=== PATIENT | female | born 1955 | race Caucasian/White ===

== ENCOUNTER 2017-11-18 10:19 | Observation (INO) | payer OTHER ==
[2017-11-18] MEDS ORDERED: ACETAMINOPHEN TAB 325 MG TAB PO PRN (13:07)
[2017-11-18] MEDS ORDERED: NALOXONE 0.4 MG/ML 1 ML VIAL IV PRN (13:07)
[2017-11-18] MEDS ORDERED: ONDANSETRON 4 MG/2 ML VIAL IVP PRN (13:07)
[2017-11-18 13:13] LABS: Basophils % (A) 1 %; Eosinophils # (A) 0.1 k/uL (0-0.7); Eosinophils % (A) 2 %; HCT 37.5 % (34.0-46.0); HGB 12.5 gm/dL (11.4-16.0); Lymphocytes # (A) 1.6 k/uL (1.0-4.8); Lymphocytes % (A) 25 %; MCH 27.2 pg (25.0-35.0); MCHC 33.3 g/dL (31.0-37.0); MCV 81.4 fL (80.0-100.0); Mean Platelet Volume 7.3; Monocytes # (A) 0.5 k/uL (0-1.0); Monocytes % (A) 7 %; Neutrophils # (A) 4.2 k/uL (1.3-7.7); Neutrophils % (A) 64 %; Platelet Count 369 k/uL (150-450); RBC 4.61 m/uL (3.80-5.40); RDW 14.5 % (11.5-15.5); WBC 6.6 k/uL (3.8-10.6)
[2017-11-18] MEDS ORDERED: SODIUM CHLORIDE 0.9% 1,000 ML IV SCH (13:15)
[2017-11-18 13:24] LABS: ALT 27 U/L (9-52); AST 23 U/L (14-36); Albumin 4.2 g/dL (3.5-5.0); Alkaline Phosphatase 108 U/L (38-126); Anion Gap 10 mmol/L; Blood Urea Nitrogen 13 mg/dL (7-17); Calcium 9.5 mg/dL (8.4-10.2); Carbon Dioxide 26 mmol/L (22-30); Chloride 105 mmol/L (98-107); Glucose 96 mg/dL (74-99); Potassium 3.7 mmol/L (3.5-5.1); Sodium 141 mmol/L (137-145); Total Bilirubin 0.5 mg/dL (0.2-1.3); Total Protein 8.3 g/dL (6.3-8.2)
--- NOTE | 2017-11-18 15:29 | P.HPIM ---
History of Present Illness Chief Complaint: Left breast swelling and pain This is a 62-year-old female without any significant past medical history and no regular medical follow-ups who presented to emergency department with complaint of left breast pain and swelling. Patient stated that swelling started about a month ago, with small indurated mass on the skin in the left lower quadrant and then the mass started increasing and the whole breast was increasing and becoming more swollen and red and tender and painful. Soon small fungating-like masses started popping out all over the breast skin and started ulcerating and draining serosanguineous fluid. She denies any purulence. Otherwise patient denied any malaise, fever, chills, loss of appetite or weight loss. Patient did not take any medications or did not go for any examinations for this as she does not have any insurance and no PCP. Her last mammogram was "long time ago", she thinks more than at least 5 years ago. Any years ago she was seeing a local breast surgeon and she stated that she has some cysts that were occasionally drain by the surgeon but she is not aware of any pathology results of this. She denies any family history of malignancy or breast cancer. Review of Systems Constitutional: Denies anorexia, Denies chills, Denies fatigue, Denies fever, Denies lethargy, Denies malaise, Denies night sweats, Denies poor appetite, Denies weight loss Breasts: left: as per HPI Cardiovascular: Denies chest pain, Denies claudication, Denies decreased exercise tolerance, Denies dyspnea on exertion Respiratory: Denies cough, Denies dyspnea, Denies hemoptysis, Denies wheezing Gastrointestinal: Denies abdominal pain, Denies change in bowel habits, Denies nausea Genitourinary: Denies abnormal vaginal bleeding Musculoskeletal: Denies arm numbness/tingling, Denies low back pain, Denies neck pain Integumentary: Denies pruritus, Denies rash, Denies sores Neurological: Denies balance difficulties, Denies double vision, Denies headaches Psychiatric: Denies anxiety, Denies depression Endocrine: Denies cold intolerance, Denies heat intolerance Past Medical History Additional Past Medical History / Comment(s): cysts within breast History of Any Multi-Drug Resistant Organisms: None Reported Past Surgical History: Orthopedic Surgery Additional Past Surgical History / Comment(s): biopsy on LT breast Past Psychological History: No Psychological Hx Reported Smoking Status: Current every day smoker Past Alcohol Use History: None Reported Past Drug Use History: None Reported Medications and Allergies Home Medications Medication Instructions Recorded Confirmed Type Ibuprofen [Motrin Ib] 400 mg PO Q6H PRN 11/18/17 11/18/17 History Omeprazole 20 mg PO DAILY 11/18/17 11/18/17 History Allergies Allergy/AdvReac Type Severity Reaction Status Date / Time aspirin Allergy Anaphylaxis Verified 11/18/17 15:07 Physical Exam Vitals: Vital Signs Temp Pulse Resp BP Pulse Ox 11/18/17 14:56 97.6 F 97 18 155/77 98 11/18/17 14:01 98 18 154/75 99 11/18/17 10:30 98.3 F 99 18 165/89 99 Intake and Output 11/18/17 11/18/17 11/18/17 06:59 14:59 22:59 Other: Weight 68.039 kg 67.132 kg Gen.: Patient is awake alert oriented 3 in any apparent distress Head and neck examination: Atraumatic normocephalic anicteric sclera no facial asymmetry oropharyngeal mucosa is moist without any lesions, neck is supple without any masses or lymphadenopathy, supraclavicular fossae are without any masses Respiratory: Clear to auscultation bilaterally without any wheezing or crackles Cardiovascular: Regular rhythm and rate S1-S2 no murmurs or gallops Abdomen: Soft nontender nondistended no organomegaly no flank tenderness bowel sounds are present Extremities: No peripheral edema Breast exam(this exam was performed with ED nurse Abi present in the room as a advertising material distributor): Left breast is enlarged swollen firm consistency without any discrete masses and periphery in the left upper and lower and the right lower quadrant skin is with multiple fungating masses size of about half to 1 cm in diameter some of them ulcerated with ulcers with clean base and without any oozing or drainage. Skin around this mass is appears erythematosus. No nipple discharge Lymphatics: No lymphadenopathy appreciated on the exam including axillas bilaterally Neurological: Cranial nerves II through XII are intact Results CBC & Chem 7: 11/18/17 12:50 11/18/17 12:50 Labs: Abnormal Lab Results - Last 24 Hours (Table) 11/18/17 Range/Units 12:50 Total Protein 8.3 H (6.3-8.2) g/dL Thrombosis Risk Factor Assmnt - DVT/VTE Prophylaxis DVT/VTE Prophylaxis: Low risk, early ambulation encouraged Assessment and Plan Plan: 1. Left breast swelling pain and multiple ulcerative masses Rule out malignancy Local wound care Gen. surgery consult Oncology consulted Possible secondary cellulitis due to local wounds versus inflammatory breast malignancy Patient is nontoxic-appearing and nonseptic Will give a trial of Keflex along with the local wound care 2. Smoking addiction We'll provide nicotine patch and advice to smoking avoidance 3. Patient is without insurance and regular follow-ups we will consult social work lecturer and case management to provide assistance with this Patient will be admitted under observation Expected length of stay 2 or less midnights Patient is a full code Her surrogate decision maker is her daughter who was present in the room during this interview and examination
--- NOTE | 2017-11-18 16:31 | ED ---
General Adult HPI - General Chief complaint: Skin/Abscess/Foreign Body Stated complaint: Lt breast has sores Time Seen by Provider: 11/18/17 10:50 Source: patient, family Mode of arrival: ambulatory Limitations: no limitations - History of Present Illness Initial comments: 60-year-old female who presents today for chief complaint of left breast swelling and pain 1 month. Patient states a month ago she noticed she lives in her left breast however she thought that these were due to markers that in her breasts for fibrocystic changes. Patient then started to notice over the course of the month fungating like masses developing from the nipple and outward. Patient admitted to the breasts painful to touch and feeling hardened which worsened as the month progressed, as well as discharge from the fungating lesions that she describes as clear not purulent. Patient denies any fever, chills, malaise, weight loss, back pain, or any other symptoms. Pt has not seen her primary care provider since 2013 when she no longer had insurance. Pt states her last mammogram was over 15 years ago. Pt denies personal or family history of breast cancer. Upon arrival vital signs stable. - Related Data Home Medications Medication Instructions Recorded Confirmed Ibuprofen [Motrin Ib] 400 mg PO Q6H PRN 11/18/17 11/18/17 Omeprazole 20 mg PO DAILY 11/18/17 11/18/17 Allergies Allergy/AdvReac Type Severity Reaction Status Date / Time aspirin Allergy Anaphylaxis Verified 11/18/17 15:07 Review of Systems ROS Statement: Those systems with pertinent positive or pertinent negative responses have been documented in the HPI. ROS Other: All systems not noted in ROS Statement are negative. Constitutional: Denies: fever, chills, weakness, weight change, night sweats Eyes: Denies: vision change ENT: Denies: throat pain Respiratory: Denies: cough, dyspnea, wheezes, hemoptysis, stridor Cardiovascular: Denies: chest pain, palpitations, dyspnea on exertion, edema Gastrointestinal: Denies: abdominal pain, nausea, vomiting, diarrhea, constipation, hematemesis, melena, hematochezia Genitourinary: Denies: urgency, dysuria, frequency, hematuria Musculoskeletal: Denies: back pain Skin: Denies: rash, lesions Neurological: Denies: headache, weakness, numbness, paresthesias, confusion, abnormal gait, vertigo Past Medical History Past Medical History: GERD/Reflux Additional Past Medical History / Comment(s): cysts within breast History of Any Multi-Drug Resistant Organisms: None Reported Past Surgical History: Orthopedic Surgery Additional Past Surgical History / Comment(s): biopsy on LT breast Past Anesthesia/Blood Transfusion Reactions: No Reported Reaction Past Psychological History: No Psychological Hx Reported Smoking Status: Current every day smoker Past Alcohol Use History: None Reported Past Drug Use History: None Reported General Exam - General Exam Comments Initial Comments: General: The patient is awake and alert, in no distress, and does not appear acutely ill. Eye: Pupils are equal, round and reactive to light, extra-ocular movements are intact. No nystagmus. There is normal conjunctiva bilaterally. No signs of icterus. Ears, nose, mouth and throat: There are moist mucous membranes and no oral lesions. Neck: The neck is supple, there is no tenderness or JVD. Cardiovascular: There is a regular rate and rhythm. No murmur, rub or gallop is appreciated. Respiratory: Lungs are clear to auscultation, respirations are non-labored, breath sounds are equal. No wheezes, stridor, rales, or rhonchi. Gastrointestinal: Soft, non-distended, non-tender abdomen without masses or organomegaly noted. There is no rebound or guarding present. No CVA tenderness. Bowel sounds are unremarkable. Musculoskeletal: Normal ROM, no tenderness. Strength 5/5. Sensation intact. Pulses equal bilaterally 2+. Neurological: A&O x 3. CN II-XII intact, There are no obvious motor or sensory deficits. Coordination appears grossly intact. Speech is normal. Skin: Skin is warm and dry. Left breast is diffusely indurated, warm to to touch and erythematous. There are fungating masses covering the nipple and anterior breast. Serosanginous crusting over the lesions. Psychiatric: Cooperative, appropriate mood & affect, normal judgment. Limitations: no limitations Course Vital Signs 11/18/17 11/18/17 11/18/17 10:30 14:01 14:56 Temperature 98.3 F 97.6 F Pulse Rate 99 98 97 Respiratory 18 18 18 Rate Blood Pressure 165/89 154/75 155/77 O2 Sat by Pulse 99 99 98 Oximetry Medical Decision Making - Medical Decision Making 62yo with CC of left breast pain and swelling. Given physical examination findings there is high suspicion for breast cancer. Case discussed in detail with Dr. Woodruff who evaluated the pt himself, agrees with impression. Due to extent of symptoms and patient having no insurance or primary provider we feel pt will benefit from admission and further evaluation including oncology consult. CBC, CMP returned WNL. VS stable. Due to pt having no PCP, [facility] was contacted for admission, Dr. Knox accepted the admission. Dr. Clark was consulted on the case. Pt admitted in stable condition. - Lab Data Result diagrams: 11/18/17 12:50 11/18/17 12:50 Lab Results 11/18/17 11/18/17 Range/Units 12:50 12:50 WBC 6.6 (3.8-10.6) k/uL RBC 4.61 (3.80-5.40) m/uL Hgb 12.5 (11.4-16.0) gm/dL Hct 37.5 (34.0-46.0) % MCV 81.4 (80.0-100.0) fL MCH 27.2 (25.0-35.0) pg MCHC 33.3 (31.0-37.0) g/dL RDW 14.5 (11.5-15.5) % Plt Count 369 (150-450) k/uL Neutrophils % 64 % Lymphocytes % 25 % Monocytes % 7 % Eosinophils % 2 % Basophils % 1 % Neutrophils # 4.2 (1.3-7.7) k/uL Lymphocytes # 1.6 (1.0-4.8) k/uL Monocytes # 0.5 (0-1.0) k/uL Eosinophils # 0.1 (0-0.7) k/uL Basophils # 0.0 (0-0.2) k/uL Sodium 141 (137-145) mmol/L Potassium 3.7 (3.5-5.1) mmol/L Chloride 105 (98-107) mmol/L Carbon Dioxide 26 (22-30) mmol/L Anion Gap 10 mmol/L BUN 13 (7-17) mg/dL Creatinine 0.60 (0.52-1.04) mg/dL Est GFR (CKD-EPI)AfAm >90 (>60 ml/min/1.73 sqM) Est GFR (CKD-EPI)NonAf >90 (>60 ml/min/1.73 sqM) Glucose 96 (74-99) mg/dL Calcium 9.5 (8.4-10.2) mg/dL Total Bilirubin 0.5 (0.2-1.3) mg/dL AST 23 (14-36) U/L ALT 27 (9-52) U/L Alkaline Phosphatase 108 (38-126) U/L Total Protein 8.3 H (6.3-8.2) g/dL Albumin 4.2 (3.5-5.0) g/dL Disposition Clinical Impression: Left breast mass Disposition: ADMITTED IP TO THIS HOSP Condition: Good Is patient prescribed a controlled substance at d/c from ED?: No Time of Disposition: 13:30
[2017-11-18] MEDS: NICOTINE 14MG/24HR PATCH TRANSDERM SCH (18:16)
[2017-11-18] MEDS ORDERED: traMADol 50 MG TAB PO STA (18:19)
[2017-11-18] MEDS: CEPHALEXIN 500 MG CAP PO SCH ×2 (18:22→21:38)
[2017-11-19] MEDS: traMADol 50 MG TAB PO PRN ×3 (00:36→13:54)
[2017-11-19 06:57] LABS: Basophils # (A) 0.1 k/uL (0-0.2); Basophils % (A) 1 %; Eosinophils # (A) 0.2 k/uL (0-0.7); Eosinophils % (A) 4 %; HGB 11.3 gm/dL (11.4-16.0); Lymphocytes # (A) 1.6 k/uL (1.0-4.8); Lymphocytes % (A) 27 %; MCH 27.1 pg (25.0-35.0); MCHC 33.4 g/dL (31.0-37.0); MCV 81.3 fL (80.0-100.0); Mean Platelet Volume 7.7; Monocytes # (A) 0.5 k/uL (0-1.0); Monocytes % (A) 8 %; Neutrophils # (A) 3.6 k/uL (1.3-7.7); Neutrophils % (A) 59 %; Platelet Count 354 k/uL (150-450); RBC 4.18 m/uL (3.80-5.40); RDW 14.5 % (11.5-15.5); WBC 6.2 k/uL (3.8-10.6)
[2017-11-19 07:17] LABS: ALT 23 U/L (9-52); AST 20 U/L (14-36); Albumin 3.5 g/dL (3.5-5.0); Alkaline Phosphatase 85 U/L (38-126); Anion Gap 7 mmol/L; Blood Urea Nitrogen 13 mg/dL (7-17); Calcium 8.7 mg/dL (8.4-10.2); Carbon Dioxide 29 mmol/L (22-30); Chloride 105 mmol/L (98-107); Glucose 98 mg/dL (74-99); Sodium 141 mmol/L (137-145); Total Bilirubin 0.5 mg/dL (0.2-1.3); Total Protein 6.9 g/dL (6.3-8.2)
--- NOTE | 2017-11-19 09:01 | P.GSHP ---
History of Present Illness H&P Date: 11/19/17 The patient is a 62-year-old white female who presented to the emergency department with complaint of left breast swelling and fullness. She states that she believes this has occurred within the last month. She does have pain in the breast and skin disruption with pustule-like formation. She is not able to identify the nipple on the left side the patient states that she has not had a mammogram or radiographic evaluation for over 10 years of the breasts. Past surgical history: 1. Breast biopsy 2. Surgery on her legs 3. Laparoscopic examination for adhesions Past medical history: Negative Medications: Omeprazole Hormonal history: Menarche daily: 13 Pregnancies 2, 2 children, did not breast-feed, first born at 18 Menopause: 45 control pills: 2 years Hormone use negative Social history: Smoking: Half a pack per day Alcohol: Negative Drugs: Negative Family history: Dad brain cancer Mother uterine cancer Review of systems: HEENT: Negative Lungs: Negative Heart: Negative GI: GERD : Negative Arthritis: Bilateral knee surgery ALLERGIES: Negative Skin: As above Neurologic evaluation: Negative - Constitutional Constitutional: Reports as per HPI - EENT Eyes: bilateral as per HPI - Breasts Breasts: bilateral: as per HPI - Cardiovascular Cardiovascular: Reports as per HPI - Respiratory Respiratory: Reports as per HPI - Gastrointestinal Comment: GERD - Genitourinary (Female) Genitourinary: Reports as per HPI - Musculoskeletal Musculoskeletal: Reports as per HPI - Integumentary Integumentary: Reports as per HPI - Neurological Neurological: Reports as per HPI - Hematologic/Lymphatic Hematologic/Lymphatic: Reports as per HPI - Allergic/Immunologic Allergic/Immunologic: Reports seasonal allergies Past Medical History Past Medical History: GERD/Reflux Additional Past Medical History / Comment(s): cysts within breast History of Any Multi-Drug Resistant Organisms: None Reported Past Surgical History: Orthopedic Surgery Additional Past Surgical History / Comment(s): biopsy on LT breast Past Anesthesia/Blood Transfusion Reactions: No Reported Reaction Past Psychological History: No Psychological Hx Reported Smoking Status: Current every day smoker Past Alcohol Use History: None Reported Past Drug Use History: None Reported - Past Family History Mother Family Medical History: Cancer Additional Family Medical History / Comment(s): unterine cancer, quad cabg Father Family Medical History: Cancer Additional Family Medical History / Comment(s): brain cancer with mets Medications and Allergies Home Medications Medication Instructions Recorded Confirmed Type Ibuprofen [Motrin Ib] 400 mg PO Q6H PRN 11/18/17 11/18/17 History Omeprazole 20 mg PO DAILY 11/18/17 11/18/17 History Allergies Allergy/AdvReac Type Severity Reaction Status Date / Time aspirin Allergy Anaphylaxis Verified 11/18/17 15:07 Surgical - Exam Vital Signs Temp Pulse Resp BP Pulse Ox 98.3 F 99 18 165/89 99 11/18/17 10:30 11/18/17 10:30 11/18/17 10:30 11/18/17 10:30 11/18/17 10:30 - General well developed, well nourished, moderate distress - Eyes PERRL - ENT no hearing loss, no congestion - Neck no masses, trachea midline - Respiratory normal respiratory effort, clear to auscultation - Cardiovascular Rhythm: regular Heart Sounds: normal: S1, S2 - Abdomen Abdomen: soft, non tender - Integumentary Breast examination: Right breast: Multiple positional exam dense fibrocystic tissue no discrete masses Right axilla: No adenopathy of concern Left breast: Very firm hard mass occupying the majority of the upper outer quadrant of the breast and extending beyond into the medial aspect of the breast as well as proximally 9 x 9 cm in size the area of the nipple has been eroded and there is a pustule formation on the anterior surface of the breast Left axilla: No specific adenopathy of concern - Neurologic normal coordination - Musculoskeletal normal posture - Psychiatric oriented to time, oriented to person, oriented to place, speech is normal, memory intact Results - Labs 11/19/17 06:31 11/19/17 06:31 Abnormal Lab Results - Last 24 Hours (Table) 11/18/17 11/19/17 Range/Units 12:50 06:31 Hgb 11.3 L (11.4-16.0) gm/dL Total Protein 8.3 H (6.3-8.2) g/dL Diabetes panel 11/18/17 11/19/17 Range/Units 12:50 06:31 Sodium 141 141 (137-145) mmol/L Potassium 3.7 4.0 (3.5-5.1) mmol/L Chloride 105 105 (98-107) mmol/L Carbon Dioxide 26 29 (22-30) mmol/L BUN 13 13 (7-17) mg/dL Creatinine 0.60 0.73 (0.52-1.04) mg/dL Glucose 96 98 (74-99) mg/dL Calcium 9.5 8.7 (8.4-10.2) mg/dL AST 23 20 (14-36) U/L ALT 27 23 (9-52) U/L Alkaline Phosphatase 108 85 (38-126) U/L Total Protein 8.3 H 6.9 (6.3-8.2) g/dL Albumin 4.2 3.5 (3.5-5.0) g/dL Calcium panel 11/18/17 11/19/17 Range/Units 12:50 06:31 Calcium 9.5 8.7 (8.4-10.2) mg/dL Albumin 4.2 3.5 (3.5-5.0) g/dL Pituitary panel 11/18/17 11/19/17 Range/Units 12:50 06:31 Sodium 141 141 (137-145) mmol/L Potassium 3.7 4.0 (3.5-5.1) mmol/L Chloride 105 105 (98-107) mmol/L Carbon Dioxide 26 29 (22-30) mmol/L BUN 13 13 (7-17) mg/dL Creatinine 0.60 0.73 (0.52-1.04) mg/dL Glucose 96 98 (74-99) mg/dL Calcium 9.5 8.7 (8.4-10.2) mg/dL Adrenal panel 18 11/19/17 Range/Units 12:50 06:31 Sodium 141 141 (137-145) mmol/L Potassium 3.7 4.0 (3.5-5.1) mmol/L Chloride 105 105 (98-107) mmol/L Carbon Dioxide 26 29 (22-30) mmol/L BUN 13 13 (7-17) mg/dL Creatinine 0.60 0.73 (0.52-1.04) mg/dL Glucose 96 98 (74-99) mg/dL Calcium 9.5 8.7 (8.4-10.2) mg/dL Total Bilirubin 0.5 0.5 (0.2-1.3) mg/dL AST 23 20 (14-36) U/L ALT 27 23 (9-52) U/L Alkaline Phosphatase 108 85 (38-126) U/L Total Protein 8.3 H 6.9 (6.3-8.2) g/dL Albumin 4.2 3.5 (3.5-5.0) g/dL Assessment and Plan Assessment: Impression 1. Large fungating mass left breast/highly suspicious for malignancy 2. Prior knee surgery 3. GERD Plan: 1. Consult interventional radiology for core biopsy left breast 2. Follow-up after results of core biopsy 3. Right breast mammogram 4. Patient may be discharged home after biopsy to have mammogram and follow-up with Dr. Parra in 1 week
[2017-11-19] MEDS: CEPHALEXIN 500 MG CAP PO SCH ×2 (09:27→13:54)
[2017-11-19] MEDS: NICOTINE 14MG/24HR PATCH TRANSDERM SCH (09:28)
--- NOTE | 2017-11-19 11:53 | P.PCN ---
Date of Procedure: 11/19/17 Preoperative Diagnosis: mass left breast Postoperative Diagnosis: same Procedure(s) Performed: core biopsy left breast Anesthesia: local Surgeon: Nancy Wynn Estimated Blood Loss (ml): 2 Pathology: other (breast tissue) Condition: stable Disposition: floor Indications for Procedure: large mass left breast suspicious for malignancy Operative Findings: large mass left breast suspicious for malignancy Description of Procedure: Fllowing informed consent it was determined that the patient would undergo a core biopsy of a palpable lesion in the left breast. risk and benefits of the procedure including bleeding infection or possible insufficient specimen to make a diagnosis were discussed with the patient and her . The patient' s ultrasound was reviewed with radiology and the large palpable abnormality corresponded with that which was seen on ultrasound. after discussion with radiology it was determined that it would be reasonable to do a core biopsy without ultrasound guidance. The area of the left breast was prepped using Betadine. A 18-gauge Bard core biopsy needle was utilized. Prior to this the skin was anesthetized using 1% lidocaine. Approximately 3mL of lidocaine were utilized. An 18-gauge Bard needle core biopsy needle was utilized to obtain 3 core biopsies. The tissue was placed in formalin. The specimen was sent to pathology. The patient tolerated the procedure in stable condition with no evidence of hematoma or immediate postoperative complications. A sterile dressing was applied.
[2017-11-19] MEDS: IOPAMIDOL-300 CONTRAST 30 ML VIAL (ORAL USE) PO PRN ×2 (13:04→13:54)
--- NOTE | 2017-11-19 15:40 | CT ---
EXAMINATION TYPE: CT ChestAbdPelvis w con DATE OF EXAM: 11/19/2017 COMPARISON: Limited left breast ultrasound earlier today. HISTORY: Left breast mass. CT DLP: 1388 mGycm. Automated Exposure Control for Dose Reduction was Utilized. CONTRAST: CT scan of the thorax, abdomen and pelvis is performed with IV Contrast, patient injected with 100 mL of Isovue M300. FINDINGS: LUNGS: Moderate underlying emphysematous change is present. There are suspicious nodules present bila terally there is lateral 8 x 7 mm nodule right upper lobe axial image 17. There is posterior 1.8 x 1. 5 cm nodule right lower lobe midlung axial image 34. There is posterior 7 mm left lower lobe nodule a xial image 37. There is 8mm lateral nodule superior left lower lobe axial image 31. No pleural effusi on or pneumothorax is seen bilaterally tracheobronchial tree is patent. MEDIASTINUM: There are no greater than 1 cm hilar or mediastinal lymph nodes. No cardiomegaly or pe ricardial effusion is seen. OTHER: There is large heterogeneous lobulated left breast mass measuring roughly 12.5 x 5.4 cm axial image 25 by overlying centimeters craniocaudal length coronal image 29. Foci of air are consistent wi th recent percutaneous biopsy or sampling. There is additional medial lobulation or mass with extensi on or tumor involvement to the skin surface as there is lobulated thickened neoplastic tissue identif ied. There is asymmetric enlargement of left breast with moderate ill-defined fluid and edema and lik jesus small satellite nodules for reference axial image 29. There are multiple abnormal left axillary l ymph nodes. For reference there is 2.6 x 2.3 cm lymph node axial image 19 noted. LIVER/GB: No significant abnormality is appreciated. PANCREAS: No significant abnormality is seen. SPLEEN: No significant abnormality is seen. ADRENALS: No significant abnormality is seen. KIDNEYS: No significant abnormality is seen. BOWEL: Nonabsorbed oval hyperdense pill in the distal sigmoid colon is noted axial image 103. Second pill noted proximal sigmoid colon axial image 92. Oral contrast reaches level of the hepatic flexure . There is no suspicious small or large bowel dilatation GENITAL ORGANS: Both ovaries are slightly prominent in the adnexa for postmenopausal female axial joie ge 103, this could be further investigated with pelvic ultrasound if desired. LYMPH NODES: No greater than 1cm abdominal or pelvic lymph nodes are appreciated. OSSEOUS STRUCTURES: No significant abnormality is seen. OTHER: No significant additional abnormality is seen. IMPRESSION: Large left breast mass or neoplasm with dermal involvement and left axillary adenopathy a s well as pulmonary metastatic disease.
--- NOTE | 2017-11-19 15:45 | NM ---
EXAMINATION TYPE: NM bone scan whole body DATE OF EXAM: 11/19/2017 COMPARISON: CT chest abdomen pelvis same date HISTORY: Breast mass Delayed whole-body scanning was performed following the injection of 24.5 mCi Tc 99m MDP. Images acq uired 2.5 hours post injection. FINDINGS: Increased soft tissue uptake in the left breast compatible with patient's breast mass. Uptake within the feet, knees, wrists, hands, shoulders, sternoclavicular joints, lumbar spine is likely degenerati ve. There is some ill-defined mid diaphyseal left femoral uptake present. IMPRESSION: Indeterminate mild uptake along the mid diaphyseal left femur is indeterminate, recommend plain film correlation, MRI as indicated.
[2017-11-19 16:29] VITALS: BP 133/74; PULSE 81; RESP 12; TEMP 98.1
--- NOTE | 2017-11-19 16:30 | P.DS ---
Providers Date of admission: 11/18/17 14:41 Attending physician: Kiarra Cardozo DO Consults: 11/18/17 13:07 Consult Physician Stat Consulting Provider: Yasmeen Clark Consult Reason/Comments: breast mass concerning for breat cancer Do you want consulting provider notified?: Yes 11/18/17 13:54 Consult Physician Routine Consulting Provider: Nancy Wynn Consult Reason/Comments: Breast mass Do you want consulting provider notified?: Yes Primary care physician: Stated None - Discharge Diagnosis(es) (1) Left breast mass With enlarging fungating left breast mass, breast enlargement and pain, ulceration of the mass at some serosanguineous discharge. Patient stated this been going on for one month. Patient was evaluated by general surgery and oncology. She underwent a needle core biopsy with . Oncology service evaluated the patient CT of the chest abdomen and pelvis was obtained as a part of the workup. Patient tolerated all of this. Procedures and testing well and she was deemed for discharge by both services. She does have a lack of insurance but case management was able to arrange for her follow-up in Dr. Seymour Parra's office next week and oncology services well. Current Visit: Yes Status: Acute Priority: High (2) Smoking Smoking cessation and support was offered to improve provided Current Visit: Yes Status: Chronic Priority: Medium Pertinent Studies: CT chest abdomen and pelvis Procedures: Needle core biopsy of the left breast mass Patient Condition at Discharge: Good Plan - Discharge Summary Discharge Rx Participant: No New Discharge Prescriptions: New Acetaminophen Tab [Tylenol] 650 mg PO Q6HR PRN #30 tab PRN Reason: Mild Pain Or Fever > 100.5 Cephalexin [Keflex] 500 mg PO QID 3 Days #12 cap traMADol HCl [Ultram] 50 mg PO TID PRN #10 tab PRN Reason: Severe Pain Continue Ibuprofen [Motrin Ib] 400 mg PO Q6H PRN #10 tablet PRN Reason: Moderate Pain Discontinued Omeprazole 20 mg PO DAILY Discharge Medication List Acetaminophen Tab [Tylenol] 650 mg PO Q6HR PRN #30 tab 11/19/17 [Rx] Cephalexin [Keflex] 500 mg PO QID 3 Days #12 cap 11/19/17 [Rx] Ibuprofen [Motrin Ib] 400 mg PO Q6H PRN #10 tablet 11/19/17 [Rx] traMADol HCl [Ultram] 50 mg PO TID PRN #10 tab 11/19/17 [Rx] Patient Instructions/Handouts: Cephalexin (By mouth), Tramadol (By mouth), Fine Needle Breast Biopsy (GEN) Activity/Diet/Wound Care/Special Instructions: Resume preadmission activity Regular diet Discharge Disposition: HOME SELF-CARE
--- NOTE | 2017-11-19 16:32 | P.PN ---
Subjective Progress Note Date: 11/19/17 Patient underwent today according nasal biopsy left breast mass underwent CT of the abdomen chest and pelvis. Tolerated well pain well controlled with combination of Tylenol and Ultram Objective - Vital Signs Vital signs: Vital Signs Temp 98.1 F 11/19/17 16:27 Pulse 81 11/19/17 16:27 Resp 12 11/19/17 16:27 BP 133/74 11/19/17 16:27 Pulse Ox 95 11/19/17 16:27 Intake & Output 11/18/17 11/19/17 11/19/17 18:59 06:59 18:59 Weight 67.1 kg Other: # Voids 2 - Constitutional General appearance: Present: no acute distress - EENT Eyes: Present: anicteric sclerae - Neck Neck: Absent: lymphadenopathy - Respiratory Respiratory: bilateral: diminished - Cardiovascular Rhythm: regular Heart sounds: normal: S1, S2 - Gastrointestinal General gastrointestinal: Present: soft. Absent: organomegaly, tenderness - Labs CBC & Chem 7: 11/19/17 06:31 11/19/17 06:31 Labs: Abnormal Lab Results - Last 24 Hours (Table) 11/19/17 Range/Units 06:31 Hgb 11.3 L (11.4-16.0) gm/dL Microbiology - Last 24 Hours (Table) 11/18/17 12:50 Blood Culture - Preliminary Blood No Growth after 24 hours Assessment and Plan (1) Left breast mass Narrative/Plan: Status post biopsy. Pain control He discussed with the colchicine service regarding the plan of care which will include CT chest abdomen and pelvis after which they found patient stable to be discharged to follow-up in their PLAN of care and plan for follow-up was discussed with patient and patient family in the room. Regarding pain control Tylenol Motrin that time 10 tabs of Ultram provided and we discussed all the pertinent characteristics and effects of culture Current Visit: Yes Status: Acute Priority: High Code(s): N63.20 - UNSPECIFIED LUMP IN THE LEFT BREAST, UNSPECIFIED QUADRANT SNOMED Code(s): 37862694 (2) Smoking Narrative/Plan: Smoking cessation was encouraged and support Current Visit: Yes Status: Chronic Priority: Medium Code(s): F17.200 - NICOTINE DEPENDENCE, UNSPECIFIED, UNCOMPLICATED SNOMED Code(s): 31476180
--- NOTE | 2017-11-19 17:48 | P.CONS ---
History of Present Illness - Reason for Consult Consult date: 11/19/17 Breast Mass Requesting physician: Janett Stone - Chief Complaint Breast mass - History of Present Illness This is a 62-year-old female without any significant past medical history. Although she has not seeked medical care in quit sometime. She presented to emergency department with complaint of left breast pain and swelling. She states the swelling started about a month ago, with small mass on the skin in the left lower part of breast and started increasing in size, the pain increased as well. Currently the entire breast is affected, edematous and tender. Numerous other lesions presented and drainage of purulent fluid accompanied. She states she has not had insurance and therefore why she has not seen a doctor. Her last mammogram was approximately 15 years ago. At the time of her last mammogram she states she was diagnosed with cysts in breast. Her familky is at bedside today. Because of the very suspicious appearance of a fungating breast cancer medical oncology has been consulted. She denies any recent weight loss, skeletal pain, changes in bowels or bladder. Review of Systems A 14 point review of systems assessed and completed and all negative except HPI Past Medical History Past Medical History: GERD/Reflux Additional Past Medical History / Comment(s): cysts within breast History of Any Multi-Drug Resistant Organisms: None Reported Past Surgical History: Orthopedic Surgery Additional Past Surgical History / Comment(s): biopsy on LT breast Past Anesthesia/Blood Transfusion Reactions: No Reported Reaction Past Psychological History: No Psychological Hx Reported Smoking Status: Current every day smoker Past Alcohol Use History: None Reported Past Drug Use History: None Reported - Past Family History Mother Family Medical History: Cancer Additional Family Medical History / Comment(s): unterine cancer, quad cabg Father Family Medical History: Cancer Additional Family Medical History / Comment(s): brain cancer with mets Medications and Allergies Home Medications Medication Instructions Recorded Confirmed Type Acetaminophen Tab [Tylenol] 650 mg PO Q6HR PRN #30 tab 11/19/17 Rx Cephalexin [Keflex] 500 mg PO QID 3 Days #12 cap 11/19/17 Rx Ibuprofen [Motrin Ib] 400 mg PO Q6H PRN #10 tablet 11/19/17 Rx traMADol HCl [Ultram] 50 mg PO TID PRN #10 tab 11/19/17 Rx Allergies Allergy/AdvReac Type Severity Reaction Status Date / Time aspirin Allergy Anaphylaxis Verified 11/18/17 15:07 Physical Exam Vitals: Vital Signs Temp Pulse Pulse Resp BP BP Pulse Ox 11/19/17 07:34 98.2 F 77 16 114/69 95 11/19/17 00:35 98.7 F 86 18 148/77 93 L 11/18/17 21:07 98.2 F 86 20 128/68 96 11/18/17 15:15 98.0 F 88 16 150/83 95 11/18/17 14:56 97.6 F 97 18 155/77 98 11/18/17 14:01 98 18 154/75 99 Intake and Output 11/18/17 11/19/17 11/19/17 22:59 06:59 14:59 Other: Weight 67.1 kg - Constitutional General appearance: cooperative, no acute distress - EENT Eyes: EOMI, PERRLA, dentition normal ENT: NA/AT, normal oropharynx - Neck supple, trachea midline Neck: normal ROM - Respiratory Respiratory: bilateral: CTA (No increased respiratory effort) - Cardiovascular Rhythm: regular Heart sounds: normal: S1, S2 - Gastrointestinal General gastrointestinal: normal bowel sounds, soft - Integumentary Fungating mass on breast left with multiple satellite lesions surrounding open and drainaging Integumentary: pale - Neurologic No focal defects - Musculoskeletal Musculoskeletal: generalized weakness, strength equal bilaterally - Psychiatric Psychiatric: A&O x's 3, appropriate affect, intact judgment & insight Results CBC & Chem 7: 11/19/17 06:31 11/19/17 06:31 Labs: Abnormal Lab Results - Last 24 Hours (Table) 11/18/17 11/19/17 Range/Units 12:50 06:31 Hgb 11.3 L (11.4-16.0) gm/dL Total Protein 8.3 H (6.3-8.2) g/dL Assessment and Plan Plan: 1. Fungating breast lesions to left breast: - Status POst Biopsy of lesions - CT Chest abdomen and pelvis along with bone scan has been ordered for initial staging - Will obtain baseline tumor markers. - Will await pathology and intial staging. She denies any neurological symptoms but lee ann resonable to assess imaging of brain depending on results of biopsy and staging CTs - This case has also been discussed with Dr. Parra breast surgeon - Patient and family questions have been answered in detail, they are agreeable and understand the plan for diagnostic work-up that has been initiated and is in place. THank you for allowing us to participate in the care of your patient we will follow along with you. Physician Attestation: I have completed the full history and physical of this patient and agree with above dictation in which I discussed with Nona Clayton NP. Dictated as a scribe
[2017-11-19 18:33] LABS: CA27.29 Breast Ca Marker 84.6 U/mL (0.0-38.5)
--- NOTE | 2017-11-20 09:28 | USB ---
Reason for exam: clinical finding. History: Family history of premenopausal breast cancer in sister at age 23. Benign right US cyst aspiration ea add of the right breast, December 28, 2007. Benign left US cyst aspiration of the left breast, December 28, 2007. Benign right US cyst aspiration of the right breast, December 28, 2007. Benign US left guided mammotome of the left breast, December 28, 2007. Benign excisional biopsy of the left breast, 2003. 3 cyst aspirations of the left breast. US Breast Limited LT Left limited breast ultrasound including focal area of concern, retroareolar and axilla demonstrates extensive mass seen throughout upper and lateral portion of breast- irregular solid, vascular and a 4.8cm solid, hyperechoic, vascular lesion at the axilla. ASSESSMENT: Highly suggestive of malignancy, BI-RAD 5 RECOMMENDATION: Ultrasound core biopsy of the left breast.
== END 2017-11-19 17:46 | disposition home or self-care (01) ==
LOC: EC 10:19 → 6PED 14:41 → INTOOBSV 14:41 → 6PED 14:49
PROVIDERS: ADMIT Internal Medicine; ATTEND Internal Medicine
DX: N63.21 Unspecified lump in the left breast, upper outer quadrant (principal); N61.1 Abscess of the breast and nipple; L08.9 Local infection of the skin and subcutaneous tissue, unspecified; R59.9 Enlarged lymph nodes, unspecified; M19.90 Unspecified osteoarthritis, unspecified site; F17.210 Nicotine dependence, cigarettes, uncomplicated; Z80.49 Family history of malignant neoplasm of other genital organs; K21.9 Gastro-esophageal reflux disease without esophagitis; Z79.899 Other long term (current) drug therapy; Z88.6 Allergy status to analgesic agent; Z80.8 Family history of malignant neoplasm of other organs or systems; Z82.49 Family history of ischemic heart disease and other diseases of the circulatory system
CPT/HCPCS: 19100; 99284 ×2; 36415; 88305; 80053 ×2; 86300 ×2; 85025 ×2; 87040; 87070; 87205; 87077; 87186; 76642; 71260; 74177; 78306; G0378 ×2; A9503; Q9967

== ENCOUNTER → 2017-12-04 | Outpatient (CLI) | payer SELFPAY ==
--- NOTE | 2017-12-04 22:16 | MR ---
EXAMINATION TYPE: MR brain wo/w con DATE OF EXAM: 12/04/2017 COMPARISON: None HISTORY: Breast ca diagnosed Nov 2017, headaches TECHNIQUE: Multiplanar, multisequence images of the brain and brainstem is performed without and with IV contrast, utilizing 7 mL intravenous Gadavist . FINDINGS: Diffusion weighted images demonstrate no evidence of a recent infarct or other diffusion ab normality. There is no mass or mass effect. The brain volume is age appropriate. There is no extra-ax ial fluid collection or significant white matter signal abnormality. The ventricular system and cist ernal spaces are normal in size and appearance. Midline structures demonstrate normal morphology. Th e craniocervical junction appears within normal limits. Post contrast images demonstrate no abnormal enhancement. The arterial vascular flow voids are unrema rkable. The dural venous sinuses appear patent. The paranasal sinuses are significant for no tobacco mild T2 hyperintensity within the left frontal a nd anterior/middle left ethmoid sinuses, which can correlate with clinical diagnosis of sinusitis. Re mainder the visualized paranasal sinuses, mastoid sinus air cells, and middle ear cavities are clear. Orbits are unremarkable. IMPRESSION: 1. No acute cranial/intracranial process. Specifically, negative for neoplasm. 2. Mild left frontal/ethmoid sinus findings.
== END | disposition home or self-care (01) ==
LOC: RADMRIMAIN 19:35
PROVIDERS: ATTEND Internal Medicine Hematology & Oncology
DX: C50.919 Malignant neoplasm of unspecified site of unspecified female breast (principal); R51 Headache
CPT/HCPCS: 70553

== ENCOUNTER → 2017-12-05 | Outpatient (CLI) | payer SELFPAY ==
--- NOTE | 2017-12-05 12:51 | ECHOF ---
Referral Reason:C50.919 Malignant neoplasm of unspecified site MEASUREMENTS -------- HEIGHT: 162.6 cm WEIGHT: 66.7 kg BP: RVIDd: 2.5 cm (< 3.3) IVSd: 1.0 cm (0.6 - 1.1) LVIDd: 4.6 cm (3.9 - 5.3) LVPWd: 0.9 cm (0.6 - 1.1) IVSs: 1.5 cm LVIDs: 3.3 cm LVPWs: 1.1 cm LA Diam: 2.8 cm (2.7 - 3.8) LAESV Index (A-L): 19.46 ml/m Ao Diam: 3.7 cm (2.0 - 3.7) AV Cusp: 1.9 cm (1.5 - 2.6) LA Diam: 2.9 cm (2.7 - 3.8) MV EXCURSION: 16.594 mm (> 18.000) MV EF SLOPE: 123 mm/s (70 - 150) EPSS: 0.8 cm MV E Bertrand: 0.55 m/s MV DecT: 250 ms MV A Bertrand: 0.56 m/s MV E/A Ratio: 0.98 RAP: 5.00 mmHg RVSP: 19.26 mmHg FINDINGS -------- Sinus rhythm. This was a technically adequate study. The left ventricular size is normal. Left ventricular wall thickness is normal. Overall left vent ricular systolic function is normal with, an EF between 55 - 60 %. The right ventricle is normal in size. The left atrial size is normal. The right atrial size is normal. The aortic valve is trileaflet and appears structurally normal. The mitral valve leaflets are mildly thickened. Mild mitral regurgitation is present. Mild tricuspid regurgitation present. There is no evidence of pulmonary hypertension. The right v entricular systolic pressure, as measured by Doppler, is 19.26mmHg. There is no pulmonic regurgitation present. The aortic root size is normal. There is no pericardial effusion. CONCLUSIONS -------- 1. Sinus rhythm. 2. The left ventricular size is normal. 3. Left ventricular wall thickness is normal. 4. Overall left ventricular systolic function is normal with, an EF between 55 - 60 %. 5. The left atrial size is normal. 6. The aortic valve is trileaflet and appears structurally normal. 7. Mild mitral regurgitation is present. 8. Mild tricuspid regurgitation present. 9. There is no evidence of pulmonary hypertension. 10. There is no pulmonic regurgitation present. 11. The aortic root size is normal. 12. There is no pericardial effusion. UPHOLSTERY PARTS SORTER: Juany Flores RDCS
== END | disposition home or self-care (01) ==
LOC: RADECHMAIN 07:15
PROVIDERS: ATTEND Internal Medicine Hematology & Oncology
DX: Z01.818 Encounter for other preprocedural examination (principal); C50.919 Malignant neoplasm of unspecified site of unspecified female breast; I08.1 Rheumatic disorders of both mitral and tricuspid valves
CPT/HCPCS: 93306

== ENCOUNTER → 2017-12-06 | Outpatient (CLI) | payer SELFPAY ==
--- NOTE | 2017-12-10 11:20 | PE ---
Nuclear medicine PET/CT HISTORY: Breast carcinoma, initial Patient received 12.9 mCi F-18 FDG intravenously in delayed scanning performed from the skull base to the mid thighs. Correlation to prior CT chest abdomen pelvis dated 11/19/2017 Neck and chest: There is a large mass in the chest is associated skin thickening, lobular contour, as sociated hypermetabolic uptake with extension to the nipple, SUV 10.9. Left axillary adenopathy is pr esent, SUV 8.9. Multiple pulmonary nodules are present, the right upper lobe lesion seen on CT shows SUV 5.6. Right lower lobe nodule shows SUV 8.9. 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 The medial aspect of the right breast there is some mild hypermetabolic uptake, SUV 2.9. The anterior mediastinum shows adenopathy, SUV 4.1-4.4. Internal mammary node on the left shows SUV of 3. Abdomen pelvis: No evident mass or hypermetabolic uptake. No evident mass. Left ovarian cystic lesion suspected. Osseous structures within normal limits. IMPRESSION: Metastatic disease. Additional findings above.
== END | disposition home or self-care (01) ==
LOC: RADPETMAIN 13:30
PROVIDERS: ATTEND Internal Medicine Hematology & Oncology
DX: C50.812 Malignant neoplasm of overlapping sites of left female breast (principal); C79.9 Secondary malignant neoplasm of unspecified site
CPT/HCPCS: 78815; A9552

== ENCOUNTER 2017-12-08 12:22 | Day surgery (SDC) | payer SELFPAY ==
[2017-12-04 12:40] VITALS: BMI 25.2
--- NOTE | 2017-12-07 16:28 | P.GSHP ---
History of Present Illness H&P Date: 12/08/17 CHIEF COMPLAINT: Left breast cancer HISTORY OF PRESENT ILLNESS: The patient is a 62-year-old female diagnosed with left breast cancer. She needs a Mediport placement for chemotherapy. PAST MEDICAL HISTORY: See list PAST SURGICAL HISTORY: See list CURRENT MEDICATIONS: See list. ALLERGIES: See list. SOCIAL HISTORY: No active tobacco or alcohol use. FAMILY HISTORY: Noncontributory. REVIEW OF ORGAN SYSTEMS: CONSTITUTIONAL: Has weight loss. PHYSICAL EXAMINATION: Vital signs: Stable GENERAL: Well developed and in no acute distress. Pleasant. HEENT: No sclera icterus. Extraocular movements grossly intact. Moist buccal mucosa. Head is atraumatic, normocephalic. Hears conversational speech. No nasal drainage. NECK: Supple without lymphadenopathy. No JV distention. CHEST: Non-labored respirations and equal bilateral excursions. Has left breast cancer CARDIOVASCULAR: Regular rate and rhythm. Palpable 2+ radial pulses. ABDOMEN: Nontender. MUSCULOSKELETAL: No clubbing, cyanosis or edema. NEUROLOGIC: No focal or lateralizing signs. PSYCH: Appropriate affect. Alert and oriented to person, place and time. ASSESSMENT: 1. Left breast cancer 2. Need for chemotherapeutic access. PLAN: 1. Agree with Port-A-Cath placement. Past Medical History Past Medical History: Cancer, GERD/Reflux Additional Past Medical History / Comment(s): cysts within breast, breast cancer lt breast History of Any Multi-Drug Resistant Organisms: None Reported Past Surgical History: Orthopedic Surgery Additional Past Surgical History / Comment(s): biopsy on LT breast Past Anesthesia/Blood Transfusion Reactions: No Reported Reaction Smoking Status: Current every day smoker - Past Family History Mother Family Medical History: Cancer Additional Family Medical History / Comment(s): uterine cancer, quad cabg Father Family Medical History: Cancer Additional Family Medical History / Comment(s): brain cancer with mets Brother(s) Family Medical History: Deep Vein Thrombosis (DVT) Medications and Allergies Home Medications Medication Instructions Recorded Confirmed Type Omeprazole [PriLOSEC] 20 mg PO AC-BRKFST 12/04/17 12/04/17 History Allergies Allergy/AdvReac Type Severity Reaction Status Date / Time aspirin Allergy Anaphylaxis Verified 12/04/17 12:32
[~2017-12-08 12:22] MED LIST: DEXAMETHASONE SOD PHOSPHATE 10 MG/ML 1 ML VIAL IV ONE; LACTATED RINGERS 1,000 ML IV SCH; MIDAZOLAM 2 MG/2 ML VIAL IV PRN; ONDANSETRON 4 MG/2 ML VIAL IVP ONE; Pre Op ABX Message 1 EACH MISC MISCELLANE ONE; ceFAZolin IN SWFI 2 GM/20 ML SYRINGE IVP ONE; fentaNYL (PF) 50 MCG/ML 2 ML AMP IV PRN
[2017-12-08] MEDS ORDERED: LIDOCAINE 1% 20 ML VIAL (10MG/ML) FOR IV START INTRADERMA ONE (12:45)
[2017-12-08 12:51] VITALS: TEMP 97
[2017-12-08] MEDS ORDERED: LIDOCAINE 1% INJ 10MG/ML (20 ML MDV) ONE (13:25)
[2017-12-08] MEDS ORDERED: KETAMINE 10 MG/ML 20 ML VIAL ONE (13:25)
[2017-12-08] MEDS ORDERED: PROPOFOL 10 MG/ML 20 ML VIAL IV ONE (13:25)
[2017-12-08] MEDS ORDERED: MIDAZOLAM 2 MG/2 ML VIAL ONE (13:25)
[2017-12-08] MEDS ORDERED: fentaNYL (PF) 50 MCG/ML 2 ML AMP ONE (13:25)
[2017-12-08] MEDS ORDERED: PHENYLEPHRINE-0.9% NACL SYG 1 MG/10 ML SYRINGE ONE (13:25)
[2017-12-08] MEDS ORDERED: HEPARIN SODIUM,PORCINE 100 UNIT/ML 5 ML VIAL IV ONE ×2 (13:43→14:08)
[2017-12-08] MEDS ORDERED: HEPARIN SODIUM,PORCINE 10,000 UNIT/ML 1 ML VIAL IV ONE ×2 (13:43→14:08)
[2017-12-08] MEDS ORDERED: BUPIVACAIN-EPI 0.25%-1:200,000 30 ML VIAL SQ ONE ×2 (13:43→14:08)
--- NOTE | 2017-12-08 14:34 | P.PCN ---
Date of Procedure: 12/08/17 Description of Procedure: SURGEON: YESENIA REESE MD WAFER MACHINE OPERATOR: None. PREOPERATIVE DIAGNOSES: 1. Left breast cancer 2. Need for chemotherapeutic access. POSTOPERATIVE DIAGNOSES: 1. Left breast cancer 2. Need for chemotherapeutic access. PROCEDURES PERFORMED: 1. Ultrasound guided central venous access of the right internal jugular venous vein. 2. Fluoroscopic guidance for central venous access right internal jugular vein 2 seconds. 3. Placement of right internal jugular power port 6 Liberian by [employer], Xcela Plus Port ANESTHESIA: IV sedation with local anesthetic ESTIMATED BLOOD LOSS: 5 mL. SPECIMENS REMOVED: None. COMPLICATIONS: None. INDICATIONS: The patient is a 62-year-old female recently diagnosed with breast cancer. She now presents for chemotherapeutic access. Benefits and risks of surgical intervention were described including bleeding, infection, mechanical problems with her port. Informed consent was obtained. DESCRIPTION OR PROCEDURE: The patient was brought into the operating room, laid in supine position. After adequate IV sedation, the chest and right neck were prepped and draped in a standard sterile fashion including the shoulder with ChloraPrep. Timeout protocol was confirmed with the surgical team regarding the patient's name, procedure to be performed including preoperative medications for which she received Ancef 2 g IV piggyback. Bilateral SCDs were placed. An ultrasound was used to capture views of the right internal jugular vein including right carotid artery, which was patent and without thrombus along its course. The right IJ was then localized using anesthetic for the skin. A 16 Liberian needle was used to access the IJ. The needle was advanced into the IJ with successful dark nonpulsatile venous blood. A J-wire was placed under fluoroscopic guidance. The skin was generally localized using anesthetic along the proposed port site as well as subcutaneous tract. Two fingerbreadths distal to the clavicle, on the lateral third, a transverse 2-cm incision was deepened into the skin after localizing the skin. A pocket was created for the port. The port on the back table was flushed with heparinized saline and then attached to the catheter tubing. An adapter was fastened to the actual port site over the tubing. The port easily had fit snug into the pocket. A subcutaneous tunneler was placed along the open end of the tubing and brought out through the separate stab incision. Fluoroscopic guidance confirmed no kinking along the tubing and the port site. Next, the J-wire was exchanged for a catheter sheath for which the tubing was cut to 20 cm and then advanced through the catheter sheath. The Peel-away sheath was then removed and the tubing was secured at the junction of the superior vena cava as well as the right atrium. Easy pullback of the syringe with return and aspiration was obtained of the port. The skin incision was closed using layers using 3-0 Vicryl for the subcu followed by 4-0 Monocryl in a running subcuticular fashion. At the stick site this was also reapproximated using 4-0 Monocryl. The skin was cleansed and Dermabond was applied. The incisions were covered with gauze and Tegaderm. A total of 20 mL of local anesthetic was placed. At the end of the procedure, needle, sponge, and instrument count was verified correct by surgical supervisor. Heparin lock of 5 mL was placed. The patient was awoken and pain free and taken to the second stage postanesthesia care unit. The patient tolerated the procedure well. FINDINGS: 1. No thrombus encountered along the right carotid artery or right internal jugular vein. 2. Access of the right internal jugular vein under ultrasound guidance. 3. Fluoroscopy of 2 seconds. 4. Final fluoroscopic image confirmed no mechanical kink of the port site or at the junction at the skin puncture site. Plan - Discharge Summary New Discharge Prescriptions: No Action Omeprazole [PriLOSEC] [facility] Discharge Medication List Omeprazole [PriLOSEC] [facility] 12/04/17 [History]
[2017-12-08 14:40] VITALS: RESP 18
[2017-12-08 14:53] VITALS: BP 106/68; PULSE 77
--- NOTE | 2017-12-08 15:01 | XR ---
EXAMINATION TYPE: XR chest 1V confirm line [facility] DATE OF EXAM: 12/08/2017 COMPARISON: NONE HISTORY: Status post Port-A-Cath placement TECHNIQUE: Single frontal view of the chest is obtained. FINDINGS: Single frontal view of the chest. Right-sided Port-A-Cath is present via jugular approach, distal tip is overlying superior vena cava. No evident pneumothorax or pleural effusion. Old left-si ded rib fracture present the fourth rib posterior laterally. Bilateral lung nodules noted. IMPRESSION: No evident complication status post Port-A-Cath placement.
--- NOTE | 2017-12-08 17:01 | FL ---
Fluoroscopy HISTORY: Port-A-Cath insertion 2 seconds fluoroscopy time supplied to the referring clinician. 1 intraoperative C-arm images docume nt the procedure. See dictated report from general surgery.
== END 2017-12-08 15:28 | disposition home or self-care (01) ==
LOC: OR 12:22
PROVIDERS: ATTEND Surgery Plastic and Reconstructive Surgery
DX: C50.912 Malignant neoplasm of unspecified site of left female breast (principal); K21.9 Gastro-esophageal reflux disease without esophagitis; F17.210 Nicotine dependence, cigarettes, uncomplicated; Z79.899 Other long term (current) drug therapy; Z88.6 Allergy status to analgesic agent
CPT/HCPCS: 77001; 36561; 76937; C1788; J2250; J1644; J1642; J1100; J2405; J2001; J3010; J2370; J2704

== ENCOUNTER 2017-12-18 16:12 | Inpatient (IN) | payer OTHER ==
[2017-12-18] MEDS ORDERED: SODIUM CHLORIDE 0.9% 1,000 ML IV STA (17:59)
[2017-12-18] MEDS ORDERED: ACETAMINOPHEN TAB 500 MG TAB PO STA (17:59)
[2017-12-18] MEDS ORDERED: VANCOMYCIN 1,250 MG in SODIUM CHLORIDE 0.9% 250 ML IVPB STA (18:00)
[2017-12-18] MEDS ORDERED: CEFEPIME 2 GM in SODIUM CHLORIDE 0.9% 50 ML IVPB STA (18:00)
--- NOTE | 2017-12-18 18:03 | ED ---
General Adult HPI - General Chief complaint: Fever Stated complaint: infection in cath port Source: patient Mode of arrival: wheelchair Limitations: no limitations - History of Present Illness Initial comments: Dictation was produced using [employer] dictation software. please excuse any grammatical, word or spelling errors. Chief Complaint: 62-year-old female past medical history of breast cancer presents with Mediport site pain and erythema. History of Present Illness: He 2-year-old female past medical history of breast cancer presents with Mediport site pain and erythema. Patient received her first dose of chemotherapy last Friday. She was seen at her oncologist office in the told her that her Mediport site was infected. Patient has been having chills and poor appetite. She is also been having fevers. Patient was told to come to the emergency department right away. The ROS documented in this emergency department record has been reviewed and confirmed by me. Those systems with pertinent positive or negative responses have been documented in the HPI. All other systems are other negative and/or noncontributory. - Related Data Home Medications Medication Instructions Recorded Confirmed Omeprazole [PriLOSEC] 20 mg PO DAILY 12/04/17 12/18/17 Prochlorperazine [Compazine] 10 mg PO Q6H PRN 12/18/17 12/18/17 Allergies Allergy/AdvReac Type Severity Reaction Status Date / Time aspirin Allergy Swelling Verified 12/18/17 17:51 Review of Systems ROS Statement: Those systems with pertinent positive or pertinent negative responses have been documented in the HPI. ROS Other: All systems not noted in ROS Statement are negative. Past Medical History Past Medical History: Cancer, GERD/Reflux Additional Past Medical History / Comment(s): cysts within breast, breast cancer lt breast History of Any Multi-Drug Resistant Organisms: None Reported Past Surgical History: Orthopedic Surgery Additional Past Surgical History / Comment(s): biopsy on LT breast Past Anesthesia/Blood Transfusion Reactions: No Reported Reaction Past Psychological History: No Psychological Hx Reported Smoking Status: Former smoker Past Alcohol Use History: None Reported Past Drug Use History: None Reported - Past Family History Mother Family Medical History: Cancer Additional Family Medical History / Comment(s): uterine cancer, quad cabg Father Family Medical History: Cancer Additional Family Medical History / Comment(s): brain cancer with mets Brother(s) Family Medical History: Deep Vein Thrombosis (DVT) General Exam - General Exam Comments Initial Comments: PHYSICAL EXAM: General Impression: Alert and oriented x3, not in acute distress HEENT: Normocephalic atraumatic, extra-ocular movements intact, pupils equal and reactive to light bilaterally, mucous membranes moist. Cardiovascular: Heart regular rate and rhythm, S1&S2 audible, no murmurs, rubs or gallops Chest: Lungs clear to auscultation bilaterally, no rhonchi, no wheeze, no rales Abdomen: Bowel sounds present, abdomen soft, non-tender, non-distended, no organomegaly Musculoskeletal: Pulses present and equal in all extremities, no peripheral edema Motor: Power 5/5 bilaterally, no focal deficits noted Neurological: CN II-XII grossly intact, no focal motor or sensory deficits noted Skin: Mediport site erythema, no drainage Psych: Normal affect and mood Limitations: no limitations Course Vital Signs 12/18/17 17:15 Temperature 100.5 F H Pulse Rate 101 H Respiratory 16 Rate Blood Pressure 115/61 O2 Sat by Pulse 98 Oximetry Medical Decision Making - Medical Decision Making ED course: 62-year-old female presents with clinical presentation suspicious for Mediport site infection. Vital signs upon arrival shows temperature 100.5, heart rate of 11, worse vital signs within normal limits. Laboratory evaluations obtained. Blood cultures were obtained. Laboratory evaluation obtained. White blood cells of 2.9. Hemoglobin 10.4. Sodium 1:30. Lactic acid is 1.0. Rest of labs within acceptable limits. Chest x-ray obtained showing no cardiopulmonary processes. Blood cultures obtained. Patient given vancomycin and cefepime. Patient currently hemodynamically stable. Reevaluation shows stable medical condition. Discussed patient case with Dr. thomas who is willing to accept the admission. General surgeon Dr. Dupree was consult it for Mediport site evaluation. Infectious disease on consult as well. She is understandable and agreeable with disposition. EKG Interpretation: A 12 lead EKG was obtained. It was interpreted by myself and attending physician. There is a P wave before every QRS complex. Rate is [default value]. Rhythm is [default value]. QT is not prolonged. No ST segment depression or elevation. This EKG was compared to a previous EKG that was obtained on [ default value] and showed no significant change. Overall, this EKG is unremarkable - Lab Data Result diagrams: 12/18/17 18:06 12/18/17 18:06 Lab Results 12/18/17 12/18/17 12/18/17 Range/Units 18:06 18:06 18:06 WBC 2.9 L (3.8-10.6) k/uL RBC 4.00 (3.80-5.40) m/uL Hgb 10.4 L (11.4-16.0) gm/dL Hct 31.9 L (34.0-46.0) % MCV 79.7 L (80.0-100.0) fL MCH 25.9 (25.0-35.0) pg MCHC 32.5 (31.0-37.0) g/dL RDW 15.0 (11.5-15.5) % Plt Count 116 L (150-450) k/uL Neutrophils % 83 % Lymphocytes % 10 % Monocytes % 4 % Eosinophils % 0 % Basophils % 1 % Neutrophils # 2.4 (1.3-7.7) k/uL Lymphocytes # 0.3 L (1.0-4.8) k/uL Monocytes # 0.1 (0-1.0) k/uL Eosinophils # 0.0 (0-0.7) k/uL Basophils # 0.0 (0-0.2) k/uL Sodium 130 L (137-145) mmol/L Potassium 3.7 (3.5-5.1) mmol/L Chloride 98 (98-107) mmol/L Carbon Dioxide 22 (22-30) mmol/L Anion Gap 10 mmol/L BUN 22 H (7-17) mg/dL Creatinine 0.67 (0.52-1.04) mg/dL Est GFR (CKD-EPI)AfAm >90 (>60 ml/min/1.73 sqM) Est GFR (CKD-EPI)NonAf >90 (>60 ml/min/1.73 sqM) Glucose 102 H (74-99) mg/dL Plasma Lactic Acid Fernando 1.0 (0.7-2.0) mmol/L Calcium 8.3 L (8.4-10.2) mg/dL Total Bilirubin 0.4 (0.2-1.3) mg/dL AST 142 H (14-36) U/L ALT 115 H (9-52) U/L Alkaline Phosphatase 89 (38-126) U/L Total Protein 7.0 (6.3-8.2) g/dL Albumin 3.4 L (3.5-5.0) g/dL Disposition Clinical Impression: Bacteremia Disposition: ADMITTED IP TO THIS HOSP Condition: Fair Referrals: None,Stated [Primary Care Provider] - 1-2 days Decision Time: 19:26
[2017-12-18 18:22] LABS: Basophils % (A) 1 %; Eosinophils % (A) 0 %; HCT 31.9 % (34.0-46.0); HGB 10.4 gm/dL (11.4-16.0); Lymphocytes # (A) 0.3 k/uL (1.0-4.8); Lymphocytes % (A) 10 %; MCH 25.9 pg (25.0-35.0); MCHC 32.5 g/dL (31.0-37.0); MCV 79.7 fL (80.0-100.0); Monocytes # (A) 0.1 k/uL (0-1.0); Monocytes % (A) 4 %; Neutrophils # (A) 2.4 k/uL (1.3-7.7); Neutrophils % (A) 83 %; Platelet Count 116 k/uL (150-450); WBC 2.9 k/uL (3.8-10.6)
[2017-12-18 18:34] LABS: ALT 115 U/L (9-52); AST 142 U/L (14-36); Albumin 3.4 g/dL (3.5-5.0); Alkaline Phosphatase 89 U/L (38-126); Anion Gap 10 mmol/L; Blood Urea Nitrogen 22 mg/dL (7-17); Calcium 8.3 mg/dL (8.4-10.2); Carbon Dioxide 22 mmol/L (22-30); Chloride 98 mmol/L (98-107); Glucose 102 mg/dL (74-99); Potassium 3.7 mmol/L (3.5-5.1); Sodium 130 mmol/L (137-145); Total Bilirubin 0.4 mg/dL (0.2-1.3)
--- NOTE | 2017-12-18 19:06 | XR ---
EXAMINATION: XR chest 2V DATE AND TIME: 12/18/2017 6:32 PM CLINICAL INDICATION: sepsis TECHNIQUE: PA and lateral COMPARISON: 12/01/1717 FINDINGS: Right IJ catheter tip superimposed over the upper SVC. EKG leads noted. The lungs are clear. The pleural spaces are negative. The cardiac silhouette is not enlarged. The remainder of the mediastinal silhouette is unremarkable. The skeletal structures and soft tissues are negative for acute findings. IMPRESSION: NO ACUTE PROCESS.
[2017-12-18] MEDS ORDERED: NALOXONE 0.4 MG/ML 1 ML VIAL IV PRN (19:22)
[2017-12-18 21:04] LABS: Appearance,Urine Cloudy (Clear); Bacteria,Urine Few /hpf; Bilirubin,Urine Negative (Negative); Blood,Urine Small (Negative); Color,Urine Dark Yellow; Glucose,Urine (UA) Negative (Negative); Hyaline Casts,Urine 25 /lpf (0-2); Ketones,Urine Negative (Negative); Leukocyte Esterase,Urine Negative (Negative); Mucus,Urine Many /hpf; Nitrite,Urine Negative (Negative); PH, Urine 5.5 (5.0-8.0); Protein,Urine 1+ (Negative); RBC,Urine 2 /hpf (0-5); Specific Gravity,Urine 1.024 (1.001-1.035); Squamous Epithelial Cell,Urine 6 /hpf (0-4); WBC,Urine 5 /hpf (0-5)
[2017-12-18 21:06] LABS: ALT 107 U/L (9-52); AST 131 U/L (14-36); Albumin 3.4 g/dL (3.5-5.0); Alkaline Phosphatase 87 U/L (38-126); Anion Gap 11 mmol/L; Blood Urea Nitrogen 23 mg/dL (7-17); Calcium 8.4 mg/dL (8.4-10.2); Carbon Dioxide 23 mmol/L (22-30); Chloride 98 mmol/L (98-107); Glucose 123 mg/dL (74-99); Potassium 4.2 mmol/L (3.5-5.1); Sodium 132 mmol/L (137-145); Total Bilirubin 0.4 mg/dL (0.2-1.3); Total Protein 7.1 g/dL (6.3-8.2)
[2017-12-18] MEDS ORDERED: VANCOMYCIN IV PER PHARMACY 1 EACH MISC MISCELLANE PRN (21:51)
--- NOTE | 2017-12-18 22:08 | P.CONS ---
History of Present Illness - Reason for Consult Consult date: 12/18/17 - Chief Complaint Pain at mediport site - History of Present Illness 62-year-old female presents to the emergency center after being seen in the oncologist office because of concerns to the right Mediport area. The patient was hospitalized in November because of difficulties with her left breast. At presentation there is evidence of a fungating left breast mass significant swelling to the breast. It was biopsied and was found to be invasive carcinoma of the breast. Computed tomography scan and PET scans were performed revealing evidence of the large left breast mass as well as left axillary lymphadenopathy and multiple pulmonary nodules there is also evidence of anterior mediastinal adenopathy. The patient counseling was initiated chemotherapy being her first dose last week with Adriamycin and Cytoxan. She really tolerated the chemotherapy relatively well. However now is presenting with evidence of pain discomfort and erythema to her Mediport site. Because of this she was sent to the emergency center and admitted and the infectious diseases consultation was requested. The patient did receive Neulasta with her chemotherapy. She has relative leukopenia but does not have absolute neutropenia. A culture of her breast was performed that showed evidence of MSSA and Stenotrophomonas maltophilia last month. At this time the patient does not have high-grade fever or chills. The fungating mass in the left breast is not very tender but there is a bit of odor. It is fascinating that the patient relates that the skin changes were present for about a month before she presented. Review of Systems HEENT:Denies headache or acute visual change. Denies sinus or mouth discomforts. Denies neck stiffness or pain. Denies significant oral cavity pain. Denies difficulty on swallowing. Lungs: Denies significant shortness of breath, cough, sputum production, or hemoptysis. Cardiovascular: Denies significant shortness of breath, chest pain, chest wall pain, orthopnea, dyspnea on exertion, syncope Gastrointestinal:Denies nausea, vomiting, diarrhea, constipation, hematemesis, melena, hematochezia. No no significant change of bowel habit noticed. Musculoskeletal: denies significant myalgias or arthralgias. No new joint swelling. Denies new back pain. Skin: As per the HPI fungating left breast lesion Neuro: Denies headache or visual change. Denies any new onset weakness or difficulty with ambulation. Denies falls or seizures. Psychiatric:Denies anxiety or depression. Endocrine: Denies weight loss has fatigue Past Medical History Past Medical History: Cancer, GERD/Reflux Additional Past Medical History / Comment(s): ulcers 20 years ago .hx of cysts within chantal breasts that have been drained in past, breast cancer lt breast dx 11/19/17. had chemo tx 12/09/17 next one is due next friday. pt stated lost 7# in 2 weeks. oral thrush. History of Any Multi-Drug Resistant Organisms: None Reported Past Surgical History: Orthopedic Surgery, Tubal Ligation Additional Past Surgical History / Comment(s): past lt breast bx-neg. 11-18-17 lt breast bx-positive- had port placed rt upper chest. other pmh: colonoscopy w/ bx neg,laparsocpy-benign lesion removed, chantal leg sx d/t fx, chantal breast had cyst that were drained in past. Past Anesthesia/Blood Transfusion Reactions: No Reported Reaction Additional Psychological History / Comment(s): lives with her . Tobacco smoker till the start of chemotherapy. No notation of current alcohol or recreational drug use. No experience. Does not work outside of the home. No international travel. No animal exposures Smoking Status: Former smoker - Past Family History Mother Family Medical History: Cancer Additional Family Medical History / Comment(s): uterine cancer, quad cabg Father Family Medical History: Cancer Additional Family Medical History / Comment(s): brain cancer with mets Brother(s) Family Medical History: Deep Vein Thrombosis (DVT) Medications and Allergies Home Medications and Allergies Comment(s): Current Medications Acetaminophen (Tylenol Tab) 650 mg PO Q4HR PRN PRN Reason: Fever and/ or Pain Ceftazidime 2 gm/ Sodium (Chloride) 100 mls @ 100 mls/hr IVPB Q8HR [facility] Vancomycin HCl 1,250 mg/ (Sodium Chloride) 250 mls @ 125 mls/hr IVPB TID@0600, 1400,2200 NIKI Naloxone HCl (Narcan) 0.2 mg IV Q2M PRN PRN Reason: Opioid Reversal Nystatin (Mycostatin Oral Susp) 500,000 unit PO QID [facility] Home Medications Medication Instructions Recorded Confirmed Type Omeprazole [PriLOSEC] 20 mg PO DAILY 12/04/17 12/18/17 History Prochlorperazine [Compazine] 10 mg PO Q6H PRN 12/18/17 12/18/17 History Allergies Allergy/AdvReac Type Severity Reaction Status Date / Time aspirin Allergy Swelling Verified 12/18/17 17:51 Physical Exam Vitals: Vital Signs Temp Pulse Resp BP Pulse Ox 12/18/17 19:27 101.4 F H 91 18 109/55 94 L 12/18/17 17:15 100.5 F H 101 H 16 115/61 98 Intake and Output 12/18/17 12/18/17 12/18/17 06:59 14:59 22:59 Other: Weight 63.957 kg 62-year-old female seems to be comfortable at this point in time. Is denying high-grade fevers or chills. Does have tenderness and erythema to the right anterior chest wall. HEENT: Anicteric conjunctiva are pink and moist nasal mucosa grossly intact without significant lesions, there appears to be a mild amount of thrush Neck: The neck is supple without significant lymphadenopathy or thyromegaly. Lungs: There is symmetrical bilateral air entry with scattered wheezes but no kierra bronchial sounds or dullness or egophony Heart: Regular rate and rhythm with an audible S1-S2, no S3 no S4. There is no significant murmur click or rub, PMI was nondisplaced. Abdomen: Positive bowel sounds soft and nontender without palpable masses or organomegaly. There was no guarding or rebound. Extremities: The upper extremities have excellent pulses they are symmetric, no significant petechiae or telangiectasia. No splinter hemorrhages were noted. The lower extremities are free from significant edema. The peripheral pulses were 2+ and symmetric. Neuro: Awake alert oriented to person place and time. There are no acute new gross focal sensory motor deficits. Skin: With the nurse present the patient is evaluated. There is evidence of erythema and tenderness over the right anterior chest wall at the [facility] site. It is not grossly fluctuant but it is quite tender.The right breast is without significant abnormality. The left breast is quite swollen compared to the right. There is evidence of a large fungating mass that has thickened odor and scant drainage. There is distinct erythema over the entire area. This palpable mass in the left axillary area. Results CBC & Chem 7: 12/18/17 18:06 12/18/17 18:06 Labs: Abnormal Lab Results - Last 24 Hours (Table) 12/18/17 12/18/17 12/18/17 Range/Units 12:00 12:00 18:06 WBC 2.9 L (3.8-10.6) k/uL Hgb 10.4 L (11.4-16.0) gm/dL Hct 31.9 L (34.0-46.0) % MCV 79.7 L (80.0-100.0) fL Plt Count 116 L (150-450) k/uL Lymphocytes # 0.3 L (1.0-4.8) k/uL Sodium 132 L (137-145) mmol/L BUN 23 H (7-17) mg/dL Glucose 123 H (74-99) mg/dL Calcium (8.4-10.2) mg/dL AST 131 H (14-36) U/L ALT 107 H (9-52) U/L Albumin 3.4 L (3.5-5.0) g/dL Urine Appearance Cloudy H (Clear) Urine Protein 1+ H (Negative) Urine Blood Small H (Negative) Ur Squamous Epith Cells 6 H (0-4) /hpf Urine Bacteria Few H (None) /hpf Hyaline Casts 25 H (0-2) /lpf Urine Mucus Many H (None) /hpf 12/18/17 Range/Units 18:06 WBC (3.8-10.6) k/uL Hgb (11.4-16.0) gm/dL Hct (34.0-46.0) % MCV (80.0-100.0) fL Plt Count (150-450) k/uL Lymphocytes # (1.0-4.8) k/uL Sodium 130 L (137-145) mmol/L BUN 22 H (7-17) mg/dL Glucose 102 H (74-99) mg/dL Calcium 8.3 L (8.4-10.2) mg/dL AST 142 H (14-36) U/L ALT 115 H (9-52) U/L Albumin 3.4 L (3.5-5.0) g/dL Urine Appearance (Clear) Urine Protein (Negative) Urine Blood (Negative) Ur Squamous Epith Cells (0-4) /hpf Urine Bacteria (None) /hpf Hyaline Casts (0-2) /lpf Urine Mucus (None) /hpf Laboratory Results WBC 2.9 k/uL (3.8-10.6) L 12/18/17 18:06 RBC 4.00 m/uL (3.80-5.40) 12/18/17 18:06 Hgb 10.4 gm/dL (11.4-16.0) L 12/18/17 18:06 Hct 31.9 % (34.0-46.0) L 12/18/17 18:06 MCV 79.7 fL (80.0-100.0) L 12/18/17 18: MCH 25.9 pg (25.0-35.0) 12/18/17 18: MCHC 32.5 g/dL (31.0-37.0) 12/18/17 18: RDW 15.0 % (11.5-15.5) 12/18/17 18:06 Plt Count 116 k/uL (150-450) L 12/18/17 18:06 Neutrophils % 83 % 12/18/17 18:06 Lymphocytes % 10 % 12/18/17 18:06 Monocytes % 4 % 12/18/17 18:06 Eosinophils % 0 % 12/18/17 18: Basophils % 1 % 12/18/17 18:06 Neutrophils # 2.4 k/uL (1.3-7.7) 12/18/17 18:06 Lymphocytes # 0.3 k/uL (1.0-4.8) L 12/18/17 18:06 Monocytes # 0.1 k/uL (0-1.0) 12/18/17 18: Eosinophils # 0.0 k/uL (0-0.7) 12/18/17 18:06 Basophils # 0.0 k/uL (0-0.2) 12/18/17 18:06 Sodium 130 mmol/L (137-145) L 12/18/17 18:06 Potassium 3.7 mmol/L (3.5-5.1) 12/18/17 18:06 Chloride 98 mmol/L (98-107) 12/18/17 18:06 Carbon Dioxide 22 mmol/L (22-30) 12/18/17 18:06 Anion Gap 10 mmol/L 12/18/17 18:06 BUN 22 mg/dL (7-17) H 12/18/17 18:06 Creatinine 0.67 mg/dL (0.52-1.04) 12/18/17 18:06 Est GFR (CKD-EPI)AfAm >90 (>60 ml/min/1.73 sqM) 12/18/17 18:06 Est GFR (CKD-EPI)NonAf >90 (>60 ml/min/1.73 sqM) 12/18/17 18:06 Glucose 102 mg/dL (74-99) H 12/18/17 18:06 Plasma Lactic Acid Fernando 1.0 mmol/L (0.7-2.0) 12/18/17 18:06 Calcium 8.3 mg/dL (8.4-10.2) L 12/18/17 18:06 Total Bilirubin 0.4 mg/dL (0.2-1.3) 12/18/17 18:06 AST 142 U/L (14-36) H 12/18/17 18:06 ALT 115 U/L (9-52) H 12/18/17 18:06 Alkaline Phosphatase 89 U/L (38-126) 12/18/17 18:06 Total Protein 7.0 g/dL (6.3-8.2) 12/18/17 18:06 Albumin 3.4 g/dL (3.5-5.0) L 12/18/17 18:06 Urine Color Dark Yellow 12/18/17 12:00 Urine Appearance Cloudy (Clear) H 12/18/17 12:00 Urine pH 5.5 (5.0-8.0) 12/18/17 12:00 Ur Specific [place] 1.024 (1.001-1.035) 12/18/17 12:00 Urine Protein 1+ (Negative) H 12/18/17 12:00 Urine Glucose (UA) Negative (Negative) 12/18/17 12:00 Urine Ketones Negative (Negative) 12/18/17 12:00 Urine Blood Small (Negative) H 12/18/17 12:00 Urine Nitrite Negative (Negative) 12/18/17 12:00 Urine Bilirubin Negative (Negative) 12/18/17 12:00 Urine Urobilinogen 2.0 mg/dL (<2.0) 12/18/17 12:00 Ur Leukocyte Esterase Negative (Negative) 12/18/17 12:00 Urine RBC 2 /hpf (0-5) 12/18/17 12:00 Urine WBC 5 /hpf (0-5) 12/18/17 12:00 Ur Squamous Epith Cells 6 /hpf (0-4) H 12/18/17 12:00 Urine Bacteria Few /hpf (None) H 12/18/17 12:00 Hyaline Casts 25 /lpf (0-2) H 12/18/17 12:00 Urine Mucus Many /hpf (None) H 12/18/17 12:00 Prior culture with MSSA and Stenotrophomonas maltophilia Assessment and Plan (1) Breast cancer, left Current Visit: Yes Status: Acute Code(s): C50.912 - MALIGNANT NEOPLASM OF UNSPECIFIED SITE OF LEFT FEMALE BREAST SNOMED Code(s): 944835139 (2) Cellulitis of left breast Current Visit: Yes Status: Acute Code(s): N61.0 - MASTITIS WITHOUT ABSCESS SNOMED Code(s): 52325672 (3) Infection of pocket of surgical implant site Narrative/Plan: 62-year-old female who presented in November with a fungating left breast mass that was painful. Workup ensued and she was found to have evidence of invasive carcinoma of the left breast with metastasis to left axillary area and lungs and mediastinum. She has been initiated to her course of chemotherapy starting with Adriamycin and Cytoxan. She relates she tolerated the chemotherapy right well but now is developed a significant swelling and erythema to the right anterior chest wall [id number] site. It is quite tender over the area but there is no expressible purulence. At this time she has relative leukopenia but is not frankly neutropenic. The prior culture shows evidence of the MSSA as well as the Stenotrophomonas maltophilia. Antibiotic therapy will be initiated this time with ceftazidime and vancomycin pending further culture results. Blood cultures have been requested. Local wound care to the breast will be performed with the medical honey which should help drainage as well as help with odor. Tylenol is given for fever Patient may require surgical consultation depending on the findings of the Mediport site. Current Visit: Yes Status: Acute Code(s): [id number] - SNOMED Code(s): 510644130
[2017-12-18] MEDS: NYSTATIN 100,000 UNIT/ML SUSP 500,000 UNIT/5 ML CUP PO SCH (22:43)
[2017-12-19] MEDS: VANCOMYCIN 1,250 MG in SODIUM CHLORIDE 0.9% 250 ML IVPB SCH ×4 (00:37→23:09)
[2017-12-19] MEDS: ACETAMINOPHEN TAB 325 MG TAB PO PRN ×2 (05:28→19:28)
[2017-12-19 07:58] LABS: Anion Gap 7 mmol/L; Blood Urea Nitrogen 18 mg/dL (7-17); Calcium 7.6 mg/dL (8.4-10.2); Carbon Dioxide 21 mmol/L (22-30); Chloride 107 mmol/L (98-107); Glucose 105 mg/dL (74-99); Potassium 3.6 mmol/L (3.5-5.1); Sodium 135 mmol/L (137-145)
[2017-12-19] MEDS: NYSTATIN 100,000 UNIT/ML SUSP 500,000 UNIT/5 ML CUP PO SCH ×4 (08:03→23:09)
[2017-12-19 10:10] LABS: Basophils % (A) 0 %; Eosinophils % (A) 0 %; HGB 9.2 gm/dL (11.4-16.0); Lymphocytes # (A) 0.2 k/uL (1.0-4.8); Lymphocytes % (A) 10 %; MCH 26.8 pg (25.0-35.0); MCHC 32.9 g/dL (31.0-37.0); MCV 81.5 fL (80.0-100.0); Mean Platelet Volume 8.7; Monocytes # (A) 0.2 k/uL (0-1.0); Monocytes % (A) 8 %; Neutrophils # (A) 1.9 k/uL (1.3-7.7); Neutrophils % (A) 79 %; Platelet Count 118 k/uL (150-450); RBC 3.44 m/uL (3.80-5.40); RDW 14.9 % (11.5-15.5); WBC 2.4 k/uL (3.8-10.6)
[2017-12-19 11:57] VITALS: BMI 24.2
--- NOTE | 2017-12-19 13:24 | P.PN ---
Progress Note - Text Progress Note Date: 12/19/17 Patient seen and evaluated. The patient reported erythema developed after first chemotherapy infusion. No fluctuance on exam. Recommended IV antibiotics. Plan to salvage Mediport
--- NOTE | 2017-12-19 13:28 | P.GSCN ---
<Brandy Rush - Last Filed: 12/19/17 13:13> History of Present Illness Consult date: 12/19/17 Reason for Consult: MediPort possible infection History of present illness: 62-year-old female being seen at the request of the attending for a surgical eval possible MediPort infection. Consult was requested by the attending for MediPort site evaluation Patient underwent a MediPort insertion on December 08 for need for chemotherapy access receive chemotherapy for treatment of left breast cancer. The port was inserted on December 08 and used on December 09 for her first chemo treatment patient has a past medical history for breast cancer left breast. Patient presented to the emergency room after being seen at oncologist office and told that her MediPort site was infected. Patient was having fever and chills with no appetite. Patient came into the emergency room to be evaluated patient stated after her first chemo tolerated the drug but noted discomfort with redness around her Mediport site. Patient currently is being followed by infectious disease culture of the breast was obtained showed evidence of MSSA and Stenotrophomonas maltophilia last month MediPort site redness noted patient states less tender no drainage noted Review of Systems Essentially unremarkable except as mentioned in the present illness Past Medical History Past Medical History: Cancer, GERD/Reflux Additional Past Medical History / Comment(s): ulcers 20 years ago .hx of cysts within chantal breasts that have been drained in past, breast cancer lt breast dx 11/19/17. had chemo tx 12/09/17 next one is due next friday. pt stated lost 7# in 2 weeks. oral thrush. History of Any Multi-Drug Resistant Organisms: None Reported Past Surgical History: Orthopedic Surgery, Tubal Ligation Additional Past Surgical History / Comment(s): past lt breast bx-neg. 11-18-17 lt breast bx-positive- had port placed rt upper chest. other pmh: colonoscopy w/ bx neg,laparsocpy-benign lesion removed, chantal leg sx d/t fx, chantal breast had cyst that were drained in past. Past Anesthesia/Blood Transfusion Reactions: No Reported Reaction Additional Psychological History / Comment(s): lives with her . Tobacco smoker till the start of chemotherapy. No notation of current alcohol or recreational drug use. No experience. Does not work outside of the home. No international travel. No animal exposures Smoking Status: Former smoker - Past Family History Mother Family Medical History: Cancer Additional Family Medical History / Comment(s): uterine cancer, quad cabg Father Family Medical History: Cancer Additional Family Medical History / Comment(s): brain cancer with mets Brother(s) Family Medical History: Deep Vein Thrombosis (DVT) Medications and Allergies Home Medications Medication Instructions Recorded Confirmed Type Omeprazole [PriLOSEC] 20 mg PO DAILY 12/04/17 12/18/17 History Prochlorperazine [Compazine] 10 mg PO Q6H PRN 12/18/17 12/18/17 History Allergies Allergy/AdvReac Type Severity Reaction Status Date / Time aspirin Allergy Swelling Verified 12/18/17 17:51 Surgical - Exam Vital Signs Temp Pulse Resp BP Pulse Ox 100.5 F H 101 H 16 115/61 98 12/18/17 17:15 12/18/17 17:15 12/18/17 17:15 12/18/17 17:15 12/18/17 17:15 GENERAL APPEARANCE: 62-year-old female patient is alert, oriented, in no acute distress. VITAL SIGNS: Reviewed HEENT: Head is normocephalic and atraumatic. Pupils are equal and reactive. The nares are patent. Oropharynx is clear without lesions. NECK: Supple without lymphadenopathy. Traches midline. MediPort site right no redness at the site HEART: S1, S2. Regular rate and rhythm. No murmur LUNGS: No crackles or wheezes are heard. Adequate air movement on room air ABDOMEN: Soft, nontender, nondistended with good bowel sounds. No peritoneal signs. No palpable organomegaly or masses. EXTREMITIES: Normal skin color and turgor. No cyanosis, rash, ulceration, clubbing or edema. Radial pedal pulses are 2/4 bilaterally. NEUROLOGICAL: No focal deficits. Strength and sensation are grossly intact. Breast The left breast swollen greater than the right no drainage noted states is less tender and less swollen Results - Labs 12/19/17 07:14 12/19/17 07:14 Abnormal Lab Results - Last 24 Hours (Table) 12/18/17 12/18/17 12/18/17 Range/Units 12:00 12:00 18:06 WBC 2.9 L (3.8-10.6) k/uL RBC (3.80-5.40) m/uL Hgb 10.4 L (11.4-16.0) gm/dL Hct 31.9 L (34.0-46.0) % MCV 79.7 L (80.0-100.0) fL Plt Count 116 L (150-450) k/uL Lymphocytes # 0.3 L (1.0-4.8) k/uL Sodium 132 L (137-145) mmol/L Carbon Dioxide (22-30) mmol/L BUN 23 H (7-17) mg/dL Glucose 123 H (74-99) mg/dL Calcium (8.4-10.2) mg/dL AST 131 H (14-36) U/L ALT 107 H (9-52) U/L Albumin 3.4 L (3.5-5.0) g/dL Urine Appearance Cloudy H (Clear) Urine Protein 1+ H (Negative) Urine Blood Small H (Negative) Ur Squamous Epith Cells 6 H (0-4) /hpf Urine Bacteria Few H (None) /hpf Hyaline Casts 25 H (0-2) /lpf Urine Mucus Many H (None) /hpf 12/18/17 12/19/17 12/19/17 Range/Units 18:06 07:14 07:14 WBC 2.4 L (3.8-10.6) k/uL RBC 3.44 L (3.80-5.40) m/uL Hgb 9.2 L (11.4-16.0) gm/dL Hct 28.0 L (34.0-46.0) % MCV (80.0-100.0) fL Plt Count 118 L (150-450) k/uL Lymphocytes # 0.2 L (1.0-4.8) k/uL Sodium 130 L 135 L (137-145) mmol/L Carbon Dioxide 21 L (22-30) mmol/L BUN 22 H 18 H (7-17) mg/dL Glucose 102 H 105 H (74-99) mg/dL Calcium 8.3 L 7.6 L (8.4-10.2) mg/dL AST 142 H (14-36) U/L ALT 115 H (9-52) U/L Albumin 3.4 L (3.5-5.0) g/dL Urine Appearance (Clear) Urine Protein (Negative) Urine Blood (Negative) Ur Squamous Epith Cells (0-4) /hpf Urine Bacteria (None) /hpf Hyaline Casts (0-2) /lpf Urine Mucus (None) /hpf Microbiology - Last 24 Hours (Table) 12/18/17 18:06 Blood Culture Gram Stain - Preliminary Blood 12/18/17 12:00 Blood Culture Gram Stain - Preliminary Blood 12/18/17 18:06 Blood Culture - Final Blood 12/18/17 12:00 Blood Culture - Final Blood 12/18/17 12:00 Urine Culture - Preliminary Urine,Voided Diabetes panel 12/18/17 12/18/17 12/19/17 Range/Units 12:00 18:06 07:14 Sodium 132 L 130 L 135 L (137-145) mmol/L Potassium 4.2 3.7 3.6 (3.5-5.1) mmol/L Chloride 98 98 107 (98-107) mmol/L Carbon Dioxide 23 22 21 L (22-30) mmol/L BUN 23 H 22 H 18 H (7-17) mg/dL Creatinine 0.78 0.67 0.69 (0.52-1.04) mg/dL Glucose 123 H 102 H 105 H (74-99) mg/dL Calcium 8.4 8.3 L 7.6 L (8.4-10.2) mg/dL AST 131 H 142 H (14-36) U/L ALT 107 H 115 H (9-52) U/L Alkaline Phosphatase 87 89 (38-126) U/L Total Protein 7.1 7.0 (6.3-8.2) g/dL Albumin 3.4 L 3.4 L (3.5-5.0) g/dL Calcium panel 12/18/17 12/18/17 12/19/17 Range/Units 12:00 18:06 07:14 Calcium 8.4 8.3 L 7.6 L (8.4-10.2) mg/dL Albumin 3.4 L 3.4 L (3.5-5.0) g/dL Pituitary panel 12/18/17 12/18/17 12/19/17 Range/Units 12:00 18:06 07:14 Sodium 132 L 130 L 135 L (137-145) mmol/L Potassium 4.2 3.7 3.6 (3.5-5.1) mmol/L Chloride 98 98 107 (98-107) mmol/L Carbon Dioxide 23 22 21 L (22-30) mmol/L BUN 23 H 22 H 18 H (7-17) mg/dL Creatinine 0.78 0.67 0.69 (0.52-1.04) mg/dL Glucose 123 H 102 H 105 H (74-99) mg/dL Calcium 8.4 8.3 L 7.6 L (8.4-10.2) mg/dL Adrenal panel 12/18/17 12/18/17 12/19/17 Range/Units 12:00 18:06 07:14 Sodium 132 L 130 L 135 L (137-145) mmol/L Potassium 4.2 3.7 3.6 (3.5-5.1) mmol/L Chloride 98 98 107 (98-107) mmol/L Carbon Dioxide 23 22 21 L (22-30) mmol/L BUN 23 H 22 H 18 H (7-17) mg/dL Creatinine 0.78 0.67 0.69 (0.52-1.04) mg/dL Glucose 123 H 102 H 105 H (74-99) mg/dL Calcium 8.4 8.3 L 7.6 L (8.4-10.2) mg/dL Total Bilirubin 0.4 0.4 (0.2-1.3) mg/dL AST 131 H 142 H (14-36) U/L ALT 107 H 115 H (9-52) U/L Alkaline Phosphatase 87 89 (38-126) U/L Total Protein 7.1 7.0 (6.3-8.2) g/dL Albumin 3.4 L 3.4 L (3.5-5.0) g/dL Assessment and Plan Assessment: Impression Left breast cancer newly diagnosed MediPort placed placed right upper chest 08 of December for chemotherapeutic access Cellulitis left breast Prior culture with MSSA and Stenotrophomonas maltophilia 1 month prior Plan No plans for removing the MediPort at this time Defer to infectious disease for IV antibiotic therapy Will follow with you Surgical consultation note dictated for Dr. wKon The above impression and plan of care have been discussed and directed by signing physician. Brandy Rush nurse practitioner acting as scribe for signing physician. <Ann Marie Guthrie - Last Filed: 12/19/17 16:58> Surgical - Exam Vital Signs Temp Pulse Resp BP Pulse Ox 100.5 F H 101 H 16 115/61 98 12/18/17 17:15 12/18/17 17:15 12/18/17 17:15 12/18/17 17:15 12/18/17 17:15 Results - Labs 12/19/17 07:14 12/19/17 07:14 Abnormal Lab Results - Last 24 Hours (Table) 12/18/17 12/18/17 12/18/17 Range/Units 12:00 12:00 18:06 WBC 2.9 L (3.8-10.6) k/uL RBC (3.80-5.40) m/uL Hgb 10.4 L (11.4-16.0) gm/dL Hct 31.9 L (34.0-46.0) % MCV 79.7 L (80.0-100.0) fL Plt Count 116 L (150-450) k/uL Lymphocytes # 0.3 L (1.0-4.8) k/uL Sodium 132 L (137-145) mmol/L Carbon Dioxide (22-30) mmol/L BUN 23 H (7-17) mg/dL Glucose 123 H (74-99) mg/dL Calcium (8.4-10.2) mg/dL AST 131 H (14-36) U/L ALT 107 H (9-52) U/L Albumin 3.4 L (3.5-5.0) g/dL Urine Appearance Cloudy H (Clear) Urine Protein 1+ H (Negative) Urine Blood Small H (Negative) Ur Squamous Epith Cells 6 H (0-4) /hpf Urine Bacteria Few H (None) /hpf Hyaline Casts 25 H (0-2) /lpf Urine Mucus Many H (None) /hpf 12/18/17 12/19/17 12/19/17 Range/Units 18:06 07:14 07:14 WBC 2.4 L (3.8-10.6) k/uL RBC 3.44 L (3.80-5.40) m/uL Hgb 9.2 L (11.4-16.0) gm/dL Hct 28.0 L (34.0-46.0) % MCV (80.0-100.0) fL Plt Count 118 L (150-450) k/uL Lymphocytes # 0.2 L (1.0-4.8) k/uL Sodium 130 L 135 L (137-145) mmol/L Carbon Dioxide 21 L (22-30) mmol/L BUN 22 H 18 H (7-17) mg/dL Glucose 102 H 105 H (74-99) mg/dL Calcium 8.3 L 7.6 L (8.4-10.2) mg/dL AST 142 H (14-36) U/L ALT 115 H (9-52) U/L Albumin 3.4 L (3.5-5.0) g/dL Urine Appearance (Clear) Urine Protein (Negative) Urine Blood (Negative) Ur Squamous Epith Cells (0-4) /hpf Urine Bacteria (None) /hpf Hyaline Casts (0-2) /lpf Urine Mucus (None) /hpf Microbiology - Last 24 Hours (Table) 12/18/17 18:06 Blood Culture Gram Stain - Preliminary Blood 12/18/17 12:00 Blood Culture Gram Stain - Preliminary Blood 12/18/17 18:06 Blood Culture - Final Blood 12/18/17 12:00 Blood Culture - Final Blood 12/18/17 12:00 Urine Culture - Preliminary Urine,Voided Diabetes panel 12/18/17 12/18/17 12/19/17 Range/Units 12:00 18:06 07:14 Sodium 132 L 130 L 135 L (137-145) mmol/L Potassium 4.2 3.7 3.6 (3.5-5.1) mmol/L Chloride 98 98 107 (98-107) mmol/L Carbon Dioxide 23 22 21 L (22-30) mmol/L BUN 23 H 22 H 18 H (7-17) mg/dL Creatinine 0.78 0.67 0.69 (0.52-1.04) mg/dL Glucose 123 H 102 H 105 H (74-99) mg/dL Calcium 8.4 8.3 L 7.6 L (8.4-10.2) mg/dL AST 131 H 142 H (14-36) U/L ALT 107 H 115 H (9-52) U/L Alkaline Phosphatase 87 89 (38-126) U/L Total Protein 7.1 7.0 (6.3-8.2) g/dL Albumin 3.4 L 3.4 L (3.5-5.0) g/dL Calcium panel 12/18/17 12/18/17 12/19/17 Range/Units 12:00 18:06 07:14 Calcium 8.4 8.3 L 7.6 L (8.4-10.2) mg/dL Albumin 3.4 L 3.4 L (3.5-5.0) g/dL Pituitary panel 12/18/17 12/18/17 12/19/17 Range/Units 12:00 18:06 07:14 Sodium 132 L 130 L 135 L (137-145) mmol/L Potassium 4.2 3.7 3.6 (3.5-5.1) mmol/L Chloride 98 98 107 (98-107) mmol/L Carbon Dioxide 23 22 21 L (22-30) mmol/L BUN 23 H 22 H 18 H (7-17) mg/dL Creatinine 0.78 0.67 0.69 (0.52-1.04) mg/dL Glucose 123 H 102 H 105 H (74-99) mg/dL Calcium 8.4 8.3 L 7.6 L (8.4-10.2) mg/dL Adrenal panel 12/18/17 12/18/17 12/19/17 Range/Units 12:00 18:06 07:14 Sodium 132 L 130 L 135 L (137-145) mmol/L Potassium 4.2 3.7 3.6 (3.5-5.1) mmol/L Chloride 98 98 107 (98-107) mmol/L Carbon Dioxide 23 22 21 L (22-30) mmol/L BUN 23 H 22 H 18 H (7-17) mg/dL Creatinine 0.78 0.67 0.69 (0.52-1.04) mg/dL Glucose 123 H 102 H 105 H (74-99) mg/dL Calcium 8.4 8.3 L 7.6 L (8.4-10.2) mg/dL Total Bilirubin 0.4 0.4 (0.2-1.3) mg/dL AST 131 H 142 H (14-36) U/L ALT 107 H 115 H (9-52) U/L Alkaline Phosphatase 87 89 (38-126) U/L Total Protein 7.1 7.0 (6.3-8.2) g/dL Albumin 3.4 L 3.4 L (3.5-5.0) g/dL
[2017-12-19] MEDS: PANTOPRAZOLE 40 MG TABLET PO SCH (13:31)
--- NOTE | 2017-12-19 15:22 | HP ---
HISTORY AND PHYSICAL CHIEF COMPLAINT: Chest wall infection. HISTORY OF PRESENT ILLNESS: This is another admission of this 62-year-old her in white female who was recently diagnosed with CA of the breast. She is being treated with chemotherapy and a port was placed on December 08. The last few days she has noticed pain, redness and swelling in that area and came in. She has had some chills and low-grade fever. REVIEW OF SYSTEMS: She has had no headaches, neurologic problems, shortness of breath, cough, hemoptysis, hypertension, murmurs, rheumatic fever, abdominal pain, nausea, vomiting, hematemesis, melena, hematochezia, jaundice, renal failure, hematuria, frequency, frequency, urgency and dysuria, arthralgias, diabetes, etc. Past medical history, family history, personal and social histories reveals she has had 2 pregnancies and 2 children. She takes Prilosec. She is not allergic to any medication. Surgically, she has had placement of a port and procedures on her legs in the past for fracture of the left femur and knee. She does not smoke. PHYSICAL EXAMINATION: Temperature is 100.2, and blood pressure is 115/64 with a pulse of 79 and respiratory respirations 20. General she appeared to be well developed, well nourished, no acute distress. Skin color is normal. Skin is warm, dry. Lymph nodes not enlarged. Head, ears, eyes, nose, mouth, and throat were normal. Chest is clear. Cardiac exam is normal and the right upper anterior chest where she has a nicely healing scar there is an area of cellulitis complicating the clavicular area down into the right upper chest. Abdomen is soft, nontender without visceromegaly or masses. Bowel sounds present and in extremities are normal. Neurological she is intact. IMPRESSION: 1. Postop infection with cellulitis at the site of a recent port placement. 2. Carcinoma of the breast. 3. Gastritis. PLAN: 1. Bed rest. 2. IV fluids. 3. IV antibiotics. 4. Consult with Oncology and surgery. MMODL / IJN: [id number] /
[2017-12-19] MEDS: SODIUM CHLORIDE 0.9% 1,000 ML IV SCH ×2 (17:36→19:29)
--- NOTE | 2017-12-19 19:07 | PN ---
PROGRESS NOTE DATE OF SERVICE: 12/19/2017. CHIEF COMPLAINT: Cellulitis and infected port. HISTORY OF PRESENT ILLNESS: This lady is feeling fairly well, but she is still running a temperature. PHYSICAL EXAM: The area of cellulitis is definitely improved, but it is more localized and less intense. Temperature is 102.8. IMPRESSION: 1. Cellulitis of the port in the chest. 2. Carcinoma of the breast, on chemotherapy. 3. Leukopenia. 4. Anemia. 5. Elevated liver function studies. PLAN: Continue with antibiotics. MMODL / IJN: [id number] /
--- NOTE | 2017-12-19 19:09 | P.CONS ---
History of Present Illness - Reason for Consult Consult date: 12/19/17 Breast Cancer on Treatment Requesting physician: David Velazquez - Chief Complaint Febrile - History of Present Illness [place] presented with a rapidly-growing mass in central portion of L breast for only 2 month!! stated no abnormality in breast 3 months ago. The lesion is growing very rapidly, very painful and tender and is beginig to ulcerate. 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 No family history of Breast/Ovarian Ca, denied using Estrogen products, had menarche at 13 and menopause at 46. She is healthy otherwise. Smokes 1 PPD, denies ETOH use. She is status post first cycle of Dose Dense AC. She did receive Neulasta. Treated 12/09/17. She presented for follow-up yesterday with me and she had fever 100.6. She stated she has not been able to hold anything down. Has been nauseated, vomiting, and overall feeling bad. She was weakend and fatigued. Her Right chest wall mediport was angry erythema and edema, left breast open cancer lesion with purulent drainage. Grade 3 oral thrush. She was bell cultured and sent to Emergency room. Urinalysis was positive. Review of Systems A 14 point review of systems was assessed and completed and all negative except HPI Past Medical History Past Medical History: Cancer, GERD/Reflux Additional Past Medical History / Comment(s): ulcers 20 years ago .hx of cysts within chantal breasts that have been drained in past, breast cancer lt breast dx 11/19/17. had chemo tx 12/09/17 next one is due next friday. pt stated lost 7# in 2 weeks. oral thrush. History of Any Multi-Drug Resistant Organisms: None Reported Past Surgical History: Orthopedic Surgery, Tubal Ligation Additional Past Surgical History / Comment(s): past lt breast bx-neg. 11-18-17 lt breast bx-positive- had port placed rt upper chest. other pmh: colonoscopy w/ bx neg,laparsocpy-benign lesion removed, chantal leg sx d/t fx, chantal breast had cyst that were drained in past. Past Anesthesia/Blood Transfusion Reactions: No Reported Reaction Additional Psychological History / Comment(s): lives with her . Tobacco smoker till the start of chemotherapy. No notation of current alcohol or recreational drug use. No experience. Does not work outside of the home. No international travel. No animal exposures Smoking Status: Former smoker - Past Family History Mother Family Medical History: Cancer Additional Family Medical History / Comment(s): uterine cancer, quad cabg Father Family Medical History: Cancer Additional Family Medical History / Comment(s): brain cancer with mets Brother(s) Family Medical History: Deep Vein Thrombosis (DVT) Medications and Allergies Home Medications Medication Instructions Recorded Confirmed Type Omeprazole [PriLOSEC] 20 mg PO DAILY 12/04/17 12/18/17 History Prochlorperazine [Compazine] 10 mg PO Q6H PRN 12/18/17 12/18/17 History Allergies Allergy/AdvReac Type Severity Reaction Status Date / Time aspirin Allergy Swelling Verified 12/18/17 17:51 Physical Exam Vitals: Vital Signs Temp Pulse Pulse Resp BP BP Pulse Ox 12/19/17 16:00 83 18 12/19/17 14:31 98.3 F 83 18 125/71 100 12/19/17 08:00 100 16 12/19/17 06:23 99.3 F 12/19/17 05:00 102.8 F H 100 16 125/72 92 L 12/18/17 21:30 97.9 F 79 16 105/67 98 12/18/17 19:27 101.4 F H 91 18 109/55 94 L Intake and Output 12/19/17 12/19/17 12/19/17 06:59 14:59 22:59 Intake Total 350 Balance 350 Intake: Intake, IV Titration 350 Amount Vancomycin 1,250 mg In 250 Sodium Chloride 0.9% 250 ml @ 125 mls/hr IVPB TID@ 0600,1400,2200 NIKI Rx#: [id number] cefTAZidime 2 gm In 100 Sodium Chloride 0.9% 100 ml @ 100 mls/hr IVPB Q8HR NIKI Rx#:[id number] Other: Voiding Method Toilet Toilet Toilet # Voids 2 2 2 Weight 63.957 kg 63.957 kg HEENT: Thush grade 2, Head NC, NT, she has a small lid lag on right eye Neck: The neck is supple without significant lymphadenopathy. Lungs: There is symmetrical bilateral scattered expiratory wheezes Heart: Regular rhythm, Tachycardia Abdomen: Positive bowel sounds soft and nontender without palpable masses or organomegaly. Extremities: No edema. The peripheral pulses were 2+ and symmetric. Neuro: Awake alert oriented to person place and time. There are no acute new gross focal sensory motor deficits. Skin: Erythema right anterior chest wall at the Mediport site. The left breast massive firm hard edema. Large open draining fungating mass. + odor There is distinct erythema There also is palpable mass in the left axillary area. Results CBC & Chem 7: 12/19/17 07:14 12/19/17 07:14 Labs: Abnormal Lab Results - Last 24 Hours (Table) 12/18/17 12/18/17 12/19/17 Range/Units 12:00 12:00 07:14 WBC (3.8-10.6) k/uL RBC (3.80-5.40) m/uL Hgb (11.4-16.0) gm/dL Hct (34.0-46.0) % Plt Count (150-450) k/uL Lymphocytes # (1.0-4.8) k/uL Sodium 132 L 135 L (137-145) mmol/L Carbon Dioxide 21 L (22-30) mmol/L BUN 23 H 18 H (7-17) mg/dL Glucose 123 H 105 H (74-99) mg/dL Calcium 7.6 L (8.4-10.2) mg/dL AST 131 H (14-36) U/L ALT 107 H (9-52) U/L Albumin 3.4 L (3.5-5.0) g/dL Urine Appearance Cloudy H (Clear) Urine Protein 1+ H (Negative) Urine Blood Small H (Negative) Ur Squamous Epith Cells 6 H (0-4) /hpf Urine Bacteria Few H (None) /hpf Hyaline Casts 25 H (0-2) /lpf Urine Mucus Many H (None) /hpf 12/19/17 Range/Units 07:14 WBC 2.4 L (3.8-10.6) k/uL RBC 3.44 L (3.80-5.40) m/uL Hgb 9.2 L (11.4-16.0) gm/dL Hct 28.0 L (34.0-46.0) % Plt Count 118 L (150-450) k/uL Lymphocytes # 0.2 L (1.0-4.8) k/uL Sodium (137-145) mmol/L Carbon Dioxide (22-30) mmol/L BUN (7-17) mg/dL Glucose (74-99) mg/dL Calcium (8.4-10.2) mg/dL AST (14-36) U/L ALT (9-52) U/L Albumin (3.5-5.0) g/dL Urine Appearance (Clear) Urine Protein (Negative) Urine Blood (Negative) Ur Squamous Epith Cells (0-4) /hpf Urine Bacteria (None) /hpf Hyaline Casts (0-2) /lpf Urine Mucus (None) /hpf Microbiology - Last 24 Hours (Table) 12/18/17 18:06 Blood Culture Gram Stain - Preliminary Blood 12/18/17 12:00 Blood Culture Gram Stain - Preliminary Blood 12/18/17 18:06 Blood Culture - Final Blood 12/18/17 12:00 Blood Culture - Final Blood 12/18/17 12:00 Urine Culture - Preliminary Urine,Voided Chest x-ray: report reviewed Assessment and Plan Plan: Assessment and Recommendations: 1. Locally Advancer Breast Cancer - New Diagnosis status post Cycle one of Dose Dense AC with Neulasta on 12/09/17 - Chemo Currently on hold until acute issues resolve - Left Breast Large Fungating Mass, edema, erythema. 2. Left Chest Wall Cellulitis surrounding Mediport - Surgery Consult 3. Febrile with leukopenia 4. Oral candiasis 5. UTI 6. Pancytopenia - Secondary to chemotherapy - CBC Daily - Transfuse PRBC hemoglobin less than 7, Platlets less than 15 in febrile neutropenia with cytopenias from chemotherapy - No Granix as patient received neulasta - Broad Spectrum antibiotics and Antifungals on Bopard - Infectious Disease is monitoring Thank you for allowing us to consult, we will follow along Nona Clayton NP Time with Patient: Greater than 30
--- NOTE | 2017-12-19 23:15 | P.PN ---
Subjective Progress Note Date: 12/19/17 62-year-old female presents to the emergency center after being seen in the oncologist office because of concerns to the right Mediport area. The patient was hospitalized in November because of difficulties with her left breast. At presentation there is evidence of a fungating left breast mass significant swelling to the breast. It was biopsied and was found to be invasive carcinoma of the breast. Computed tomography scan and PET scans were performed revealing evidence of the large left breast mass as well as left axillary lymphadenopathy and multiple pulmonary nodules there is also evidence of anterior mediastinal adenopathy. The patient counseling was initiated chemotherapy being her first dose last week with Adriamycin and Cytoxan. She really tolerated the chemotherapy relatively well. However now is presenting with evidence of pain discomfort and erythema to her Mediport site. Because of this she was sent to the emergency center and admitted and the infectious diseases consultation was requested. The patient did receive Neulasta with her chemotherapy. She has relative leukopenia but does not have absolute neutropenia. A culture of her breast was performed that showed evidence of MSSA and Stenotrophomonas maltophilia last month. At this time the patient does not have high-grade fever or chills. The fungating mass in the left breast is not very tender but there is a bit of odor. It is fascinating that the patient relates that the skin changes were present for about a month before she presented. 12/19/2017 reveals the patient be feeling slightly better today. The utilization of the medical honey to the breast ulceration has resulted in improvement of discomfort and reduction of odor and she is pleased. The Mediport site is still swollen erythematous and tender but there is no drainage. She's had some fever that started to improve this afternoon. Laboratories called multiple positive blood cultures. Gram-positive cocci await final identification. Objective - Vital Signs Vital signs: Vital Signs Temp 99.8 F H 12/19/17 20:30 Pulse 94 12/19/17 20:30 Resp 18 12/19/17 20:30 BP 111/58 12/19/17 20:30 Pulse Ox 95 12/19/17 20:30 Intake & Output 12/19/17 12/19/17 12/20/17 06:59 18:59 06:59 Intake Total 600 360 Balance 600 360 Weight 63.957 kg Intake: Intake, IV Titration 600 Amount Vancomycin 1,250 mg In 500 Sodium Chloride 0.9% 250 ml @ 125 mls/hr IVPB TID@ 0600,1400,2200 [facility] Rx#: [id number] cefTAZidime 2 gm In 100 Sodium Chloride 0.9% 100 ml @ 100 mls/hr IVPB Q8HR [facility] Rx#:[id number] Oral 360 Other: Voiding Method Toilet Toilet # Voids 2 2 - Exam 62-year-old female seems to be comfortable at this point in time. Is denying high-grade fevers or chills. Does have tenderness and erythema to the right anterior chest wall. HEENT: Anicteric conjunctiva are pink and moist nasal mucosa grossly intact without significant lesions, there appears to be a mild amount of thrush Neck: The neck is supple without significant lymphadenopathy or thyromegaly. Lungs: There is symmetrical bilateral air entry with scattered wheezes but no kierra bronchial sounds or dullness or egophony Heart: Regular rate and rhythm with an audible S1-S2, no S3 no S4. There is no significant murmur click or rub, PMI was nondisplaced. Abdomen: Positive bowel sounds soft and nontender without palpable masses or organomegaly. There was no guarding or rebound. Extremities: The upper extremities have excellent pulses they are symmetric, no significant petechiae or telangiectasia. No splinter hemorrhages were noted. The lower extremities are free from significant edema. The peripheral pulses were 2+ and symmetric. Neuro: Awake alert oriented to person place and time. There are no acute new gross focal sensory motor deficits. Skin: With the nurse present the patient is evaluated. There is evidence of erythema and tenderness over the right anterior chest wall at the [facility] site. It is not grossly fluctuant but it is quite tender.The right breast is without significant abnormality. The left breast is quite swollen compared to the right. There is evidence of a large fungating mass that has thickened odor and scant drainage. There is distinct erythema over the entire area. This palpable mass in the left axillary area. - Labs CBC & Chem 7: 12/19/17 07:14 18 07:14 Labs: Abnormal Lab Results - Last 24 Hours (Table) 12/19/17 12/19/17 Range/Units 07:14 07:14 WBC 2.4 L (3.8-10.6) k/uL RBC 3.44 L (3.80-5.40) m/uL Hgb 9.2 L (11.4-16.0) gm/dL Hct 28.0 L (34.0-46.0) % Plt Count 118 L (150-450) k/uL Lymphocytes # 0.2 L (1.0-4.8) k/uL Sodium 135 L (137-145) mmol/L Carbon Dioxide 21 L (22-30) mmol/L BUN 18 H (7-17) mg/dL Glucose 105 H (74-99) mg/dL Calcium 7.6 L (8.4-10.2) mg/dL Microbiology - Last 24 Hours (Table) 12/18/17 18:06 Blood Culture Gram Stain - Preliminary Blood 12/18/17 12:00 Blood Culture Gram Stain - Preliminary Blood 12/18/17 18:06 Blood Culture - Final Blood 12/18/17 12:00 Blood Culture - Final Blood 12/18/17 12:00 Urine Culture - Preliminary Urine,Voided Laboratory Results WBC 2.4 k/uL (3.8-10.6) L 12/19/17 07:14 RBC 3.44 m/uL (3.80-5.40) L 12/19/17 07:14 Hgb 9.2 gm/dL (11.4-16.0) L 12/19/17 07:14 Hct 28.0 % (34.0-46.0) L 12/19/17 07:14 MCV 81.5 fL (80.0-100.0) 12/19/17 07:14 MCH 26.8 pg (25.0-35.0) 12/19/17 07:14 MCHC 32.9 g/dL (31.0-37.0) 12/19/17 07:14 RDW 14.9 % (11.5-15.5) 12/19/17 07:14 Plt Count 118 k/uL (150-450) L 12/19/17 07:14 Neutrophils % 79 % 12/19/17 07:14 Lymphocytes % 10 % 12/19/17 07:14 Monocytes % 8 % 12/19/17 07:14 Eosinophils % 0 % 12/19/17 07:14 Basophils % 0 % 12/19/17 07:14 Neutrophils # 1.9 k/uL (1.3-7.7) 12/19/17 07:14 Lymphocytes # 0.2 k/uL (1.0-4.8) L 12/19/17 07:14 Monocytes # 0.2 k/uL (0-1.0) 12/19/17 07:14 Eosinophils # 0.0 k/uL (0-0.7) 12/19/17 07:14 Basophils # 0.0 k/uL (0-0.2) 12/19/17 07:14 Sodium 135 mmol/L (137-145) L 12/19/17 07:14 Potassium 3.6 mmol/L (3.5-5.1) 12/19/17 07:14 Chloride 107 mmol/L (98-107) 12/19/17 07:14 Carbon Dioxide 21 mmol/L (22-30) L 12/19/17 07:14 Anion Gap 7 mmol/L 12/19/17 07:14 BUN 18 mg/dL (7-17) H 12/19/17 07:14 Creatinine 0.69 mg/dL (0.52-1.04) 12/19/17 07:14 Est GFR (CKD-EPI)AfAm >90 (>60 ml/min/1.73 sqM) 12/19/17 07:14 Est GFR (CKD-EPI)NonAf >90 (>60 ml/min/1.73 sqM) 12/19/17 07:14 Glucose 105 mg/dL (74-99) H 12/19/17 07:14 Plasma Lactic Acid Fernando 1.0 mmol/L (0.7-2.0) 12/18/17 18:06 Calcium 7.6 mg/dL (8.4-10.2) L 12/19/17 07:14 Total Bilirubin 0.4 mg/dL (0.2-1.3) 12/18/17 18:06 AST 142 U/L (14-36) H 12/18/17 18:06 ALT 115 U/L (9-52) H 12/18/17 18:06 Alkaline Phosphatase 89 U/L (38-126) 12/18/17 18:06 Total Protein 7.0 g/dL (6.3-8.2) 12/18/17 18:06 Albumin 3.4 g/dL (3.5-5.0) L 12/18/17 18:06 Urine Color Dark Yellow 12/18/17 12:00 Urine Appearance Cloudy (Clear) H 12/18/17 12:00 Urine pH 5.5 (5.0-8.0) 12/18/17 12:00 Ur Specific Glidden 1.024 (1.001-1.035) 12/18/17 12:00 Urine Protein 1+ (Negative) H 12/18/17 12:00 Urine Glucose (UA) Negative (Negative) 12/18/17 12:00 Urine Ketones Negative (Negative) 12/18/17 12:00 Urine Blood Small (Negative) H 12/18/17 12:00 Urine Nitrite Negative (Negative) 12/18/17 12:00 Urine Bilirubin Negative (Negative) 12/18/17 12:00 Urine Urobilinogen 2.0 mg/dL (<2.0) 12/18/17 12:00 Ur Leukocyte Esterase Negative (Negative) 12/18/17 12:00 Urine RBC 2 /hpf (0-5) 12/18/17 12:00 Urine WBC 5 /hpf (0-5) 12/18/17 12:00 Ur Squamous Epith Cells 6 /hpf (0-4) H 12/18/17 12:00 Urine Bacteria Few /hpf (None) H 12/18/17 12:00 Hyaline Casts 25 /lpf (0-2) H 12/18/17 12:00 Urine Mucus Many /hpf (None) H 12/18/17 12:00 Microbiology 12/18/17 18:06 Blood Blood Culture Gram Stain - Preliminary 12/18/17 12:00 Blood Blood Culture Gram Stain - Preliminary 12/18/17 18:06 Blood Blood Culture - Final 12/18/17 12:00 Blood Blood Culture - Final 12/18/17 12:00 Urine,Voided Urine Culture - Preliminary Assessment and Plan (1) Breast cancer, left Current Visit: Yes Status: Acute Code(s): C50.912 - MALIGNANT NEOPLASM OF UNSPECIFIED SITE OF LEFT FEMALE BREAST SNOMED Code(s): 858463970 (2) Cellulitis of left breast Current Visit: Yes Status: Acute Code(s): N61.0 - MASTITIS WITHOUT ABSCESS SNOMED Code(s): 33123298 (3) Infection of pocket of surgical implant site Narrative/Plan: 62-year-old female who presented in November with a fungating left breast mass that was painful. Workup ensued and she was found to have evidence of invasive carcinoma of the left breast with metastasis to left axillary area and lungs and mediastinum. She has been initiated to her course of chemotherapy starting with Adriamycin and Cytoxan. She relates she tolerated the chemotherapy right well but now is developed a significant swelling and erythema to the right anterior chest wall [id number] site. It is quite tender over the area but there is no expressible purulence. At this time she has relative leukopenia but is not frankly neutropenic. The prior culture shows evidence of the MSSA as well as the Stenotrophomonas maltophilia. Antibiotic therapy will be initiated this time with ceftazidime and vancomycin pending further culture results. Blood cultures have been requested. Local wound care to the breast will be performed with the medical honey which should help drainage as well as help with odor. Tylenol is given for fever Patient may require surgical consultation depending on the findings of the Mediport site. 12/19/2017 reveals the patient to be stable without new acute complaints. Patient relates that she feels slightly better than yesterday and at the breast is not as painful. The Mediport site remains tender and erythematous. He has noted there are now multiple positive blood cultures we await the final identification, the wound culture from the breast to reveal evidence of MSSA in the past. If the blood cultures have evidence of MSSA infection will then be able to discontinue vancomycin and changed to cefazolin. We'll then have to assess surgeon to remove the port since staphylococcal infection and ports are usually nonsalvageable. Patient's fever is improving Relative leukopenia is being monitored by oncology Follow blood cultures will be determined based on species growing at this time. Current Visit: Yes Status: Acute Code(s): SHK3379 - SNOMED Code(s): 044307565
[2017-12-20] MEDS ORDERED: VANCOMYCIN TROUGH DUE 1 EACH MISC MISCELLANE ONE (05:00)
[2017-12-20 05:34] LABS: Anion Gap 4 mmol/L; Blood Urea Nitrogen 9 mg/dL (7-17); Calcium 7.9 mg/dL (8.4-10.2); Carbon Dioxide 25 mmol/L (22-30); Chloride 107 mmol/L (98-107); Glucose 101 mg/dL (74-99); Potassium 3.4 mmol/L (3.5-5.1); Sodium 136 mmol/L (137-145)
[2017-12-20] MEDS: SODIUM CHLORIDE 0.9% 1,000 ML IV SCH ×3 (05:34→23:50)
[2017-12-20] MEDS: VANCOMYCIN 1,250 MG in SODIUM CHLORIDE 0.9% 250 ML IVPB SCH ×2 (05:34→17:39)
[2017-12-20] MEDS: PANTOPRAZOLE 40 MG TABLET PO SCH (08:10)
[2017-12-20] MEDS: NYSTATIN 100,000 UNIT/ML SUSP 500,000 UNIT/5 ML CUP PO SCH ×4 (08:10→21:09)
[2017-12-20] MEDS: ACETAMINOPHEN TAB 325 MG TAB PO PRN ×3 (08:11→22:41)
--- NOTE | 2017-12-20 10:01 | P.PN ---
Progress Note - Text Progress Note Date: 12/20/17 The patient resting comfortably. She has some minimal tenderness at her right chest wall Port-A-Cath site. On exam her vitals are still. There is obvious cellulitis of the Port-A-Cath with tracking along the catheter to the internal jugular vein. The patient is quite tender in this area. Cellulitis with possible Port-A-Cath infection. Patient did have a temperature 101 yesterday. We will vipul the area so is today. If she has significant cellulitis she will need to have the Port-A-Cath removed.
[2017-12-20 11:37] LABS: HCT 27.3 % (34.0-46.0); HGB 8.6 gm/dL (11.4-16.0); MCH 25.5 pg (25.0-35.0); MCHC 31.5 g/dL (31.0-37.0); MCV 80.8 fL (80.0-100.0); Mean Platelet Volume 8.4; Platelet Count 175 k/uL (150-450); RBC 3.38 m/uL (3.80-5.40); RDW 15.3 % (11.5-15.5); WBC 4.8 k/uL (3.8-10.6)
[2017-12-20 12:44] LABS: Band Neutrophils % 3 %; Lymphocytes # (M) 0.53 k/uL (1.0-4.8); Monocytes # (M) 0.14 k/uL (0-1.0); Neutrophils % (M) 83 %; Nucleated Red Blood Cells 0 /100 WBC (0-0); Total Cells Counted 100
--- NOTE | 2017-12-20 14:03 | P.PN ---
Subjective Progress Note Date: 12/20/17 Principal diagnosis: Febrile, on chemo Doing better today, fevers have started to trend down. Thrush improved. Objective - Vital Signs Vital signs: Vital Signs Temp 97.8 F 12/20/17 13:49 Pulse 79 12/20/17 13:49 Resp 18 12/20/17 13:49 BP 104/66 12/20/17 13:49 Pulse Ox 98 12/20/17 13:49 Intake & Output 12/19/17 12/20/17 12/20/17 18:59 06:59 18:59 Intake Total 1800 800 Balance 1800 800 Weight 63.957 kg Intake: Intake, IV Titration 1200 800 Amount Sodium Chloride 0.9% 1, 1200 700 000 ml @ 100 mls/hr IV . Q10H [facility] Rx#:[id number] cefTAZidime 2 gm In 100 Sodium Chloride 0.9% 100 ml @ 100 mls/hr IVPB Q8HR [facility] Rx#:[id number] Oral 600 Other: Voiding Method Toilet Toilet # Voids 2 - Exam EENT: Thush grade 1, Head NC, NT, she has a small lid lag on right eye Neck: The neck is supple without significant lymphadenopathy. Lungs: There is symmetrical bilateral scattered expiratory wheezes Heart: Regular rhythm, Tachycardia Abdomen: Positive bowel sounds soft and nontender without palpable masses or organomegaly. Extremities: No edema. The peripheral pulses were 2+ and symmetric. Neuro: Awake alert oriented to person place and time. There are no acute new gross focal sensory motor deficits. Skin: Erythema right anterior chest wall at the Mediport site. very tender, erythema improving, area is marked. The left breast massive firm hard edema. Large open draining fungating mass. + odor There is distinct erythema There also is palpable mass in the left axillary area. - Labs CBC & Chem 7: 12/20/17 11:22 12/20/17 05:03 Labs: Abnormal Lab Results - Last 24 Hours (Table) 12/20/17 12/20/17 Range/Units 05:03 11:22 RBC 3.38 L (3.80-5.40) m/uL Hgb 8.6 L (11.4-16.0) gm/dL Hct 27.3 L (34.0-46.0) % Lymphocytes # (Manual) 0.53 L (1.0-4.8) k/uL Sodium 136 L (137-145) mmol/L Potassium 3.4 L (3.5-5.1) mmol/L Glucose 101 H (74-99) mg/dL Calcium 7.9 L (8.4-10.2) mg/dL Microbiology - Last 24 Hours (Table) 12/18/17 12:00 Urine Culture - Preliminary Urine,Voided Gram Neg Bacilli 12/18/17 18:06 Blood Culture Gram Stain - Preliminary Blood Blood Culture - Preliminary Presumptive Staph aureus 12/18/17 12:00 Blood Culture Gram Stain - Preliminary Blood Blood Culture - Preliminary Presumptive Staph aureus 12/18/17 18:06 Blood Culture - Final Blood 12/18/17 12:00 Blood Culture - Final Blood Assessment and Plan Plan: Assessment and Recommendations: 1. Locally Advancer Breast Cancer - New Diagnosis status post Cycle one of Dose Dense AC with Neulasta on 12/09/17 - Chemo Currently on hold until acute issues resolve - Left Breast Large Fungating Mass, edema, erythema. 2. Left Chest Wall Cellulitis surrounding Mediport - Surgery Consult 3. Febrile with leukopenia - improving - Blood counts are recovering 4. Oral candiasis - improved 5. UTI 6. Pancytopenia - Secondary to chemotherapy - CBC Daily - Transfuse PRBC hemoglobin less than 7, Platlets less than 15 in febrile neutropenia with cytopenias from chemotherapy - No Granix as patient received neulasta - Broad Spectrum antibiotics and Antifungals on Bopard - Infectious Disease is monitoring Counseling and Coordination greater than 30 minutes with patient and related to chemotherpay side effects, re-educated on s/s infection, dehydration , and when to call office. Understanding stated. Nutritional and importance of po hydration at home also [id number] - Encouraged to get up and out of bed and move. Oncology Rec: - Await final decision by surgery and infectious disease on length and IV/PO antibiotics and if port will be removed. - Await final blood cultures to result - Hold Chemo minimum one week (due next week 12/23/17) Thank you for allowing us to consult, we will follow along Nona Clayton NP
--- NOTE | 2017-12-20 21:29 | P.PN ---
Subjective Progress Note Date: 12/20/17 62-year-old female presents to the emergency center after being seen in the oncologist office because of concerns to the right Mediport area. The patient was hospitalized in November because of difficulties with her left breast. At presentation there is evidence of a fungating left breast mass significant swelling to the breast. It was biopsied and was found to be invasive carcinoma of the breast. Computed tomography scan and PET scans were performed revealing evidence of the large left breast mass as well as left axillary lymphadenopathy and multiple pulmonary nodules there is also evidence of anterior mediastinal adenopathy. The patient counseling was initiated chemotherapy being her first dose last week with Adriamycin and Cytoxan. She really tolerated the chemotherapy relatively well. However now is presenting with evidence of pain discomfort and erythema to her Mediport site. Because of this she was sent to the emergency center and admitted and the infectious diseases consultation was requested. The patient did receive Neulasta with her chemotherapy. She has relative leukopenia but does not have absolute neutropenia. A culture of her breast was performed that showed evidence of MSSA and Stenotrophomonas maltophilia last month. At this time the patient does not have high-grade fever or chills. The fungating mass in the left breast is not very tender but there is a bit of odor. It is fascinating that the patient relates that the skin changes were present for about a month before she presented. 12/19/2017 reveals the patient be feeling slightly better today. The utilization of the medical honey to the breast ulceration has resulted in improvement of discomfort and reduction of odor and she is pleased. The Mediport site is still swollen erythematous and tender but there is no drainage. She's had some fever that started to improve this afternoon. Laboratories called multiple positive blood cultures. Gram-positive cocci await final identification. 12/20/2017 reveals the patient to be having some chills today. Continues to have significant tenderness at the right neck and upper chest area where the [id number] is in place. She does not have significant fever today but has been having chills. Denies other new acute symptoms. Objective - Vital Signs Vital signs: Vital Signs Temp 99.1 F 12/20/17 21:13 Pulse 84 12/20/17 21:13 Resp 16 12/20/17 21:13 BP 130/69 12/20/17 21:13 Pulse Ox 93 L 12/20/17 21:13 Intake & Output 12/20/17 12/20/17 12/21/17 06:59 18:59 06:59 Intake Total 1800 800 Balance 1800 800 Intake: Intake, IV Titration 1200 800 Amount Sodium Chloride 0.9% 1, 1200 700 000 ml @ 100 mls/hr IV . Q10H NIKI Rx#:[id number] cefTAZidime 2 gm In 100 Sodium Chloride 0.9% 100 ml @ 100 mls/hr IVPB Q8HR NIKI Rx#:[id number] Oral 600 Other: Voiding Method Toilet - Exam 62-year-old female seems to be comfortable at this point in time. Is denying high-grade fevers or chills. Does have tenderness and erythema to the right anterior chest wall. HEENT: Anicteric conjunctiva are pink and moist nasal mucosa grossly intact without significant lesions, there appears to be a mild amount of thrush Neck: The neck is supple without significant lymphadenopathy or thyromegaly. Lungs: There is symmetrical bilateral air entry with scattered wheezes but no kierra bronchial sounds or dullness or egophony Heart: Regular rate and rhythm with an audible S1-S2, no S3 no S4. There is no significant murmur click or rub, PMI was nondisplaced. Abdomen: Positive bowel sounds soft and nontender without palpable masses or organomegaly. There was no guarding or rebound. Extremities: The upper extremities have excellent pulses they are symmetric, no significant petechiae or telangiectasia. No splinter hemorrhages were noted. The lower extremities are free from significant edema. The peripheral pulses were 2+ and symmetric. Neuro: Awake alert oriented to person place and time. There are no acute new gross focal sensory motor deficits. Skin: With the nurse present the patient is evaluated. There is evidence of erythema and tenderness over the right anterior chest wall at the Mediport site. This has worsened in the last day. Or the suture is in the neck there is some drainage is now being seen there is distinct erythema and there is no a small amount of fluctuance starting to occur over the Mediport site.. - Labs CBC & Chem 7: 12/20/17 11:22 12/20/17 05:03 Labs: Abnormal Lab Results - Last 24 Hours (Table) 12/20/17 12/20/17 Range/Units 05:03 11:22 RBC 3.38 L (3.80-5.40) m/uL Hgb 8.6 L (11.4-16.0) gm/dL Hct 27.3 L (34.0-46.0) % Lymphocytes # (Manual) 0.53 L (1.0-4.8) k/uL Sodium 136 L (137-145) mmol/L Potassium 3.4 L (3.5-5.1) mmol/L Glucose 101 H (74-99) mg/dL Calcium 7.9 L (8.4-10.2) mg/dL Microbiology - Last 24 Hours (Table) 12/18/17 12:00 Urine Culture - Preliminary Urine,Voided Gram Neg Bacilli 12/18/17 18:06 Blood Culture Gram Stain - Preliminary Blood Blood Culture - Preliminary Presumptive Staph aureus 12/18/17 12:00 Blood Culture Gram Stain - Preliminary Blood Blood Culture - Preliminary Presumptive Staph aureus Laboratory Results WBC 4.8 k/uL (3.8-10.6) 12/20/17 11:22 RBC 3.38 m/uL (3.80-5.40) L 12/20/17 11:22 Hgb 8.6 gm/dL (11.4-16.0) L 12/20/17 11:22 Hct 27.3 % (34.0-46.0) L 12/20/17 11:22 MCV 80.8 fL (80.0-100.0) 12/20/17 11:22 MCH 25.5 pg (25.0-35.0) 12/20/17 11:22 MCHC 31.5 g/dL (31.0-37.0) 12/20/17 11:22 RDW 15.3 % (11.5-15.5) 12/20/17 11:22 Plt Count 175 k/uL (150-450) 12/20/17 11:22 Neutrophils % 79 % 12/19/17 07:14 Neutrophils % (Manual) 83 % 12/20/17 11:22 Band Neutrophils % 3 % 12/20/17 11:22 Lymphocytes % 10 % 12/19/17 07:14 Lymphocytes % (Manual) 11 % 12/20/17 11:22 Monocytes % 8 % 12/19/17 07:14 Monocytes % (Manual) 3 % 12/20/17 11:22 Eosinophils % 0 % 12/19/17 07:14 Basophils % 0 % 12/19/17 07:14 Neutrophils # 1.9 k/uL (1.3-7.7) 12/19/17 07:14 Neutrophils # (Manual) 4.10 k/uL (1.3-7.7) 12/20/17 11:22 Lymphocytes # 0.2 k/uL (1.0-4.8) L 12/19/17 07:14 Lymphocytes # (Manual) 0.53 k/uL (1.0-4.8) L 12/20/17 11:22 Monocytes # 0.2 k/uL (0-1.0) 12/19/17 07:14 Monocytes # (Manual) 0.14 k/uL (0-1.0) 12/20/17 11:22 Eosinophils # 0.0 k/uL (0-0.7) 12/19/17 07:14 Basophils # 0.0 k/uL (0-0.2) 12/19/17 07:14 Nucleated RBCs 0 /100 WBC (0-0) 12/20/17 11:22 RBC Morphology Normal 12/20/17 11:22 Sodium 136 mmol/L (137-145) L 12/20/17 05:03 Potassium 3.4 mmol/L (3.5-5.1) L 12/20/17 05:03 Chloride 107 mmol/L (98-107) 12/20/17 05:03 Carbon Dioxide 25 mmol/L (22-30) 12/20/17 05:03 Anion Gap 4 mmol/L 12/20/17 05:03 BUN 9 mg/dL (7-17) 12/20/17 05:03 Creatinine 0.68 mg/dL (0.52-1.04) 12/20/17 05:03 Est GFR (CKD-EPI)AfAm >90 (>60 ml/min/1.73 sqM) 12/20/17 05:03 Est GFR (CKD-EPI)NonAf >90 (>60 ml/min/1.73 sqM) 12/20/17 05:03 Glucose 101 mg/dL (74-99) H 12/20/17 05:03 Plasma Lactic Acid Fernando 1.0 mmol/L (0.7-2.0) 12/18/17 18:06 Calcium 7.9 mg/dL (8.4-10.2) L 12/20/17 05:03 Total Bilirubin 0.4 mg/dL (0.2-1.3) 12/18/17 18:06 AST 142 U/L (14-36) H 12/18/17 18:06 ALT 115 U/L (9-52) H 12/18/17 18:06 Alkaline Phosphatase 89 U/L (38-126) 12/18/17 18:06 Total Protein 7.0 g/dL (6.3-8.2) 12/18/17 18:06 Albumin 3.4 g/dL (3.5-5.0) L 12/18/17 18:06 Urine Color Dark Yellow 12/18/17 12:00 Urine Appearance Cloudy (Clear) H 12/18/17 12:00 Urine pH 5.5 (5.0-8.0) 12/18/17 12:00 Ur Specific Sheldon 1.024 (1.001-1.035) 12/18/17 12:00 Urine Protein 1+ (Negative) H 12/18/17 12:00 Urine Glucose (UA) Negative (Negative) 12/18/17 12:00 Urine Ketones Negative (Negative) 12/18/17 12:00 Urine Blood Small (Negative) H 12/18/17 12:00 Urine Nitrite Negative (Negative) 12/18/17 12:00 Urine Bilirubin Negative (Negative) 12/18/17 12:00 Urine Urobilinogen 2.0 mg/dL (<2.0) 12/18/17 12:00 Ur Leukocyte Esterase Negative (Negative) 12/18/17 12:00 Urine RBC 2 /hpf (0-5) 12/18/17 12:00 Urine WBC 5 /hpf (0-5) 12/18/17 12:00 Ur Squamous Epith Cells 6 /hpf (0-4) H 12/18/17 12:00 Urine Bacteria Few /hpf (None) H 12/18/17 12:00 Hyaline Casts 25 /lpf (0-2) H 12/18/17 12:00 Urine Mucus Many /hpf (None) H 12/18/17 12:00 Vancomycin Trough 21.8 ug/mL 09/08/18 05:03 Microbiology 12/18/17 12:00 Urine,Voided Urine Culture - Preliminary Gram Neg Bacilli 12/18/17 18:06 Blood Blood Culture Gram Stain - Preliminary 12/18/17 18:06 Blood Blood Culture - Preliminary Presumptive Staph aureus 12/18/17 12:00 Blood Blood Culture Gram Stain - Preliminary 12/18/17 12:00 Blood Blood Culture - Preliminary Presumptive Staph aureus 12/18/17 18:06 Blood Blood Culture - Final 12/18/17 12:00 Blood Blood Culture - Final Assessment and Plan (1) Breast cancer, left Current Visit: Yes Status: Acute Code(s): C50.912 - MALIGNANT NEOPLASM OF UNSPECIFIED SITE OF LEFT FEMALE BREAST SNOMED Code(s): 790148040 (2) Cellulitis of left breast Current Visit: Yes Status: Acute Code(s): N61.0 - MASTITIS WITHOUT ABSCESS SNOMED Code(s): 74431220 (3) Infection of pocket of surgical implant site Narrative/Plan: 62-year-old female who presented in November with a fungating left breast mass that was painful. Workup ensued and she was found to have evidence of invasive carcinoma of the left breast with metastasis to left axillary area and lungs and mediastinum. She has been initiated to her course of chemotherapy starting with Adriamycin and Cytoxan. She relates she tolerated the chemotherapy right well but now is developed a significant swelling and erythema to the right anterior chest wall [id number] site. It is quite tender over the area but there is no expressible purulence. At this time she has relative leukopenia but is not frankly neutropenic. The prior culture shows evidence of the MSSA as well as the Stenotrophomonas maltophilia. Antibiotic therapy will be initiated this time with ceftazidime and vancomycin pending further culture results. Blood cultures have been requested. Local wound care to the breast will be performed with the medical honey which should help drainage as well as help with odor. Tylenol is given for fever Patient may require surgical consultation depending on the findings of the Mediport site. 12/19/2017 reveals the patient to be stable without new acute complaints. Patient relates that she feels slightly better than yesterday and at the breast is not as painful. The Mediport site remains tender and erythematous. He has noted there are now multiple positive blood cultures we await the final identification, the wound culture from the breast to reveal evidence of MSSA in the past. If the blood cultures have evidence of MSSA infection will then be able to discontinue vancomycin and changed to cefazolin. We'll then have to assess surgeon to remove the port since staphylococcal infection and ports are usually nonsalvageable. Patient's fever is improving Relative leukopenia is being monitored by oncology Follow blood cultures will be determined based on species growing at this time. 12/20/2017 the patient has some chills today. She is not feeling very well overall. She is denying rigors. The dressing to the left breast has help with some discomfort and this will be continued. The right anterior chest wall and right neck have evidence of the onset of swelling and some fluctuance at the Mediport site. Where the catheter inserts into the IJ there is evidence of the suture that has some scant amount of purulence. Anterior area is very tender and has some minimal warmth. There are now multiple positive blood cultures with staph aureus in the Infuse-a -Port appears to be infected. Antibiotics will not be able to salvage this and consequently will assess surgeon to remove the port. We have negative blood cultures would contemplate PICC line for IV access to complete treatment of antibiotics and then chemotherapy. We'll continue current antibiotic therapy until we have final cultures. Of note there is a gram-negative in the urine and await final identification. Current Visit: Yes Status: Acute Code(s): MVS4908 - SNOMED Code(s): 853399258
--- NOTE | 2017-12-20 22:44 | PN ---
PROGRESS NOTE DATE OF SERVICE: 12/20/2017 CHIEF COMPLAINT: Infected port, right chest. HISTORY OF PRESENT ILLNESS: This lady is comfortable and having no problems. Area of cellulitis is improving. PHYSICAL EXAM: Chest is clear. Cardiac exam is normal. The redness in the area of the port is slowly receding. IMPRESSION: Infected port, right chest. PLAN: IV antibiotics continue. It will remain to be seen if the port has to be removed. MMODL / IJN: [id number] /
[2017-12-21] MEDS: ACETAMINOPHEN TAB 325 MG TAB PO PRN ×3 (06:24→17:34)
[2017-12-21] MEDS: VANCOMYCIN 1,250 MG in SODIUM CHLORIDE 0.9% 250 ML IVPB SCH ×2 (06:25→17:35)
[2017-12-21] MEDS: PANTOPRAZOLE 40 MG TABLET PO SCH (08:50)
[2017-12-21] MEDS: NYSTATIN 100,000 UNIT/ML SUSP 500,000 UNIT/5 ML CUP PO SCH ×3 (08:50→18:16)
[2017-12-21 09:24] LABS: Basophils % (A) 0 %; Eosinophils % (A) 0 %; HCT 24.9 % (34.0-46.0); HGB 8.3 gm/dL (11.4-16.0); Lymphocytes # (A) 0.6 k/uL (1.0-4.8); Lymphocytes % (A) 11 %; MCH 26.7 pg (25.0-35.0); MCHC 33.1 g/dL (31.0-37.0); MCV 80.4 fL (80.0-100.0); Mean Platelet Volume 7.5; Monocytes # (A) 0.3 k/uL (0-1.0); Monocytes % (A) 5 %; Neutrophils # (A) 4.4 k/uL (1.3-7.7); Neutrophils % (A) 82 %; Platelet Count 189 k/uL (150-450); RDW 15.2 % (11.5-15.5); WBC 5.4 k/uL (3.8-10.6)
[2017-12-21 09:36] LABS: ALT 87 U/L (9-52); AST 53 U/L (14-36); Albumin 2.5 g/dL (3.5-5.0); Alkaline Phosphatase 86 U/L (38-126); Anion Gap 8 mmol/L; Blood Urea Nitrogen 6 mg/dL (7-17); Calcium 7.7 mg/dL (8.4-10.2); Carbon Dioxide 25 mmol/L (22-30); Chloride 105 mmol/L (98-107); Glucose 111 mg/dL (74-99); Potassium 3.2 mmol/L (3.5-5.1); Sodium 138 mmol/L (137-145); Total Bilirubin 0.3 mg/dL (0.2-1.3); Total Protein 5.5 g/dL (6.3-8.2)
--- NOTE | 2017-12-21 12:32 | P.PN ---
Progress Note - Text Progress Note Date: 12/21/17 The patient has increasing cellulitis around her Port-A-Cath site. She has some complaints of pain. On exam the Port-A-Cath site is cellulitic with induration. Port-A-Cath infection. Patient will have her Port-A-Cath removed by Dr. Dupree tomorrow.
--- NOTE | 2017-12-21 13:25 | PN ---
PROGRESS NOTE CHIEF COMPLAINT: Infected port. HISTORY OF PRESENT ILLNESS: This lady is a doing fairly well, but she has a little discomfort in that area and still . Chest exam is normal. in the area of the pocket continues. IMPRESSION: 1. Infected port site in the right chest. 2. Carcinoma of the breast. PLAN: It is very likely that this device will have to be removed and will await for surgery's opinion. MMODL / IJN: [id number] /
[2017-12-21] MEDS: ceFAZolin IN SWFI 2 GM/20 ML SYRINGE IVP SCH (16:02)
--- NOTE | 2017-12-21 16:50 | P.PN ---
Subjective Progress Note Date: 12/21/17 62-year-old female presents to the emergency center after being seen in the oncologist office because of concerns to the right Mediport area. The patient was hospitalized in November because of difficulties with her left breast. At presentation there is evidence of a fungating left breast mass significant swelling to the breast. It was biopsied and was found to be invasive carcinoma of the breast. Computed tomography scan and PET scans were performed revealing evidence of the large left breast mass as well as left axillary lymphadenopathy and multiple pulmonary nodules there is also evidence of anterior mediastinal adenopathy. The patient counseling was initiated chemotherapy being her first dose last week with Adriamycin and Cytoxan. She really tolerated the chemotherapy relatively well. However now is presenting with evidence of pain discomfort and erythema to her Mediport site. Because of this she was sent to the emergency center and admitted and the infectious diseases consultation was requested. The patient did receive Neulasta with her chemotherapy. She has relative leukopenia but does not have absolute neutropenia. A culture of her breast was performed that showed evidence of MSSA and Stenotrophomonas maltophilia last month. At this time the patient does not have high-grade fever or chills. The fungating mass in the left breast is not very tender but there is a bit of odor. It is fascinating that the patient relates that the skin changes were present for about a month before she presented. 12/19/2017 reveals the patient be feeling slightly better today. The utilization of the medical honey to the breast ulceration has resulted in improvement of discomfort and reduction of odor and she is pleased. The Mediport site is still swollen erythematous and tender but there is no drainage. She's had some fever that started to improve this afternoon. Laboratories called multiple positive blood cultures. Gram-positive cocci await final identification. 12/20/2017 reveals the patient to be having some chills today. Continues to have significant tenderness at the right neck and upper chest area where the Hghmpx-y-Jhlr is in place. She does not have significant fever today but has been having chills. Denies other new acute symptoms. 12/21/2017 reveals the patient to be feeling about the same still has significant discomfort to the right anterior chest wall. She is still having chills and fever. She has now been seen by the surgeon with evidence of the significant infection rations are being made for the Port-A-Cath be removed tomorrow. Objective - Vital Signs Vital signs: Vital Signs Temp 97.7 F 12/21/17 12:49 Pulse 96 12/21/17 12:49 Resp 18 12/21/17 12:49 BP 122/77 12/21/17 12:49 Pulse Ox 96 12/21/17 12:49 Intake & Output 12/20/17 12/21/17 12/21/17 18:59 06:59 18:59 Intake Total 800 1350 700 Balance 800 1350 700 Intake: IV 1350 700 Sodium Chloride 0.9% 1, 1000 700 000 ml @ 100 mls/hr IV . Q10H [facility] Rx#:[id number] Vancomycin 1,250 mg In 250 Sodium Chloride 0.9% 250 ml @ 125 mls/hr IVPB Q12HR@0600,1800 [facility] Rx#: [id number] cefTAZidime 2 gm In 100 Sodium Chloride 0.9% 100 ml @ 100 mls/hr IVPB Q8HR [facility] Rx#:[id number] Intake, IV Titration 800 Amount Sodium Chloride 0.9% 1, 700 000 ml @ 100 mls/hr IV . Q10H [facility] Rx#:[id number] cefTAZidime 2 gm In 100 Sodium Chloride 0.9% 100 ml @ 100 mls/hr IVPB Q8HR [facility] Rx#:[id number] Other: Voiding Method Toilet Toilet - Exam 62-year-old female seems to be comfortable at this point in time. Is denying high-grade fevers or chills. Does have tenderness and erythema to the right anterior chest wall. HEENT: Anicteric conjunctiva are pink and moist nasal mucosa grossly intact without significant lesions, there appears to be a mild amount of thrush Neck: The neck is supple without significant lymphadenopathy or thyromegaly. Lungs: There is symmetrical bilateral air entry with scattered wheezes but no kierra bronchial sounds or dullness or egophony Heart: Regular rate and rhythm with an audible S1-S2, no S3 no S4. There is no significant murmur click or rub, PMI was nondisplaced. Abdomen: Positive bowel sounds soft and nontender without palpable masses or organomegaly. There was no guarding or rebound. Extremities: The upper extremities have excellent pulses they are symmetric, no significant petechiae or telangiectasia. No splinter hemorrhages were noted. The lower extremities are free from significant edema. The peripheral pulses were 2+ and symmetric. Neuro: Awake alert oriented to person place and time. There are no acute new gross focal sensory motor deficits. Skin: With the nurse present the patient is evaluated. There is evidence of erythema and tenderness over the right anterior chest wall at the Mediport site. This has worsened in the last day. Or the suture is in the neck there is some drainage is now being seen there is distinct erythema and there is now a small amount of fluctuance starting to occur over the Mediport site.. - Labs CBC & Chem 7: 12/21/17 08:49 12/21/17 08:49 Labs: Abnormal Lab Results - Last 24 Hours (Table) 12/21/17 12/21/17 Range/Units 08:49 08:49 RBC 3.10 L (3.80-5.40) m/uL Hgb 8.3 L (11.4-16.0) gm/dL Hct 24.9 L (34.0-46.0) % Lymphocytes # 0.6 L (1.0-4.8) k/uL Potassium 3.2 L (3.5-5.1) mmol/L BUN 6 L (7-17) mg/dL Glucose 111 H (74-99) mg/dL Calcium 7.7 L (8.4-10.2) mg/dL AST 53 H (14-36) U/L ALT 87 H (9-52) U/L Total Protein 5.5 L (6.3-8.2) g/dL Albumin 2.5 L (3.5-5.0) g/dL Microbiology - Last 24 Hours (Table) 12/18/17 12:00 Blood Culture Gram Stain - Final Blood Blood Culture - Final Staphylococcus aureus 12/18/17 18:06 Blood Culture Gram Stain - Final Blood Blood Culture - Final Staphylococcus aureus Laboratory Results WBC 5.4 k/uL (3.8-10.6) 12/21/17 08:49 RBC 3.10 m/uL (3.80-5.40) L 12/21/17 08:49 Hgb 8.3 gm/dL (11.4-16.0) L 12/21/17 08:49 Hct 24.9 % (34.0-46.0) L 12/21/17 08:49 MCV 80.4 fL (80.0-100.0) 12/21/17 08:49 MCH 26.7 pg (25.0-35.0) 12/21/17 08:49 MCHC 33.1 g/dL (31.0-37.0) 12/21/17 08:49 RDW 15.2 % (11.5-15.5) 12/21/17 08:49 Plt Count 189 k/uL (150-450) 12/21/17 08:49 Neutrophils % 82 % 12/21/17 08:49 Neutrophils % (Manual) 83 % 12/20/17 11:22 Band Neutrophils % 3 % 12/20/17 11:22 Lymphocytes % 11 % 12/21/17 08:49 Lymphocytes % (Manual) 11 % 12/20/17 11:22 Monocytes % 5 % 12/21/17 08:49 Monocytes % (Manual) 3 % 12/20/17 11:22 Eosinophils % 0 % 12/21/17 08:49 Basophils % 0 % 12/21/17 08:49 Neutrophils # 4.4 k/uL (1.3-7.7) 12/21/17 08:49 Neutrophils # (Manual) 4.10 k/uL (1.3-7.7) 12/20/17 11:22 Lymphocytes # 0.6 k/uL (1.0-4.8) L 12/21/17 08:49 Lymphocytes # (Manual) 0.53 k/uL (1.0-4.8) L 12/20/17 11:22 Monocytes # 0.3 k/uL (0-1.0) 12/21/17 08:49 Monocytes # (Manual) 0.14 k/uL (0-1.0) 12/20/17 11:22 Eosinophils # 0.0 k/uL (0-0.7) 12/21/17 08:49 Basophils # 0.0 k/uL (0-0.2) 12/21/17 08:49 Nucleated RBCs 0 /100 WBC (0-0) 12/20/17 11:22 RBC Morphology Normal 12/20/17 11:22 Sodium 138 mmol/L (137-145) 12/21/17 08:49 Potassium 3.2 mmol/L (3.5-5.1) L 12/21/17 08:49 Chloride 105 mmol/L (98-107) 12/21/17 08:49 Carbon Dioxide 25 mmol/L (22-30) 12/21/17 08:49 Anion Gap 8 mmol/L 12/21/17 08:49 BUN 6 mg/dL (7-17) L 12/21/17 08:49 Creatinine 0.63 mg/dL (0.52-1.04) 12/21/17 08:49 Est GFR (CKD-EPI)AfAm >90 (>60 ml/min/1.73 sqM) 12/21/17 08:49 Est GFR (CKD-EPI)NonAf >90 (>60 ml/min/1.73 sqM) 12/21/17 08:49 Glucose 111 mg/dL (74-99) H 12/21/17 08:49 Plasma Lactic Acid Fernando 1.0 mmol/L (0.7-2.0) 12/18/17 18:06 Calcium 7.7 mg/dL (8.4-10.2) L 12/21/17 08:49 Total Bilirubin 0.3 mg/dL (0.2-1.3) 12/21/17 08:49 AST 53 U/L (14-36) H 12/21/17 08:49 ALT 87 U/L (9-52) H 12/21/17 08:49 Alkaline Phosphatase 86 U/L (38-126) 12/21/17 08:49 Total Protein 5.5 g/dL (6.3-8.2) L 12/21/17 08:49 Albumin 2.5 g/dL (3.5-5.0) L 12/21/17 08:49 Urine Color Dark Yellow 12/18/17 12:00 Urine Appearance Cloudy (Clear) H 12/18/17 12:00 Urine pH 5.5 (5.0-8.0) 12/18/17 12:00 Ur Specific Franklin 1.024 (1.001-1.035) 12/18/17 12:00 Urine Protein 1+ (Negative) H 12/18/17 12:00 Urine Glucose (UA) Negative (Negative) 12/18/17 12:00 Urine Ketones Negative (Negative) 12/18/17 12:00 Urine Blood Small (Negative) H 12/18/17 12:00 Urine Nitrite Negative (Negative) 12/18/17 12:00 Urine Bilirubin Negative (Negative) 12/18/17 12:00 Urine Urobilinogen 2.0 mg/dL (<2.0) 12/18/17 12:00 Ur Leukocyte Esterase Negative (Negative) 12/18/17 12:00 Urine RBC 2 /hpf (0-5) 12/18/17 12:00 Urine WBC 5 /hpf (0-5) 12/18/17 12:00 Ur Squamous Epith Cells 6 /hpf (0-4) H 12/18/17 12:00 Urine Bacteria Few /hpf (None) H 12/18/17 12:00 Hyaline Casts 25 /lpf (0-2) H 12/18/17 12:00 Urine Mucus Many /hpf (None) H 12/18/17 12:00 Vancomycin Trough 21.8 ug/mL 12/20/17 05:03 Microbiology 12/18/17 12:00 Blood Blood Culture Gram Stain - Final 12/18/17 12:00 Blood Blood Culture - Final Staphylococcus aureus 12/18/17 18:06 Blood Blood Culture Gram Stain - Final 12/18/17 18:06 Blood Blood Culture - Final Staphylococcus aureus 12/18/17 12:00 Urine,Voided Urine Culture - Preliminary Gram Neg Bacilli 12/18/17 18:06 Blood Blood Culture - Final 12/18/17 12:00 Blood Blood Culture - Final Assessment and Plan (1) Breast cancer, left Current Visit: Yes Status: Acute Code(s): C50.912 - MALIGNANT NEOPLASM OF UNSPECIFIED SITE OF LEFT FEMALE BREAST SNOMED Code(s): 552491833 (2) Cellulitis of left breast Current Visit: Yes Status: Acute Code(s): N61.0 - MASTITIS WITHOUT ABSCESS SNOMED Code(s): 09915612 (3) Infection of pocket of surgical implant site Narrative/Plan: 62-year-old female who presented in November with a fungating left breast mass that was painful. Workup ensued and she was found to have evidence of invasive carcinoma of the left breast with metastasis to left axillary area and lungs and mediastinum. She has been initiated to her course of chemotherapy starting with Adriamycin and Cytoxan. She relates she tolerated the chemotherapy right well but now is developed a significant swelling and erythema to the right anterior chest wall Hwlfwk-h-Hbxg site. It is quite tender over the area but there is no expressible purulence. At this time she has relative leukopenia but is not frankly neutropenic. The prior culture shows evidence of the MSSA as well as the Stenotrophomonas maltophilia. Antibiotic therapy will be initiated this time with ceftazidime and vancomycin pending further culture results. Blood cultures have been requested. Local wound care to the breast will be performed with the medical honey which should help drainage as well as help with odor. Tylenol is given for fever Patient may require surgical consultation depending on the findings of the Mediport site. 12/19/2017 reveals the patient to be stable without new acute complaints. Patient relates that she feels slightly better than yesterday and at the breast is not as painful. The Mediport site remains tender and erythematous. He has noted there are now multiple positive blood cultures we await the final identification, the wound culture from the breast to reveal evidence of MSSA in the past. If the blood cultures have evidence of MSSA infection will then be able to discontinue vancomycin and changed to cefazolin. We'll then have to assess surgeon to remove the port since staphylococcal infection and ports are usually nonsalvageable. Patient's fever is improving Relative leukopenia is being monitored by oncology Follow blood cultures will be determined based on species growing at this time. 12/20/2017 the patient has some chills today. She is not feeling very well overall. She is denying rigors. The dressing to the left breast has help with some discomfort and this will be continued. The right anterior chest wall and right neck have evidence of the onset of swelling and some fluctuance at the Mediport site. Where the catheter inserts into the IJ there is evidence of the suture that has some scant amount of purulence. Anterior area is very tender and has some minimal warmth. There are now multiple positive blood cultures with staph aureus in the Infuse-a -Port appears to be infected. Antibiotics will not be able to salvage this and consequently will assess surgeon to remove the port. We have negative blood cultures would contemplate PICC line for IV access to complete treatment of antibiotics and then chemotherapy. We'll continue current antibiotic therapy until we have final cultures. Of note there is a gram-negative in the urine and await final identification. 12/21/2017 the patient is having chills and we have evidence of multiple blood cultures revealed evidence of MSSA. Antibiotic therapy is altered from vancomycin to high-dose Ancef. The port cannot be salvaged and arrangements are being made with the surgeon for removal tomorrow. After removal follow blood cultures will be needed and once negative we'll then have a PICC line placed to complete a few weeks of intravenous antibiotic therapy for catheter related bacteremia. Afterwards she can then restart her chemotherapy. The patient understands this strategy and is looking forward to having her port removed because it is so tender and problematic at this time. Current Visit: Yes Status: Acute Code(s): EMR4528 - SNOMED Code(s): 437202433
[2017-12-21] MEDS: PROCHLORPERAZINE 10 MG TAB PO PRN (18:15)
--- NOTE | 2017-12-21 21:37 | PN ---
PROGRESS NOTE DATE OF SERVICE: December 21, 2017. CHIEF COMPLAINT: Tired and fever and chills. HISTORY: Wendy is seen today as a followup. She continued to feel tired and having chills and fever. Her blood pressure has a persistently showed Staphylococcus Aureus which is MSSA. MEDICATION: Reviewed in her electronic medical record. PHYSICAL EXAMINATION: She is alert, oriented x3. She does not appear to be in distress. Her vital signs temperature 97.7. She had a temp max of 100.6 this morning, pulse is 96 and regular, respiration 18, blood pressure 122/77. HEENT: Normocephalic, atraumatic. NECK: Supple. Chest: Equal expansion bilaterally. Lungs are clear to auscultation. Heart is regular rate and rhythm. ABDOMEN: Soft. No tenderness. EXTREMITIES: No edema. Skin: There is significant erythema at the site of the MediPort of the right chest wall. IMPRESSION: 1. Locally advanced breast carcinoma. She has had 1 cycle of AC so far. 2. Sepsis and persistent bacteremia with Methicillin-sensitive Staphylococcus aureus and significant erythema and swelling at the MediPort site. RECOMMENDATIONS: 1. I agree with removal of MediPort to schedule for tomorrow morning. 2. PICC line should be replaced instead to complete the course of antibiotics as would be recommended by Infectious Disease and then subsequently could be used for further administration of chemotherapy. 3. Continue to monitor blood count. She is not neutropenic at this point in time. MMODL / IJN: [id number] /
[2017-12-22] MEDS: ACETAMINOPHEN TAB 325 MG TAB PO PRN ×4 (00:08→18:31)
[2017-12-22] MEDS: ceFAZolin IN SWFI 2 GM/20 ML SYRINGE IVP SCH ×3 (00:25→13:39)
[2017-12-22] MEDS: NYSTATIN 100,000 UNIT/ML SUSP 500,000 UNIT/5 ML CUP PO SCH ×4 (00:31→17:24)
[2017-12-22] MEDS: SODIUM CHLORIDE 0.9% 1,000 ML IV SCH ×3 (01:27→11:24)
[2017-12-22] MEDS: HEPARIN SODIUM,PORCINE 5,000 UNIT/ML 1 ML VIAL SQ SCH ×3 (01:29→15:29)
[2017-12-22] MEDS ORDERED: VANCOMYCIN TROUGH DUE 1 EACH MISC MISCELLANE ONE (05:00)
[2017-12-22] MEDS: VANCOMYCIN 1,250 MG in SODIUM CHLORIDE 0.9% 250 ML IVPB SCH (05:17)
[2017-12-22 05:56] LABS: Basophils % (A) 0 %; Eosinophils % (A) 0 %; HCT 25.5 % (34.0-46.0); HGB 8.1 gm/dL (11.4-16.0); Lymphocytes # (A) 0.7 k/uL (1.0-4.8); Lymphocytes % (A) 11 %; MCH 25.5 pg (25.0-35.0); MCHC 31.8 g/dL (31.0-37.0); MCV 80.3 fL (80.0-100.0); Mean Platelet Volume 8.1; Monocytes # (A) 0.2 k/uL (0-1.0); Monocytes % (A) 4 %; Neutrophils # (A) 5.5 k/uL (1.3-7.7); Neutrophils % (A) 83 %; Platelet Count 248 k/uL (150-450); RBC 3.17 m/uL (3.80-5.40); RDW 15.5 % (11.5-15.5); WBC 6.7 k/uL (3.8-10.6)
[2017-12-22 06:14] LABS: ALT 68 U/L (9-52); AST 43 U/L (14-36); Albumin 2.5 g/dL (3.5-5.0); Alkaline Phosphatase 109 U/L (38-126); Anion Gap 9 mmol/L; Blood Urea Nitrogen 7 mg/dL (7-17); Calcium 7.7 mg/dL (8.4-10.2); Carbon Dioxide 25 mmol/L (22-30); Chloride 103 mmol/L (98-107); Glucose 92 mg/dL (74-99); Potassium 3.1 mmol/L (3.5-5.1); Sodium 137 mmol/L (137-145); Total Bilirubin 0.4 mg/dL (0.2-1.3); Total Protein 5.5 g/dL (6.3-8.2)
[2017-12-22] MEDS: PANTOPRAZOLE 40 MG TABLET PO SCH (09:24)
[2017-12-22] MEDS: SALT AND SODA MOUTHWASH 1,000 ML PO SCH ×3 (11:24→20:34)
--- NOTE | 2017-12-22 14:30 | P.HPADDEND ---
H&P Addendum H&P Addendum Date: 12/22/17 Patient seen and evaluated. Erythema has extended beyond its borders in the last 3 days. We'll proceed with removal of Port-A-Cath
--- NOTE | 2017-12-22 15:26 | P.PN ---
Subjective Progress Note Date: 12/22/17 Principal diagnosis: Breast cancer, status post 1 chemotherapy, bacteremia and infected Port-A-Cath Patient seen today in follow-up. Her right chest wall Port-A-Cath site is red, swollen and tender, plan is to remove today. Patient does have MSSA bacteremia , also a urine positive for Klebsiella pneumoniae, she is on antibiotics. Patient had a 101.2 fever this a.m., vital signs have otherwise been stable, patient's mouth is dry, slightly irritated, denies vomiting, diarrhea, constipation, hematuria,bleeding, lower extremity swelling or new/unrealistic pain. Patient has a nonproductive cough. Objective - Vital Signs Vital signs: Vital Signs Temp 99.5 F 12/22/17 07:46 Pulse 86 12/22/17 07:46 Resp 16 12/22/17 07:46 BP 124/58 12/22/17 07:46 Pulse Ox 95 12/22/17 07:46 Intake & Output 12/21/17 12/22/17 12/22/17 18:59 06:59 18:59 Intake Total 700 Balance 700 Weight 63.957 kg Intake: IV 700 Sodium Chloride 0.9% 1, 700 000 ml @ 100 mls/hr IV . Q10H [facility] Rx#:[id number] Other: Voiding Method Toilet Toilet # Voids 1 - Constitutional General appearance: Present: average body habitus, cooperative, no acute distress - EENT EENT Comment(s): dry mucous membranes, no thrush Eyes: Present: anicteric sclerae - Respiratory Respiratory: bilateral: CTA - Cardiovascular Rhythm: regular - Peripheral edema leg Peripheral Edema: bilateral: None - Gastrointestinal General gastrointestinal: Present: soft - Integumentary Integumentary Comment(s): Left breast fungating mass is currently covered with a dressing, clean dry and intact Integumentary: Present: normal turgor - Neurologic Neurologic: Present: CNII-XII intact - Musculoskeletal Musculoskeletal: Present: strength equal bilaterally - Psychiatric Psychiatric: Present: A&O x's 3, appropriate affect, intact judgment & insight - Labs CBC & Chem 7: 12/22/17 05:31 12/22/17 05:31 Labs: Abnormal Lab Results - Last 24 Hours (Table) 12/22/17 12/22/17 Range/Units 05:31 05:31 RBC 3.17 L (3.80-5.40) m/uL Hgb 8.1 L (11.4-16.0) gm/dL Hct 25.5 L (34.0-46.0) % Lymphocytes # 0.7 L (1.0-4.8) k/uL Potassium 3.1 L (3.5-5.1) mmol/L Calcium 7.7 L (8.4-10.2) mg/dL AST 43 H (14-36) U/L ALT 68 H (9-52) U/L Total Protein 5.5 L (6.3-8.2) g/dL Albumin 2.5 L (3.5-5.0) g/dL Microbiology - Last 24 Hours (Table) 12/18/17 18:06 Blood Culture Gram Stain - Final Blood Blood Culture - Final Staphylococcus aureus 12/18/17 12:00 Blood Culture Gram Stain - Final Blood Blood Culture - Final Staphylococcus aureus 12/18/17 12:00 Urine Culture - Final Urine,Voided Klebsiella pneumoniae Assessment and Plan (1) Bacteremia Narrative/Plan: Plan is for Port-A-Cath removal, Infectious Disease is following and treating patient with antibiotics. Once Bacteremia is clear PICC line will be inserted for patient to continue chemotherapy. Current Visit: Yes Status: Acute Priority: High Code(s): R78.81 - BACTEREMIA SNOMED Code(s): 1932199 (2) Breast cancer, left Narrative/Plan: Patient is status post first cycle of elvira-adjuvant chemotherapy for locally advanced breast cancer with fungating mass. Patient will continue chemotherapy after infection cleared. Patient verbalized understanding the plan. Current Visit: Yes Status: Acute Priority: High Code(s): C50.912 - MALIGNANT NEOPLASM OF UNSPECIFIED SITE OF LEFT FEMALE BREAST SNOMED Code(s): 846389730 (3) Anemia Narrative/Plan: Suspect effects of chemotherapy, will check office records to see if patient has been worked up for anemia previously. No acute intervention today. CBC daily. Current Visit: Yes Status: Acute Priority: Medium Code(s): D64.9 - ANEMIA , UNSPECIFIED SNOMED Code(s): 001425293 (4) Infection of pocket of surgical implant site Narrative/Plan: Port removal today. Antibiotics per Infectious Disease. Current Visit: Yes Status: Acute Priority: High Code(s): XZW9321 - SNOMED Code(s): 515842672
[2017-12-22] MEDS ORDERED: IV FLUID CONTINUATION 1,000 ML IV ONE (16:15)
[2017-12-22] MEDS ORDERED: BUPIVACAIN-EPI 0.5%-1:200,000 30 ML VIAL SQ ONE ×3 (16:54→17:12)
[2017-12-22] MEDS ORDERED: PROPOFOL 10 MG/ML 20 ML VIAL IV ONE (17:00)
[2017-12-22] MEDS ORDERED: MIDAZOLAM 2 MG/2 ML VIAL ONE (17:00)
[2017-12-22] MEDS ORDERED: fentaNYL (PF) 50 MCG/ML 2 ML AMP ONE (17:00)
[2017-12-22] MEDS ORDERED: NALOXONE 0.4 MG/ML 1 ML VIAL IV PRN (17:25)
--- NOTE | 2017-12-22 17:33 | P.OP ---
Date of Procedure: 12/22/17 Description of Procedure: SURGEON: YESENIA REESE MD COVER OPERATOR: None. PREOPERATIVE DIAGNOSIS: 1. Fungating, infectious left breast cancer 2. Bacteremia staph aureus 3. Medical noncompliance 4. Chronic obstructive pulmonary disorder 5. Infected Port-A-Cath 6. History of chemotherapeutic access POSTOPERATIVE DIAGNOSIS: 1. Fungating, infectious left breast cancer 2. Bacteremia staph aureus 3. Medical noncompliance 4. Chronic obstructive pulmonary disorder 5. Infected Port-A-Cath 6. Right chest wall abscess OPERATION: Removal of right internal jugular vein Port-A-Cath. ANESTHESIA: MAC with 5 mL local ESTIMATED BLOOD LOSS: 1 mL SPECIMENS REMOVED: Port-A-Cath aerobic and anaerobic cultures COMPLICATIONS: None. INDICATIONS: The patient is a 62-year-old female less than one month ago had a Port-A-Cath placement. She had emergent Port-A-Cath placement secondary to fungating left breast cancer with abscess. An emergent Port-A-Cath was placed at that time. The patient returned 3 weeks later with right chest wall pain over the Port-A-Cath. Blood cultures are positive for bacteremia. Removal of Port-A-Cath was advised. Benefits and risks were described. Informed consent was obtained. DESCRIPTION OF PROCEDURE: Patient was brought to the operating room, laid in supine position. After IV sedation the chest wall on the left side was prepped and draped in standard sterile fashion. Prior to incision, a timeout protocol was confirmed with surgical team regarding the patient's name including procedures to be performed. She was on scheduled IV antibiotics. Attention was brought to the area of the port site, whereby a total of 5 mL of local was infiltrated into the skin for a field block. Immediate purulent drainage was found at the internal jugular site. A #15 blade was used to incise along the previous cicatrix. Adhesions were lysed around the Mediport. The port was extracted without sequelae. Immediately 30 mL of kierra purulence emanated from the site. The chest wall pocket was irrigated using normal saline solution including dilute hydrogen peroxide. Pressure for 2 minutes was placed along the internal jugular vein. Hemostasis was checked along the pocket of the Port-A-Cath site. The wound was packed open using quarter inch iodoform cut to 12 inches and covered with 4 x 4 gauze and Tegaderm. At the end of the procedure needle, sponge and instrument counts were verified correct by the topography technician. The patient had tolerated the procedure well and was taken to postanesthesia care in stable condition. FINDINGS: 1. Unremarkable Port-a-cath extraction. 2. Right chest wall abscess 30 mL drained from Mediport site
[2017-12-22] MEDS ORDERED: LACTATED RINGERS 1,000 ML IV ONE (17:48)
--- NOTE | 2017-12-22 19:05 | PN ---
PROGRESS NOTE CHIEF COMPLAINT: Infected port in the right chest. HISTORY OF PRESENT ILLNESS: This situation got worse. The area is much more inflamed. Plan is for the port to be removed today. PHYSICAL EXAM: The area of cellulitis is more intense and slightly enlarged. Remainder of exam is normal otherwise. IMPRESSION: Infected port in the right anterior chest. PLAN: Remove port today and PICC line will be placed after which she will go home. MMODL / IJN: [id number] /
[2017-12-22] MEDS: PROCHLORPERAZINE 10 MG TAB PO PRN (19:26)
--- NOTE | 2017-12-22 22:39 | P.PN ---
Subjective Progress Note Date: 12/22/17 62-year-old female presents to the emergency center after being seen in the oncologist office because of concerns to the right Mediport area. The patient was hospitalized in November because of difficulties with her left breast. At presentation there is evidence of a fungating left breast mass significant swelling to the breast. It was biopsied and was found to be invasive carcinoma of the breast. Computed tomography scan and PET scans were performed revealing evidence of the large left breast mass as well as left axillary lymphadenopathy and multiple pulmonary nodules there is also evidence of anterior mediastinal adenopathy. The patient counseling was initiated chemotherapy being her first dose last week with Adriamycin and Cytoxan. She really tolerated the chemotherapy relatively well. However now is presenting with evidence of pain discomfort and erythema to her Mediport site. Because of this she was sent to the emergency center and admitted and the infectious diseases consultation was requested. The patient did receive Neulasta with her chemotherapy. She has relative leukopenia but does not have absolute neutropenia. A culture of her breast was performed that showed evidence of MSSA and Stenotrophomonas maltophilia last month. At this time the patient does not have high-grade fever or chills. The fungating mass in the left breast is not very tender but there is a bit of odor. It is fascinating that the patient relates that the skin changes were present for about a month before she presented. 12/19/2017 reveals the patient be feeling slightly better today. The utilization of the medical honey to the breast ulceration has resulted in improvement of discomfort and reduction of odor and she is pleased. The Mediport site is still swollen erythematous and tender but there is no drainage. She's had some fever that started to improve this afternoon. Laboratories called multiple positive blood cultures. Gram-positive cocci await final identification. 12/20/2017 reveals the patient to be having some chills today. Continues to have significant tenderness at the right neck and upper chest area where the Ppfcyq-r-Pufe is in place. She does not have significant fever today but has been having chills. Denies other new acute symptoms. 12/21/2017 reveals the patient to be feeling about the same still has significant discomfort to the right anterior chest wall. She is still having chills and fever. She has now been seen by the surgeon with evidence of the significant infection rations are being made for the Port-A-Cath be removed tomorrow. 12/22/2017 patient is feeling poorly still. There are plans for her Port-A- Cath removed later today. The site is middle card tender. Objective - Vital Signs Vital signs: Vital Signs Temp 100.6 F H 12/22/17 17:30 Pulse 94 12/22/17 18:03 Resp 16 12/22/17 18:03 BP 149/68 12/22/17 18:03 Pulse Ox 92 L 12/22/17 18:03 Intake & Output 12/22/17 12/22/17 12/23/17 06:59 18:59 06:59 Intake Total 345 Output Total 1 Balance 344 Weight 63.957 kg Intake: IV 345 Output: Estimated Blood Loss 1 Other: Voiding Method Toilet # Voids 1 # Bowel Movements 2 - Exam 62-year-old female seems to be comfortable at this point in time. Is denying high-grade fevers or chills. Does have tenderness and erythema to the right anterior chest wall. HEENT: Anicteric conjunctiva are pink and moist nasal mucosa grossly intact without significant lesions, there appears to be a mild amount of thrush Neck: The neck is supple without significant lymphadenopathy or thyromegaly. Lungs: There is symmetrical bilateral air entry with scattered wheezes but no kierra bronchial sounds or dullness or egophony Heart: Regular rate and rhythm with an audible S1-S2, no S3 no S4. There is no significant murmur click or rub, PMI was nondisplaced. Abdomen: Positive bowel sounds soft and nontender without palpable masses or organomegaly. There was no guarding or rebound. Extremities: The upper extremities have excellent pulses they are symmetric, no significant petechiae or telangiectasia. No splinter hemorrhages were noted. The lower extremities are free from significant edema. The peripheral pulses were 2+ and symmetric. Neuro: Awake alert oriented to person place and time. There are no acute new gross focal sensory motor deficits. Skin: With the nurse present the patient is evaluated. There is evidence of erythema and tenderness over the right anterior chest wall at the Mediport site. This has worsened in the last day. Or the suture is in the neck there is some drainage is now being seen there is distinct erythema and there is now a small amount of fluctuance starting to occur over the Mediport site.. - Labs CBC & Chem 7: 12/22/17 05:31 12/22/17 05:31 Labs: Abnormal Lab Results - Last 24 Hours (Table) 12/22/17 12/22/17 Range/Units 05:31 05:31 RBC 3.17 L (3.80-5.40) m/uL Hgb 8.1 L (11.4-16.0) gm/dL Hct 25.5 L (34.0-46.0) % Lymphocytes # 0.7 L (1.0-4.8) k/uL Potassium 3.1 L (3.5-5.1) mmol/L Calcium 7.7 L (8.4-10.2) mg/dL AST 43 H (14-36) U/L ALT 68 H (9-52) U/L Total Protein 5.5 L (6.3-8.2) g/dL Albumin 2.5 L (3.5-5.0) g/dL Microbiology - Last 24 Hours (Table) 12/18/17 18:06 Blood Culture Gram Stain - Final Blood Blood Culture - Final Staphylococcus aureus 12/18/17 12:00 Blood Culture Gram Stain - Final Blood Blood Culture - Final Staphylococcus aureus 12/18/17 12:00 Urine Culture - Final Urine,Voided Klebsiella pneumoniae Laboratory Results WBC 6.7 k/uL (3.8-10.6) 12/22/17 05:31 RBC 3.17 m/uL (3.80-5.40) L 12/22/17 05:31 Hgb 8.1 gm/dL (11.4-16.0) L 12/22/17 05:31 Hct 25.5 % (34.0-46.0) L 12/22/17 05:31 MCV 80.3 fL (80.0-100.0) 12/22/17 05:31 MCH 25.5 pg (25.0-35.0) 12/22/17 05:31 MCHC 31.8 g/dL (31.0-37.0) 12/22/17 05:31 RDW 15.5 % (11.5-15.5) 12/22/17 05:31 Plt Count 248 k/uL (150-450) 12/22/17 05:31 Neutrophils % 83 % 12/22/17 05:31 Neutrophils % (Manual) 83 % 12/20/17 11:22 Band Neutrophils % 3 % 12/20/17 11:22 Lymphocytes % 11 % 12/22/17 05:31 Lymphocytes % (Manual) 11 % 12/20/17 11:22 Monocytes % 4 % 12/22/17 05:31 Monocytes % (Manual) 3 % 12/20/17 11:22 Eosinophils % 0 % 12/22/17 05:31 Basophils % 0 % 12/22/17 05:31 Neutrophils # 5.5 k/uL (1.3-7.7) 12/22/17 05:31 Neutrophils # (Manual) 4.10 k/uL (1.3-7.7) 12/20/17 11:22 Lymphocytes # 0.7 k/uL (1.0-4.8) L 12/22/17 05:31 Lymphocytes # (Manual) 0.53 k/uL (1.0-4.8) L 12/20/17 11:22 Monocytes # 0.2 k/uL (0-1.0) 12/22/17 05:31 Monocytes # (Manual) 0.14 k/uL (0-1.0) 12/20/17 11:22 Eosinophils # 0.0 k/uL (0-0.7) 12/22/17 05:31 Basophils # 0.0 k/uL (0-0.2) 12/22/17 05:31 Nucleated RBCs 0 /100 WBC (0-0) 12/20/17 11:22 RBC Morphology Normal 12/20/17 11:22 Sodium 137 mmol/L (137-145) 12/22/17 05:31 Potassium 3.1 mmol/L (3.5-5.1) L 12/22/17 05:31 Chloride 103 mmol/L (98-107) 12/22/17 05:31 Carbon Dioxide 25 mmol/L (22-30) 12/22/17 05:31 Anion Gap 9 mmol/L 12/22/17 05:31 BUN 7 mg/dL (7-17) 12/22/17 05:31 Creatinine 0.58 mg/dL (0.52-1.04) 12/22/17 05:31 Est GFR (CKD-EPI)AfAm >90 (>60 ml/min/1.73 sqM) 12/22/17 05:31 Est GFR (CKD-EPI)NonAf >90 (>60 ml/min/1.73 sqM) 12/22/17 05:31 Glucose 92 mg/dL (74-99) 12/22/17 05:31 Plasma Lactic Acid Fernando 1.0 mmol/L (0.7-2.0) 12/18/17 18:06 Calcium 7.7 mg/dL (8.4-10.2) L 12/22/17 05:31 Total Bilirubin 0.4 mg/dL (0.2-1.3) 12/22/17 05:31 AST 43 U/L (14-36) H 12/22/17 05:31 ALT 68 U/L (9-52) H 12/22/17 05:31 Alkaline Phosphatase 109 U/L (38-126) 12/22/17 05:31 Total Protein 5.5 g/dL (6.3-8.2) L 12/22/17 05:31 Albumin 2.5 g/dL (3.5-5.0) L 12/22/17 05:31 Urine Color Dark Yellow 12/18/17 12:00 Urine Appearance Cloudy (Clear) H 12/18/17 12:00 Urine pH 5.5 (5.0-8.0) 12/18/17 12:00 Ur Specific [place] 1.024 (1.001-1.035) 12/18/17 12:00 Urine Protein 1+ (Negative) H 12/18/17 12:00 Urine Glucose (UA) Negative (Negative) 12/18/17 12:00 Urine Ketones Negative (Negative) 12/18/17 12:00 Urine Blood Small (Negative) H 12/18/17 12:00 Urine Nitrite Negative (Negative) 12/18/17 12:00 Urine Bilirubin Negative (Negative) 12/18/17 12:00 Urine Urobilinogen 2.0 mg/dL (<2.0) 12/18/17 12:00 Ur Leukocyte Esterase Negative (Negative) 12/18/17 12:00 Urine RBC 2 /hpf (0-5) 12/18/17 12:00 Urine WBC 5 /hpf (0-5) 12/18/17 12:00 Ur Squamous Epith Cells 6 /hpf (0-4) H 12/18/17 12:00 Urine Bacteria Few /hpf (None) H 12/18/17 12:00 Hyaline Casts 25 /lpf (0-2) H 12/18/17 12:00 Urine Mucus Many /hpf (None) H 12/18/17 12:00 Vancomycin Trough 11.8 ug/mL 12/22/17 05:31 Microbiology 12/18/17 18:06 Blood Blood Culture Gram Stain - Final 12/18/17 18:06 Blood Blood Culture - Final Staphylococcus aureus 12/18/17 12:00 Blood Blood Culture Gram Stain - Final 12/18/17 12:00 Blood Blood Culture - Final Staphylococcus aureus 12/18/17 12:00 Urine,Voided Urine Culture - Final Klebsiella pneumoniae 12/18/17 18:06 Blood Blood Culture - Final 12/18/17 12:00 Blood Blood Culture - Final Assessment and Plan (1) Breast cancer, left Current Visit: Yes Status: Acute Priority: High Code(s): C50.912 - MALIGNANT NEOPLASM OF UNSPECIFIED SITE OF LEFT FEMALE BREAST SNOMED Code(s): 205618779 (2) Cellulitis of left breast Current Visit: Yes Status: Acute Code(s): N61.0 - MASTITIS WITHOUT ABSCESS SNOMED Code(s): 42911895 (3) Infection of pocket of surgical implant site Narrative/Plan: 62-year-old female who presented in November with a fungating left breast mass that was painful. Workup ensued and she was found to have evidence of invasive carcinoma of the left breast with metastasis to left axillary area and lungs and mediastinum. She has been initiated to her course of chemotherapy starting with Adriamycin and Cytoxan. She relates she tolerated the chemotherapy right well but now is developed a significant swelling and erythema to the right anterior chest wall [id number] site. It is quite tender over the area but there is no expressible purulence. At this time she has relative leukopenia but is not frankly neutropenic. The prior culture shows evidence of the MSSA as well as the Stenotrophomonas maltophilia. Antibiotic therapy will be initiated this time with ceftazidime and vancomycin pending further culture results. Blood cultures have been requested. Local wound care to the breast will be performed with the medical honey which should help drainage as well as help with odor. Tylenol is given for fever Patient may require surgical consultation depending on the findings of the Mediport site. 12/19/2017 reveals the patient to be stable without new acute complaints. Patient relates that she feels slightly better than yesterday and at the breast is not as painful. The Mediport site remains tender and erythematous. He has noted there are now multiple positive blood cultures we await the final identification, the wound culture from the breast to reveal evidence of MSSA in the past. If the blood cultures have evidence of MSSA infection will then be able to discontinue vancomycin and changed to cefazolin. We'll then have to assess surgeon to remove the port since staphylococcal infection and ports are usually nonsalvageable. Patient's fever is improving Relative leukopenia is being monitored by oncology Follow blood cultures will be determined based on species growing at this time. 12/20/2017 the patient has some chills today. She is not feeling very well overall. She is denying rigors. The dressing to the left breast has help with some discomfort and this will be continued. The right anterior chest wall and right neck have evidence of the onset of swelling and some fluctuance at the Mediport site. Where the catheter inserts into the IJ there is evidence of the suture that has some scant amount of purulence. Anterior area is very tender and has some minimal warmth. There are now multiple positive blood cultures with staph aureus in the Infuse-a -Port appears to be infected. Antibiotics will not be able to salvage this and consequently will assess surgeon to remove the port. We have negative blood cultures would contemplate PICC line for IV access to complete treatment of antibiotics and then chemotherapy. We'll continue current antibiotic therapy until we have final cultures. Of note there is a gram-negative in the urine and await final identification. 12/21/2017 the patient is having chills and we have evidence of multiple blood cultures revealed evidence of MSSA. Antibiotic therapy is altered from vancomycin to high-dose Ancef. The port cannot be salvaged and arrangements are being made with the surgeon for removal tomorrow. After removal follow blood cultures will be needed and once negative we'll then have a PICC line placed to complete a few weeks of intravenous antibiotic therapy for catheter related bacteremia. Afterwards she can then restart her chemotherapy. The patient understands this strategy and is looking forward to having her port removed because it is so tender and problematic at this time. 12/22/2017 the patient will have her Mediport removed today due to the ongoing MSSA active bacteremia and sepsis from the port. Once the bacteremia has cleared will arrange for a PICC line to be placed she may complete her course of intravenous antibiotic therapy and then it can be used for her chemotherapy in the future once her sepsis and infection have resolved. Follow up cultures requested Current Visit: Yes Status: Acute Priority: High Code(s): TCX0266 - SNOMED Code(s): 309834376
[2017-12-23] MEDS: ceFAZolin IN SWFI 2 GM/20 ML SYRINGE IVP SCH ×4 (00:18→22:28)
[2017-12-23] MEDS: HEPARIN SODIUM,PORCINE 5,000 UNIT/ML 1 ML VIAL SQ SCH ×3 (00:18→16:23)
[2017-12-23] MEDS: SALT AND SODA MOUTHWASH 1,000 ML PO SCH ×5 (00:18→20:05)
[2017-12-23] MEDS: ACETAMINOPHEN TAB 325 MG TAB PO PRN ×2 (02:19→12:08)
[2017-12-23] MEDS: NYSTATIN 100,000 UNIT/ML SUSP 500,000 UNIT/5 ML CUP PO SCH ×5 (02:21→22:28)
[2017-12-23] MEDS: SODIUM CHLORIDE 0.9% 1,000 ML IV SCH ×3 (05:22→16:23)
[2017-12-23 09:03] LABS: Basophils % (A) 0 %; Eosinophils % (A) 0 %; HCT 23.9 % (34.0-46.0); HGB 7.9 gm/dL (11.4-16.0); Lymphocytes # (A) 0.7 k/uL (1.0-4.8); Lymphocytes % (A) 8 %; MCH 26.7 pg (25.0-35.0); MCHC 32.9 g/dL (31.0-37.0); Mean Platelet Volume 7.7; Monocytes # (A) 0.4 k/uL (0-1.0); Monocytes % (A) 5 %; Neutrophils % (A) 84 %; Platelet Count 344 k/uL (150-450); RBC 2.95 m/uL (3.80-5.40); RDW 15.7 % (11.5-15.5); WBC 8.3 k/uL (3.8-10.6)
[2017-12-23 09:12] LABS: ALT 47 U/L (9-52); AST 34 U/L (14-36); Albumin 2.6 g/dL (3.5-5.0); Alkaline Phosphatase 120 U/L (38-126); Anion Gap 11 mmol/L; Blood Urea Nitrogen 8 mg/dL (7-17); Calcium 7.9 mg/dL (8.4-10.2); Carbon Dioxide 26 mmol/L (22-30); Chloride 103 mmol/L (98-107); Glucose 92 mg/dL (74-99); Sodium 140 mmol/L (137-145); Total Bilirubin 0.4 mg/dL (0.2-1.3); Total Protein 5.5 g/dL (6.3-8.2)
[2017-12-23] MEDS: PANTOPRAZOLE 40 MG TABLET PO SCH (09:16)
[2017-12-23] MEDS ORDERED: Potassium Replacement Protocol 1 EACH MISC MISCELLANE PRN (09:43)
--- NOTE | 2017-12-23 10:50 | P.PN ---
Subjective Progress Note Date: 12/23/17 Principal diagnosis: Breast cancer, status post 1 chemotherapy, bacteremia and infected Port-A-Cath Pt doing well qfter port removal, moderate surgical site discomfort, she is tolerating oral intake, no nausea, vomiting, she was feeling SOB with drop in O2 sat after procedure, on O2 she is comfortable. She had 1 episode of diarrhea , denies bleeding, she is fully ambulatory. Objective - Vital Signs Vital signs: Vital Signs Temp 96.5 F L 12/23/17 05:00 Pulse 87 12/23/17 05:00 Resp 16 12/23/17 05:00 BP 130/62 12/23/17 05:00 Pulse Ox 93 L 12/23/17 05:00 Intake & Output 12/22/17 12/23/17 12/23/17 18:59 06:59 18:59 Intake Total 345 590 Output Total 1 Balance 344 590 Weight 63.957 kg Intake: IV 345 Oral 590 Output: Estimated Blood Loss 1 Other: Voiding Method Toilet # Voids 2 # Bowel Movements 2 - Constitutional General appearance: Present: average body habitus, cooperative, no acute distress - EENT Eyes: Present: anicteric sclerae ENT: Present: normal oropharynx - Respiratory Respiratory: bilateral: diminished - Cardiovascular Rhythm: regular - Peripheral edema leg Peripheral Edema: bilateral: None - Gastrointestinal General gastrointestinal: Present: soft - Integumentary Integumentary Comment(s): right chest wall port removal, redness looks decreased form yesterday, dressing is C/D/I Integumentary: Present: normal - Neurologic Neurologic: Present: CNII-XII intact - Musculoskeletal Musculoskeletal: Present: strength equal bilaterally - Psychiatric Psychiatric: Present: A&O x's 3, appropriate affect, intact judgment & insight - Labs CBC & Chem 7: 12/23/17 08:45 12/23/17 08:45 Labs: Abnormal Lab Results - Last 24 Hours (Table) 12/23/17 12/23/17 Range/Units 08:45 08:45 RBC 2.95 L (3.80-5.40) m/uL Hgb 7.9 L (11.4-16.0) gm/dL Hct 23.9 L (34.0-46.0) % RDW 15.7 H (11.5-15.5) % Lymphocytes # 0.7 L (1.0-4.8) k/uL Potassium 3.0 L (3.5-5.1) mmol/L Calcium 7.9 L (8.4-10.2) mg/dL Total Protein 5.5 L (6.3-8.2) g/dL Albumin 2.6 L (3.5-5.0) g/dL Microbiology - Last 24 Hours (Table) 12/22/17 17:22 Gram Stain - Preliminary Chest Wound Culture - Preliminary 12/22/17 17:22 Anaerobic Culture - Preliminary Chest 12/18/17 18:06 Blood Culture Gram Stain - Final Blood Blood Culture - Final Staphylococcus aureus 12/18/17 12:00 Blood Culture Gram Stain - Final Blood Blood Culture - Final Staphylococcus aureus Assessment and Plan (1) Bacteremia Narrative/Plan: Port removed, cont on abx per ID. New BC were drawn this AM Current Visit: Yes Status: Acute Priority: High Code(s): R78.81 - BACTEREMIA SNOMED Code(s): 9025596 (2) Breast cancer, left Narrative/Plan: S/P 1st chemo. Hold until infection cleared. Current Visit: Yes Status: Acute Priority: High Code(s): C50.912 - MALIGNANT NEOPLASM OF UNSPECIFIED SITE OF LEFT FEMALE BREAST SNOMED Code(s): 146035599 (3) Anemia Narrative/Plan: Anemia work up ordered Current Visit: Yes Status: Acute Priority: Medium Code(s): D64.9 - ANEMIA , UNSPECIFIED SNOMED Code(s): 920389721 (4) Infection of pocket of surgical implant site Narrative/Plan: Port removed, antibiotics per Infectious Disease. Current Visit: Yes Status: Acute Priority: High Code(s): DUF6642 - SNOMED Code(s): 543988728 (5) Hypokalemia Narrative/Plan: Mild, likely due to poor oral intake. K+ protocol implemented Current Visit: Yes Status: Acute Priority: Low Code(s): E87.6 - HYPOKALEMIA SNOMED Code(s): 81501244
[2017-12-23] MEDS: POTASSIUM CHLORIDE ER 20 MEQ TAB.ER PO SCH ×4 (12:03→22:27)
--- NOTE | 2017-12-23 13:25 | P.PN ---
<Victor ManuelBrandy M - Last Filed: 12/23/17 13:17> Subjective Progress Note Date: 12/23/17 62-year-old resting in bed. Patient is postop day 1 from removal of a right internal jugular vein Port-A-Cath. Currently a dressing is in place. Patient states still runner but less pain. Status post 1 chemotherapy for newly diagnosed left breast cancer Fungating, infectious left breast cancer being followed by oncology bacteremia staph aureus Objective - Vital Signs Vital signs: Vital Signs Temp 98.8 F 12/23/17 12:13 Pulse 101 H 12/23/17 12:13 Resp 22 12/23/17 12:13 BP 151/72 12/23/17 12:13 Pulse Ox 90 L 12/23/17 12:13 Intake & Output 12/22/17 12/23/17 12/23/17 18:59 06:59 18:59 Intake Total 345 590 Output Total 1 Balance 344 590 Weight 63.957 kg Intake: IV 345 Oral 590 Output: Estimated Blood Loss 1 Other: Voiding Method Toilet # Voids 2 # Bowel Movements 2 - Exam Exam Chest right chest wall dressing dry states less tenderness no drainage noted on the dressing - Labs CBC & Chem 7: 12/23/17 08:45 12/23/17 08:45 Labs: Abnormal Lab Results - Last 24 Hours (Table) 12/23/17 12/23/17 Range/Units 08:45 08:45 RBC 2.95 L (3.80-5.40) m/uL Hgb 7.9 L (11.4-16.0) gm/dL Hct 23.9 L (34.0-46.0) % RDW 15.7 H (11.5-15.5) % Lymphocytes # 0.7 L (1.0-4.8) k/uL Potassium 3.0 L (3.5-5.1) mmol/L Calcium 7.9 L (8.4-10.2) mg/dL Total Protein 5.5 L (6.3-8.2) g/dL Albumin 2.6 L (3.5-5.0) g/dL Microbiology - Last 24 Hours (Table) 12/22/17 17:22 Gram Stain - Preliminary Chest Wound Culture - Preliminary 12/22/17 17:22 Anaerobic Culture - Preliminary Chest Assessment and Plan Assessment: Impression Left breast cancer newly diagnosed MediPort placed right upper chest 08 of December for chemotherapeutic access Cellulitis left breast Prior culture with MSSA and Stenotrophomonas maltophilia 1 month prior Status post removal of MediPort Infection of pocket of surgical implant site Anemia suspect chronic illness Hypokalemia Plan Continue recommendations by oncology Defer to infectious disease for IV antibiotic therapy Will follow with you Anemia workup in progress The above impression and plan of care have been discussed and directed by signing physician. Brandy Rush nurse practitioner acting as scribe for signing physician. <Ann Marie Guthrie N - Last Filed: 12/23/17 13:26> Objective - Vital Signs Vital signs: Vital Signs Temp 98.8 F 12/23/17 12:13 Pulse 101 H 12/23/17 12:13 Resp 22 12/23/17 12:13 BP 151/72 12/23/17 12:13 Pulse Ox 90 L 12/23/17 12:13 Intake & Output 12/22/17 12/23/17 12/23/17 18:59 06:59 18:59 Intake Total 345 590 Output Total 1 Balance 344 590 Weight 63.957 kg Intake: IV 345 Oral 590 Output: Estimated Blood Loss 1 Other: Voiding Method Toilet # Voids 2 # Bowel Movements 2 - Labs CBC & Chem 7: 12/23/17 08:45 12/23/17 08:45 Labs: Abnormal Lab Results - Last 24 Hours (Table) 12/23/17 12/23/17 Range/Units 08:45 08:45 RBC 2.95 L (3.80-5.40) m/uL Hgb 7.9 L (11.4-16.0) gm/dL Hct 23.9 L (34.0-46.0) % RDW 15.7 H (11.5-15.5) % Lymphocytes # 0.7 L (1.0-4.8) k/uL Potassium 3.0 L (3.5-5.1) mmol/L Calcium 7.9 L (8.4-10.2) mg/dL Total Protein 5.5 L (6.3-8.2) g/dL Albumin 2.6 L (3.5-5.0) g/dL Microbiology - Last 24 Hours (Table) 12/22/17 17:22 Gram Stain - Preliminary Chest Wound Culture - Preliminary 12/22/17 17:22 Anaerobic Culture - Preliminary Chest Assessment and Plan Plan: Cellulitis improved since port removal. Recommend IV antibiotics per ID recommendations. Packing to change tomorrow and daily with iodoform.
[2017-12-24] MEDS: PROCHLORPERAZINE 10 MG TAB PO PRN ×2 (00:01→18:20)
[2017-12-24] MEDS: SALT AND SODA MOUTHWASH 1,000 ML PO SCH ×6 (00:02→23:45)
[2017-12-24] MEDS: HEPARIN SODIUM,PORCINE 5,000 UNIT/ML 1 ML VIAL SQ SCH ×4 (00:04→23:45)
[2017-12-24] MEDS: SODIUM CHLORIDE 0.9% 1,000 ML IV SCH ×3 (01:03→21:39)
[2017-12-24] MEDS: ACETAMINOPHEN TAB 325 MG TAB PO PRN ×2 (05:24→20:39)
[2017-12-24] MEDS: ceFAZolin IN SWFI 2 GM/20 ML SYRINGE IVP SCH ×3 (05:25→21:36)
[2017-12-24] MEDS ORDERED: Potassium Replacement Protocol 1 EACH MISC MISCELLANE PRN (08:39)
[2017-12-24] MEDS: NYSTATIN 100,000 UNIT/ML SUSP 500,000 UNIT/5 ML CUP PO SCH ×4 (08:43→21:36)
[2017-12-24] MEDS: PANTOPRAZOLE 40 MG TABLET PO SCH (08:43)
[2017-12-24] MEDS: POTASSIUM CHLORIDE ER 20 MEQ TAB.ER PO SCH ×2 (10:21→11:14)
--- NOTE | 2017-12-24 12:48 | P.PN ---
<Victor ManuelCherBrandy M - Last Filed: 12/24/17 12:45> Subjective Progress Note Date: 12/24/17 62-year-old female resting in bed. Family at bedside. Patient states there is less discomfort and pain at the medport site less redness noted around the MediPort site dressing currently has dry. Complaint this morning diarrhea" Status post chemotherapy for newly diagnosed left breast cancer for newly diagnosed Fungating, infectious left breast cancer being followed by oncology bacteremia staph aureus Objective - Vital Signs Vital signs: Vital Signs Temp 98.5 F 12/24/17 05:00 Pulse 98 12/24/17 05:00 Resp 16 12/24/17 11:19 BP 148/72 12/24/17 05:00 Pulse Ox 93 L 12/24/17 05:00 Intake & Output 12/23/17 12/24/17 12/24/17 18:59 06:59 18:59 Intake Total 800 300 Balance 800 300 Intake: IV 300 Sodium Chloride 0.9% 1, 300 000 ml @ 100 mls/hr IV . Q10H NIKI Rx#:[id number] Intake, IV Titration 800 Amount Sodium Chloride 0.9% 1, 800 000 ml @ 100 mls/hr IV . Q10H NIKI Rx#:[id number] Other: Voiding Method Toilet Toilet Toilet # Voids 2 - Exam Exam Chest right chest wall dressing dry states less tenderness no drainage noted on the dressing less redness noted - Labs CBC & Chem 7: 12/23/17 08:45 12/24/17 02:30 Labs: Abnormal Lab Results - Last 24 Hours (Table) 12/23/17 12/23/17 12/24/17 Range/Units 08:56 16:36 02:30 Potassium 2.9 L 3.4 L (3.5-5.1) mmol/L Iron 8 L (50-170) ug/dL TIBC 160 L (228-460) ug/dL Iron Saturation 5.00 L (12.00-45.00) Ferritin 2047.6 H (10.0-291.0) ng/mL Vitamin B12 1840.0 H (200.0-944.0) pg/mL Microbiology - Last 24 Hours (Table) 12/23/17 08:56 Blood Culture - Preliminary Blood No Growth after 24 hours 12/23/17 08:45 Blood Culture - Preliminary Blood No Growth after 24 hours 12/22/17 17:22 Gram Stain - Preliminary Chest Wound Culture - Preliminary Presumptive Staph aureus Assessment and Plan Assessment: Impression Left breast cancer newly diagnosed MediPort placed right upper chest 08 of December for chemotherapeutic access Cellulitis left breast present on admission improving since MediPort removed Prior culture with MSSA and Stenotrophomonas maltophilia 1 month prior Status post removal of MediPort Infection of pocket of surgical implant site Anemia suspect chronic illness Hypokalemia Plan Wound care packing daily iodoform to surgical incision site Continue recommendations by oncology Defer to infectious disease for IV antibiotic therapy Will follow with you The above impression and plan of care have been discussed and directed by signing physician. Brandy Rush nurse practitioner acting as scribe for signing physician. <Ann Marie Guthrie - Last Filed: 12/24/17 12:50> Objective - Vital Signs Vital signs: Vital Signs Temp 98.5 F 12/24/17 05:00 Pulse 98 12/24/17 05:00 Resp 16 12/24/17 11:19 BP 148/72 12/24/17 05:00 Pulse Ox 93 L 12/24/17 05:00 Intake & Output 12/23/17 12/24/17 12/24/17 18:59 06:59 18:59 Intake Total 800 300 Balance 800 300 Intake: IV 300 Sodium Chloride 0.9% 1, 300 000 ml @ 100 mls/hr IV . Q10H NIKI Rx#:[id number] Intake, IV Titration 800 Amount Sodium Chloride 0.9% 1, 800 000 ml @ 100 mls/hr IV . Q10H NIKI Rx#:[id number] Other: Voiding Method Toilet Toilet Toilet # Voids 2 - Labs CBC & Chem 7: 12/23/17 08:45 12/24/17 02:30 Labs: Abnormal Lab Results - Last 24 Hours (Table) 12/23/17 12/23/17 12/24/17 Range/Units 08:56 16:36 02:30 Potassium 2.9 L 3.4 L (3.5-5.1) mmol/L Iron 8 L (50-170) ug/dL TIBC 160 L (228-460) ug/dL Iron Saturation 5.00 L (12.00-45.00) Ferritin 2047.6 H (10.0-291.0) ng/mL Vitamin B12 1840.0 H (200.0-944.0) pg/mL Microbiology - Last 24 Hours (Table) 12/23/17 08:56 Blood Culture - Preliminary Blood No Growth after 24 hours 12/23/17 08:45 Blood Culture - Preliminary Blood No Growth after 24 hours 12/22/17 17:22 Gram Stain - Preliminary Chest Wound Culture - Preliminary Presumptive Staph aureus
--- NOTE | 2017-12-24 18:19 | PN ---
PROGRESS NOTE CHIEF COMPLAINT: Infected port. HISTORY OF PRESENT ILLNESS: This lady is doing well. The port was removed. She is having a little bit of discomfort, but no other significant problems. PHYSICAL EXAM: Chest is clear. Cardiac exam is normal. IMPRESSION: 1. Status post removal of infected port in the right chest. 2. Carcinoma of the breast. PLAN: Continue with IV antibiotics until it is deemed safe to place the PICC line. MMODL / IJN: [id number] /
--- NOTE | 2017-12-24 18:47 | P.PN ---
Subjective Progress Note Date: 12/24/17 Principal diagnosis: Breast cancer, status post 1 chemotherapy, bacteremia and infected Port-A-Cath Pt seen in f/u, she has had diarrhea, stool studies pending, she denies abd cramping, rectal pain, blood or mucus in the stool. She is ambulatory, she is tolerating oral intake, her O2 requirement is down to 1L NC. Objective - Vital Signs Vital signs: Vital Signs Temp 97.8 F 12/24/17 13:00 Pulse 83 12/24/17 13:00 Resp 16 12/24/17 13:00 BP 168/83 12/24/17 13:00 Pulse Ox 93 L 12/24/17 13:00 Intake & Output 12/23/17 12/24/17 12/24/17 18:59 06:59 18:59 Intake Total 800 300 900 Balance 800 300 900 Intake: IV 300 700 Sodium Chloride 0.9% 1, 300 700 000 ml @ 100 mls/hr IV . Q10H NIKI Rx#:[id number] Intake, IV Titration 800 Amount Sodium Chloride 0.9% 1, 800 000 ml @ 100 mls/hr IV . Q10H NIKI Rx#:[id number] Oral 200 Other: Voiding Method Toilet Toilet Toilet # Voids 2 - Constitutional General appearance: Present: average body habitus, cooperative, no acute distress - EENT Eyes: Present: anicteric sclerae ENT: Present: normal oropharynx - Respiratory Respiratory: bilateral: CTA - Cardiovascular Heart sounds: normal: S1, S2 - Peripheral edema leg Peripheral Edema: bilateral: None - Gastrointestinal General gastrointestinal: Present: normal bowel sounds, soft. Absent: absent bowel sounds, decreased bowel sounds, distended, hepatomegaly, hyperactive bowel sounds, organomegaly, rigid, scaphoid, splenomegaly, tenderness, umbilical hernia, ventral hernia - Integumentary Integumentary Comment(s): Pt states decrease in size of left breast mass - Neurologic Neurologic: Present: CNII-XII intact - Musculoskeletal Musculoskeletal: Present: strength equal bilaterally - Psychiatric Psychiatric: Present: A&O x's 3, appropriate affect, intact judgment & insight - Labs CBC & Chem 7: 12/23/17 08:45 12/24/17 02:30 Labs: Abnormal Lab Results - Last 24 Hours (Table) 12/24/17 Range/Units 02:30 Potassium 3.4 L (3.5-5.1) mmol/L Microbiology - Last 24 Hours (Table) 12/22/17 17:22 Gram Stain - Final Chest Wound Culture - Final Staphylococcus aureus 12/23/17 08:56 Blood Culture - Preliminary Blood No Growth after 24 hours 12/23/17 08:45 Blood Culture - Preliminary Blood No Growth after 24 hours Assessment and Plan (1) Bacteremia Narrative/Plan: Current BC pending, pt cont on abx per ID Current Visit: Yes Status: Acute Priority: High Code(s): R78.81 - BACTEREMIA SNOMED Code(s): 1722478 (2) Breast cancer, left Narrative/Plan: S/P 1st AC cycle. Treatment will cont once infection cleared. Current Visit: Yes Status: Acute Priority: High Code(s): C50.912 - MALIGNANT NEOPLASM OF UNSPECIFIED SITE OF LEFT FEMALE BREAST SNOMED Code(s): 851433544 (3) Anemia Narrative/Plan: Anemia work up shows no readily correctable deficiency, pt does have anemia of inflammation as her ferritin is >2000, no iron supplementation. CBC in AM with ongoing monitoring. Current Visit: Yes Status: Acute Priority: Medium Code(s): D64.9 - ANEMIA , UNSPECIFIED SNOMED Code(s): 192875167 (4) Infection of pocket of surgical implant site Current Visit: Yes Status: Acute Priority: High Code(s): VMJ8718 - SNOMED Code(s): 230482298 (5) Hypokalemia Narrative/Plan: On K+ replacement protocol, likely r/t diarrhea Current Visit: Yes Status: Acute Priority: Low Code(s): E87.6 - HYPOKALEMIA SNOMED Code(s): 89614334 Plan: Stool studies pending for diarrhea
--- NOTE | 2017-12-24 18:49 | PN ---
PROGRESS NOTE DATE OF SERVICE: 12/23/2017 CHIEF COMPLAINT: Infected port. HISTORY OF PRESENT ILLNESS: This lady is doing fairly well. She has not had any significant chills, fever, etc. PHYSICAL EXAMINATION: She is slightly pale. Chest is clear. Cardiac exam is normal. IMPRESSION: 1. Infected port. 2. Carcinoma of the breast. PLAN: She continues on IV antibiotics and will eventually wind up having a PICC line placed. MMODL / IJN: [id number] /
--- NOTE | 2017-12-24 22:19 | P.PN ---
Subjective Progress Note Date: 12/24/17 62-year-old female presents to the emergency center after being seen in the oncologist office because of concerns to the right Mediport area. The patient was hospitalized in November because of difficulties with her left breast. At presentation there is evidence of a fungating left breast mass significant swelling to the breast. It was biopsied and was found to be invasive carcinoma of the breast. Computed tomography scan and PET scans were performed revealing evidence of the large left breast mass as well as left axillary lymphadenopathy and multiple pulmonary nodules there is also evidence of anterior mediastinal adenopathy. The patient counseling was initiated chemotherapy being her first dose last week with Adriamycin and Cytoxan. She really tolerated the chemotherapy relatively well. However now is presenting with evidence of pain discomfort and erythema to her Mediport site. Because of this she was sent to the emergency center and admitted and the infectious diseases consultation was requested. The patient did receive Neulasta with her chemotherapy. She has relative leukopenia but does not have absolute neutropenia. A culture of her breast was performed that showed evidence of MSSA and Stenotrophomonas maltophilia last month. At this time the patient does not have high-grade fever or chills. The fungating mass in the left breast is not very tender but there is a bit of odor. It is fascinating that the patient relates that the skin changes were present for about a month before she presented. 12/19/2017 reveals the patient be feeling slightly better today. The utilization of the medical honey to the breast ulceration has resulted in improvement of discomfort and reduction of odor and she is pleased. The Mediport site is still swollen erythematous and tender but there is no drainage. She's had some fever that started to improve this afternoon. Laboratories called multiple positive blood cultures. Gram-positive cocci await final identification. 12/20/2017 reveals the patient to be having some chills today. Continues to have significant tenderness at the right neck and upper chest area where the Ieguhh-s-Qmpa is in place. She does not have significant fever today but has been having chills. Denies other new acute symptoms. 12/21/2017 reveals the patient to be feeling about the same still has significant discomfort to the right anterior chest wall. She is still having chills and fever. She has now been seen by the surgeon with evidence of the significant infection rations are being made for the Port-A-Cath be removed tomorrow. 12/22/2017 patient is feeling poorly still. There are plans for her Port-A- Cath removed later today. 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 12/24/2017 patient is feeling slightly better. Port-A-Cath has been removed and the site is less tender. She denying fevers or chills. She's had some minimal cough and appetite is poor. Objective - Vital Signs Vital signs: Vital Signs Temp 98.4 F 12/24/17 20:45 Pulse 112 H 12/24/17 20:45 Resp 16 12/24/17 20:45 BP 136/62 12/24/17 20:45 Pulse Ox 90 L 12/24/17 20:45 Intake & Output 12/24/17 12/24/17 12/25/17 06:59 18:59 06:59 Intake Total 300 900 Balance 300 900 Intake: IV 300 700 Sodium Chloride 0.9% 1, 300 700 000 ml @ 100 mls/hr IV . Q10H NIKI Rx#:[id number] Oral 200 Other: Voiding Method Toilet Toilet Toilet Bedside Commode # Voids 2 - Exam 62-year-old female seems to be comfortable at this point in time. Is denying high-grade fevers or chills. Does have tenderness and erythema to the right anterior chest wall. HEENT: Anicteric conjunctiva are pink and moist nasal mucosa grossly intact without significant lesions, there appears to be a mild amount of thrush Neck: The neck is supple without significant lymphadenopathy or thyromegaly. Lungs: There is symmetrical bilateral air entry with scattered wheezes but no kierra bronchial sounds or dullness or egophony Heart: Regular rate and rhythm with an audible S1-S2, no S3 no S4. There is no significant murmur click or rub, PMI was nondisplaced. Abdomen: Positive bowel sounds soft and nontender without palpable masses or organomegaly. There was no guarding or rebound. Extremities: The upper extremities have excellent pulses they are symmetric, no significant petechiae or telangiectasia. No splinter hemorrhages were noted. The lower extremities are free from significant edema. The peripheral pulses were 2+ and symmetric. Neuro: Awake alert oriented to person place and time. There are no acute new gross focal sensory motor deficits. Skin: With the nurse present the patient is evaluated. The extraction site of the Mediport right IJ area is with scant drainage in the areas being packed with iodoform gauze the erythema is improved - Labs CBC & Chem 7: 12/23/17 08:45 12/24/17 02:30 Labs: Abnormal Lab Results - Last 24 Hours (Table) 12/24/17 Range/Units 02:30 Potassium 3.4 L (3.5-5.1) mmol/L Microbiology - Last 24 Hours (Table) 12/22/17 17:22 Anaerobic Culture - Preliminary Chest 12/22/17 17:22 Gram Stain - Final Chest Wound Culture - Final Staphylococcus aureus 12/23/17 08:56 Blood Culture - Preliminary Blood No Growth after 24 hours 12/23/17 08:45 Blood Culture - Preliminary Blood No Growth after 24 hours Laboratory Results WBC 8.3 k/uL (3.8-10.6) 12/23/17 08:45 RBC 2.95 m/uL (3.80-5.40) L 12/23/17 08:45 Hgb 7.9 gm/dL (11.4-16.0) L 12/23/17 08:45 Hct 23.9 % (34.0-46.0) L 12/23/17 08:45 MCV 81.0 fL (80.0-100.0) 12/23/17 08:45 MCH 26.7 pg (25.0-35.0) 12/23/17 08:45 MCHC 32.9 g/dL (31.0-37.0) 12/23/17 08:45 RDW 15.7 % (11.5-15.5) H 12/23/17 08:45 Plt Count 344 k/uL (150-450) 12/23/17 08:45 Neutrophils % 84 % 12/23/17 08:45 Neutrophils % (Manual) 83 % 12/20/17 11:22 Band Neutrophils % 3 % 12/20/17 11:22 Lymphocytes % 8 % 12/23/17 08:45 Lymphocytes % (Manual) 11 % 12/20/17 11:22 Monocytes % 5 % 12/23/17 08:45 Monocytes % (Manual) 3 % 12/20/17 11:22 Eosinophils % 0 % 12/23/17 08:45 Basophils % 0 % 12/23/17 08:45 Neutrophils # 7.0 k/uL (1.3-7.7) 12/23/17 08:45 Neutrophils # (Manual) 4.10 k/uL (1.3-7.7) 12/20/17 11:22 Lymphocytes # 0.7 k/uL (1.0-4.8) L 12/23/17 08:45 Lymphocytes # (Manual) 0.53 k/uL (1.0-4.8) L 12/20/17 11:22 Monocytes # 0.4 k/uL (0-1.0) 12/23/17 08:45 Monocytes # (Manual) 0.14 k/uL (0-1.0) 12/20/17 11:22 Eosinophils # 0.0 k/uL (0-0.7) 12/23/17 08:45 Basophils # 0.0 k/uL (0-0.2) 12/23/17 08:45 Nucleated RBCs 0 /100 WBC (0-0) 12/20/17 11:22 RBC Morphology Normal 12/20/17 11:22 Sodium 140 mmol/L (137-145) 12/23/17 08:45 Potassium 3.4 mmol/L (3.5-5.1) L 12/24/17 02:30 Chloride 103 mmol/L (98-107) 12/23/17 08:45 Carbon Dioxide 26 mmol/L (22-30) 12/23/17 08:45 Anion Gap 11 mmol/L 12/23/17 08:45 BUN 8 mg/dL (7-17) 12/23/17 08:45 Creatinine 0.58 mg/dL (0.52-1.04) 12/23/17 08:45 Est GFR (CKD-EPI)AfAm >90 (>60 ml/min/1.73 sqM) 12/23/17 08:45 Est GFR (CKD-EPI)NonAf >90 (>60 ml/min/1.73 sqM) 12/23/17 08:45 Glucose 92 mg/dL (74-99) 12/23/17 08:45 Plasma Lactic Acid Fernando 1.0 mmol/L (0.7-2.0) 12/18/17 18:06 Calcium 7.9 mg/dL (8.4-10.2) L 12/23/17 08:45 Iron 8 ug/dL (50-170) L 12/23/17 08:56 TIBC 160 ug/dL (228-460) L 12/23/17 08:56 Iron Saturation 5.00 (12.00-45.00) L 12/23/17 08:56 Ferritin 2047.6 ng/mL (10.0-291.0) H 12/23/17 08:56 Total Bilirubin 0.4 mg/dL (0.2-1.3) 12/23/17 08:45 AST 34 U/L (14-36) 12/23/17 08:45 ALT 47 U/L (9-52) 12/23/17 08:45 Alkaline Phosphatase 120 U/L (38-126) 12/23/17 08:45 Total Protein 5.5 g/dL (6.3-8.2) L 12/23/17 08:45 Albumin 2.6 g/dL (3.5-5.0) L 12/23/17 08:45 Vitamin B12 1840.0 pg/mL (200.0-944.0) H 12/23/17 08:56 RBC Folate 759 ng/mL (280 - 791) 12/23/17 08:56 Urine Color Dark Yellow 12/18/17 12:00 Urine Appearance Cloudy (Clear) H 12/18/17 12:00 Urine pH 5.5 (5.0-8.0) 12/18/17 12:00 Ur Specific [place] 1.024 (1.001-1.035) 12/18/17 12:00 Urine Protein 1+ (Negative) H 12/18/17 12:00 Urine Glucose (UA) Negative (Negative) 12/18/17 12:00 Urine Ketones Negative (Negative) 12/18/17 12:00 Urine Blood Small (Negative) H 12/18/17 12:00 Urine Nitrite Negative (Negative) 12/18/17 12:00 Urine Bilirubin Negative (Negative) 12/18/17 12:00 Urine Urobilinogen 2.0 mg/dL (<2.0) 12/18/17 12:00 Ur Leukocyte Esterase Negative (Negative) 12/18/17 12:00 Urine RBC 2 /hpf (0-5) 12/18/17 12:00 Urine WBC 5 /hpf (0-5) 12/18/17 12:00 Ur Squamous Epith Cells 6 /hpf (0-4) H 12/18/17 12:00 Urine Bacteria Few /hpf (None) H 12/18/17 12:00 Hyaline Casts 25 /lpf (0-2) H 12/18/17 12:00 Urine Mucus Many /hpf (None) H 12/18/17 12:00 Vancomycin Trough 11.8 ug/mL 12/22/17 05:31 C. difficile Tox (PCR) Not Detected (Not Detectd) 12/24/17 11:53 Microbiology 12/22/17 17:22 Chest Anaerobic Culture - Preliminary 12/22/17 17:22 Chest Gram Stain - Final 12/22/17 17:22 Chest Wound Culture - Final Staphylococcus aureus 12/23/17 08:56 Blood Blood Culture - Preliminary No Growth after 24 hours 12/23/17 08:45 Blood Blood Culture - Preliminary No Growth after 24 hours 12/18/17 18:06 Blood Blood Culture Gram Stain - Final 12/18/17 18:06 Blood Blood Culture - Final Staphylococcus aureus 12/18/17 12:00 Blood Blood Culture Gram Stain - Final 12/18/17 12:00 Blood Blood Culture - Final Staphylococcus aureus 12/18/17 12:00 Urine,Voided Urine Culture - Final Klebsiella pneumoniae 12/18/17 18:06 Blood Blood Culture - Final 12/18/17 12:00 Blood Blood Culture - Final Assessment and Plan (1) Breast cancer, left Current Visit: Yes Status: Acute Priority: High Code(s): C50.912 - MALIGNANT NEOPLASM OF UNSPECIFIED SITE OF LEFT FEMALE BREAST SNOMED Code(s): 861356753 (2) Cellulitis of left breast Current Visit: Yes Status: Acute Code(s): N61.0 - MASTITIS WITHOUT ABSCESS SNOMED Code(s): 55748825 (3) Infection of pocket of surgical implant site Narrative/Plan: 62-year-old female who presented in November with a fungating left breast mass that was painful. Workup ensued and she was found to have evidence of invasive carcinoma of the left breast with metastasis to left axillary area and lungs and mediastinum. She has been initiated to her course of chemotherapy starting with Adriamycin and Cytoxan. She relates she tolerated the chemotherapy right well but now is developed a significant swelling and erythema to the right anterior chest wall [id number] site. It is quite tender over the area but there is no expressible purulence. At this time she has relative leukopenia but is not frankly neutropenic. The prior culture shows evidence of the MSSA as well as the Stenotrophomonas maltophilia. Antibiotic therapy will be initiated this time with ceftazidime and vancomycin pending further culture results. Blood cultures have been requested. Local wound care to the breast will be performed with the medical honey which should help drainage as well as help with odor. Tylenol is given for fever Patient may require surgical consultation depending on the findings of the Mediport site. 12/19/2017 reveals the patient to be stable without new acute complaints. Patient relates that she feels slightly better than yesterday and at the breast is not as painful. The Mediport site remains tender and erythematous. He has noted there are now multiple positive blood cultures we await the final identification, the wound culture from the breast to reveal evidence of MSSA in the past. If the blood cultures have evidence of MSSA infection will then be able to discontinue vancomycin and changed to cefazolin. We'll then have to assess surgeon to remove the port since staphylococcal infection and ports are usually nonsalvageable. Patient's fever is improving Relative leukopenia is being monitored by oncology Follow blood cultures will be determined based on species growing at this time. 12/20/2017 the patient has some chills today. She is not feeling very well overall. She is denying rigors. The dressing to the left breast has help with some discomfort and this will be continued. The right anterior chest wall and right neck have evidence of the onset of swelling and some fluctuance at the Mediport site. Where the catheter inserts into the IJ there is evidence of the suture that has some scant amount of purulence. Anterior area is very tender and has some minimal warmth. There are now multiple positive blood cultures with staph aureus in the Infuse-a -Port appears to be infected. Antibiotics will not be able to salvage this and consequently will assess surgeon to remove the port. We have negative blood cultures would contemplate PICC line for IV access to complete treatment of antibiotics and then chemotherapy. We'll continue current antibiotic therapy until we have final cultures. Of note there is a gram-negative in the urine and await final identification. 12/21/2017 the patient is having chills and we have evidence of multiple blood cultures revealed evidence of MSSA. Antibiotic therapy is altered from vancomycin to high-dose Ancef. The port cannot be salvaged and arrangements are being made with the surgeon for removal tomorrow. After removal follow blood cultures will be needed and once negative we'll then have a PICC line placed to complete a few weeks of intravenous antibiotic therapy for catheter related bacteremia. Afterwards she can then restart her chemotherapy. The patient understands this strategy and is looking forward to having her port removed because it is so tender and problematic at this time. 12/22/2017 the patient will have her Mediport removed today due to the ongoing MSSA active bacteremia and sepsis from the port. Once the bacteremia has cleared will arrange for a PICC line to be placed she may complete her course of intravenous antibiotic therapy and then it can be used for her chemotherapy in the future once her sepsis and infection have resolved. Follow up cultures requested 12/24/2017 patient has improved with removal of the Mediport that was infected. There is no evidence of negative blood cultures at 24 hours. They're expecting remained negative in the morning that her PICC line may be placed she complete her course of intravenous antibiotic therapy and then utilize the port for initiation of her chemotherapy for her metastatic breast carcinoma. Currently utilizing Ancef 2 g IV piggyback every 8 hours. It appears that she will be heading to the [place]. Will she be completing her antibiotic therapy. Ideally Ancef will be utilized however may need to utilize Rocephin. Current Visit: Yes Status: Acute Priority: High Code(s): TDK6875 - SNOMED Code(s): 948772632
[2017-12-25] MEDS: SODIUM CHLORIDE 0.9% 1,000 ML IV SCH ×3 (04:16→22:17)
[2017-12-25] MEDS: ceFAZolin IN SWFI 2 GM/20 ML SYRINGE IVP SCH ×3 (06:52→22:16)
[2017-12-25] MEDS: SALT AND SODA MOUTHWASH 1,000 ML PO SCH ×5 (06:54→23:49)
[2017-12-25] MEDS: HEPARIN SODIUM,PORCINE 5,000 UNIT/ML 1 ML VIAL SQ SCH ×3 (07:38→23:50)
[2017-12-25] MEDS: PANTOPRAZOLE 40 MG TABLET PO SCH (07:59)
[2017-12-25] MEDS: NYSTATIN 100,000 UNIT/ML SUSP 500,000 UNIT/5 ML CUP PO SCH ×4 (08:00→22:16)
[2017-12-25 08:11] LABS: Basophils % (A) 0 %; Eosinophils % (A) 0 %; HCT 23.5 % (34.0-46.0); HGB 7.5 gm/dL (11.4-16.0); Hypochromasia Slight; Lymphocytes # (A) 0.9 k/uL (1.0-4.8); Lymphocytes % (A) 8 %; MCH 25.8 pg (25.0-35.0); MCHC 31.8 g/dL (31.0-37.0); MCV 81.3 fL (80.0-100.0); Mean Platelet Volume 7.5; Monocytes # (A) 0.7 k/uL (0-1.0); Monocytes % (A) 7 %; Neutrophils # (A) 8.3 k/uL (1.3-7.7); Neutrophils % (A) 82 %; Platelet Count 424 k/uL (150-450); RBC 2.89 m/uL (3.80-5.40); RDW 15.8 % (11.5-15.5); WBC 10.1 k/uL (3.8-10.6)
[2017-12-25 08:17] LABS: INR 1.3 (<1.2); Prothrombin Time 12.4 sec (9.0-12.0)
[2017-12-25 08:32] LABS: ALT 30 U/L (9-52); AST 25 U/L (14-36); Albumin 2.5 g/dL (3.5-5.0); Alkaline Phosphatase 111 U/L (38-126); Anion Gap 11 mmol/L; Blood Urea Nitrogen 11 mg/dL (7-17); Calcium 7.5 mg/dL (8.4-10.2); Carbon Dioxide 25 mmol/L (22-30); Chloride 107 mmol/L (98-107); Glucose 108 mg/dL (74-99); Potassium 3.1 mmol/L (3.5-5.1); Sodium 143 mmol/L (137-145); Total Bilirubin 0.4 mg/dL (0.2-1.3); Total Protein 5.5 g/dL (6.3-8.2)
[2017-12-25] MEDS: ACETAMINOPHEN TAB 325 MG TAB PO PRN ×2 (10:59→19:55)
--- NOTE | 2017-12-25 11:57 | P.PN ---
Subjective Progress Note Date: 12/25/17 62-year-old resting in bed. Patients being followed by surgical service. Infected Port-A-Cath was removed on December 22 dressing to the surgical site and intact no redness decreased tenderness at site. Chief complaint this morning nausea no appetite diarrhea increased weakness Status post MediPort removed December 22 Status post chemotherapy left breast cancer for newly diagnosed Fungating, infectious left breast cancer being followed by oncology bacteremia staph aureus Objective - Vital Signs Vital signs: Vital Signs Temp 97.1 F L 12/25/17 05:00 Pulse 94 12/25/17 08:22 Resp 20 12/25/17 08:22 BP 150/72 12/25/17 05:00 Pulse Ox 92 L 12/25/17 05:00 Intake & Output 12/24/17 12/25/17 12/25/17 18:59 06:59 18:59 Intake Total 900 400 Balance 900 400 Weight 63.957 kg Intake: IV 700 400 Sodium Chloride 0.9% 1, 700 400 000 ml @ 100 mls/hr IV . Q10H PENDING SALE TO [facility] Rx#:[id number] Oral 200 Other: Voiding Method Toilet Toilet Bedside Commode Bedside Commode # Voids 2 - Exam Exam Chest right anterior chest wall dressing dry no drainage less tenderness less redness - Labs CBC & Chem 7: 12/25/17 07:44 12/25/17 07:44 Labs: Abnormal Lab Results - Last 24 Hours (Table) 12/25/17 12/25/17 12/25/17 Range/Units 07:44 07:44 07:44 RBC 2.89 L (3.80-5.40) m/uL Hgb 7.5 L (11.4-16.0) gm/dL Hct 23.5 L (34.0-46.0) % RDW 15.8 H (11.5-15.5) % Neutrophils # 8.3 H (1.3-7.7) k/uL Lymphocytes # 0.9 L (1.0-4.8) k/uL PT 12.4 H (9.0-12.0) sec INR 1.3 H (<1.2) Potassium 3.1 L (3.5-5.1) mmol/L Creatinine 0.48 L (0.52-1.04) mg/dL Glucose 108 H (74-99) mg/dL Calcium 7.5 L (8.4-10.2) mg/dL Total Protein 5.5 L (6.3-8.2) g/dL Albumin 2.5 L (3.5-5.0) g/dL Microbiology - Last 24 Hours (Table) 12/23/17 08:56 Blood Culture - Preliminary Blood No Growth after 48 hours 12/23/17 08:45 Blood Culture - Preliminary Blood No Growth after 48 hours 12/22/17 17:22 Anaerobic Culture - Preliminary Chest 12/22/17 17:22 Gram Stain - Final Chest Wound Culture - Final Staphylococcus aureus Assessment and Plan Assessment: Impression Left breast cancer newly diagnosed MediPort placed right upper chest 08 of December for chemotherapeutic access Cellulitis left breast present on admission improving since MediPort removed Prior culture with MSSA and Stenotrophomonas maltophilia 1 month prior Status post removal of MediPort Infection of pocket of surgical implant site Anemia suspect chronic illness Hypokalemia Plan Follow up on stool studies pending Pain control Wound care packing daily iodoform to surgical incision site Continue recommendations by oncology Defer to infectious disease for IV antibiotic therapy Will follow with you The above impression and plan of care have been discussed and directed by signing physician. Brandy Rush nurse practitioner acting as scribe for signing physician.
[2017-12-25] MEDS ORDERED: LIDOCAINE 1% INJ 10MG/ML (20 ML MDV) ONE (13:07)
[2017-12-25] MEDS ORDERED: LIDOCAINE 1% INJ 10MG/ML (20 ML MDV) SQ ONE (14:02)
--- NOTE | 2017-12-25 15:00 | IR ---
EXAMINATION TYPE: IR cvc insert >=5 years DATE OF EXAM: 12/25/2017 COMPARISON: NONE CLINICAL HISTORY: Breast carcinoma Needs long-term intravenous access for chemotherapy. PROCEDURE: After informed consent, the skin overlying the left basilic vein was localized with ultrasound and no karena to be compressible and patent. An ultrasound image was obtained and submitted on the patient's c glass. The overlying skin was prepped and draped and Lidocaine was used for local anesthesia. A skin coy was made with a scalpel. Access was gained to the vein under ultrasound guidance with a 21 gau ge needle and a 0.018 inch wire was advanced. Access site was dilated with Peel-Away sheath and cath eter tailored to the appropriate length and advanced such that the distal tip is at the cavoatrial ju nction. Spot image was obtained verifying placement. Catheter was fixed to the skin and a sterile d ressing was placed following hemostasis. Catheter was aspirated and flushed with saline. Patient wa s discharged in stable condition without complication. Maximal barrier technique is utilized. Ultras ound image is documented on the chart. Ultrasound used with sterile technique. Fluoro time and fluoroscopic images submitted to document procedure: 204 intraoperative C-arm images, 0.3 minutes fluoroscopy time IMPRESSION: STATUS POST ULTRASOUND AND FLUOROSCOPIC GUIDED PICC LINE PLACEMENT, READY FOR USE. THIS PROCEDURE WAS PERFORMED BY THE UNDERSIGNED.
--- NOTE | 2017-12-25 17:19 | P.PN ---
Subjective Progress Note Date: 12/25/17 Principal diagnosis: Breast cancer, status post 1 chemotherapy, bacteremia and infected Port-A-Cath Pt seen in f/u today, blood cultures clear, PICC being placed today. She is requiring O2 at 2L after ambulation, she does not typically use O2. No fevers, nausea, cough, less diarrhea, no swelling or pain. Objective - Vital Signs Vital signs: Vital Signs Temp 97.5 F L 12/25/17 15:30 Pulse 85 12/25/17 15:30 Resp 18 12/25/17 16:48 BP 149/81 12/25/17 15:30 Pulse Ox 95 12/25/17 15:30 Intake & Output 12/24/17 12/25/17 12/25/17 18:59 06:59 18:59 Intake Total 900 400 700 Balance 900 400 700 Weight 63.957 kg Intake: IV 700 400 700 Sodium Chloride 0.9% 1, 700 400 700 000 ml @ 100 mls/hr IV . Q10H [facility] Rx#:[id number] Oral 200 Other: Voiding Method Toilet Toilet Bedside Commode Bedside Commode # Voids 2 - Constitutional General appearance: Present: average body habitus, cooperative, mild distress - EENT Eyes: Present: anicteric sclerae ENT: Present: normal oropharynx - Respiratory Respiratory: bilateral: diminished - Cardiovascular Heart sounds: normal: S1, S2 - Peripheral edema leg Peripheral Edema: bilateral: None - Gastrointestinal General gastrointestinal: Present: soft. Absent: distended, hepatomegaly, organomegaly, rigid, scaphoid, splenomegaly, tenderness, umbilical hernia, ventral hernia - Integumentary Integumentary: Present: pale - Neurologic Neurologic: Present: CNII-XII intact - Musculoskeletal Musculoskeletal: Present: generalized weakness, strength equal bilaterally - Psychiatric Psychiatric: Present: A&O x's 3, appropriate affect, intact judgment & insight - Labs CBC & Chem 7: 12/25/17 07:44 12/25/17 07:44 Labs: Abnormal Lab Results - Last 24 Hours (Table) 12/25/17 12/25/17 12/25/17 Range/Units 07:44 07:44 07:44 RBC 2.89 L (3.80-5.40) m/uL Hgb 7.5 L (11.4-16.0) gm/dL Hct 23.5 L (34.0-46.0) % RDW 15.8 H (11.5-15.5) % Neutrophils # 8.3 H (1.3-7.7) k/uL Lymphocytes # 0.9 L (1.0-4.8) k/uL PT 12.4 H (9.0-12.0) sec INR 1.3 H (<1.2) Potassium 3.1 L (3.5-5.1) mmol/L Creatinine 0.48 L (0.52-1.04) mg/dL Glucose 108 H (74-99) mg/dL Calcium 7.5 L (8.4-10.2) mg/dL Total Protein 5.5 L (6.3-8.2) g/dL Albumin 2.5 L (3.5-5.0) g/dL Microbiology - Last 24 Hours (Table) 12/23/17 08:56 Blood Culture - Preliminary Blood No Growth after 48 hours 12/23/17 08:45 Blood Culture - Preliminary Blood No Growth after 48 hours 12/22/17 17:22 Anaerobic Culture - Preliminary Chest 12/22/17 17:22 Gram Stain - Final Chest Wound Culture - Final Staphylococcus aureus Assessment and Plan (1) Bacteremia Narrative/Plan: Most recent BC neg, PICC will be placed, cont abx per ID Current Visit: Yes Status: Acute Priority: High Code(s): R78.81 - BACTEREMIA SNOMED Code(s): 1732190 (2) Breast cancer, left Narrative/Plan: Pt will cont treatment after being evaluated by Dr. Miranda next week, she was due for cycle 2 this week. Current Visit: Yes Status: Acute Priority: High Code(s): C50.912 - MALIGNANT NEOPLASM OF UNSPECIFIED SITE OF LEFT FEMALE BREAST SNOMED Code(s): 703797306 (3) Anemia Narrative/Plan: Anemia multifactorial-chemo, malignancy and inflammation. Her ferritin is significantly elevated. No iron supplementation at this time, only conservative transfusions. Current Visit: Yes Status: Acute Priority: Medium Code(s): D64.9 - ANEMIA , UNSPECIFIED SNOMED Code(s): 129101261 (4) Infection of pocket of surgical implant site Narrative/Plan: Poet removed Current Visit: Yes Status: Acute Priority: High Code(s): API7951 - SNOMED Code(s): 160816129 (5) Hypokalemia Narrative/Plan: On replacement protocol. Current Visit: Yes Status: Acute Priority: Low Code(s): E87.6 - HYPOKALEMIA SNOMED Code(s): 10544157 Plan: CXR in AM and evaluate for home O2.
--- NOTE | 2017-12-25 17:42 | XR ---
EXAMINATION TYPE: XR chest 1V portable DATE OF EXAM: 12/25/2017 COMPARISON: 12/18/2017 HISTORY: PICC line placement TECHNIQUE: Single frontal view of the chest is obtained. FINDINGS: There is left subclavian catheter with the tip in the superior vena cava. There is severe pulmonary alveolar edema. There are chest leads. Heart size is normal. IMPRESSION: There is significant pulmonary edema that is new compared to recent exam. Normal heart. No pneumothorax. Old healed left fourth rib fracture.
[2017-12-25] MEDS: PROCHLORPERAZINE 10 MG TAB PO PRN (19:54)
[2017-12-26] MEDS: ACETAMINOPHEN TAB 325 MG TAB PO PRN ×2 (01:11→16:01)
[2017-12-26] MEDS: ceFAZolin IN SWFI 2 GM/20 ML SYRINGE IVP SCH ×2 (05:28→15:04)
[2017-12-26] MEDS: SALT AND SODA MOUTHWASH 1,000 ML PO SCH ×4 (05:28→21:06)
[2017-12-26 07:55] LABS: Anisocytosis Slight; Basophils # (A) 0.1 k/uL (0-0.2); Basophils % (A) 1 %; Eosinophils % (A) 0 %; HCT 26.4 % (34.0-46.0); HGB 8.5 gm/dL (11.4-16.0); Hypochromasia Slight; Lymphocytes # (A) 1.3 k/uL (1.0-4.8); Lymphocytes % (A) 9 %; MCH 26.2 pg (25.0-35.0); MCV 81.9 fL (80.0-100.0); Monocytes # (A) 0.9 k/uL (0-1.0); Monocytes % (A) 6 %; Neutrophils # (A) 12.2 k/uL (1.3-7.7); Neutrophils % (A) 83 %; Platelet Count 547 k/uL (150-450); RBC 3.23 m/uL (3.80-5.40); RDW 16.2 % (11.5-15.5); WBC 14.7 k/uL (3.8-10.6)
[2017-12-26 08:43] LABS: Large Platelets Present
[2017-12-26] MEDS: NYSTATIN 100,000 UNIT/ML SUSP 500,000 UNIT/5 ML CUP PO SCH ×4 (08:45→21:07)
[2017-12-26] MEDS: HEPARIN SODIUM,PORCINE 5,000 UNIT/ML 1 ML VIAL SQ SCH ×2 (08:45→15:47)
[2017-12-26] MEDS: PANTOPRAZOLE 40 MG TABLET PO SCH (08:45)
[2017-12-26] MEDS: PROCHLORPERAZINE 10 MG TAB PO PRN ×2 (10:52→19:39)
[2017-12-26] MEDS ORDERED: FUROSEMIDE 10 MG/ML 4 ML VIAL IV STA (10:54)
[2017-12-26] MEDS ORDERED: IPRATROPIUM-ALBUTEROL 3 ML NEB INHALATION PRN (10:55)
[2017-12-26] MEDS: IPRATROPIUM-ALBUTEROL 3 ML NEB INHALATION SCH ×3 (11:49→20:27)
[2017-12-26 13:57] LABS: ALT 37 U/L (9-52); AST 27 U/L (14-36); Albumin 2.8 g/dL (3.5-5.0); Alkaline Phosphatase 126 U/L (38-126); Anion Gap 11 mmol/L; Blood Urea Nitrogen 10 mg/dL (7-17); Calcium 7.9 mg/dL (8.4-10.2); Carbon Dioxide 26 mmol/L (22-30); Chloride 106 mmol/L (98-107); Glucose 92 mg/dL (74-99); Magnesium 1.8 mg/dL (1.6-2.3); Potassium 3.2 mmol/L (3.5-5.1); Sodium 143 mmol/L (137-145); Total Bilirubin 0.5 mg/dL (0.2-1.3)
[2017-12-26] MEDS ORDERED: Potassium Replacement Protocol 1 EACH MISC MISCELLANE PRN (15:03)
[2017-12-26] MEDS: SODIUM CHLORIDE 0.9% 1,000 ML IV SCH (15:05)
--- NOTE | 2017-12-26 15:06 | CT ---
EXAMINATION TYPE: CT angio chest DATE OF EXAM: 12/26/2017 COMPARISON: CT chest abdomen pelvis November 19, 2017. Chest x-ray from yesterday HISTORY: SOB, hypoxia CT DLP: 255.9 mGycm. Automated Exposure Control for Dose Reduction was Utilized. CONTRAST: CTA scan of the thorax is performed with IV Contrast, patient injected with 70 mL of Isovue 300, pulm onary embolism protocol. MIP Images are created on CT scanner and reviewed. FINDINGS: LUNGS: There are small to moderate-sized bilateral pleural effusions with associated compressive atel ectasis. There is background of moderate emphysematous change seen best the lung apices on current st udy. There is slightly more prominent 8 x 7 mm nodule lateral right upper lobe axial image 31. There is 16 x 13 mm nodule right lower lobe fairly stable axial image 75. There is felt stable 6 mm nodule left lower lobe axial image 74. Additional nodules on prior study are obscured by atelectasis. There is central groundglass opacity bilaterally favoring edema. MEDIASTINUM: There is satisfactory enhancement of the pulmonary artery and its branches, there is no CT evidence for pulmonary embolism. There are no greater than 1 cm hilar or mediastinal lymph nodes. No cardiomegaly or pericardial effusion is seen. There is left-sided PICC line terminating in SVC redemonstrated. OTHER: There is asymmetric skin thickening in the left breast with heterogeneous large mass or neopla sm redemonstrated. Left axillary adenopathy near axial image 31 is also redemonstrated. IMPRESSION: 1. No CT evidence for acute pulmonary embolism. 2. New CHF exacerbation fluid overload state as there is mild to moderate size bilateral pleural effu sions and moderate central alveolar edema bilaterally. 3. Redemonstration of large left breast mass or neoplasm and associated adenopathy and known pulmonar y metastatic disease.
[2017-12-26] MEDS: POTASSIUM CHLORIDE ER 20 MEQ TAB.ER PO SCH ×3 (15:45→21:35)
--- NOTE | 2017-12-26 17:50 | P.PN ---
Subjective Progress Note Date: 12/26/17 Principal diagnosis: Febrile, on chemo Wendy is requiring oxygen and appears to have increased respiratory effort then when previously seen. Objective - Vital Signs Vital signs: Vital Signs Temp 98.5 F 12/26/17 12:32 Pulse 107 H 12/26/17 16:00 Resp 20 12/26/17 16:00 BP 159/80 12/26/17 12:32 Pulse Ox 89 L 12/26/17 12:32 Intake & Output 12/25/17 12/26/17 12/26/17 18:59 06:59 18:59 Intake Total 700 1680 520 Balance 700 1680 520 Weight 63.957 kg 63.957 kg Intake: IV 700 1200 Sodium Chloride 0.9% 1, 700 1200 000 ml @ 20 mls/hr IV . Q24H [facility] Rx#:[id number] Intake, IV Titration 120 Amount Sodium Chloride 0.9% 1, 120 000 ml @ 20 mls/hr IV . Q24H [facility] Rx#:[id number] Oral 480 400 Other: Voiding Method Bedside Commode Bedside Commode Bedside Commode # Voids 2 1 - Exam EENT: Thush grade 1, Head NC, NT, she has a small lid lag on right eye Neck: The neck is supple without significant lymphadenopathy. Lungs: There is symmetrical bilateral scattered expiratory wheezes Diminished bibasilar and increased respiratory effort Heart: Regular rhythm, Tachycardia, 108 Abdomen: Positive bowel sounds soft and nontender without palpable masses or organomegaly. Extremities: BLE edema. Left greater than Right (previous surgery to left), patient states at baseline always more swollen than right. Denies pain in calf or leg. The peripheral pulses were 2+ and symmetric. Neuro: Awake alert oriented to person place and time. There are no acute new gross focal sensory motor deficits. Skin: Erythema right anterior chest wall at the Mediport site. very tender, erythema improving, area is marked. The left breast massive firm hard edema. Large open draining fungating mass. + odor There is distinct erythema There also is palpable mass in the left axillary area. - Labs CBC & Chem 7: 12/26/17 06:33 12/26/17 06:33 Labs: Abnormal Lab Results - Last 24 Hours (Table) 12/26/17 12/26/17 Range/Units 06:33 06:33 WBC 14.7 H (3.8-10.6) k/uL RBC 3.23 L (3.80-5.40) m/uL Hgb 8.5 L (11.4-16.0) gm/dL Hct 26.4 L (34.0-46.0) % RDW 16.2 H (11.5-15.5) % Plt Count 547 H (150-450) k/uL Neutrophils # 12.2 H (1.3-7.7) k/uL Potassium 3.2 L (3.5-5.1) mmol/L Creatinine 0.49 L (0.52-1.04) mg/dL Calcium 7.9 L (8.4-10.2) mg/dL Total Protein 6.0 L (6.3-8.2) g/dL Albumin 2.8 L (3.5-5.0) g/dL Microbiology - Last 24 Hours (Table) 12/23/17 08:56 Blood Culture - Preliminary Blood No Growth after 72 hours 12/23/17 08:45 Blood Culture - Preliminary Blood No Growth after 72 hours Assessment and Plan Plan: Assessment and Plan (1) Bacteremia Narrative/Plan: Most recent BC neg, PICC wlaced, cont abx per ID Current Visit: Yes Status: Acute Priority: High Code(s): R78.81 - BACTEREMIA SNOMED Code(s): 1372699 (2) Breast cancer, left Narrative/Plan: Pt will cont treatment after being evaluated by Dr. Miranda next week, she was due for cycle 2 this week. - Chemotherapy will be held until resolution of acute infection and completion of antibiotics Current Visit: Yes Status: Acute Priority: High Code(s): C50.912 - MALIGNANT NEOPLASM OF UNSPECIFIED SITE OF LEFT FEMALE BREAST SNOMED Code(s): 740219305 (3) Anemia Narrative/Plan: Anemia multifactorial-chemo, malignancy and inflammation. Her ferritin is significantly elevated. No iron supplementation at this time, only conservative transfusions. Current Visit: Yes Status: Acute Priority: Medium Code(s): D64.9 - ANEMIA , UNSPECIFIED SNOMED Code(s): 614786625 (4) Infection of pocket of surgical implant site Narrative/Plan: Port removed Current Visit: Yes Status: Acute Priority: High Code(s): WSQ2892 - SNOMED Code(s): 272141863 (5) Hypokalemia Narrative/Plan: On replacement protocol. monitor Magnesium also Current Visit: Yes Status: Acute Priority: Low Code(s): E87.6 - HYPOKALEMIA SNOMED Code(s): 14935314 (6) Hypoxia requiring Oxygen - Chest Xray showed significant pulmonary edema which is likely the cause of her increased respiratory effort and new oxygen requirement, although she was diuresed with little improvement. - Will obtain CTA to rule out underlying thrombus as she has been sedetary and with malignancy at higher risk of THrombosis Nona Clayton NP
[2017-12-27] MEDS: HEPARIN SODIUM,PORCINE 5,000 UNIT/ML 1 ML VIAL SQ SCH ×3 (00:05→15:34)
[2017-12-27] MEDS: POTASSIUM CHLORIDE ER 20 MEQ TAB.ER PO SCH (00:05)
[2017-12-27] MEDS: SALT AND SODA MOUTHWASH 1,000 ML PO SCH ×5 (00:08→21:24)
[2017-12-27] MEDS: ACETAMINOPHEN TAB 325 MG TAB PO PRN ×2 (00:12→21:36)
[2017-12-27] MEDS: ceFAZolin IN SWFI 2 GM/20 ML SYRINGE IVP SCH ×4 (00:31→22:40)
[2017-12-27] MEDS ORDERED: POTASSIUM CHLORIDE 20 MEQ in WATER FOR INJECTION 1 100ML.BAG IVPB STA (02:15)
[2017-12-27] MEDS: NYSTATIN 100,000 UNIT/ML SUSP 500,000 UNIT/5 ML CUP PO SCH ×4 (07:50→21:25)
[2017-12-27] MEDS: PANTOPRAZOLE 40 MG TABLET PO SCH (07:50)
[2017-12-27 08:23] LABS: Anisocytosis Slight; Basophils # (A) 0.1 k/uL (0-0.2); Basophils % (A) 0 %; Eosinophils % (A) 0 %; HCT 25.1 % (34.0-46.0); HGB 8.1 gm/dL (11.4-16.0); Hypochromasia Slight; Lymphocytes # (A) 1.3 k/uL (1.0-4.8); Lymphocytes % (A) 9 %; MCH 26.4 pg (25.0-35.0); MCHC 32.3 g/dL (31.0-37.0); MCV 81.6 fL (80.0-100.0); Mean Platelet Volume 7.8; Monocytes # (A) 0.8 k/uL (0-1.0); Monocytes % (A) 6 %; Neutrophils # (A) 11.4 k/uL (1.3-7.7); Neutrophils % (A) 84 %; Platelet Count 524 k/uL (150-450); RBC 3.07 m/uL (3.80-5.40); RDW 17.1 % (11.5-15.5); WBC 13.6 k/uL (3.8-10.6)
[2017-12-27] MEDS: IPRATROPIUM-ALBUTEROL 3 ML NEB INHALATION SCH ×4 (09:05→21:27)
--- NOTE | 2017-12-27 09:50 | P.PN ---
Subjective Progress Note Date: 12/27/17 The patient's breathing feels somewhat easier today. She denies any fever/ chills/nausea/vomiting. She feels that her left breast is smaller and less painful after chemotherapy Objective - Vital Signs Vital signs: Vital Signs Temp 97.7 F 12/27/17 05:00 Pulse 100 12/27/17 09:14 Resp 18 12/27/17 05:00 BP 147/71 12/27/17 05:00 Pulse Ox 94 L 12/27/17 05:00 Intake & Output 12/26/17 12/27/17 12/27/17 18:59 06:59 18:59 Intake Total 760 1060 Balance 760 1060 Weight 63.957 kg Intake: IV 240 Sodium Chloride 0.9% 1, 240 000 ml @ 20 mls/hr IV . Q24H [facility] Rx#:[id number] Intake, IV Titration 120 100 Amount Potassium Chloride 20 meq 100 In Water For Injection 1 100ml.bag @ 100 mls/hr IVPB ONCE STA Rx#: [id number] Sodium Chloride 0.9% 1, 120 000 ml @ 20 mls/hr IV . Q24H [facility] Rx#:[id number] Oral 640 720 Other: Voiding Method Bedside Commode Bedside Commode # Voids 1 2 - Constitutional General appearance: Present: mild distress - EENT Eyes: Present: EOMI ENT: Present: hearing grossly normal, normal oropharynx - Respiratory Respiratory: bilateral: diminished, rales - Cardiovascular Rhythm: regular Heart sounds: normal: S1, S2 - Gastrointestinal General gastrointestinal: Present: normal bowel sounds, soft - Integumentary Integumentary: Present: normal - Neurologic Neurologic: Present: CNII-XII intact - Musculoskeletal Musculoskeletal: Present: generalized weakness, strength equal bilaterally - Psychiatric Psychiatric: Present: A&O x's 3, appropriate affect - Labs CBC & Chem 7: 12/27/17 07:20 12/27/17 07:20 Labs: Abnormal Lab Results - Last 24 Hours (Table) 12/26/17 12/26/17 12/27/17 Range/Units 06:33 19:31 01:37 WBC (3.8-10.6) k/uL RBC (3.80-5.40) m/uL Hgb (11.4-16.0) gm/dL Hct (34.0-46.0) % RDW (11.5-15.5) % Plt Count (150-450) k/uL Neutrophils # (1.3-7.7) k/uL Potassium 3.2 L 3.0 L 3.1 L (3.5-5.1) mmol/L Creatinine 0.49 L (0.52-1.04) mg/dL Calcium 7.9 L (8.4-10.2) mg/dL Total Protein 6.0 L (6.3-8.2) g/dL Albumin 2.8 L (3.5-5.0) g/dL 12/27/17 Range/Units 07:20 WBC 13.6 H (3.8-10.6) k/uL RBC 3.07 L (3.80-5.40) m/uL Hgb 8.1 L (11.4-16.0) gm/dL Hct 25.1 L (34.0-46.0) % RDW 17.1 H (11.5-15.5) % Plt Count 524 H (150-450) k/uL Neutrophils # 11.4 H (1.3-7.7) k/uL Potassium (3.5-5.1) mmol/L Creatinine (0.52-1.04) mg/dL Calcium (8.4-10.2) mg/dL Total Protein (6.3-8.2) g/dL Albumin (3.5-5.0) g/dL Microbiology - Last 24 Hours (Table) 12/22/17 17:22 Anaerobic Culture - Final Chest 12/23/17 08:56 Blood Culture - Preliminary Blood No Growth after 72 hours 12/23/17 08:45 Blood Culture - Preliminary Blood No Growth after 72 hours Assessment and Plan (1) Pulmonary edema Narrative/Plan: The patient's CT angiogram did not show any evidence of a real embolus. It confirmed pulmonary edema due to fluid overload. The patient is improved with diuresis. Continue treatment per the admitting service. Current Visit: Yes Status: Acute Code(s): J81.1 - CHRONIC PULMONARY EDEMA SNOMED Code(s): 11769548 (2) Breast cancer, left Narrative/Plan: The patient is status post 1 cycle of chemotherapy, and has noted symptomatic improvement. Cycle #2 was delayed because of poor inpatient admission. This will be rescheduled, when she follows up in the office post discharge Current Visit: Yes Status: Acute Priority: High Code(s): C50.912 - MALIGNANT NEOPLASM OF UNSPECIFIED SITE OF LEFT FEMALE BREAST SNOMED Code(s): 041705420 (3) Bacteremia Narrative/Plan: Repeat cultures are negative. She has undergone port removal, and PICC line placement. We'll defer to the admitting service and ID for antibiotic management Current Visit: Yes Status: Acute Priority: High Code(s): R78.81 - BACTEREMIA SNOMED Code(s): 4088248
[2017-12-27] MEDS: SODIUM CHLORIDE 0.9% 1,000 ML IV SCH ×2 (11:14→15:33)
[2017-12-27] MEDS: PROCHLORPERAZINE 10 MG TAB PO PRN (21:36)
[2017-12-28] MEDS: SALT AND SODA MOUTHWASH 1,000 ML PO SCH ×6 (00:40→23:37)
[2017-12-28] MEDS: HEPARIN SODIUM,PORCINE 5,000 UNIT/ML 1 ML VIAL SQ SCH ×4 (00:40→23:37)
[2017-12-28] MEDS: ceFAZolin IN SWFI 2 GM/20 ML SYRINGE IVP SCH ×3 (06:26→21:25)
[2017-12-28 07:29] LABS: Anisocytosis Slight; Basophils # (A) 0.1 k/uL (0-0.2); Basophils % (A) 1 %; Eosinophils % (A) 0 %; HCT 25.9 % (34.0-46.0); HGB 8.2 gm/dL (11.4-16.0); Lymphocytes # (A) 1.3 k/uL (1.0-4.8); Lymphocytes % (A) 11 %; MCH 25.8 pg (25.0-35.0); MCHC 31.8 g/dL (31.0-37.0); MCV 81.1 fL (80.0-100.0); Monocytes # (A) 0.6 k/uL (0-1.0); Monocytes % (A) 5 %; Neutrophils # (A) 9.4 k/uL (1.3-7.7); Neutrophils % (A) 81 %; Platelet Count 507 k/uL (150-450); RBC 3.19 m/uL (3.80-5.40); RDW 17.6 % (11.5-15.5); WBC 11.5 k/uL (3.8-10.6)
[2017-12-28] MEDS: IPRATROPIUM-ALBUTEROL 3 ML NEB INHALATION SCH ×4 (07:40→20:59)
[2017-12-28] MEDS: NYSTATIN 100,000 UNIT/ML SUSP 500,000 UNIT/5 ML CUP PO SCH ×4 (08:43→21:28)
[2017-12-28] MEDS: PANTOPRAZOLE 40 MG TABLET PO SCH (08:46)
[2017-12-28] MEDS: SODIUM CHLORIDE 0.9% 1,000 ML IV SCH ×2 (13:29→17:46)
[2017-12-28] MEDS: ACETAMINOPHEN TAB 325 MG TAB PO PRN (21:24)
[2017-12-28] MEDS: PROCHLORPERAZINE 10 MG TAB PO PRN (22:03)
--- NOTE | 2017-12-28 23:41 | PN ---
PROGRESS NOTE DATE OF SERVICE: 12/28/2017. CHIEF COMPLAINT: Infected port. HISTORY OF PRESENT ILLNESS: This lady is doing well. She has had no fever or chills. PHYSICAL EXAM: Chest is clear. Cardiac exam is normal. Abdomen is soft, nontender. IMPRESSION: 1. Status post removal of infected port. 2. Carcinoma of the breast. PLAN: Continue with IV antibiotics and home when cleared by Infectious Disease. MMODL / IJN: [id number] /
[2017-12-29] MEDS: ceFAZolin IN SWFI 2 GM/20 ML SYRINGE IVP SCH ×3 (06:24→21:55)
[2017-12-29] MEDS: SALT AND SODA MOUTHWASH 1,000 ML PO SCH ×4 (06:26→21:57)
[2017-12-29] MEDS: NYSTATIN 100,000 UNIT/ML SUSP 500,000 UNIT/5 ML CUP PO SCH ×4 (07:58→21:55)
[2017-12-29] MEDS: PANTOPRAZOLE 40 MG TABLET PO SCH (08:09)
[2017-12-29] MEDS: HEPARIN SODIUM,PORCINE 5,000 UNIT/ML 1 ML VIAL SQ SCH ×2 (08:09→16:33)
[2017-12-29] MEDS: IPRATROPIUM-ALBUTEROL 3 ML NEB INHALATION SCH ×4 (08:22→20:55)
[2017-12-29] MEDS: ACETAMINOPHEN TAB 325 MG TAB PO PRN (16:31)
[2017-12-29] MEDS: SODIUM CHLORIDE 0.9% 1,000 ML IV SCH (16:35)
--- NOTE | 2017-12-29 18:29 | P.PN ---
Subjective Progress Note Date: 12/29/17 Principal diagnosis: Breast cancer, status post 1 chemotherapy, bacteremia and infected Port-A-Cath Pt seen in f/u. Denies fevers, her breathing is improved after diruesis, she is still on O2, appetite is better, no nausea, diarrhea or pain, she is ambulatory Objective - Vital Signs Vital signs: Vital Signs Temp 97.7 F 12/29/17 13:00 Pulse 107 H 12/29/17 13:00 Resp 16 12/29/17 13:00 BP 137/74 12/29/17 13:00 Pulse Ox 91 L 12/29/17 13:00 Intake & Output 12/28/17 12/29/17 12/29/17 18:59 06:59 18:59 Intake Total 670 Balance 670 Intake: IV 80 Sodium Chloride 0.9% 1, 80 000 ml @ 20 mls/hr IV . Q24H [facility] Rx#:[id number] Oral 590 Other: Voiding Method Bedside Commode Bedside Commode Bedside Commode # Voids 3 2 3 - Constitutional General appearance: Present: average body habitus, cooperative, no acute distress - Respiratory Respiratory: bilateral: CTA - Cardiovascular Heart sounds: normal: S1, S2 - Gastrointestinal General gastrointestinal: Present: normal bowel sounds - Neurologic Neurologic: Present: CNII-XII intact - Musculoskeletal Musculoskeletal: Present: strength equal bilaterally - Psychiatric Psychiatric: Present: A&O x's 3, appropriate affect, intact judgment & insight - Labs CBC & Chem 7: 12/28/17 06:53 12/27/17 07:20 Labs: Microbiology - Last 24 Hours (Table) 12/27/17 07:15 Stool Culture - Preliminary Stool 12/23/17 08:56 Blood Culture - Final Blood No Growth after 144 hours 12/23/17 08:45 Blood Culture - Final Blood No Growth after 144 hours Assessment and Plan (1) Bacteremia Narrative/Plan: Most recent BC neg, PICC has been placed, abx per ID Current Visit: Yes Status: Acute Priority: High Code(s): R78.81 - BACTEREMIA SNOMED Code(s): 9209477 (2) Breast cancer, left Narrative/Plan: Pt will cont treatment after being evaluated by Dr. Miranda next week. She will need to have completed abx. Cycle 2 was due this week. As of note, pt states that she feels less fullness in the left breast and axilla area! Current Visit: Yes Status: Acute Priority: High Code(s): C50.912 - MALIGNANT NEOPLASM OF UNSPECIFIED SITE OF LEFT FEMALE BREAST SNOMED Code(s): 318364645 (3) Anemia Narrative/Plan: Hgb stable. Anemia of inflammation and malignancy Current Visit: Yes Status: Acute Priority: Medium Code(s): D64.9 - ANEMIA , UNSPECIFIED SNOMED Code(s): 154584330 (4) Infection of pocket of surgical implant site Current Visit: Yes Status: Acute Priority: High Code(s): QCQ5771 - SNOMED Code(s): 785331341 (5) Hypokalemia Narrative/Plan: K+ replacement protocol PRN, level normal yesterday Current Visit: Yes Status: Acute Priority: Low Code(s): E87.6 - HYPOKALEMIA SNOMED Code(s): 85615949
--- NOTE | 2017-12-29 20:46 | P.PN ---
Subjective Progress Note Date: 12/29/17 62-year-old female presents to the emergency center after being seen in the oncologist office because of concerns to the right Mediport area. The patient was hospitalized in November because of difficulties with her left breast. At presentation there is evidence of a fungating left breast mass significant swelling to the breast. It was biopsied and was found to be invasive carcinoma of the breast. Computed tomography scan and PET scans were performed revealing evidence of the large left breast mass as well as left axillary lymphadenopathy and multiple pulmonary nodules there is also evidence of anterior mediastinal adenopathy. The patient counseling was initiated chemotherapy being her first dose last week with Adriamycin and Cytoxan. She really tolerated the chemotherapy relatively well. However now is presenting with evidence of pain discomfort and erythema to her Mediport site. Because of this she was sent to the emergency center and admitted and the infectious diseases consultation was requested. The patient did receive Neulasta with her chemotherapy. She has relative leukopenia but does not have absolute neutropenia. A culture of her breast was performed that showed evidence of MSSA and Stenotrophomonas maltophilia last month. At this time the patient does not have high-grade fever or chills. The fungating mass in the left breast is not very tender but there is a bit of odor. It is fascinating that the patient relates that the skin changes were present for about a month before she presented. 12/19/2017 reveals the patient be feeling slightly better today. The utilization of the medical honey to the breast ulceration has resulted in improvement of discomfort and reduction of odor and she is pleased. The Mediport site is still swollen erythematous and tender but there is no drainage. She's had some fever that started to improve this afternoon. Laboratories called multiple positive blood cultures. Gram-positive cocci await final identification. 12/20/2017 reveals the patient to be having some chills today. Continues to have significant tenderness at the right neck and upper chest area where the [id number] is in place. She does not have significant fever today but has been having chills. Denies other new acute symptoms. 12/21/2017 reveals the patient to be feeling about the same still has significant discomfort to the right anterior chest wall. She is still having chills and fever. She has now been seen by the surgeon with evidence of the significant infection rations are being made for the Port-A-Cath be removed tomorrow. 12/22/2017 patient is feeling poorly still. There are plans for her Port-A- Cath removed later today. The site is still operator whiskey. 12/24/2017 patient is feeling slightly better. Port-A-Cath has been removed and the site is less tender. She denying fevers or chills. She's had some minimal cough and appetite is poor. 12/29/2017 patient is feeling better. The Port-A-Cath has been removed. Blood cultures are negative. IV access has been placed and she is being readied for discharge to home. She did have evidence of some significant shortness of breath found to have evidence of some congestive heart failure that is now considerably improved. She is done well with Ancef therapy has one further week of IV antibiotic therapy needed. She understands that she will likely need to stay in the [place] area including the next week of outpatient intravenous antibiotic therapy, and Ancef May be transitioned to Rocephin 2 g a day to complete the next week of therapy. She would really like to go home to [place], however we will have no ability to set up outpatient itchiness antibiotic therapy in that setting and [address] too difficult to comment on a daily basis. Objective - Vital Signs Vital signs: Vital Signs Temp 97.7 F 12/29/17 13:00 Pulse 107 H 12/29/17 13:00 Resp 16 12/29/17 13:00 BP 137/74 12/29/17 13:00 Pulse Ox 91 L 12/29/17 13:00 Intake & Output 12/29/17 12/29/17 12/30/17 06:59 18:59 06:59 Intake Total 670 Balance 670 Intake: IV 80 Sodium Chloride 0.9% 1, 80 000 ml @ 20 mls/hr IV . Q24H [facility] Rx#:[id number] Oral 590 Other: Voiding Method Bedside Commode Bedside Commode # Voids 2 3 - Labs CBC & Chem 7: 12/28/17 06:53 12/27/17 07:20 Labs: Microbiology - Last 24 Hours (Table) 12/27/17 07:15 Stool Culture - Preliminary Stool 12/23/17 08:56 Blood Culture - Final Blood No Growth after 144 hours 12/23/17 08:45 Blood Culture - Final Blood No Growth after 144 hours Assessment and Plan (1) Breast cancer, left Current Visit: Yes Status: Acute Priority: High Code(s): C50.912 - MALIGNANT NEOPLASM OF UNSPECIFIED SITE OF LEFT FEMALE BREAST SNOMED Code(s): 095905696 (2) Cellulitis of left breast Current Visit: Yes Status: Acute Code(s): N61.0 - MASTITIS WITHOUT ABSCESS SNOMED Code(s): 13551013 (3) Infection of pocket of surgical implant site Current Visit: Yes Status: Acute Priority: High Code(s): GZO8823 - SNOMED Code(s): 166708135
[2017-12-30] MEDS: HEPARIN SODIUM,PORCINE 5,000 UNIT/ML 1 ML VIAL SQ SCH ×4 (00:28→22:44)
[2017-12-30] MEDS: SALT AND SODA MOUTHWASH 1,000 ML PO SCH ×6 (00:28→23:10)
[2017-12-30] MEDS: ceFAZolin IN SWFI 2 GM/20 ML SYRINGE IVP SCH ×3 (05:58→22:43)
[2017-12-30] MEDS: NYSTATIN 100,000 UNIT/ML SUSP 500,000 UNIT/5 ML CUP PO SCH ×5 (08:02→23:06)
[2017-12-30] MEDS: PANTOPRAZOLE 40 MG TABLET PO SCH (08:02)
[2017-12-30] MEDS: IPRATROPIUM-ALBUTEROL 3 ML NEB INHALATION SCH ×4 (08:11→20:50)
--- NOTE | 2017-12-30 10:21 | XR ---
EXAMINATION TYPE: XR chest 2V DATE OF EXAM: 12/30/2017 COMPARISON: 12/25/2017 TECHNIQUE: PA and lateral views submitted. HISTORY: Shortness of breath FINDINGS: A PICC line is noted. There is a diffuse interstitial and alveolar consolidation with small bilateral effusions. No pneumothorax. Curvature the spine with hypertrophic changes seen. Right upper lobe pul monary nodule stable. Rib deformities on the left are noted which may been the basis of previous trau ma. IMPRESSION: 1. Diffuse airspace disease may been the basis of CHF or diffuse pneumonia correlate clinically. 2. Pulmonary nodule as discussed above and reported by previous CT scan suggestive of metastases.
--- NOTE | 2017-12-30 10:57 | P.CNPUL ---
History of Present Illness Consult date: 12/30/17 Requesting physician: David Velazquez Reason for consult: dyspnea, pleural effusion, abnormal CXR/CT Chief complaint: Dyspnea, hypoxic respiratory failure, pleural effusions History of present illness: This is a 62-year-old white female patient of Dr. Weiner, who presented to the hospital on 12/18/2017 for MediPort infection. She was recently diagnosed with ductal carcinoma of the left breast, after patient noted a rapidly growing mass in the central portion of the left breast. Patient states she noticed sores on her left breast, but at that time she did not have insurance, and she ignored the findings. Her then noticed the sores and hard nodular left breast mass, and became extremely concerned and urged the patient to have it checked out. The lesion was growing very rapidly, was becoming painful and tender, and was beginning to ulcerate. She was seen by Dr. Fidel Ahuja, biopsy on 2017 showed invasive ductal carcinoma, grade 2, ER/HI/Her2 negative. MediPort was placed, and patient received her first dose of chemotherapy on 12/09/2017 that included Adriamycin and Cytoxan. Patient follows with Dr. Miranda, she was seen in his office, and her MediPort site was quite erythematous, painful, patient was having chills, poor appetite, fevers. Patient was febrile on presentation, with a temp of 100.5, tachycardic. There was evidence of leukopenia, white count was 2.9, lactic acid was within normal limits at 1.0, sodium was 130, potassium 3.7, chloride is 98, CO2 is 22, BUN was 22, creatinine 0.67.. Chest x-ray was obtained showing no cardiopulmonary process. She was started on vancomycin and cefepime, and ID service was consult. EKG showed normal sinus rhythm without any abnormalities. Gen. surgery was consult in, and right internal jugular vein Port-A-Cath was removed on 12/22/[address] Guthrie, subsequently left PICC line was inserted on 12/25/2017. Blood cultures were positive for MSSA, as well as the wound cultures of the chest. Urine culture was positive for Klebsiella pneumonia. Patient is receiving local wound care with MetaHoney to the left breast ulcerations per IDS. Follow- up blood cultures have been negative. On oral 12/26/2017 patient was noted to become hypoxemic, with a pulse ox of 89, her supplemental oxygen was increased from 2-4 L. Chest x-ray from 12/25/2017 showed pulmonary edema, CT angios was obtained to rule out pulmonary embolism, and was negative for any evidence of PE , but it showed small to moderate-sized bilateral pleural effusions with associated compressive atelectasis, this was on the background of moderate emphysematous changes. There is a slightly more prominent 8 x 7 mm nodule in the lateral right upper lobe, and 16 x 13 mm nodule in the right lower lobe which was fairly stable. There was a stable 6 mm nodule in the left lower lobe. And there was central groundglass opacity bilaterally consistent with pulmonary edema. There was no greater than 1 cm hilar or mediastinal lymph nodes. Patient received 1 dose of IV Lasix, felt slightly better, however her oxygenation did not improve significantly, and patient remains on 4 L per nasal cannula and the pulse ox is 92%. Currently denies any chest pain, she is able to lay fairly flat in bed. No significant peripheral edema. Lung sounds reveal fine crackles at bilateral bases. ProBNP was elevated at 6970. Patient is a former smoker, quit smoking just prior to her chemotherapy in November, prior to that smoked 10 cigarettes a day for over 44 years. No EtOH use, no other illicit drug use. No past medical history of heart failure, [place], coronary artery disease, hypertension. Patient had an echocardiogram done prior to initiation of her chemotherapy, on the way 2017, which showed preserved left ventricular systolic function and an EF of 55-60%, with mild MR and mild TR, with no evidence of pulmonary hypertension. PET scan on 12/06/2017 showed a large mass in the left chest associated with skin thickening, lobular contour, and hypermetabolic uptake, there was left axillary adenopathy, multiple pulmonary nodules, right upper lobe lesion with SUV of 5.6, right lower lobe nodule with SUV of 8.9, left lower lobe nodule which was small, with SUV of only 1.9, posterior lateral left lower lobe 8mm nodule with SUV of 3.5, the medial aspect of the right breast showed mild hypermetabolic uptake of 2.9. And there was anterior mediastinum adenopathy with SUV of 4.1-4.4. Internal mammary node on the left with SUV of 3. Brain MRI from 12/04/2017 was negative for evidence of metastasis. Today we're seeing the patient in consultation for acute hypoxemic respiratory failure. Review of Systems All systems: negative Constitutional: Denies chills, Denies fever Eyes: denies blurred vision, denies pain Ears, nose, mouth and throat: Denies headache, Denies sore throat Cardiovascular: Denies chest pain, Denies shortness of breath Respiratory: Reports dyspnea, Denies cough Gastrointestinal: Denies abdominal pain, Denies diarrhea, Denies nausea, Denies vomiting Genitourinary: Denies dysuria, Denies hematuria Musculoskeletal: Denies myalgias Integumentary: Reports lesions, Reports wounds, Denies pruritus, Denies rash Neurological: Denies numbness, Denies weakness Psychiatric: Denies anxiety, Denies depression Endocrine: Denies fatigue, Denies weight change Past Medical History Past Medical History: Cancer, GERD/Reflux Additional Past Medical History / Comment(s): ulcers 20 years ago .hx of cysts within chantal breasts that have been drained in past, breast cancer lt breast dx 11/19/17. had chemo tx 12/09/17 next one is due next friday. pt stated lost 7# in 2 weeks. oral thrush. History of Any Multi-Drug Resistant Organisms: None Reported Past Surgical History: Orthopedic Surgery, Tubal Ligation Additional Past Surgical History / Comment(s): past lt breast bx-neg. 11-18-17 lt breast bx-positive- had port placed rt upper chest. other pmh: colonoscopy w/ bx neg,laparsocpy-benign lesion removed, chantal leg sx d/t fx, chantal breast had cyst that were drained in past. Past Anesthesia/Blood Transfusion Reactions: No Reported Reaction Additional Psychological History / Comment(s): lives with her . Tobacco smoker till the start of chemotherapy. No notation of current alcohol or recreational drug use. No experience. Does not work outside of the home. No international travel. No animal exposures Smoking Status: Former smoker - Past Family History Mother Family Medical History: Cancer Additional Family Medical History / Comment(s): uterine cancer, quad cabg Father Family Medical History: Cancer Additional Family Medical History / Comment(s): brain cancer with mets Brother(s) Family Medical History: Deep Vein Thrombosis (DVT) Medications and Allergies Home Medications Medication Instructions Recorded Confirmed Type Omeprazole [PriLOSEC] 20 mg PO DAILY 12/04/17 12/18/17 History Prochlorperazine [Compazine] 10 mg PO Q6H PRN 12/18/17 12/18/17 History cefTRIAXone [Rocephin] 2,000 mg IVPB Q24HR #7 vial 12/30/17 Rx Allergies Allergy/AdvReac Type Severity Reaction Status Date / Time aspirin Allergy Swelling Verified 12/18/17 17:51 Physical Exam Vitals: Vital Signs Temp Pulse Pulse Pulse Pulse Pulse Pulse 12/30/17 08:22 92 12/30/17 08:12 99 12/30/17 05:00 98.9 F 98 12/29/17 20:45 98 F 88 12/29/17 13:00 97.7 F 107 H 12/29/17 12:30 98 12/29/17 12:20 96 12/29/17 12:13 100 98 109 H 109 H Resp BP Pulse Ox Pulse Ox Pulse Ox Pulse Ox Pulse Ox 12/30/17 08:22 12/30/17 08:12 16 92 L 12/30/17 05:00 18 147/79 91 L 12/29/17 20:45 16 130/76 90 L 12/29/17 13:00 16 137/74 91 L 12/29/17 12:30 12/29/17 12:20 12/29/17 12:13 92 L 93 L 90 L 86 L Intake and Output 12/29/17 12/30/17 12/30/17 22:59 06:59 14:59 Intake Total 80 Balance 80 Intake: IV 80 Sodium Chloride 0.9% 1, 80 000 ml @ 20 mls/hr IV . Q24H [facility] Rx#:[id number] Other: Voiding Method Bedside Commode Bedside Commode # Voids 2 # Bowel Movements 1 GENERAL EXAM: Alert, pleasant, 62-year-old white female, comfortable in no apparent distress. HEAD: Normocephalic/atraumatic. EYES: Normal reaction of pupils, equal size. Conjunctiva pink, sclera white. NOSE: Clear with pink turbinates. THROAT: No erythema or exudates. NECK: No masses, no JVD, no thyroid enlargement, no adenopathy. CHEST: Symmetrical expansion. Right upper chest and neck area are tender to palpation, status post removal of infected right upper chest MediPort. Left breast has a large nontender nodular ulcerated mass, which is covered with dressing, Metahoney and dry gauze. LUNGS: Equal air entry with fine crackles at bilateral bases, and diminished breath sounds over bilateral bases CVS: Regular rate and rhythm, normal S1 and S2, no gallops, no murmurs, no rubs ABDOMEN: Soft, nontender. No hepatosplenomegaly, normal bowel sounds, no guarding or rigidity. EXTREMITIES: No clubbing, no edema, no cyanosis, 2+ pulses and upper and lower extremities. MUSCULOSKELETAL: Muscle strength and tone normal. SPINE: No scoliosis or deformity SKIN: No rashes CENTRAL NERVOUS SYSTEM: Alert and oriented -3. No focal deficits, tone is normal in all 4 extremities. PSYCHIATRIC: Alert and oriented -3. Appropriate affect. Intact judgment and insight. Results - Laboratory Findings CBC and BMP: 12/28/17 06:53 12/27/17 07:20 PT/INR, D-dimer PT 12.4 sec (9.0-12.0) H 12/25/17 07:44 INR 1.3 (<1.2) H 12/25/17 07:44 Abnormal lab findings: Abnormal Labs 12/18/17 12/18/17 12/18/17 12:00 12:00 18:06 WBC 2.9 L RBC Hgb 10.4 L Hct 31.9 L MCV 79.7 L RDW Plt Count 116 L Neutrophils # Lymphocytes # 0.3 L Lymphocytes # (Manual) PT INR Sodium 132 L Potassium Carbon Dioxide BUN 23 H Creatinine Glucose 123 H Calcium Iron TIBC Iron Saturation Ferritin AST 131 H ALT 107 H Total Protein Albumin 3.4 L Vitamin B12 Urine Appearance Cloudy H Urine Protein 1+ H Urine Blood Small H Ur Squamous Epith Cells 6 H Urine Bacteria Few H Hyaline Casts 25 H Urine Mucus Many H 12/18/17 12/19/17 12/19/17 18:06 07:14 07:14 WBC 2.4 L RBC 3.44 L Hgb 9.2 L Hct 28.0 L MCV RDW Plt Count 118 L Neutrophils # Lymphocytes # 0.2 L Lymphocytes # (Manual) PT INR Sodium 130 L 135 L Potassium Carbon Dioxide 21 L BUN 22 H 18 H Creatinine Glucose 102 H 105 H Calcium 8.3 L 7.6 L Iron TIBC Iron Saturation Ferritin AST 142 H ALT 115 H Total Protein Albumin 3.4 L Vitamin B12 Urine Appearance Urine Protein Urine Blood Ur Squamous Epith Cells Urine Bacteria Hyaline Casts Urine Mucus 12/20/17 12/20/17 12/21/17 05:03 11:22 08:49 WBC RBC 3.38 L Hgb 8.6 L Hct 27.3 L MCV RDW Plt Count Neutrophils # Lymphocytes # Lymphocytes # (Manual) 0.53 L PT INR Sodium 136 L Potassium 3.4 L 3.2 L Carbon Dioxide BUN 6 L Creatinine Glucose 101 H 111 H Calcium 7.9 L 7.7 L Iron TIBC Iron Saturation Ferritin AST 53 H ALT 87 H Total Protein 5.5 L Albumin 2.5 L Vitamin B12 Urine Appearance Urine Protein Urine Blood Ur Squamous Epith Cells Urine Bacteria Hyaline Casts Urine Mucus 12/21/17 12/22/17 12/22/17 08:49 05:31 05:31 WBC RBC 3.10 L 3.17 L Hgb 8.3 L 8.1 L Hct 24.9 L 25.5 L MCV RDW Plt Count Neutrophils # Lymphocytes # 0.6 L 0.7 L Lymphocytes # (Manual) PT INR Sodium Potassium 3.1 L Carbon Dioxide BUN Creatinine Glucose Calcium 7.7 L Iron TIBC Iron Saturation Ferritin AST 43 H ALT 68 H Total Protein 5.5 L Albumin 2.5 L Vitamin B12 Urine Appearance Urine Protein Urine Blood Ur Squamous Epith Cells Urine Bacteria Hyaline Casts Urine Mucus 12/23/17 12/23/17 12/23/17 08:45 08:45 08:56 WBC RBC 2.95 L Hgb 7.9 L Hct 23.9 L MCV RDW 15.7 H Plt Count Neutrophils # Lymphocytes # 0.7 L Lymphocytes # (Manual) PT INR Sodium Potassium 3.0 L Carbon Dioxide BUN Creatinine Glucose Calcium 7.9 L Iron 8 L TIBC 160 L Iron Saturation 5.00 L Ferritin 2047.6 H AST ALT Total Protein 5.5 L Albumin 2.6 L Vitamin B12 1840.0 H Urine Appearance Urine Protein Urine Blood Ur Squamous Epith Cells Urine Bacteria Hyaline Casts Urine Mucus 12/23/17 12/24/17 12/25/17 16:36 02:30 07:44 WBC RBC Hgb Hct MCV RDW Plt Count Neutrophils # Lymphocytes # Lymphocytes # (Manual) PT 12.4 H INR 1.3 H Sodium Potassium 2.9 L 3.4 L Carbon Dioxide BUN Creatinine Glucose Calcium Iron TIBC Iron Saturation Ferritin AST ALT Total Protein Albumin Vitamin B12 Urine Appearance Urine Protein Urine Blood Ur Squamous Epith Cells Urine Bacteria Hyaline Casts Urine Mucus 12/25/17 12/25/17 12/26/17 07:44 07:44 06:33 WBC 14.7 H RBC 2.89 L 3.23 L Hgb 7.5 L 8.5 L Hct 23.5 L 26.4 L MCV RDW 15.8 H 16.2 H Plt Count 547 H Neutrophils # 8.3 H 12.2 H Lymphocytes # 0.9 L Lymphocytes # (Manual) PT INR Sodium Potassium 3.1 L Carbon Dioxide BUN Creatinine 0.48 L Glucose 108 H Calcium 7.5 L Iron TIBC Iron Saturation Ferritin AST ALT Total Protein 5.5 L Albumin 2.5 L Vitamin B12 Urine Appearance Urine Protein Urine Blood Ur Squamous Epith Cells Urine Bacteria Hyaline Casts Urine Mucus 12/26/17 12/26/17 12/27/17 06:33 19:31 01:37 WBC RBC Hgb Hct MCV RDW Plt Count Neutrophils # Lymphocytes # Lymphocytes # (Manual) PT INR Sodium Potassium 3.2 L 3.0 L 3.1 L Carbon Dioxide BUN Creatinine 0.49 L Glucose Calcium 7.9 L Iron TIBC Iron Saturation Ferritin AST ALT Total Protein 6.0 L Albumin 2.8 L Vitamin B12 Urine Appearance Urine Protein Urine Blood Ur Squamous Epith Cells Urine Bacteria Hyaline Casts Urine Mucus 12/27/17 12/28/17 07:20 06:53 WBC 13.6 H 11.5 H RBC 3.07 L 3.19 L Hgb 8.1 L 8.2 L Hct 25.1 L 25.9 L MCV RDW 17.1 H 17.6 H Plt Count 524 H 507 H Neutrophils # 11.4 H 9.4 H Lymphocytes # Lymphocytes # (Manual) PT INR Sodium Potassium Carbon Dioxide BUN Creatinine Glucose Calcium Iron TIBC Iron Saturation Ferritin AST ALT Total Protein Albumin Vitamin B12 Urine Appearance Urine Protein Urine Blood Ur Squamous Epith Cells Urine Bacteria Hyaline Casts Urine Mucus - Diagnostic Findings Chest x-ray: report reviewed, image reviewed CT scan - chest: report reviewed, image reviewed Additional studies: EKG, PET scan report, echocardiogram report, brain MRI report reviewed Assessment and Plan Plan: Assessments: #1. Acute hypoxemic respiratory failure likely related to acute congestive heart failure, suspect systolic dysfunction. Previously on the echo from 2017 patient had normal LV function, with EF of 55-60%, only mild MR and TR, and no evidence of pulmonary hypertension. Patient is status post Adriamycin and Cytoxan chemotherapy for invasive ductal carcinoma of left breast. CT angios with no evidence of pulmonary embolism, but showed pulmonary edema, with moderate size pleural effusions and adjacent atelectasis. #2. Infection of the surgically implanted Port-A-Cath in the right chest, that is post surgical removal. Wound culture showed MSSA #3. Bacteremia, with blood cultures positive for MSSA graft #4. Recent diagnosis of invasive ductal carcinoma of left breast, staging PET scan showed a large mass in the left chest with left axillary adenopathy, multiple pulmonary nodules, right upper lobe lesion with SUV of 5.6, right lower lobe nodule with SUV of 8.9, left lower lobe nodule with SUV of 1.9, posterior lateral left lower lobe nodule with SUV of 3.5. There was anterior mediastinal adenopathy with SUV of 4.1-4.4. Internal mammary node on the left with SUV of 3. Brain MRI did not show any evidence of metastasis. Was initiated on Adriamycin, Cytoxan #5. Emphysema, seen on the CT angios. Underlying pulmonary lung function is unknown. Will need an outpatient workup. Not on oxygen at her baseline #6. Nicotine dependence, currently in remission, quit smoking in November 2017, prior to that smoked 10 cigarettes a day for over 44 years #7. Leukopenia, present on admission, resolved, and white count is now 11.5 #8. Anemia #9. Hyponatremia, present on admission, now resolved #10. Urinary tract infection, with the urine cultures positive for Klebsiella pneumonia Plan: We will obtain a 2-D echocardiogram, will give the patient additional doses of Lasix, 40 mg every 12 hours, continue with nebulized bronchodilators. Patient does not seem to be bronchospastic or congested. Thoracentesis was mentioned, if the diuresis does not improve patient's oxygenation, however patient would prefer not to have any more needles if it can be avoided. We'll continue to follow. I performed a history & physical examination of the patient and discussed their management with my nurse practitioner, Teri Augustine. I reviewed the nurse practitioner's note and agree with the documented findings and plan of care. Lung sounds are positive for fine crackles bilaterally. The findings and the impression was discussed with the patient. I attest to the documentation by the nurse practitioner. Time with Patient: Greater than 30
[2017-12-30 11:08] LABS: Anisocytosis Slight; Basophils # (A) 0.1 k/uL (0-0.2); Basophils % (A) 1 %; Eosinophils # (A) 0.1 k/uL (0-0.7); Eosinophils % (A) 1 %; HCT 25.4 % (34.0-46.0); HGB 8.1 gm/dL (11.4-16.0); Hypochromasia Slight; Lymphocytes # (A) 0.9 k/uL (1.0-4.8); Lymphocytes % (A) 9 %; MCHC 31.8 g/dL (31.0-37.0); MCV 81.9 fL (80.0-100.0); Mean Platelet Volume 8.2; Monocytes # (A) 0.6 k/uL (0-1.0); Monocytes % (A) 6 %; Neutrophils # (A) 7.9 k/uL (1.3-7.7); Neutrophils % (A) 82 %; Platelet Count 397 k/uL (150-450); RDW 18.6 % (11.5-15.5); WBC 9.7 k/uL (3.8-10.6)
[2017-12-30] MEDS: FUROSEMIDE 10 MG/ML 4 ML VIAL IV SCH ×2 (11:22→22:43)
[2017-12-30] MEDS: SODIUM CHLORIDE 0.9% 1,000 ML IV SCH (11:23)
[2017-12-30] MEDS: ACETAMINOPHEN TAB 325 MG TAB PO PRN ×2 (11:23→23:07)
[2017-12-30 11:46] LABS: Anion Gap 9 mmol/L; Blood Urea Nitrogen 11 mg/dL (7-17); Carbon Dioxide 29 mmol/L (22-30); Chloride 101 mmol/L (98-107); Glucose 99 mg/dL (74-99); Potassium 3.6 mmol/L (3.5-5.1); Sodium 139 mmol/L (137-145)
--- NOTE | 2017-12-30 11:46 | PN ---
PROGRESS NOTE DATE OF SERVICE: 12/30/2017 CHIEF COMPLAINT: 1. Infected port-removed. 2. CA of the breast. This lady seems comfortable and she is not having a lot of chest pain, fever, chills, shortness of breath, etc. PHYSICAL EXAM: Breath sounds are heard on both sides. The cardiac exam is normal. IMPRESSION: 1. Carcinoma of the breast. 2. Status post removal of infected port. PLAN: We will work on discharge. It sounds as though she may be going to her daughter's home, which is in the area. MMODL / IJN: [id number] /
--- NOTE | 2017-12-30 12:09 | ECHOF ---
Referral Reason:congestive heart failure MEASUREMENTS -------- HEIGHT: 162.6 cm WEIGHT: 64.0 kg BP: RVIDd: 2.6 cm (< 3.3) IVSd: 1.3 cm (0.6 - 1.1) LVIDd: 4.3 cm (3.9 - 5.3) LVPWd: 1.3 cm (0.6 - 1.1) IVSs: 1.5 cm LVIDs: 3.4 cm LVPWs: 1.6 cm Ao Diam: 3.4 cm (2.0 - 3.7) AV Cusp: 2.6 cm (1.5 - 2.6) LA Diam: 3.4 cm (2.7 - 3.8) MV EXCURSION: 11.800 mm (> 18.000) MV EF SLOPE: 117 mm/s (70 - 150) EPSS: 1.5 cm MV E Bertrand: 0.88 m/s MV DecT: 126 ms MV A Bertrand: 0.56 m/s MV E/A Ratio: 1.58 RAP: 5.00 mmHg RVSP: 46.14 mmHg FINDINGS -------- Sinus rhythm. This was a technically difficult study with suboptimal views. The left ventricular size is normal. There is mild concentric left ventricular hypertrophy. Overa ll left ventricular systolic function is mild-moderately impaired with, an EF between 40 - 45 %. Ba danyell inferior LV wall motion is hypokinetic. Basal inferoseptal LV wall motion is hypokinetic. M id inferior LV wall motion is hypokinetic. Mid inferoseptal LV wall motion is hypokinetic. Mid sep nahid. The right ventricle is normal in size. The left atrium is normal in size. The right atrium is normal in size. Lumason used The aortic valve is trileaflet, and appears structurally normal. No aortic stenosis or regurgitation. The mitral valve leaflets are mildly thickened. Mild mitral regurgitation is present , predominatel y a posteriorly directed jet. Moderate tricuspid regurgitation present. There is mild pulmonary hypertension. The right ventric ular systolic pressure, as measured by Doppler, is 46.14mmHg. Pulmonic valve appears structurally normal. The aortic root size is normal. Normal inferior vena cava with normal inspiratory collapse consistent with estimated right atrial pre ssure of 5 mmHg. The pericardium is normal. CONCLUSIONS -------- 1. Sinus rhythm. 2. This was a technically difficult study with suboptimal views. 3. The left ventricular size is normal. 4. There is mild concentric left ventricular hypertrophy. 5. Overall left ventricular systolic function is mild-moderately impaired with, an EF between 40 - 45 %. 6. Basal inferior LV wall motion is hypokinetic. 7. Basal inferoseptal LV wall motion is hypokinetic. 8. Mid inferior LV wall motion is hypokinetic. 9. Mid inferoseptal LV wall motion is hypokinetic. Mid septal 10. The right ventricle is normal in size. 11. The left atrium is normal in size. 12. The right atrium is normal in size. 13. Lumason used 14. The aortic valve is trileaflet, and appears structurally normal. No aortic stenosis or regurgitat ion. 15. The mitral valve leaflets are mildly thickened. 16. Mild mitral regurgitation is present. 17. , predominately a posteriorly directed jet. 18. Moderate tricuspid regurgitation present. 19. There is mild pulmonary hypertension. 20. The right ventricular systolic pressure, as measured by Doppler, is 46.14mmHg. 21. Pulmonic valve appears structurally normal. 22. The aortic root size is normal. 23. Normal inferior vena cava with normal inspiratory collapse consistent with estimated right atrial pressure of 5 mmHg. 24. The pericardium is normal. [employer] SYSTEM ADMINISTRATOR: Mary Galan RDCS
--- NOTE | 2017-12-30 16:46 | PN ---
PROGRESS NOTE DATE OF SERVICE: 12/29/2017. CHIEF COMPLAINT: CA of the breast and infected port. HISTORY OF PRESENT ILLNESS: This lady is a doing fairly well and awaits discharge plan. She is going to be on long- term antibiotics and she lives in [place]. PHYSICAL EXAM: Chest is clear. Cardiac exam is normal. The abdomen is soft, nontender. IMPRESSION: 1. Infected port in the anterior chest, removed. 2. Carcinoma of the breast. PLAN: Await recommendations for outpatient management and her discharge. MMODL / IJN: [id number] /
--- NOTE | 2017-12-30 17:49 | PN ---
PROGRESS NOTE DATE OF SERVICE: 12/27/2017 CHIEF COMPLAINT: Bacteremia, infected port, and cancer of the breast. HISTORY OF PRESENT ILLNESS: This lady's potassium is slightly low, but other than that she is doing fairly well. PHYSICAL EXAMINATION: Chest is clear. Cardiac exam is normal. IMPRESSION: 1. Infected port. 2. Hypokalemia. 3. Carcinoma of the breast. PLAN: Correct potassium. MMODL / IJN: [id number] /
--- NOTE | 2017-12-30 18:03 | P.PN ---
Subjective Progress Note Date: 12/30/17 Principal diagnosis: Breast cancer, status post 1 chemotherapy, bacteremia and infected Port-A-Cath Pt seen in f/u. Denies fevers, her breathing is stable, improved after diruesis , she is still on O2, 3 L. She is ambulating with physical therapy Objective - Vital Signs Vital signs: Vital Signs Temp 97.7 F 12/30/17 14:30 Pulse 76 12/30/17 16:40 Resp 16 12/30/17 14:30 BP 123/60 12/30/17 14:30 Pulse Ox 93 L 12/30/17 14:30 Intake & Output 12/29/17 12/30/17 12/30/17 18:59 06:59 18:59 Intake Total 80 Balance 80 Weight 63.957 kg Intake: IV 80 Sodium Chloride 0.9% 1, 80 000 ml @ 20 mls/hr IV . Q24H [facility] Rx#:[id number] Other: Voiding Method Bedside Commode Bedside Commode Bedside Commode # Voids 3 2 5 # Bowel Movements 1 - Constitutional General appearance: Present: cooperative, no acute distress, thin - Respiratory Respiratory: bilateral: diminished - Cardiovascular Rhythm: regular Heart sounds: normal: S1, S2 Abnormal Heart Sounds: Absent: systolic murmur, diastolic murmur, rub, S3 Gallop , S4 Gallop, click, other - Peripheral edema leg Peripheral Edema: bilateral: None - Gastrointestinal General gastrointestinal: Present: normal bowel sounds, soft - Integumentary Integumentary: Present: pale - Neurologic Neurologic: Present: CNII-XII intact - Musculoskeletal Musculoskeletal: Present: generalized weakness, strength equal bilaterally - Psychiatric Psychiatric: Present: A&O x's 3, appropriate affect, intact judgment & insight - Labs CBC & Chem 7: 12/30/17 10:55 12/30/17 10:55 Labs: Abnormal Lab Results - Last 24 Hours (Table) 12/30/17 12/30/17 Range/Units 10:55 10:55 RBC 3.10 L (3.80-5.40) m/uL Hgb 8.1 L (11.4-16.0) gm/dL Hct 25.4 L (34.0-46.0) % RDW 18.6 H (11.5-15.5) % Neutrophils # 7.9 H (1.3-7.7) k/uL Lymphocytes # 0.9 L (1.0-4.8) k/uL Calcium 8.0 L (8.4-10.2) mg/dL Microbiology - Last 24 Hours (Table) 12/27/17 07:15 Stool Culture - Final Stool - Imaging and Cardiology Chest x-ray: report reviewed echo report reviewed Assessment and Plan (1) Bacteremia Narrative/Plan: Suspect secondary to infected Port-A-Cath, antibiotic and duration of therapy per ID, most recent blood cultures are neg Current Visit: Yes Status: Acute Priority: High Code(s): R78.81 - BACTEREMIA SNOMED Code(s): 6011572 (2) Breast cancer, left Narrative/Plan: Patient is status post first cycle of Adriamycin and Cytoxan. Patient has prolonged hematological toxicities. While patient in hospital she did experience fluid overload and subsequent congestive heart failure, elevated BNP as well as needing oxygen chronically. Echo was performed because of persistent symptoms as well as follow-up post cardiotoxic chemotherapy. Ejection fraction is noted to be 40-45%, at baseline it was 55-60%. These reports will be reviewed by primary oncologist Dr. Miranda. Patient does need to continue antibiotics per Dr. Pineda, it looks like for at least 2 more weeks. No treatment until after antibiotic completion and follow-up. Will review the results of testing and what that means for treatment in AM as reports were not available until after patient was seen this a.m. Current Visit: Yes Status: Acute Priority: High Code(s): C50.912 - MALIGNANT NEOPLASM OF UNSPECIFIED SITE OF LEFT FEMALE BREAST SNOMED Code(s): 464780836 (3) Anemia Narrative/Plan: Hgb stable. Anemia of inflammation and malignancy. Current Visit: Yes Status: Acute Priority: Medium Code(s): D64.9 - ANEMIA , UNSPECIFIED SNOMED Code(s): 719788394 (4) Infection of pocket of surgical implant site Current Visit: Yes Status: Acute Priority: High Code(s): FGO8400 - SNOMED Code(s): 450064749 (5) Hypokalemia Narrative/Plan: K+ replacement protocol PRN, level normal Current Visit: Yes Status: Acute Priority: Low Code(s): E87.6 - HYPOKALEMIA SNOMED Code(s): 17265279
[2017-12-31] MEDS: SALT AND SODA MOUTHWASH 1,000 ML PO SCH ×4 (06:13→23:31)
[2017-12-31] MEDS: ceFAZolin IN SWFI 2 GM/20 ML SYRINGE IVP SCH ×3 (06:13→23:30)
[2017-12-31] MEDS: IPRATROPIUM-ALBUTEROL 3 ML NEB INHALATION SCH ×4 (07:38→20:51)
[2017-12-31] MEDS: NYSTATIN 100,000 UNIT/ML SUSP 500,000 UNIT/5 ML CUP PO SCH ×4 (08:39→23:25)
[2017-12-31] MEDS: FUROSEMIDE 10 MG/ML 4 ML VIAL IV SCH ×2 (08:39→23:31)
[2017-12-31] MEDS: HEPARIN SODIUM,PORCINE 5,000 UNIT/ML 1 ML VIAL SQ SCH ×3 (08:39→23:31)
[2017-12-31] MEDS: PANTOPRAZOLE 40 MG TABLET PO SCH (08:39)
[2017-12-31 09:22] LABS: Anion Gap 9 mmol/L; Blood Urea Nitrogen 9 mg/dL (7-17); Calcium 8.5 mg/dL (8.4-10.2); Carbon Dioxide 34 mmol/L (22-30); Chloride 99 mmol/L (98-107); Glucose 117 mg/dL (74-99); Potassium 3.7 mmol/L (3.5-5.1); Sodium 142 mmol/L (137-145)
[2017-12-31 09:59] LABS: Anisocytosis Slight; Basophils # (A) 0.1 k/uL (0-0.2); Basophils % (A) 1 %; Eosinophils % (A) 0 %; HCT 30.9 % (34.0-46.0); Hypochromasia Moderate; Lymphocytes # (A) 0.8 k/uL (1.0-4.8); Lymphocytes % (A) 8 %; MCH 25.8 pg (25.0-35.0); MCHC 30.9 g/dL (31.0-37.0); MCV 83.5 fL (80.0-100.0); Mean Platelet Volume 7.8; Monocytes # (A) 0.7 k/uL (0-1.0); Monocytes % (A) 7 %; Neutrophils % (A) 82 %; Platelet Count 438 k/uL (150-450); RBC 3.71 m/uL (3.80-5.40); RDW 18.9 % (11.5-15.5); WBC 9.8 k/uL (3.8-10.6)
[2017-12-31 10:13] LABS: HGB 9.6 gm/dL (11.4-16.0)
--- NOTE | 2017-12-31 10:26 | PN ---
PROGRESS NOTE CHIEF COMPLAINT: CA of the breast and infected port site. HISTORY OF PRESENT ILLNESS: This lady awaits to be discharged. Her discharge complicated by the fact that home care wants $100 and some dollars a day because she does not have insurance. Also, her BNP has gone up and cardiac output has gone down according to her latest echo and it is suggestive that this progression of heart failure possibly related to chemotherapy. PHYSICAL EXAM: Chest is clear. Cardiac exam is normal. Abdomen is soft, nontender. IMPRESSION: 1. 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 2. Carcinoma of the breast. PLAN: Await further recommendations from Oncology and discharge planning. MMODL / IJN: [id number] /
--- NOTE | 2017-12-31 12:03 | P.PN ---
Subjective Progress Note Date: 12/31/17 Principal diagnosis: Acute hypoxemic restaurant failure secondary to acute congestive heart failure with systolic dysfunction This is a 62-year-old white female patient of Dr. Velazquez, who presented to the hospital on 12/18/2017 for MediPort infection. She was recently diagnosed with ductal carcinoma of the left breast, after patient noted a rapidly growing mass in the central portion of the left breast. Patient states she noticed sores on her left breast, but at that time she did not have insurance, and she ignored the findings. Her then noticed the sores and hard nodular left breast mass, and became extremely concerned and urged the patient to have it checked out. The lesion was growing very rapidly, was becoming painful and tender, and was beginning to ulcerate. She was seen by Dr. Fidel Ahuja, biopsy on 2017 showed invasive ductal carcinoma, grade 2, ER/WI/Her2 negative. MediPort was placed, and patient received her first dose of chemotherapy on 12/09/2017 that included Adriamycin and Cytoxan. Patient follows with Dr. Miranda, she was seen in his office, and her MediPort site was quite erythematous, painful, patient was having chills, poor appetite, fevers. Patient was febrile on presentation, with a temp of 100.5, tachycardic. There was evidence of leukopenia, white count was 2.9, lactic acid was within normal limits at 1.0, sodium was 130, potassium 3.7, chloride is 98, CO2 is 22, BUN was 22, creatinine 0.67.. Chest x-ray was obtained showing no cardiopulmonary process. She was started on vancomycin and cefepime, and ID service was consult. EKG showed normal sinus rhythm without any abnormalities. Gen. surgery was consult in, and right internal jugular vein Port-A-Cath was removed on 12/22/[address] Guthrie, subsequently left PICC line was inserted on 12/25/2017. Blood cultures were positive for MSSA, as well as the wound cultures of the chest. Urine culture was positive for Klebsiella pneumonia. Patient is receiving local wound care with MetaHoney to the left breast ulcerations per IDS. Follow- up blood cultures have been negative. On oral 12/26/2017 patient was noted to become hypoxemic, with a pulse ox of 89, her supplemental oxygen was increased from 2-4 L. Chest x-ray from 12/25/2017 showed pulmonary edema, CT angios was obtained to rule out pulmonary embolism, and was negative for any evidence of PE , but it showed small to moderate-sized bilateral pleural effusions with associated compressive atelectasis, this was on the background of moderate emphysematous changes. There is a slightly more prominent 8 x 7 mm nodule in the lateral right upper lobe, and 16 x 13 mm nodule in the right lower lobe which was fairly stable. There was a stable 6 mm nodule in the left lower lobe. And there was central groundglass opacity bilaterally consistent with pulmonary edema. There was no greater than 1 cm hilar or mediastinal lymph nodes. Patient received 1 dose of IV Lasix, felt slightly better, however her oxygenation did not improve significantly, and patient remains on 4 L per nasal cannula and the pulse ox is 92%. Currently denies any chest pain, she is able to lay fairly flat in bed. No significant peripheral edema. Lung sounds reveal fine crackles at bilateral bases. ProBNP was elevated at 6970. Patient is a former smoker, quit smoking just prior to her chemotherapy in November, prior to that smoked 10 cigarettes a day for over 44 years. No EtOH use, no other illicit drug use. No past medical history of heart failure, NM, coronary artery disease, hypertension. Patient had an echocardiogram done prior to initiation of her chemotherapy, on the way 2017, which showed preserved left ventricular systolic function and an EF of 55-60%, with mild MR and mild TR, with no evidence of pulmonary hypertension. PET scan on 12/06/2017 showed a large mass in the left chest associated with skin thickening, lobular contour, and hypermetabolic uptake, there was left axillary adenopathy, multiple pulmonary nodules, right upper lobe lesion with SUV of 5.6, right lower lobe nodule with SUV of 8.9, left lower lobe nodule which was small, with SUV of only 1.9, posterior lateral left lower lobe 8mm nodule with SUV of 3.5, the medial aspect of the right breast showed mild hypermetabolic uptake of 2.9. And there was anterior mediastinum adenopathy with SUV of 4.1-4.4. Internal mammary node on the left with SUV of 3. Brain MRI from 12/04/2017 was negative for evidence of metastasis. Today we're seeing the patient in consultation for acute hypoxemic respiratory failure. On 12/31/2017 patient was seen in follow-up on oncology floor. She has been frequently get not to the bedside commode, diuresing well, her breathing is improving, she remains on 4 L per nasal cannula, her pulse ox is 92%. Afebrile. Repeat echocardiogram on 12/30/2017 showed [id number] impairment of left ventricular systolic function with an EF between 40-45%. Moderate tricuspid regurgitation, there was mild pulmonary hypertension with pressure of 47 mmHg. Patient is receiving IV diuretics, 40 mg of Lasix twice daily. Lung sounds reveal bibasilar crackles. Repeat chest x-ray today. Objective - Vital Signs Vital signs: Vital Signs Temp 98.3 F 12/31/17 05:00 Pulse 100 12/31/17 08:25 Resp 16 12/31/17 08:25 BP 148/74 12/31/17 05:00 Pulse Ox 95 12/31/17 05:00 Intake & Output 12/30/17 12/31/17 12/31/17 18:59 06:59 18:59 Intake Total 660 Balance 660 Weight 63.957 kg Intake: IV 70 Sodium Chloride 0.9% 1, 70 000 ml @ 20 mls/hr IV . Q24H [facility] Rx#:[id number] Oral 590 Other: Voiding Method Bedside Commode Bedside Commode Bedside Commode # Voids 5 3 - Exam GENERAL EXAM: Alert, pleasant, 62-year-old white female, comfortable in no apparent distress. HEAD: Normocephalic/atraumatic. EYES: Normal reaction of pupils, equal size. Conjunctiva pink, sclera white. NOSE: Clear with pink turbinates. THROAT: No erythema or exudates. NECK: No masses, no JVD, no thyroid enlargement, no adenopathy. CHEST: Symmetrical expansion. Right upper chest and neck area are tender to palpation, status post removal of infected right upper chest MediPort. Left breast has a large nontender nodular ulcerated mass, which is covered with dressing, Metahoney and dry gauze. LUNGS: Equal air entry with fine crackles at bilateral bases, and diminished breath sounds over bilateral bases CVS: Regular rate and rhythm, normal S1 and S2, no gallops, no murmurs, no rubs ABDOMEN: Soft, nontender. No hepatosplenomegaly, normal bowel sounds, no guarding or rigidity. EXTREMITIES: No clubbing, no edema, no cyanosis, 2+ pulses and upper and lower extremities. MUSCULOSKELETAL: Muscle strength and tone normal. SPINE: No scoliosis or deformity SKIN: No rashes CENTRAL NERVOUS SYSTEM: Alert and oriented -3. No focal deficits, tone is normal in all 4 extremities. PSYCHIATRIC: Alert and oriented -3. Appropriate affect. Intact judgment and insight. - Labs CBC & Chem 7: 12/31/17 08:31 12/31/17 08:31 Labs: Abnormal Lab Results - Last 24 Hours (Table) 12/30/17 12/30/17 12/31/17 Range/Units 10:55 10:55 08:31 RBC 3.10 L 3.71 L (3.80-5.40) m/uL Hgb 8.1 L 9.6 L D (11.4-16.0) gm/dL Hct 25.4 L 30.9 L (34.0-46.0) % MCHC 30.9 L (31.0-37.0) g/dL RDW 18.6 H 18.9 H (11.5-15.5) % Neutrophils # 7.9 H 8.0 H (1.3-7.7) k/uL Lymphocytes # 0.9 L 0.8 L (1.0-4.8) k/uL Carbon Dioxide (22-30) mmol/L Glucose (74-99) mg/dL Calcium 8.0 L (8.4-10.2) mg/dL 12/31/17 Range/Units 08:31 RBC (3.80-5.40) m/uL Hgb (11.4-16.0) gm/dL Hct (34.0-46.0) % MCHC (31.0-37.0) g/dL RDW (11.5-15.5) % Neutrophils # (1.3-7.7) k/uL Lymphocytes # (1.0-4.8) k/uL Carbon Dioxide 34 H (22-30) mmol/L Glucose 117 H (74-99) mg/dL Calcium (8.4-10.2) mg/dL Microbiology - Last 24 Hours (Table) 12/27/17 07:15 Stool Culture - Final Stool Assessment and Plan Plan: Assessments: #1. Acute hypoxemic respiratory failure likely related to acute congestive heart failure, with systolic dysfunction, peaked 2-D echo from 12/30/2017 old [id number] left ventricular impairment with an EF of 40-45%, and mild pulmonary hypertension with RV systolic of 46 mmHg. Previously on the echo from 12/05/2017 patient had normal LV function, with EF of 55-60%, only mild MR and TR, and no evidence of pulmonary hypertension. Patient is status post Adriamycin and Cytoxan chemotherapy for invasive ductal carcinoma of left breast. CT angios with no evidence of pulmonary embolism, but showed pulmonary edema, with moderate size pleural effusions and adjacent atelectasis. #2. Infection of the surgically implanted Port-A-Cath in the right chest, that is post surgical removal. Wound culture showed MSSA #3. Bacteremia, with blood cultures positive for MSSA graft #4. Recent diagnosis of invasive ductal carcinoma of left breast with possible metastasis to the lungs, staging PET scan showed a large mass in the left chest with left axillary adenopathy, multiple pulmonary nodules, right upper lobe lesion with SUV of 5.6, right lower lobe nodule with SUV of 8.9, left lower lobe nodule with SUV of 1.9, posterior lateral left lower lobe nodule with SUV of 3.5. There was anterior mediastinal adenopathy with SUV of 4.1-4.4. Internal mammary node on the left with SUV of 3. Brain MRI did not show any evidence of metastasis. Was initiated on Adriamycin, Cytoxan #5. Emphysema, seen on the CT angios. Underlying pulmonary lung function is unknown. Will need an outpatient workup. Not on oxygen at her baseline #6. Nicotine dependence, currently in remission, quit smoking in November 2017, prior to that smoked 10 cigarettes a day for over 44 years #7. Leukopenia, present on admission, resolved, and white count is now 11.5 #8. Anemia #9. Hyponatremia, present on admission, now resolved #10. Urinary tract infection, with the urine cultures positive for Klebsiella pneumonia Plan: Continue IV diuretics, wean FiO2, we'll repeat chest x-ray today. Patient is breathing easier, still has some crackles at bilateral bases, echocardiogram results have been noted. Case was discussed with medical oncology in regards to pulmonary nodules that showed suspicious uptake on the staging PET scan and were noted to be stable on the subsequent CT chest. Continue nebulized bronchodilators, we'll continue to follow. I performed a history & physical examination of the patient and discussed their management with my nurse practitioner, Teri Augustine. I reviewed the nurse practitioner's note and agree with the documented findings and plan of care. Lung sounds are positive for fine crackles bilaterally. The findings and the impression was discussed with the patient. I attest to the documentation by the nurse practitioner. Time with Patient: Less than 30
--- NOTE | 2017-12-31 13:47 | P.PN ---
Subjective Progress Note Date: 12/31/17 Principal diagnosis: Breast cancer, status post 1 chemotherapy, bacteremia and infected Port-A-Cath Pt seen in f/u, rodríguez continues to require 4LNC to maintain O2 saturation, she is able to ambulate and perform ADLs, she denies chest pain, has a non-productive cough, had BM this AM, appetite if fair, no swelling the legs, no c/o re: PICC. Objective - Vital Signs Vital signs: Vital Signs Temp 98.0 F 12/31/17 12:05 Pulse 78 12/31/17 12:10 Resp 22 12/31/17 12:05 BP 148/74 12/31/17 05:00 Pulse Ox 94 L 12/31/17 12:05 Intake & Output 12/30/17 12/31/17 12/31/17 18:59 06:59 18:59 Intake Total 660 Balance 660 Weight 63.957 kg Intake: IV 70 Sodium Chloride 0.9% 1, 70 000 ml @ 20 mls/hr IV . Q24H [facility] Rx#:[id number] Oral 590 Other: Voiding Method Bedside Commode Bedside Commode Bedside Commode # Voids 5 3 - Constitutional General appearance: Present: average body habitus, cooperative, no acute distress - EENT Eyes: Present: anicteric sclerae ENT: Present: normal oropharynx - Respiratory Respiratory: bilateral: diminished - Cardiovascular Heart sounds: normal: S1, S2 Abnormal Heart Sounds: Absent: systolic murmur, diastolic murmur, rub, S3 Gallop , S4 Gallop, click, other - Peripheral edema leg Peripheral Edema: bilateral: None - Gastrointestinal General gastrointestinal: Present: normal bowel sounds, soft - Neurologic Neurologic: Present: CNII-XII intact - Musculoskeletal Musculoskeletal: Present: strength equal bilaterally - Psychiatric Psychiatric: Present: A&O x's 3, appropriate affect, intact judgment & insight - Labs CBC & Chem 7: 12/31/17 08:31 12/31/17 08:31 Labs: Abnormal Lab Results - Last 24 Hours (Table) 12/31/17 12/31/17 Range/Units 08:31 08:31 RBC 3.71 L (3.80-5.40) m/uL Hgb 9.6 L D (11.4-16.0) gm/dL Hct 30.9 L (34.0-46.0) % MCHC 30.9 L (31.0-37.0) g/dL RDW 18.9 H (11.5-15.5) % Neutrophils # 8.0 H (1.3-7.7) k/uL Lymphocytes # 0.8 L (1.0-4.8) k/uL Carbon Dioxide 34 H (22-30) mmol/L Glucose 117 H (74-99) mg/dL Microbiology - Last 24 Hours (Table) 12/27/17 07:15 Stool Culture - Final Stool - Imaging and Cardiology Chest x-ray: report reviewed Assessment and Plan (1) Bacteremia Narrative/Plan: Secondary to infected Port-A-Cath which has been remove. Antibiotic and duration of therapy per ID, most recent blood cultures are neg Current Visit: Yes Status: Acute Priority: High Code(s): R78.81 - BACTEREMIA SNOMED Code(s): 2663794 (2) Breast cancer, left Narrative/Plan: Patient is status post first cycle of Adriamycin and Cytoxan. No treatment until after antibiotic completion and follow-up with Dr. Miranda. Did review ECHO results with pt. With EF of 40-45% she will not be able to receive adriamycin. I have not had the opportunity this AM to speak to Primary Oncologist re: plans for treatment. Will update medical record when info is available. We also discussed the lung nodules in chest imaging. These were present on staging images, appear to be stable on most current imaging. Pt palpable cancer in the breast has definitely decreased in size. Pt will continue to follow up. Current Visit: Yes Status: Acute Priority: High Code(s): C50.912 - MALIGNANT NEOPLASM OF UNSPECIFIED SITE OF LEFT FEMALE BREAST SNOMED Code(s): 120734398 (3) Anemia Narrative/Plan: Improved today, no intervention Current Visit: Yes Status: Acute Priority: Medium Code(s): D64.9 - ANEMIA , UNSPECIFIED SNOMED Code(s): 245462488 (4) Infection of pocket of surgical implant site Current Visit: Yes Status: Acute Priority: High Code(s): AWV8820 - SNOMED Code(s): 888024810 (5) Hypokalemia Current Visit: Yes Status: Resolved Priority: Low Code(s): E87.6 - HYPOKALEMIA SNOMED Code(s): 66340512 Plan: Did discuss case with Attending and Pulmonary PATHOLOGY LAB TECHNICIAN. Pt is waiting for home care approval. Pulmonary is doing f/u CXR.
--- NOTE | 2017-12-31 15:32 | PN ---
PROGRESS NOTE DATE OF SERVICE: 12/25/2017. CHIEF COMPLAINT: Infected port, septicemia and CA of the breast. HISTORY OF PRESENT ILLNESS: This lady is doing fairly well. She has remained comfortable. Antibiotics continue. PHYSICAL EXAM: Chest is clear. The cardiac exam is normal. The abdomen is soft, nontender. IMPRESSION: CA of the breast with sepsis secondary to infected port. PLAN: Continue with intravenous antibiotics and long-term plan will have to be instituted. MMODL / MARTELLN: [id number] /
--- NOTE | 2017-12-31 15:55 | XR ---
EXAMINATION TYPE: XR chest 2V DATE OF EXAM: 12/31/2017 COMPARISON: Prior chest x-ray 12/30/2017 HISTORY: Follow-up congestive heart failure, infection and Mediport, history of breast carcinoma TECHNIQUE: Frontal and lateral views of the chest are obtained. FINDINGS: Findings are similar. There is blunting of the costophrenic angle suggesting pleural effus ion. Heart size is within normal limits. Interstitium somewhat less conspicuous. No evident pneumotho rax. Nodular densities persist bilaterally. Perihilar airspace disease has improved. Left-sided PICC line shows the distal tip overlying the superior vena cava. There is a spinal curvature. IMPRESSION: There is improvement in aeration, patient's volume status. Persistent pleural effusions and associated atelectasis. Lung nodules.
[2017-12-31] MEDS: SODIUM CHLORIDE 0.9% 1,000 ML IV SCH (16:19)
[2017-12-31] MEDS: ACETAMINOPHEN TAB 325 MG TAB PO PRN (23:30)
[2018-01-01] MEDS: SALT AND SODA MOUTHWASH 1,000 ML PO SCH ×4 (06:15→22:24)
[2018-01-01] MEDS: ceFAZolin IN SWFI 2 GM/20 ML SYRINGE IVP SCH ×3 (06:16→22:31)
[2018-01-01] MEDS: IPRATROPIUM-ALBUTEROL 3 ML NEB INHALATION SCH ×4 (08:14→20:45)
[2018-01-01] MEDS: NYSTATIN 100,000 UNIT/ML SUSP 500,000 UNIT/5 ML CUP PO SCH ×4 (10:08→22:30)
[2018-01-01] MEDS: FUROSEMIDE 10 MG/ML 4 ML VIAL IV SCH (10:13)
[2018-01-01] MEDS: HEPARIN SODIUM,PORCINE 5,000 UNIT/ML 1 ML VIAL SQ SCH ×2 (10:13→14:57)
[2018-01-01] MEDS: CARVEDILOL 3.125 MG TAB PO SCH ×2 (10:14→19:49)
[2018-01-01] MEDS: PANTOPRAZOLE 40 MG TABLET PO SCH (10:14)
[2018-01-01] MEDS: LISINOPRIL 2.5 MG TAB PO SCH (10:14)
[2018-01-01] MEDS: SPIRONOLACTONE 25 MG TAB PO SCH (10:14)
[2018-01-01] MEDS: SODIUM CHLORIDE 0.9% 1,000 ML IV SCH (12:07)
--- NOTE | 2018-01-01 13:06 | P.CRDCN ---
History of Present Illness History of present illness: Mrs. Torres is a pleasant 62-year-old female past medical history significant for new diagnosis of breast cancer with possibility of mets to the lung, gastroesophageal reflux disease and chronic nicotine dependence. She denies coronary artery disease, hypertension, dyslipidemia or diabetes mellitus. We have been asked to see her in consultation for new onset systolic heart failure. She was recently diagnosed in November 2017 with invasive ductal carcinoma Grade II. She was started on chemotherapy. She presented to ED with possible infection of mediport. She was febrile and tachycardia on admission. Initial xray obtain of the chest indicated no acute cardiopulmonary process. She was started on antibiotics per Infectious disease. Initial EKG indicates sinus rhythm with no acute ST or T-wave abnormalities. Blood cultures have come back positive for MSSA. Chest x-ray obtained December 25 revealed evidence of pulmonary edema, CT angios of the chest was negative for pulmonary embolism but showed small to moderate-sized bilateral pleural effusions. Also noted was a prominent nodule in the lateral right upper lobe as well as a nodule in the right lower lobe. On 12/26 she was noted to be hypoxic with oxygen saturation of 89% on room air. Repeat echocardiogram was ordered on December 30 revealing mild to moderately impaired left ventricular systolic function with ejection fraction 40-45%, basal inferior, septal and mid inferior septal wall motion hypokinesia noted. Echocardiogram dated 12/05/2017 revealed preserved left ventricular systolic function with ejection fraction 55-60%, mild MR and mild TR noted with no evidence of pulmonary hypertension. There is evidence of mild MR, moderate TR and mild pulmonary hypertension with an RVSP of 46 x 14 mmHg. At that time she was initiated on Lasix 40 mg IV twice a day per pulmonary services. Repeat chest x-ray obtained yesterday reveals improved aeration of the lungs with persistent pleural effusions and associated atelectasis noted. On review of both x-ray films there appears to be improvement of heart failure. No accurate weight or output documented to assess diuresis. She is seen and examined sitting up in bed. She denies chest pain, shortness of breath, dizziness, palpitations, nausea, vomiting or diaphoresis. No PND, orthopnea or lower extremity swelling. Laboratory data reviewed, hemoglobin 9.6, platelets 438, sodium 142, potassium 3.7, creatinine 0.6, NT proBNP 6970, magnesium obtained 12/26 1.8. Review of Systems At the time of my exam: CONSTITUTIONAL: Denies fever. Denies chills. EYES: Denies blurred vision. Denies vision changes. Denies eye pain. EARS, NOSE, MOUTH & THROAT: Denies headache. Denies sore throat. Denies ear pain. CARDIOVASCULAR: Denies chest pain. Denies shortness of breath. Denies orthopnea. Denies PND. Denies palpitations. RESPIRATORY: Denies cough. GASTROINTESTINAL: Denies abdominal pain. Denies diarrhea. Denies constipation. Denies nausea. Denies vomiting. MUSCULOSKELETAL: Denies myalgias. INTEGUMENTARY: Denies pruitis. Denies rash. NEUROLOGIC: Denies numbness. Denies tingling. Denies weakness. PSYCHIATRIC: Denies anxiety. Denies depression. ENDOCRINE: Denies fatigue. Denies weight change. Denies polydipsia. Denies polyurina. GENITOURINARY: Denies burning, hematuria or urgency with micturation. HEMATOLOGIC: Denies history of anemia. Denies bleeding. Past Medical History Past Medical History: Cancer, GERD/Reflux Additional Past Medical History / Comment(s): ulcers 20 years ago .hx of cysts within chantal breasts that have been drained in past, breast cancer lt breast dx 11/19/17. had chemo tx 12/09/17 next one is due next friday. pt stated lost 7# in 2 weeks. oral thrush. History of Any Multi-Drug Resistant Organisms: None Reported Past Surgical History: Orthopedic Surgery, Tubal Ligation Additional Past Surgical History / Comment(s): past lt breast bx-neg. 11-18-17 lt breast bx-positive- had port placed rt upper chest. other pmh: colonoscopy w/ bx neg,laparsocpy-benign lesion removed, chantal leg sx d/t fx, chantal breast had cyst that were drained in past. Past Anesthesia/Blood Transfusion Reactions: No Reported Reaction Additional Psychological History / Comment(s): lives with her . Tobacco smoker till the start of chemotherapy. No notation of current alcohol or recreational drug use. No experience. Does not work outside of the home. No international travel. No animal exposures Smoking Status: Former smoker - Past Family History Mother Family Medical History: Cancer Additional Family Medical History / Comment(s): uterine cancer, quad cabg Father Family Medical History: Cancer Additional Family Medical History / Comment(s): brain cancer with mets Brother(s) Family Medical History: Deep Vein Thrombosis (DVT) Medications and Allergies Home Medications Medication Instructions Recorded Confirmed Type Omeprazole [PriLOSEC] 20 mg PO DAILY 12/04/17 12/18/17 History Prochlorperazine [Compazine] 10 mg PO Q6H PRN 12/18/17 12/18/17 History cefTRIAXone [Rocephin] 2,000 mg IVPB Q24HR #7 vial 12/30/17 Rx Allergies Allergy/AdvReac Type Severity Reaction Status Date / Time aspirin Allergy Swelling Verified 12/18/17 17:51 Physical Exam Vitals: Vital Signs Temp Pulse Pulse Pulse Pulse Resp BP 01/01/18 10:41 76 01/01/18 08:14 01/01/18 07:45 97.7 F 86 18 142/65 12/31/17 23:24 98.2 F 91 18 127/60 12/31/17 21:05 78 12/31/17 20:51 76 12/31/17 18:21 136/74 12/31/17 16:59 78 12/31/17 16:49 74 12/31/17 16:00 90 88 22 12/31/17 12:10 78 12/31/17 12:05 98.0 F 90 22 12/31/17 12:00 77 Pulse Ox 01/01/18 10:41 01/01/18 08:14 94 L 01/01/18 07:45 93 L 12/31/17 23:24 93 L 12/31/17 21:05 12/31/17 20:51 12/31/17 18:21 12/31/17 16:59 12/31/17 16:49 12/31/17 16:00 12/31/17 12:10 12/31/17 12:05 94 L 12/31/17 12:00 Intake and Output 12/31/17 01/01/18 01/01/18 22:59 06:59 14:59 Intake Total 70 160 Balance 70 160 Intake: IV 70 160 Sodium Chloride 0.9% 1, 70 160 000 ml @ 20 mls/hr IV . Q24H [facility] Rx#:[id number] Other: Voiding Method Bedside Commode Bedside Commode # Voids 3 Blood pressure 142/65 heart rate 76 afebrile maintaining oxygen saturation on nasal cannula GENERAL: This is a 62-year-old female in no apparent distress at the time of my examination. HEENT: Head is atraumatic, normocephalic. Pupils are equal, round. Sclerae anicteric. Conjunctivae are clear. Mucous membranes of the mouth are moist. Neck is supple. There is no jugular venous distention. No carotid bruit is heard. LUNGS: Faint bibasilar rales. No wheezes or rhonchi. No chest wall tenderness is noted on palpation or with deep breathing. Diminished bilaterally. HEART: Regular rate and rhythm without murmurs, rubs or gallops. S1 and S2 heard. ABDOMEN: Soft, nontender. Bowel sounds are heard. No organomegaly noted. EXTREMITIES: No evidence of peripheral edema and no calf tenderness noted. VASCULAR: Radial and dorsalis pedis pulses palpated, no evidence of clubbing. NEUROLOGIC: Patient is awake, alert and oriented x3. Results 12/31/17 08:31 12/31/17 08:31 Current Medications Generic Name Dose Route Start Last Admin Trade Name Freq PRN Reason Stop Dose Admin Acetaminophen 650 mg 12/18/17 21:48 12/31/17 23:30 Tylenol Tab PO 650 mg Q4HR PRN Administration Fever and/ or Pain Albuterol/Ipratropium 3 ml 12/26/17 12:00 01/01/18 10:40 Duoneb 0.5 Mg-3 Mg/3 Ml Soln INHALATION 3 ml RT-QID NIKI Administration Albuterol/Ipratropium 3 ml 12/26/17 10:55 Duoneb 0.5 Mg-3 Mg/3 Ml Soln INHALATION RT-QID PRN Shortness Of Breath Or Wheezing Carvedilol 3.125 mg 01/01/18 09:15 01/01/18 10:14 Coreg PO 3.125 mg BID-W/MEALS NIKI Administration Cefazolin Sodium 2 gm 12/21/17 14:00 01/01/18 06:16 Kefzol IVP 2 gm Q8H NIKI Administration Furosemide 40 mg 12/30/17 10:15 01/01/18 10:13 Lasix IV 40 mg BID NIKI Administration Heparin Sodium (Porcine) 5,000 unit 12/22/17 00:00 01/01/18 10:13 Heparin SQ 5,000 unit Q8HR NIKI Administration Sodium Chloride 1,000 mls @ 20 mls/hr 12/19/17 09:15 12/31/17 16:19 Saline 0.9% IV 20 mls/hr .Q24H NIKI Administration Lisinopril 2.5 mg 01/01/18 09:15 01/01/18 10:14 Zestril PO 2.5 mg DAILY NIKI Administration Miscellaneous Information 1 each 12/24/17 08:39 Potassium Per Protocol MISCELLANE DAILY PRN Per Protocol Protocol Miscellaneous Information 1 each 12/26/17 15:03 Potassium Per Protocol MISCELLANE DAILY PRN Per Protocol Protocol Naloxone HCl 0.2 mg 12/22/17 17:25 Narcan IV Q2M PRN Opioid Reversal Nystatin 500,000 unit 12/18/17 22:15 01/01/18 10:08 Mycostatin Oral Susp PO Not Given QID NIKI Pantoprazole Sodium 40 mg 12/19/17 09:15 01/01/18 10:14 Protonix PO 40 mg DAILY NIKI Administration Prochlorperazine Maleate 10 mg 12/19/17 09:10 12/28/17 22:03 Compazine PO 10 mg Q6H PRN Administration Nausea Sodium Bicarbonate 5 ml 12/22/17 11:00 01/01/18 10:21 PO 5 ml 5XD NIKI Administration Sodium Chloride 20 ml 12/25/17 14:47 Saline Flush IV Q4HR PRN PICC Line Sodium Chloride 10 ml 01/01/18 09:00 01/01/18 10:14 Saline Flush IV 10 ml WEEKLY NIKI Administration Sodium Chloride 10 ml 12/25/17 14:47 Saline Flush IV Q4HR PRN PICC Line Spironolactone 12.5 mg 01/01/18 09:15 01/01/18 10:14 Aldactone PO 12.5 mg DAILY NIKI Administration Intake and Output 12/31/17 01/01/18 01/01/18 22:59 06:59 14:59 Intake Total 70 160 Balance 70 160 Intake: IV 70 160 Sodium Chloride 0.9% 1, 70 160 000 ml @ 20 mls/hr IV . Q24H [facility] Rx#:[id number] Other: Voiding Method Bedside Commode Bedside Commode # Voids 3 12/31/17 08:31 12/31/17 08:31 Assessment and Plan Assessment: ASSESSMENT Acute systolic heart failure status post chemotherapy with adriamycin and cytoxan, new onset. Invasive ductal breast carcinoma, left with possible metastasis to the lung Med-a-Port site infection Anemia Urinary tract infection Chronic nicotine dependence, quit last month PLAN Add the patient on appropriate medications for heart failure: carvedilol 3.125 mg BID, lisinopril 2.5 mg daily and aldactone 12.5 mg daily. Creatinine and electrolytes are stable and normal. Continue IV lasix and repeat BMP and magnesium in the morning. Obtain accurate daily weight and output to assess diuresis. Repeat EKG. Further recommendations to follow based on clinical course. Thank you kindly for this consultation. Nurse Practitioner note has been reviewed, I agree with a documented findings and plan of care. Patient was seen and examined.
--- NOTE | 2018-01-01 13:31 | P.PN ---
Subjective Progress Note Date: 01/01/18 Principal diagnosis: Acute hypoxemic restaurant failure secondary to acute congestive heart failure with systolic dysfunction This is a 62-year-old white female patient of Dr. Velazquez, who presented to the hospital on 12/18/2017 for MediPort infection. She was recently diagnosed with ductal carcinoma of the left breast, after patient noted a rapidly growing mass in the central portion of the left breast. Patient states she noticed sores on her left breast, but at that time she did not have insurance, and she ignored the findings. Her then noticed the sores and hard nodular left breast mass, and became extremely concerned and urged the patient to have it checked out. The lesion was growing very rapidly, was becoming painful and tender, and was beginning to ulcerate. She was seen by Dr. Fidel Ahuja, biopsy on 2017 showed invasive ductal carcinoma, grade 2, ER/RI/Her2 negative. MediPort was placed, and patient received her first dose of chemotherapy on 12/09/2017 that included Adriamycin and Cytoxan. Patient follows with Dr. Miranda, she was seen in his office, and her MediPort site was quite erythematous, painful, patient was having chills, poor appetite, fevers. Patient was febrile on presentation, with a temp of 100.5, tachycardic. There was evidence of leukopenia, white count was 2.9, lactic acid was within normal limits at 1.0, sodium was 130, potassium 3.7, chloride is 98, CO2 is 22, BUN was 22, creatinine 0.67.. Chest x-ray was obtained showing no cardiopulmonary process. She was started on vancomycin and cefepime, and ID service was consult. EKG showed normal sinus rhythm without any abnormalities. Gen. surgery was consult in, and right internal jugular vein Port-A-Cath was removed on 12/22/[address] Guthrie, subsequently left PICC line was inserted on 12/25/2017. Blood cultures were positive for MSSA, as well as the wound cultures of the chest. Urine culture was positive for Klebsiella pneumonia. Patient is receiving local wound care with MetaHoney to the left breast ulcerations per IDS. Follow- up blood cultures have been negative. On oral 12/26/2017 patient was noted to become hypoxemic, with a pulse ox of 89, her supplemental oxygen was increased from 2-4 L. Chest x-ray from 12/25/2017 showed pulmonary edema, CT angios was obtained to rule out pulmonary embolism, and was negative for any evidence of PE , but it showed small to moderate-sized bilateral pleural effusions with associated compressive atelectasis, this was on the background of moderate emphysematous changes. There is a slightly more prominent 8 x 7 mm nodule in the lateral right upper lobe, and 16 x 13 mm nodule in the right lower lobe which was fairly stable. There was a stable 6 mm nodule in the left lower lobe. And there was central groundglass opacity bilaterally consistent with pulmonary edema. There was no greater than 1 cm hilar or mediastinal lymph nodes. Patient received 1 dose of IV Lasix, felt slightly better, however her oxygenation did not improve significantly, and patient remains on 4 L per nasal cannula and the pulse ox is 92%. Currently denies any chest pain, she is able to lay fairly flat in bed. No significant peripheral edema. Lung sounds reveal fine crackles at bilateral bases. ProBNP was elevated at 6970. Patient is a former smoker, quit smoking just prior to her chemotherapy in November, prior to that smoked 10 cigarettes a day for over 44 years. No EtOH use, no other illicit drug use. No past medical history of heart failure, [place], coronary artery disease, hypertension. Patient had an echocardiogram done prior to initiation of her chemotherapy, on the way 2017, which showed preserved left ventricular systolic function and an EF of 55-60%, with mild MR and mild TR, with no evidence of pulmonary hypertension. PET scan on 12/06/2017 showed a large mass in the left chest associated with skin thickening, lobular contour, and hypermetabolic uptake, there was left axillary adenopathy, multiple pulmonary nodules, right upper lobe lesion with SUV of 5.6, right lower lobe nodule with SUV of 8.9, left lower lobe nodule which was small, with SUV of only 1.9, posterior lateral left lower lobe 8mm nodule with SUV of 3.5, the medial aspect of the right breast showed mild hypermetabolic uptake of 2.9. And there was anterior mediastinum adenopathy with SUV of 4.1-4.4. Internal mammary node on the left with SUV of 3. Brain MRI from 12/04/2017 was negative for evidence of metastasis. Today we're seeing the patient in consultation for acute hypoxemic respiratory failure. On 12/31/2017 patient was seen in follow-up on oncology floor. She has been frequently get not to the bedside commode, diuresing well, her breathing is improving, she remains on 4 L per nasal cannula, her pulse ox is 92%. Afebrile. Repeat echocardiogram on 12/30/2017 showed [id number] impairment of left ventricular systolic function with an EF between 40-45%. Moderate tricuspid regurgitation, there was mild pulmonary hypertension with pressure of 47 mmHg. Patient is receiving IV diuretics, 40 mg of Lasix twice daily. Lung sounds reveal bibasilar crackles. Repeat chest x-ray today. On 01/01/2018 patient seen in follow-up on oncology floor. Currently down to 2 L per nasal cannula, with a pulse ox of 94%, remains on IV diuretics, with Lasix 40 mg every 12 hours, difficult to estimate fluid balance, accurate I&O's and daily weights. Today's labs were reviewed, WBCs 9.8, hemoglobin is 9.6, urine is 142, potassium is 3.7, CO2 is 34, BUN is 9, creatinine 0.60, follow-up proBNP was 6970. We consulted cardiology for new onset systolic CHF and patient was started on Coreg, lisinopril and Aldactone. Repeat chest x-ray from yesterday shows improvement in aeration, and patient's volume status, persistent pleural effusions and associated atelectasis and lung nodules. Objective - Vital Signs Vital signs: Vital Signs Temp 97.7 F 01/01/18 07:45 Pulse 76 01/01/18 10:57 Resp 18 01/01/18 07:45 BP 142/65 01/01/18 07:45 Pulse Ox 94 L 01/01/18 08:14 Intake & Output 12/31/17 01/01/18 01/01/18 18:59 06:59 18:59 Intake Total 240 230 Output Total 400 Balance -160 230 Intake: IV 230 Sodium Chloride 0.9% 1, 230 000 ml @ 20 mls/hr IV . Q24H [facility] Rx#:[id number] Oral 240 Output: Urine 400 Other: Voiding Method Bedside Commode Bedside Commode # Voids 3 - Exam GENERAL EXAM: Alert, pleasant, 62-year-old white female, comfortable in no apparent distress. HEAD: Normocephalic/atraumatic. EYES: Normal reaction of pupils, equal size. Conjunctiva pink, sclera white. NOSE: Clear with pink turbinates. THROAT: No erythema or exudates. NECK: No masses, no JVD, no thyroid enlargement, no adenopathy. CHEST: Symmetrical expansion. Right upper chest and neck area are tender to palpation, status post removal of infected right upper chest MediPort. Left breast has a large nontender nodular ulcerated mass, which is covered with dressing, Metahoney and dry gauze. LUNGS: Equal air entry with fine crackles at bilateral bases, and diminished breath sounds over bilateral bases CVS: Regular rate and rhythm, normal S1 and S2, no gallops, no murmurs, no rubs ABDOMEN: Soft, nontender. No hepatosplenomegaly, normal bowel sounds, no guarding or rigidity. EXTREMITIES: No clubbing, no edema, no cyanosis, 2+ pulses and upper and lower extremities. MUSCULOSKELETAL: Muscle strength and tone normal. SPINE: No scoliosis or deformity SKIN: No rashes CENTRAL NERVOUS SYSTEM: Alert and oriented -3. No focal deficits, tone is normal in all 4 extremities. PSYCHIATRIC: Alert and oriented -3. Appropriate affect. Intact judgment and insight. - Labs CBC & Chem 7: 12/31/17 08:31 12/31/17 08:31 Labs: Microbiology - Last 24 Hours (Table) 12/27/17 07:15 Stool Culture - Final Stool Assessment and Plan Plan: Assessments: #1. Acute hypoxemic respiratory failure likely related to acute congestive heart failure, with systolic dysfunction, peaked 2-D echo from 12/30/2017 old [id number] left ventricular impairment with an EF of 40-45%, and mild pulmonary hypertension with RV systolic of 46 mmHg. Previously on the echo from 12/05/2017 patient had normal LV function, with EF of 55-60%, only mild MR and TR, and no evidence of pulmonary hypertension. Patient is status post Adriamycin and Cytoxan chemotherapy for invasive ductal carcinoma of left breast. CT angios with no evidence of pulmonary embolism, but showed pulmonary edema, with moderate size pleural effusions and adjacent atelectasis. #2. Infection of the surgically implanted Port-A-Cath in the right chest, post surgical removal. Wound culture showed MSSA #3. Bacteremia, with blood cultures positive for MSSA #4. Recent diagnosis of invasive ductal carcinoma of left breast with possible metastasis to the lungs, staging PET scan showed a large mass in the left chest with left axillary adenopathy, multiple pulmonary nodules, right upper lobe lesion with SUV of 5.6, right lower lobe nodule with SUV of 8.9, left lower lobe nodule with SUV of 1.9, posterior lateral left lower lobe nodule with SUV of 3.5. There was anterior mediastinal adenopathy with SUV of 4.1-4.4. Internal mammary node on the left with SUV of 3. Brain MRI did not show any evidence of metastasis. Was initiated on Adriamycin, Cytoxan #5. Emphysema, seen on the CT angios. Underlying pulmonary lung function is unknown. Will need an outpatient workup. Not on oxygen at her baseline #6. Nicotine dependence, currently in remission, quit smoking in November 2017, prior to that smoked 10 cigarettes a day for over 44 years #7. Leukopenia, present on admission, resolved, and white count is now 11.5 #8. Anemia #9. Hyponatremia, present on admission, now resolved #10. Urinary tract infection, with the urine cultures positive for Klebsiella pneumonia Plan: Continue IV diuretics, nebulized bronchodilators, continue weaning FiO2, yesterday's chest x-ray showed improvement in patient's volume status, but showed persistent small bilateral pleural effusions, basilar atelectasis. Chest x-ray in the morning. Continue to follow I performed a history & physical examination of the patient and discussed their management with my nurse practitioner, Teri Augustine. I reviewed the nurse practitioner's note and agree with the documented findings and plan of care. Lung sounds are positive for fine crackles bilaterally. The findings and the impression was discussed with the patient. I attest to the documentation by the nurse practitioner. Time with Patient: Less than 30
--- NOTE | 2018-01-01 14:33 | PN ---
PROGRESS NOTE DATE OF SERVICE: 01/01/2018. CHIEF COMPLAINT: CA of the breast. HISTORY OF PRESENT ILLNESS: This lady is doing fairly well and is awaiting approval for home care. She does apparently have a developing cardiomyopathy which is probably related to her chemotherapy and this is being investigated. PHYSICAL EXAM: Chest is fairly clear. IMPRESSION: 1. Carcinoma of the breast. 2. Status post infected port in the right chest. 3. Cardiomyopathy. PLAN: We are still waiting for arrangements for her to leave the hospital and be followed as an outpatient with home care. MMODL / IJN: [id number] /
[2018-01-01] MEDS: ACETAMINOPHEN TAB 325 MG TAB PO PRN (20:56)
[2018-01-02] MEDS: HEPARIN SODIUM,PORCINE 5,000 UNIT/ML 1 ML VIAL SQ SCH ×3 (00:11→16:22)
[2018-01-02] MEDS: SALT AND SODA MOUTHWASH 1,000 ML PO SCH ×4 (00:12→17:22)
[2018-01-02] MEDS: ceFAZolin IN SWFI 2 GM/20 ML SYRINGE IVP SCH ×2 (05:33→17:23)
[2018-01-02 07:37] LABS: Anion Gap 11 mmol/L; Blood Urea Nitrogen 17 mg/dL (7-17); Calcium 8.6 mg/dL (8.4-10.2); Carbon Dioxide 32 mmol/L (22-30); Chloride 99 mmol/L (98-107); Glucose 93 mg/dL (74-99); Magnesium 1.9 mg/dL (1.6-2.3); Potassium 3.8 mmol/L (3.5-5.1); Sodium 142 mmol/L (137-145)
--- NOTE | 2018-01-02 08:12 | XR ---
EXAMINATION TYPE: XR chest 2V DATE OF EXAM: 01/02/2018 COMPARISON: Prior chest x-ray 12/31/2017 HISTORY: Abnormal chest x-ray, congestive heart failure and pleural effusions TECHNIQUE: Frontal and lateral views of the chest are obtained. FINDINGS: There is some improvement in aeration. PICC line is stable. No pneumothorax. Blunting of t he left costophrenic angle has resolved. Persistent blunting of the right costophrenic angle, posteri or costophrenic sulci noted. Interstitium remains somewhat prominent. Heart size is likely stable. IMPRESSION: There is some improvement in volume status, aeration as compared to prior exam. Addition al follow-up suggested.
[2018-01-02] MEDS: IPRATROPIUM-ALBUTEROL 3 ML NEB INHALATION SCH ×3 (08:13→15:33)
[2018-01-02] MEDS ORDERED: FUROSEMIDE 10 MG/ML 4 ML VIAL IV SCH (09:00)
[2018-01-02] MEDS: CARVEDILOL 3.125 MG TAB PO SCH ×2 (09:01→17:26)
[2018-01-02] MEDS: LISINOPRIL 2.5 MG TAB PO SCH (09:01)
[2018-01-02] MEDS: SPIRONOLACTONE 25 MG TAB PO SCH (09:02)
[2018-01-02] MEDS: NYSTATIN 100,000 UNIT/ML SUSP 500,000 UNIT/5 ML CUP PO SCH ×2 (09:02→14:00)
[2018-01-02] MEDS: PANTOPRAZOLE 40 MG TABLET PO SCH (09:02)
--- NOTE | 2018-01-02 11:55 | PN ---
PROGRESS NOTE CHIEF COMPLAINT: CA of the breast. PRESENT ILLNESS: This lady is still waiting for things to be set up so she can be discharged. PHYSICAL EXAM: She is awake and alert. Breath sounds are somewhat diminished throughout in particularly at the bases posteriorly. Cardiac exam is normal. Abdomen is soft. IMPRESSION: 1. Carcinoma of the breast. 2. Status post removal of infected chemotherapy port. 3. Cardiomyopathy. PLAN: Arrange for home O2 and await her being cleared for discharged. MMODL / IJN: [id number] /
[2018-01-02 12:57] VITALS: RESP 18; TEMP 98.2
--- NOTE | 2018-01-02 13:17 | P.PN ---
Subjective Progress Note Date: 01/02/18 Principal diagnosis: Febrile, on chemo Echocardio shows decreased EF since chemotherapy initiation. No acute events overnight. Still requiring oxygen. Objective - Vital Signs Vital signs: Vital Signs Temp 98.2 F 01/02/18 12:56 Pulse 75 01/02/18 12:56 Resp 18 01/02/18 12:56 BP 106/55 01/02/18 12:56 Pulse Ox 95 01/02/18 12:56 Intake & Output 01/01/18 01/02/18 01/02/18 18:59 06:59 18:59 Intake Total 690 Balance 690 Weight 60.645 kg Intake: Intake, IV Titration 100 Amount Sodium Chloride 0.9% 1, 100 000 ml @ 20 mls/hr IV . Q24H NIKI Rx#:[id number] Oral 590 Other: Voiding Method Bedside Commode Bedside Commode # Voids 1 1 - Exam EENT: Thush grade 1, Head NC, NT, she has a small lid lag on right eye Neck: The neck is supple without significant lymphadenopathy. Lungs: There is symmetrical bilateral scattered expiratory wheezes Diminished bibasilar and increased respiratory effort Heart: Regular rhythm, Tachycardia, 108 Abdomen: Positive bowel sounds soft and nontender without palpable masses or organomegaly. Extremities: BLE edema. Left greater than Right (previous surgery to left), patient states at baseline always more swollen than right. Denies pain in calf or leg. The peripheral pulses were 2+ and symmetric. Neuro: Awake alert oriented to person place and time. There are no acute new gross focal sensory motor deficits. Skin: Erythema right anterior chest wall at the Mediport site. very tender, erythema improving, area is marked. The left breast massive firm hard edema. Large open draining fungating mass. + odor There is distinct erythema There also is palpable mass in the left axillary area. - Labs CBC & Chem 7: 01/02/18 06:50 01/02/18 06:50 Labs: Abnormal Lab Results - Last 24 Hours (Table) 01/02/18 Range/Units 06:50 Carbon Dioxide 32 H (22-30) mmol/L Assessment and Plan Plan: Assessment and Plan (1) Bacteremia Narrative/Plan: Most recent BC neg, PICC placed, cont abx per ID Current Visit: Yes Status: Acute Priority: High Code(s): R78.81 - BACTEREMIA SNOMED Code(s): 2333525 (2) Breast cancer, left Narrative/Plan: Pt will cont treatment after being evaluated by Dr. Miranda next week, she was due for cycle 2 this week. - Chemotherapy will be held until resolution of acute infection and completion of antibiotics Current Visit: Yes Status: Acute Priority: High Code(s): C50.912 - MALIGNANT NEOPLASM OF UNSPECIFIED SITE OF LEFT FEMALE BREAST SNOMED Code(s): 491817181 (3) Anemia Narrative/Plan: Anemia multifactorial-chemo, malignancy and inflammation. Her ferritin is significantly elevated. No iron supplementation at this time, only conservative transfusions. Current Visit: Yes Status: Acute Priority: Medium Code(s): D64.9 - ANEMIA , UNSPECIFIED SNOMED Code(s): 283558382 (4) Infection of pocket of surgical implant site Narrative/Plan: Port removed, Picc line in place and plan IV Abx outpatient per ID Current Visit: Yes Status: Acute Priority: High Code(s): PGZ2195 - SNOMED Code(s): 497059311 (5) Hypokalemia Narrative/Plan: On replacement protocol. monitor Magnesium also Current Visit: Yes Status: Acute Priority: Low Code(s): E87.6 - HYPOKALEMIA SNOMED Code(s): 50611071 (6) Hypoxia Requiring Oxygen - EF has decreased - Planning Home Oxygen Nona Clayton NP
--- NOTE | 2018-01-02 13:23 | P.PN ---
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 Velazquez, who presented to the hospital on 12/18/2017 for MediPort infection. She was recently diagnosed with ductal carcinoma of the left breast, after patient noted a rapidly growing mass in the central portion of the left breast. Patient states she noticed sores on her left breast, but at that time she did not have insurance, and she ignored the findings. Her then noticed the sores and hard nodular left breast mass, and became extremely concerned and urged the patient to have it checked out. The lesion was growing very rapidly, was becoming painful and tender, and was beginning to ulcerate. She was seen by Dr. Fidel Ahuja, biopsy on 2017 showed invasive ductal carcinoma, grade 2, ER/AZ/Her2 negative. MediPort was placed, and patient received her first dose of chemotherapy on 12/09/2017 that included Adriamycin and Cytoxan. Patient follows with Dr. Miranda, she was seen in his office, and her MediPort site was quite erythematous, painful, patient was having chills, poor appetite, fevers. Patient was febrile on presentation, with a temp of 100.5, tachycardic. There was evidence of leukopenia, white count was 2.9, lactic acid was within normal limits at 1.0, sodium was 130, potassium 3.7, chloride is 98, CO2 is 22, BUN was 22, creatinine 0.67.. Chest x-ray was obtained showing no cardiopulmonary process. She was started on vancomycin and cefepime, and ID service was consult. EKG showed normal sinus rhythm without any abnormalities. Gen. surgery was consult in, and right internal jugular vein Port-A-Cath was removed on 12/22/[address] Guthrie, subsequently left PICC line was inserted on 12/25/2017. Blood cultures were positive for MSSA, as well as the wound cultures of the chest. Urine culture was positive for Klebsiella pneumonia. Patient is receiving local wound care with MetaHoney to the left breast ulcerations per IDS. Follow- up blood cultures have been negative. On oral 12/26/2017 patient was noted to become hypoxemic, with a pulse ox of 89, her supplemental oxygen was increased from 2-4 L. Chest x-ray from 12/25/2017 showed pulmonary edema, CT angios was obtained to rule out pulmonary embolism, and was negative for any evidence of PE , but it showed small to moderate-sized bilateral pleural effusions with associated compressive atelectasis, this was on the background of moderate emphysematous changes. There is a slightly more prominent 8 x 7 mm nodule in the lateral right upper lobe, and 16 x 13 mm nodule in the right lower lobe which was fairly stable. There was a stable 6 mm nodule in the left lower lobe. And there was central groundglass opacity bilaterally consistent with pulmonary edema. There was no greater than 1 cm hilar or mediastinal lymph nodes. Patient received 1 dose of IV Lasix, felt slightly better, however her oxygenation did not improve significantly, and patient remains on 4 L per nasal cannula and the pulse ox is 92%. Currently denies any chest pain, she is able to lay fairly flat in bed. No significant peripheral edema. Lung sounds reveal fine crackles at bilateral bases. ProBNP was elevated at 6970. Patient is a former smoker, quit smoking just prior to her chemotherapy in November, prior to that smoked 10 cigarettes a day for over 44 years. No EtOH use, no other illicit drug use. No past medical history of heart failure, [place], coronary artery disease, hypertension. Patient had an echocardiogram done prior to initiation of her chemotherapy, on the way 2017, which showed preserved left ventricular systolic function and an EF of 55-60%, with mild MR and mild TR, with no evidence of pulmonary hypertension. PET scan on 12/06/2017 showed a large mass in the left chest associated with skin thickening, lobular contour, and hypermetabolic uptake, there was left axillary adenopathy, multiple pulmonary nodules, right upper lobe lesion with SUV of 5.6, right lower lobe nodule with SUV of 8.9, left lower lobe nodule which was small, with SUV of only 1.9, posterior lateral left lower lobe 8mm nodule with SUV of 3.5, the medial aspect of the right breast showed mild hypermetabolic uptake of 2.9. And there was anterior mediastinum adenopathy with SUV of 4.1-4.4. Internal mammary node on the left with SUV of 3. Brain MRI from 12/04/2017 was negative for evidence of metastasis. Today we're seeing the patient in consultation for acute hypoxemic respiratory failure. On 12/31/2017 patient was seen in follow-up on oncology floor. She has been frequently get not to the bedside commode, diuresing well, her breathing is improving, she remains on 4 L per nasal cannula, her pulse ox is 92%. Afebrile. Repeat echocardiogram on 12/30/2017 showed [id number] impairment of left ventricular systolic function with an EF between 40-45%. Moderate tricuspid regurgitation, there was mild pulmonary hypertension with pressure of 47 mmHg. Patient is receiving IV diuretics, 40 mg of Lasix twice daily. Lung sounds reveal bibasilar crackles. Repeat chest x-ray today. On 01/01/2018 patient seen in follow-up on oncology floor. Currently down to 2 L per nasal cannula, with a pulse ox of 94%, remains on IV diuretics, with Lasix 40 mg every 12 hours, difficult to estimate fluid balance, accurate I&O's and daily weights. Today's labs were reviewed, WBCs 9.8, hemoglobin is 9.6, urine is 142, potassium is 3.7, CO2 is 34, BUN is 9, creatinine 0.60, follow-up proBNP was 6970. We consulted cardiology for new onset systolic CHF and patient was started on Coreg, lisinopril and Aldactone. Repeat chest x-ray from yesterday shows improvement in aeration, and patient's volume status, persistent pleural effusions and associated atelectasis and lung nodules. On 01/02/2018 he seen in follow-up on oncology floor. Patient qualified for home oxygen, she was found to be desaturating to 87% with exercise on room air. A pulse ox is 95% on 2 L per nasal cannula, vital signs remain stable, her breathing has improved, she is afebrile, sounds reveal only faint few crackles at the bilateral bases, no wheezes. His chest x-ray has been reviewed, and showed improvement in the volume status, improved aeration compared to prior exams. There is still prominent interstitium, and persistent blunting of the right costophrenic angle. Patient has been diuresing, her weight is down by 3.3 kg in the last 24 hours. Cardiology has seen the patient, patient was started on Court, lisinopril and Aldactone. Patient is requesting to go home today. From pulmonary perspective patient remains stable, we'll switch her IV diuretics to oral Lasix to 40 mg twice daily, she stable for discharge home from pulmonary standpoint pending clearance from cardiology, infectious disease service, and medical oncology. Objective - Vital Signs Vital signs: Vital Signs Temp 98.2 F 01/02/18 12:56 Pulse 75 01/02/18 12:56 Resp 18 01/02/18 12:56 BP 106/55 01/02/18 12:56 Pulse Ox 95 01/02/18 12:56 Intake & Output 01/01/18 01/02/18 01/02/18 18:59 06:59 18:59 Intake Total 690 Balance 690 Weight 60.645 kg Intake: Intake, IV Titration 100 Amount Sodium Chloride 0.9% 1, 100 000 ml @ 20 mls/hr IV . Q24H NIKI Rx#:[id number] Oral 590 Other: Voiding Method Bedside Commode Bedside Commode # Voids 1 1 - Exam GENERAL EXAM: Alert, pleasant, 62-year-old white female, comfortable in no apparent distress. HEAD: Normocephalic/atraumatic. EYES: Normal reaction of pupils, equal size. Conjunctiva pink, sclera white. NOSE: Clear with pink turbinates. THROAT: No erythema or exudates. NECK: No masses, no JVD, no thyroid enlargement, no adenopathy. CHEST: Symmetrical expansion. Right upper chest and neck area are tender to palpation, status post removal of infected right upper chest MediPort. Left breast has a large nontender nodular ulcerated mass, which is covered with dressing, Metahoney and dry gauze. LUNGS: Equal air entry with fine crackles at bilateral bases, and diminished breath sounds over bilateral bases CVS: Regular rate and rhythm, normal S1 and S2, no gallops, no murmurs, no rubs ABDOMEN: Soft, nontender. No hepatosplenomegaly, normal bowel sounds, no guarding or rigidity. EXTREMITIES: No clubbing, no edema, no cyanosis, 2+ pulses and upper and lower extremities. MUSCULOSKELETAL: Muscle strength and tone normal. SPINE: No scoliosis or deformity SKIN: No rashes CENTRAL NERVOUS SYSTEM: Alert and oriented -3. No focal deficits, tone is normal in all 4 extremities. PSYCHIATRIC: Alert and oriented -3. Appropriate affect. Intact judgment and insight. - Labs CBC & Chem 7: 12/31/17 08:31 01/02/18 06:50 Labs: Abnormal Lab Results - Last 24 Hours (Table) 01/02/18 Range/Units 06:50 Carbon Dioxide 32 H (22-30) mmol/L Assessment and Plan Plan: Assessments: #1. Acute hypoxemic respiratory failure likely related to acute congestive heart failure, with systolic dysfunction, peaked 2-D echo from 12/30/2017 old [id number] left ventricular impairment with an EF of 40-45%, and mild pulmonary hypertension with RV systolic of 46 mmHg. Previously on the echo from 12/05/2017 patient had normal LV function, with EF of 55-60%, only mild MR and TR, and no evidence of pulmonary hypertension. Patient is status post Adriamycin and Cytoxan chemotherapy for invasive ductal carcinoma of left breast. CT angios with no evidence of pulmonary embolism, but showed pulmonary edema, with moderate size pleural effusions and adjacent atelectasis. #2. Infection of the surgically implanted Port-A-Cath in the right chest, post surgical removal. Wound culture showed MSSA #3. Bacteremia, with blood cultures positive for MSSA #4. Recent diagnosis of invasive ductal carcinoma of left breast with possible metastasis to the lungs, staging PET scan showed a large mass in the left chest with left axillary adenopathy, multiple pulmonary nodules, right upper lobe lesion with SUV of 5.6, right lower lobe nodule with SUV of 8.9, left lower lobe nodule with SUV of 1.9, posterior lateral left lower lobe nodule with SUV of 3.5. There was anterior mediastinal adenopathy with SUV of 4.1-4.4. Internal mammary node on the left with SUV of 3. Brain MRI did not show any evidence of metastasis. Was initiated on Adriamycin, Cytoxan #5. Emphysema, seen on the CT angios. Underlying pulmonary lung function is unknown. Will need an outpatient workup. Not on oxygen at her baseline #6. Nicotine dependence, currently in remission, quit smoking in November 2017, prior to that smoked 10 cigarettes a day for over 44 years #7. Leukopenia, present on admission, resolved, and white count is now 11.5 #8. Anemia #9. Hyponatremia, present on admission, now resolved #10. Urinary tract infection, with the urine cultures positive for Klebsiella pneumonia Plan: Today's chest x-ray shows improving changes of CHF, although there is some persistence of interstitium, and small right pleural effusion, patient's IV Lasix can be switched to oral Lasix 40 mg twice daily, she is following. Overall patient's breathing has improved, volume status has improved. From pulmonary perspective patient is stable for discharge home today, pending clearance from cardiology, medical oncology and ID service. I performed a history & physical examination of the patient and discussed their management with my nurse practitioner, Teri Augustine. I reviewed the nurse practitioner's note and agree with the documented findings and plan of care. Lung sounds are positive for fine crackles bilaterally. The findings and the impression was discussed with the patient. I attest to the documentation by the nurse practitioner. Time with Patient: Less than 30
[2018-01-02 13:54] LABS: Anisocytosis Slight; Basophils # (A) 0.1 k/uL (0-0.2); Basophils % (A) 1 %; Eosinophils # (A) 0.1 k/uL (0-0.7); Eosinophils % (A) 1 %; HCT 32.4 % (34.0-46.0); HGB 9.8 gm/dL (11.4-16.0); Hypochromasia Marked; Lymphocytes # (A) 0.9 k/uL (1.0-4.8); Lymphocytes % (A) 14 %; MCH 26.1 pg (25.0-35.0); MCHC 30.2 g/dL (31.0-37.0); MCV 86.6 fL (80.0-100.0); Mean Platelet Volume 8.9; Monocytes # (A) 0.7 k/uL (0-1.0); Monocytes % (A) 11 %; Neutrophils # (A) 4.4 k/uL (1.3-7.7); Neutrophils % (A) 70 %; Platelet Count 420 k/uL (150-450); RBC 3.75 m/uL (3.80-5.40); RDW 19.1 % (11.5-15.5); WBC 6.3 k/uL (3.8-10.6)
[2018-01-02 13:55] LABS: ALT 31 U/L (9-52); AST 30 U/L (14-36); Alkaline Phosphatase 93 U/L (38-126); Total Bilirubin 0.4 mg/dL (0.2-1.3); Total Protein 6.6 g/dL (6.3-8.2)
[2018-01-02] MEDS ORDERED: FUROSEMIDE 40 MG TAB PO SCH (16:00)
--- NOTE | 2018-01-02 16:13 | DS ---
DISCHARGE SUMMARY CHIEF COMPLAINT: Infection in the right upper anterior chest. HISTORY OF PRESENT ILLNESS AND PHYSICAL EXAM: Details of this lady's history and physical can be found in the initial workup. LABORATORY STUDIES: While she was in a hospital she had laboratory studies the details which can be found in the laboratory section of her chart. COURSE IN HOSPITAL: After admission she was placed in bedrest, started on intravenous fluids, but the infection around the port on the right upper anterior chest continued to get worse. She is seen and followed by Infectious Disease. He subsequently was taken the operating room. The port was removed. PICC line is in place. Arrangements were to be made for her to be discharged home, but she started to have some shortness of breath and BNP and echocardiogram suggested cardiomyopathy probably related to her Adriamycin. The balance of her hospitalization was spent and trying to arrange discharge planning. She did not have insurance and was difficult for her to find a place to go. Arrangements were finally made where she could go with outpatient nursing rehab and she was discharged on . FINAL DIAGNOSES: 1. Infected port in the right chest. 2. Carcinoma of the breast. 3. Congestive heart failure. 4. 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 OPERATIONS: Removal of port. CONSULTATIONS: Surgery, Infectious Disease and Cardiology. She is improved. MMODL / IJN: [id number] /
--- NOTE | 2018-01-02 17:30 | P.PN ---
Subjective Progress Note Date: 01/02/18 62-year-old female presents to the emergency center after being seen in the oncologist office because of concerns to the right Mediport area. The patient was hospitalized in November because of difficulties with her left breast. At presentation there is evidence of a fungating left breast mass significant swelling to the breast. It was biopsied and was found to be invasive carcinoma of the breast. Computed tomography scan and PET scans were performed revealing evidence of the large left breast mass as well as left axillary lymphadenopathy and multiple pulmonary nodules there is also evidence of anterior mediastinal adenopathy. The patient counseling was initiated chemotherapy being her first dose last week with Adriamycin and Cytoxan. She really tolerated the chemotherapy relatively well. However now is presenting with evidence of pain discomfort and erythema to her Mediport site. Because of this she was sent to the emergency center and admitted and the infectious diseases consultation was requested. The patient did receive Neulasta with her chemotherapy. She has relative leukopenia but does not have absolute neutropenia. A culture of her breast was performed that showed evidence of MSSA and Stenotrophomonas maltophilia last month. At this time the patient does not have high-grade fever or chills. The fungating mass in the left breast is not very tender but there is a bit of odor. It is fascinating that the patient relates that the skin changes were present for about a month before she presented. 12/19/2017 reveals the patient be feeling slightly better today. The utilization of the medical honey to the breast ulceration has resulted in improvement of discomfort and reduction of odor and she is pleased. The Mediport site is still swollen erythematous and tender but there is no drainage. She's had some fever that started to improve this afternoon. Laboratories called multiple positive blood cultures. Gram-positive cocci await final identification. 12/20/2017 reveals the patient to be having some chills today. Continues to have significant tenderness at the right neck and upper chest area where the Capemk-j-Imwh is in place. She does not have significant fever today but has been having chills. Denies other new acute symptoms. 12/21/2017 reveals the patient to be feeling about the same still has significant discomfort to the right anterior chest wall. She is still having chills and fever. She has now been seen by the surgeon with evidence of the significant infection rations are being made for the Port-A-Cath be removed tomorrow. 12/22/2017 patient is feeling poorly still. There are plans for her Port-A- Cath removed later today. The site is paradi tender. 12/24/2017 patient is feeling slightly better. Port-A-Cath has been removed and the site is less tender. She denying fevers or chills. She's had some minimal cough and appetite is poor. 12/29/2017 patient is feeling better. The Port-A-Cath has been removed. Blood cultures are negative. IV access has been placed and she is being readied for discharge to home. She did have evidence of some significant shortness of breath found to have evidence of some congestive heart failure that is now considerably improved. She is done well with Ancef therapy has one further week of IV antibiotic therapy needed. She understands that she will likely need to stay in the [place] area including the next week of outpatient intravenous antibiotic therapy, and Ancef May be transitioned to Rocephin 2 g a day to complete the next week of therapy. She would really like to go home to [place], however we will have no ability to set up outpatient itchiness antibiotic therapy in that setting and [address] is too difficult to comment on a daily basis. 01/02/2018 patient continues to improve. Looks forward to her discharge home today. Family members are here to take her to home. She relates that she is not having much pain at the site of the Mediport removal. The area 60 considerably improved. She denying further fevers or chills. The left breast has improved with the medical honey treatment. Objective - Vital Signs Vital signs: Vital Signs Temp 98.2 F 01/02/18 12:56 Pulse 90 01/02/18 16:00 Resp 18 01/02/18 16:00 BP 106/55 01/02/18 12:56 Pulse Ox 95 01/02/18 12:56 Intake & Output 01/01/18 01/02/18 01/02/18 18:59 06:59 18:59 Intake Total 690 Balance 690 Weight 60.645 kg 60.645 kg Intake: Intake, IV Titration 100 Amount Sodium Chloride 0.9% 1, 100 000 ml @ 20 mls/hr IV . Q24H [facility] Rx#:[id number] Oral 590 Other: Voiding Method Bedside Commode Bedside Commode # Voids 1 1 - Exam 62-year-old female seems to be comfortable at this point in time. Is denying high-grade fevers or chills. Does have tenderness and erythema to the right anterior chest wall. HEENT: Anicteric conjunctiva are pink and moist nasal mucosa grossly intact without significant lesions, there appears to be a mild amount of thrush Neck: The neck is supple without significant lymphadenopathy or thyromegaly. Lungs: There is symmetrical bilateral air entry with scattered wheezes but no kierra bronchial sounds or dullness or egophony Heart: Regular rate and rhythm with an audible S1-S2, no S3 no S4. There is no significant murmur click or rub, PMI was nondisplaced. Abdomen: Positive bowel sounds soft and nontender without palpable masses or organomegaly. There was no guarding or rebound. Extremities: The upper extremities have excellent pulses they are symmetric, no significant petechiae or telangiectasia. No splinter hemorrhages were noted. The lower extremities are free from significant edema. The peripheral pulses were 2+ and symmetric. Neuro: Awake alert oriented to person place and time. There are no acute new gross focal sensory motor deficits. Skin: With the nurse present the patient is evaluated. The extraction site of the Mediport right IJ area is with scant drainage - Labs CBC & Chem 7: 01/02/18 06:50 01/02/18 06:50 Labs: Abnormal Lab Results - Last 24 Hours (Table) 01/02/18 01/02/18 Range/Units 06:50 06:50 RBC 3.75 L (3.80-5.40) m/uL Hgb 9.8 L (11.4-16.0) gm/dL Hct 32.4 L (34.0-46.0) % MCHC 30.2 L (31.0-37.0) g/dL RDW 19.1 H (11.5-15.5) % Lymphocytes # 0.9 L (1.0-4.8) k/uL Carbon Dioxide 32 H (22-30) mmol/L Albumin 3.0 L (3.5-5.0) g/dL Laboratory Results WBC 6.3 k/uL (3.8-10.6) 01/02/18 06:50 RBC 3.75 m/uL (3.80-5.40) L 01/02/18 06:50 Hgb 9.8 gm/dL (11.4-16.0) L 01/02/18 06:50 Hct 32.4 % (34.0-46.0) L 01/02/18 06:50 MCV 86.6 fL (80.0-100.0) 01/02/18 06:50 MCH 26.1 pg (25.0-35.0) 01/02/18 06:50 MCHC 30.2 g/dL (31.0-37.0) L 01/02/18 06:50 RDW 19.1 % (11.5-15.5) H 01/02/18 06:50 Plt Count 420 k/uL (150-450) 01/02/18 06:50 Neutrophils % 70 % 01/02/18 06:50 Neutrophils % (Manual) 83 % 12/20/17 11:22 Band Neutrophils % 3 % 12/20/17 11:22 Lymphocytes % 14 % 01/02/18 06:50 Lymphocytes % (Manual) 11 % 12/20/17 11:22 Monocytes % 11 % 01/02/18 06:50 Monocytes % (Manual) 3 % 12/20/17 11:22 Eosinophils % 1 % 01/02/18 06:50 Basophils % 1 % 01/02/18 06:50 Neutrophils # 4.4 k/uL (1.3-7.7) 01/02/18 06:50 Neutrophils # (Manual) 4.10 k/uL (1.3-7.7) 12/20/17 11:22 Lymphocytes # 0.9 k/uL (1.0-4.8) L 01/02/18 06:50 Lymphocytes # (Manual) 0.53 k/uL (1.0-4.8) L 12/20/17 11:22 Monocytes # 0.7 k/uL (0-1.0) 01/02/18 06:50 Monocytes # (Manual) 0.14 k/uL (0-1.0) 12/20/17 11:22 Eosinophils # 0.1 k/uL (0-0.7) 01/02/18 06:50 Basophils # 0.1 k/uL (0-0.2) 01/02/18 06:50 Nucleated RBCs 0 /100 WBC (0-0) 12/20/17 11:22 Large Platelets Present 12/26/17 06:33 RBC Morphology Normal 12/20/17 11:22 Hypochromasia Marked 01/02/18 06:50 Anisocytosis Slight 01/02/18 06:50 PT 12.4 sec (9.0-12.0) H 12/25/17 07:44 INR 1.3 (<1.2) H 12/25/17 07:44 Sodium 142 mmol/L (137-145) 01/02/18 06:50 Potassium 3.8 mmol/L (3.5-5.1) 01/02/18 06:50 Chloride 99 mmol/L (98-107) 01/02/18 06:50 Carbon Dioxide 32 mmol/L (22-30) H 01/02/18 06:50 Anion Gap 11 mmol/L 01/02/18 06:50 BUN 17 mg/dL (7-17) 01/02/18 06:50 Creatinine 0.59 mg/dL (0.52-1.04) 01/02/18 06:50 Est GFR (CKD-EPI)AfAm >90 (>60 ml/min/1.73 sqM) 01/02/18 06:50 Est GFR (CKD-EPI)NonAf >90 (>60 ml/min/1.73 sqM) 01/02/18 06:50 Glucose 93 mg/dL (74-99) 01/02/18 06:50 Plasma Lactic Acid Fernando 1.0 mmol/L (0.7-2.0) 12/18/17 18:06 Calcium 8.6 mg/dL (8.4-10.2) 01/02/18 06:50 Magnesium 1.9 mg/dL (1.6-2.3) 01/02/18 06:50 Iron 8 ug/dL (50-170) L 12/23/17 08:56 TIBC 160 ug/dL (228-460) L 12/23/17 08:56 Iron Saturation 5.00 (12.00-45.00) L 12/23/17 08:56 Ferritin 2047.6 ng/mL (10.0-291.0) H 12/23/17 08:56 Total Bilirubin 0.4 mg/dL (0.2-1.3) 01/02/18 06:50 AST 30 U/L (14-36) 01/02/18 06:50 ALT 31 U/L (9-52) 01/02/18 06:50 Alkaline Phosphatase 93 U/L (38-126) 01/02/18 06:50 NT-Pro-B Natriuret Pep 6970 pg/mL 12/29/17 21:07 Total Protein 6.6 g/dL (6.3-8.2) 01/02/18 06:50 Albumin 3.0 g/dL (3.5-5.0) L 01/02/18 06:50 Vitamin B12 1840.0 pg/mL (200.0-944.0) H 12/23/17 08:56 RBC Folate 759 ng/mL (280 - 791) 12/23/17 08:56 Urine Color Dark Yellow 12/18/17 12:00 Urine Appearance Cloudy (Clear) H 12/18/17 12:00 Urine pH 5.5 (5.0-8.0) 12/18/17 12:00 Ur Specific [place] 1.024 (1.001-1.035) 12/18/17 12:00 Urine Protein 1+ (Negative) H 12/18/17 12:00 Urine Glucose (UA) Negative (Negative) 12/18/17 12:00 Urine Ketones Negative (Negative) 12/18/17 12:00 Urine Blood Small (Negative) H 12/18/17 12:00 Urine Nitrite Negative (Negative) 12/18/17 12:00 Urine Bilirubin Negative (Negative) 12/18/17 12:00 Urine Urobilinogen 2.0 mg/dL (<2.0) 12/18/17 12:00 Ur Leukocyte Esterase Negative (Negative) 12/18/17 12:00 Urine RBC 2 /hpf (0-5) 12/18/17 12:00 Urine WBC 5 /hpf (0-5) 12/18/17 12:00 Ur Squamous Epith Cells 6 /hpf (0-4) H 12/18/17 12:00 Urine Bacteria Few /hpf (None) H 12/18/17 12:00 Hyaline Casts 25 /lpf (0-2) H 12/18/17 12:00 Urine Mucus Many /hpf (None) H 12/18/17 12:00 Stool Occult Blood Negative (Negative) 12/27/17 07:15 Vancomycin Trough 11.8 ug/mL 12/22/17 05:31 C. difficile Tox (PCR) Not Detected (Not Detectd) 12/24/17 11:53 Microbiology 12/27/17 07:15 Stool Stool Culture - Final 12/23/17 08:56 Blood Blood Culture - Final No Growth after 144 hours 12/23/17 08:45 Blood Blood Culture - Final No Growth after 144 hours 12/22/17 17:22 Chest Anaerobic Culture - Final 12/22/17 17:22 Chest Gram Stain - Final 12/22/17 17:22 Chest Wound Culture - Final Staphylococcus aureus 12/18/17 18:06 Blood Blood Culture Gram Stain - Final 12/18/17 18:06 Blood Blood Culture - Final Staphylococcus aureus 12/18/17 12:00 Blood Blood Culture Gram Stain - Final 12/18/17 12:00 Blood Blood Culture - Final Staphylococcus aureus 12/18/17 12:00 Urine,Voided Urine Culture - Final Klebsiella pneumoniae 12/18/17 18:06 Blood Blood Culture - Final 12/18/17 12:00 Blood Blood Culture - Final Assessment and Plan (1) Breast cancer, left Current Visit: Yes Status: Acute Priority: High Code(s): C50.912 - MALIGNANT NEOPLASM OF UNSPECIFIED SITE OF LEFT FEMALE BREAST SNOMED Code(s): 676933525 (2) Cellulitis of left breast Current Visit: Yes Status: Acute Code(s): N61.0 - MASTITIS WITHOUT ABSCESS SNOMED Code(s): 28178996 (3) Infection of pocket of surgical implant site Narrative/Plan: 62-year-old female who presented in November with a fungating left breast mass that was painful. Workup ensued and she was found to have evidence of invasive carcinoma of the left breast with metastasis to left axillary area and lungs and mediastinum. She has been initiated to her course of chemotherapy starting with Adriamycin and Cytoxan. She relates she tolerated the chemotherapy right well but now is developed a significant swelling and erythema to the right anterior chest wall [id number] site. It is quite tender over the area but there is no expressible purulence. At this time she has relative leukopenia but is not frankly neutropenic. The prior culture shows evidence of the MSSA as well as the Stenotrophomonas maltophilia. Antibiotic therapy will be initiated this time with ceftazidime and vancomycin pending further culture results. Blood cultures have been requested. Local wound care to the breast will be performed with the medical honey which should help drainage as well as help with odor. Tylenol is given for fever Patient may require surgical consultation depending on the findings of the Mediport site. 12/19/2017 reveals the patient to be stable without new acute complaints. Patient relates that she feels slightly better than yesterday and at the breast is not as painful. The Mediport site remains tender and erythematous. He has noted there are now multiple positive blood cultures we await the final identification, the wound culture from the breast to reveal evidence of MSSA in the past. If the blood cultures have evidence of MSSA infection will then be able to discontinue vancomycin and changed to cefazolin. We'll then have to assess surgeon to remove the port since staphylococcal infection and ports are usually nonsalvageable. Patient's fever is improving Relative leukopenia is being monitored by oncology Follow blood cultures will be determined based on species growing at this time. 12/20/2017 the patient has some chills today. She is not feeling very well overall. She is denying rigors. The dressing to the left breast has help with some discomfort and this will be continued. The right anterior chest wall and right neck have evidence of the onset of swelling and some fluctuance at the Mediport site. Where the catheter inserts into the IJ there is evidence of the suture that has some scant amount of purulence. Anterior area is very tender and has some minimal warmth. There are now multiple positive blood cultures with staph aureus in the Infuse-a -Port appears to be infected. Antibiotics will not be able to salvage this and consequently will assess surgeon to remove the port. We have negative blood cultures would contemplate PICC line for IV access to complete treatment of antibiotics and then chemotherapy. We'll continue current antibiotic therapy until we have final cultures. Of note there is a gram-negative in the urine and await final identification. 12/21/2017 the patient is having chills and we have evidence of multiple blood cultures revealed evidence of MSSA. Antibiotic therapy is altered from vancomycin to high-dose Ancef. The port cannot be salvaged and arrangements are being made with the surgeon for removal tomorrow. After removal follow blood cultures will be needed and once negative we'll then have a PICC line placed to complete a few weeks of intravenous antibiotic therapy for catheter related bacteremia. Afterwards she can then restart her chemotherapy. The patient understands this strategy and is looking forward to having her port removed because it is so tender and problematic at this time. 12/22/2017 the patient will have her Mediport removed today due to the ongoing MSSA active bacteremia and sepsis from the port. Once the bacteremia has cleared will arrange for a PICC line to be placed she may complete her course of intravenous antibiotic therapy and then it can be used for her chemotherapy in the future once her sepsis and infection have resolved. Follow up cultures requested 12/24/2017 patient has improved with removal of the Mediport that was infected. There is no evidence of negative blood cultures at 24 hours. They're expecting remained negative in the morning that her PICC line may be placed she complete her course of intravenous antibiotic therapy and then utilize the port for initiation of her chemotherapy for her metastatic breast carcinoma. Currently utilizing Ancef 2 g IV piggyback every 8 hours. It appears that she will be heading to the [place]. Will she be completing her antibiotic therapy. Ideally Ancef will be utilized however may need to utilize Rocephin. 01/02/2018 patient is noted further improvement. Antibiotic therapy was transitioned to Rocephin 2 g a day she will receive in the outpatient setting. Her oxygen and other needs have been delivered to her home. She looks forward to being discharged home. At the completion of antibiotic therapy she will need follow-up in the infectious disease office and then hopefully be doing well enough that she can then proceed with some further chemotherapy. Continue with the medical honey dressing to the left breast. Current Visit: Yes Status: Acute Priority: High Code(s): GHO3099 - SNOMED Code(s): 328383266
[2018-01-02 17:36] VITALS: BP 114/57; PULSE 94
--- NOTE | 2018-01-03 08:45 | P.PN ---
Subjective Progress Note Date: 01/02/18 This patient with history of metastatic breast CA is admitted to the hospital for treatment of infected port. Patient also found to have evidence of congestive heart failure. We're asked to evaluate the patient. Repeat echo [place] showed mild to moderate impaired LV function. Her pro BNP was elevated. Patient was treated with IV Lasix with improvement of symptoms and chest x-ray findings. Patient is also started on Coreg and lisinopril. Patient is tolerating medications. She is very comfortable. Patient could be discharged home. Follow-up as an outpatient Objective - Vital Signs Vital signs: Vital Signs Temp 98.2 F 01/02/18 12:56 Pulse 94 01/02/18 17:33 Resp 18 01/02/18 16:00 BP 114/57 01/02/18 17:33 Pulse Ox 95 01/02/18 12:56 Intake & Output 01/02/18 01/03/18 01/03/18 18:59 06:59 18:59 Weight 60.645 kg Other: Voiding Method Bedside Commode - Exam GENERAL EXAM: Patient is alert and oriented and doesn't appear to be in any acute distress HEENT: Normocephalic. Normal reaction of pupils, equal size, normal range of extraocular motion. No erythema or exudates in the throat. NECK: No masses, no nuchal rigidity. CHEST: No chest wall deformity. LUNGS: Equal air entry with no crackles or wheeze. HEART: S1 and S2 normal with no audible mumurs or gallops. Regular rhythm, femorals equal on both sides.. ABDOMEN: No hepatosplenomegaly, normal bowel sounds, no guarding or rigidity. SKIN: No rashes CENTRAL NERVOUS SYSTEM: No focal deficits. EXTREMITIES: No cyanosis, clubbing or edema. - Labs CBC & Chem 7: 01/02/18 06:50 01/02/18 06:50 Labs: Abnormal Lab Results - Last 24 Hours (Table) 01/02/18 01/02/18 Range/Units 06:50 06:50 RBC 3.75 L (3.80-5.40) m/uL Hgb 9.8 L (11.4-16.0) gm/dL Hct 32.4 L (34.0-46.0) % MCHC 30.2 L (31.0-37.0) g/dL RDW 19.1 H (11.5-15.5) % Lymphocytes # 0.9 L (1.0-4.8) k/uL Carbon Dioxide 32 H (22-30) mmol/L Albumin 3.0 L (3.5-5.0) g/dL Assessment and Plan (1) Acute systolic CHF (congestive heart failure) Status: Acute Code(s): I50.21 - ACUTE SYSTOLIC (CONGESTIVE) HEART FAILURE SNOMED Code(s): 952871988 (2) Anemia Status: Acute Priority: Medium Code(s): D64.9 - ANEMIA, UNSPECIFIED SNOMED Code(s): 008325164 (3) Bacteremia Status: Acute Priority: High Code(s): R78.81 - BACTEREMIA SNOMED Code(s): 9047773 (4) Breast cancer, left Status: Acute Priority: High Code(s): C50.912 - MALIGNANT NEOPLASM OF UNSPECIFIED SITE OF LEFT FEMALE BREAST SNOMED Code(s): 635859473 Plan: Patient is clinically looking better. Tolerating medications. From [facility]ec standpoint patient could be discharged home. Follow-up as an outpatient
== END 2018-01-02 17:45 | disposition home health service (06) | DRG 252 ==
LOC: EC 16:12 → 5ONC 19:26
PROVIDERS: ADMIT Family Medicine; ATTEND Family Medicine
PROC: 05PY03Z Removal of Infusion Device from Upper Vein, Open Approach (ICD-10-PCS; principal; 2017-12-22 08:30)
PROC: 02HV33Z Insertion of Infusion Device into Superior Vena Cava, Percutaneous Approach (ICD-10-PCS; 2017-12-25 13:20)
DX: T80.211A Bloodstream infection due to central venous catheter, initial encounter (principal); A41.01 Sepsis due to Methicillin susceptible Staphylococcus aureus; D61.810 Antineoplastic chemotherapy induced pancytopenia; I50.21 Acute systolic (congestive) heart failure; J96.01 Acute respiratory failure with hypoxia; L02.213 Cutaneous abscess of chest wall; B37.0 Candidal stomatitis; C77.3 Secondary and unspecified malignant neoplasm of axilla and upper limb lymph nodes; I42.7 Cardiomyopathy due to drug and external agent; N39.0 Urinary tract infection, site not specified; J98.11 Atelectasis; T81.4XXA Infection following a procedure, initial encounter; E87.1 Hypo-osmolality and hyponatremia; C50.912 Malignant neoplasm of unspecified site of left female breast; T45.1X5A Adverse effect of antineoplastic and immunosuppressive drugs, initial encounter; E87.6 Hypokalemia; Z87.891 Personal history of nicotine dependence; I08.1 Rheumatic disorders of both mitral and tricuspid valves; I27.20 Pulmonary hypertension, unspecified; B96.1 Klebsiella pneumoniae [K. pneumoniae] as the cause of diseases classified elsewhere; K21.9 Gastro-esophageal reflux disease without esophagitis; K29.70 Gastritis, unspecified, without bleeding; Y84.8 Other medical procedures as the cause of abnormal reaction of the patient, or of later complication, without mention of misadventure at the time of the procedure; Z80.49 Family history of malignant neoplasm of other genital organs; Z80.8 Family history of malignant neoplasm of other organs or systems; Z91.19 Patient's noncompliance with other medical treatment and regimen; Z82.49 Family history of ischemic heart disease and other diseases of the circulatory system; Z83.2 Family history of diseases of the blood and blood-forming organs and certain disorders involving the immune mechanism; Z88.6 Allergy status to analgesic agent; J44.9 Chronic obstructive pulmonary disease, unspecified
CPT/HCPCS: 36415; 36569; 71045; 71046; 71275; 76937; 77001; 80048; 80053; 80202; 81001; 82272; 82607; 82728; 82747; 83540; 83550; 83605; 83735; 83880; 84132; 85025; 85610; 87040; 87045; 87046; 87070; 87075; 87077; 87086; 87186; 87205; 87493; 93005; 93306; 94640; 94760; 96365; 96367; 99285

== ENCOUNTER → 2018-04-17 | Outpatient (CLI) | payer MEDICAID, OTHER ==
--- NOTE | 2018-04-17 18:33 | ECHOF ---
Referral Reason:C50.112 Breast Cancer, I27.0 Pulmonary Hypertensio MEASUREMENTS -------- HEIGHT: 162.6 cm WEIGHT: 68.0 kg BP: RVIDd: 2.6 cm (< 3.3) IVSd: 0.9 cm (0.6 - 1.1) LVIDd: 4.9 cm (3.9 - 5.3) LVPWd: 0.9 cm (0.6 - 1.1) IVSs: 1.0 cm LVIDs: 3.5 cm LVPWs: 1.0 cm LAESV Index (A-L): 15.35 ml/m Ao Diam: 3.0 cm (2.0 - 3.7) AV Cusp: 2.1 cm (1.5 - 2.6) LA Diam: 2.4 cm (2.7 - 3.8) MV EXCURSION: 20.954 mm (> 18.000) MV EF SLOPE: 147 mm/s (70 - 150) EPSS: 0.6 cm MV E Bertrand: 0.46 m/s MV DecT: 291 ms MV A Bertrand: 0.76 m/s MV E/A Ratio: 0.60 RAP: 5.00 mmHg RVSP: 9.32 mmHg FINDINGS -------- Sinus rhythm. This was a technically adequate study. The left ventricular size is normal. Left ventricular wall thickness is normal. Overall left vent ricular systolic function is normal with, an EF between 55 - 60 %. The right ventricle is normal in size and function. Normal LA size by volume 22+/-6 ml/m2. The right atrium is normal in size. The aortic valve is trileaflet, and appears structurally normal. No aortic stenosis or regurgitation. The mitral valve leaflets are mildly thickened. There is trace mitral regurgitation. Trace tricuspid regurgitation present. Right ventricular systolic pressure is normal at < 35 mmHg. There is no evidence of pulmonary hypertension. Trace/mild (physiologic) pulmonic regurgitation. The aortic root size is normal. Normal inferior vena cava with normal inspiratory collapse consistent with estimated right atrial pre ssure of 5 mmHg. There is no pericardial effusion. CONCLUSIONS -------- 1. Sinus rhythm. 2. This was a technically adequate study. 3. The left ventricular size is normal. 4. Left ventricular wall thickness is normal. 5. Overall left ventricular systolic function is normal with, an EF between 55 - 60 %. 6. Normal LA size by volume 22+/-6 ml/m2. 7. The aortic valve is trileaflet, and appears structurally normal. No aortic stenosis or regurgitati on. 8. The mitral valve leaflets are mildly thickened. 9. There is trace mitral regurgitation. 10. Trace tricuspid regurgitation present. 11. Right ventricular systolic pressure is normal at < 35 mmHg. 12. There is no evidence of pulmonary hypertension. 13. Trace/mild (physiologic) pulmonic regurgitation. 14. The aortic root size is normal. 15. There is no pericardial effusion. [employer]: Arvin Knight RDCS
== END | disposition home or self-care (01) ==
LOC: RADECHMAIN 16:16
PROVIDERS: ATTEND Internal Medicine Hematology & Oncology
DX: Z01.818 Encounter for other preprocedural examination (principal); I37.1 Nonrheumatic pulmonary valve insufficiency; I05.9 Rheumatic mitral valve disease, unspecified; C50.112 Malignant neoplasm of central portion of left female breast; I27.0 Primary pulmonary hypertension
CPT/HCPCS: 93306

== ENCOUNTER → 2018-05-02 | Outpatient (CLI) | payer OTHER ==
--- NOTE | 2018-05-04 06:41 | PE ---
EXAMINATION TYPE: PET CT fusion skull to thigh DATE OF EXAM: 05/02/2018 COMPARISON: CT chest abdomen and pelvis November 19, 2017. PET/CT December 06, 2017. HISTORY: Metastatic breast cancer diagnosed in summer 2017 completed chemotherapy April 24, 2018 TECHNIQUE: Following the intravenous administration of 12.14 mCi of F-18 FDG, whole body images are performed from the skull base to the midthigh. Images are reviewed on the computer in the coronal, a xial, and sagittal planes. Reconstructed rotating images are created on independent workstation and reviewed on the computer. A noncontrast CT is performed in conjunction with the PET scan. SCAN: Subsequent Scan FINDINGS: SKULL BASE AND NECK: No new areas of abnormal hypermetabolic uptake are present. CHEST, MEDIASTINUM, AND HILAR REGION: Large left breast mass with lobulation remains present, diminis hed in size from prior PET/CT measuring 8.7 cm long axis axial image 90 versus roughly 13.0 cm prior study axial image 85. There is some persistent hypermetabolic uptake most prominent along the periphe ry, max SUV is 7.23 superior medial aspect. There is persistent hypermetabolic skin thickening is also appears improved from prior study in thick ness and max SUV now measuring 6.47. There is improvement in left axillary adenopathy in size and hypermetabolic uptake with persistent en larged lymph nodes near axial image 72 noted, for reference is 1.3 x 1.2 cm node axial image 73 with max SUV of 3.22. No new hypermetabolic uptake in the right breast or axilla. There is interval improvement in hypermetabolic pulmonary metastatic disease, for reference largest n odule prior study axial image 93 posterior superior aspect right lower lobe is not clearly identified on current study to accurately measure. There is interval improvement in the anterior superior media stinal lymph nodes, there is persistent 8 x 6 mm hypermetabolic lymph node axial image 78 with max GUERRA V of 3.08. ABDOMEN AND PELVIS: Normal bowel and bladder uptake is present. OSSEOUS STRUCTURES: Diffuse hypermetabolic uptake throughout osseous structures is present without di stinct suspicious focal lytic or sclerotic lesions likely reflecting treatment response. OTHER CT: There is persistent abnormal 2.2 x 2.0 cm left pelvic or adnexal a metabolic mass axial joie ge 205 probable ovarian lesion, pelvic ultrasound advised to further evaluate and characterize. There is moderate calcified plaque of aorta extending into branch vessels. There is multilevel spurring in the spine. There is facet arthropathy lower lumbar spine. IMPRESSION: Improving disease with partial response as detailed above.
== END | disposition home or self-care (01) ==
LOC: RADPETMAIN 13:48
PROVIDERS: ATTEND Internal Medicine Hematology & Oncology
DX: C50.112 Malignant neoplasm of central portion of left female breast (principal); Z92.21 Personal history of antineoplastic chemotherapy
CPT/HCPCS: 78815; A9552

== ENCOUNTER → 2018-05-07 | Outpatient (CLI) | payer OTHER ==
[2018-05-07 15:51] VITALS: BP 121/81; PULSE 95; RESP 18; TEMP 98; BMI 26.4
--- NOTE | 2018-05-07 16:21 | P.GSHP ---
History of Present Illness H&P Date: 05/07/18 Chief Complaint: Left breast cancer Wendy is a 62-year-old white female who presented to the emergency department with a complaint of left breast swelling and fullness. She did have pain in the breast and skin disruption with posterolateral-like formation. She was unable to identify the nipple on the left side and the patient stated that she had not had a mammogram or radiograph for over 10 years at the time of presentation. She subsequently underwent a core biopsy of the area which revealed an infiltrating ductal grade 2 carcinoma. She underwent preoperative chemotherapy. I recently spoken to Dr. Miranda was recommended that the patient undergo left breast toilet mastectomy. The patient's last chemotherapy was on . An echo was recently done and the patient was told that this was within normal limits. Patient had a recent PET/CT performed on . This revealed improving disease with partial response she was noted to have a large left breast mass with lobulation on prior PET scan this measures 8.7 cm decrease in size from 13 cm. There is persistent hypermetabolic skin thickening improved from prior study There is improvement in left axillary adenopathy in size and hypermetabolic uptake with persistent enlarged lymph nodes noted No new hypermetabolic uptake in the right breast or axilla Interval improvement and hypermetabolic pulmonary metastatic disease largest nodule on the prior study is not clearly identified on the current study. There is interval improvement in anterior superior mediastinal lymph nodes a persistent 8 x 6 mm hypermetabolic lymph node was noted Diffuse hypermetabolic uptake. The osseous structures is present without distinct suspicious focal lytic or sclerotic lesions likely reflecting treatment response Persistent abnormal 2.2 x 2 cm left pelvic or adnexal lesion Impression improving disease with partial response is noted Past surgical history: 1. Breast biopsy 2. Surgery on her legs 3. Laparoscopic examination for adhesions Past medical history: Left breast cancer Hormonal history: Menarche: 13 Pregnancies: 2, 2 children, did not breast-feed, first born at 18 Menopause: 45 control pills: 2 years Hormone use: Negative Social history: Smoking: Did smoke half a pack per day Alcohol: Negative Drugs: Negative Family history: Head: Brain cancer Mother: Uterine cancer - Constitutional Constitutional: Reports fever, Reports sweats, Denies chills - EENT Comment: wears glasses Eyes: denies blurred vision, denies pain Ears: deny: decreased hearing, tinnitus Ears, nose, mouth and throat: Denies headache, Denies sore throat - Breasts Breasts: bilateral: as per HPI - Cardiovascular Cardiovascular: Denies chest pain, Denies shortness of breath - Respiratory Comment: ? metastatic cancer to lungs Respiratory: Denies cough, Denies 7 - Gastrointestinal Gastrointestinal: Denies abdominal pain, Denies diarrhea, Denies nausea, Denies vomiting - Genitourinary (Female) Genitourinary: Denies dysuria, Denies hematuria - Menstruation Menstruation: Reports postmenopausal - Musculoskeletal Comment: no pains/? metastatic disease to bones - Integumentary Integumentary: Denies pruritus, Denies rash - Neurological Neurological: Denies numbness, Denies weakness - Psychiatric Psychiatric: Denies anxiety, Denies depression - Endocrine Endocrine: Denies fatigue, Denies weight change - Hematologic/Lymphatic Comment: none Past Medical History Past Medical History: Cancer, GERD/Reflux Additional Past Medical History / Comment(s): cysts within breast, breast cancer LT breast History of Any Multi-Drug Resistant Organisms: None Reported Past Surgical History: Orthopedic Surgery Additional Past Surgical History / Comment(s): biopsy on LT breast; LT FEMUR SURGERY; RT KNEE SURGERY Past Anesthesia/Blood Transfusion Reactions: No Reported Reaction Past Psychological History: No Psychological Hx Reported Additional Psychological History / Comment(s): lives with spouse and daughter Smoking Status: Former smoker Past Alcohol Use History: None Reported Additional Past Alcohol Use History / Comment(s): started smoking at age 18- smokes 1/2 ppd. smoking cessation booklet given to pt. Past Drug Use History: None Reported - Past Family History Mother Family Medical History: Cancer Additional Family Medical History / Comment(s): uterine cancer, quad cabg Father Family Medical History: Cancer Additional Family Medical History / Comment(s): brain cancer with mets Brother(s) Family Medical History: Deep Vein Thrombosis (DVT) Medications and Allergies Home Medications Medication Instructions Recorded Confirmed Type Omeprazole [PriLOSEC] 20 mg PO QAM 12/04/17 05/07/18 History Multivitamins, Thera [Multivitamin 1 tab PO QAM 05/07/18 05/07/18 History (formulary)] Allergies Allergy/AdvReac Type Severity Reaction Status Date / Time aspirin Allergy Swelling Verified 05/07/18 15:43 Surgical - Exam Vital Signs Temp Pulse Resp BP Pulse Ox 98.0 F 95 18 121/81 95 05/07/18 15:44 05/07/18 15:44 05/07/18 15:44 05/07/18 15:44 05/07/18 15:44 BMI 26.4 - General no distress - Eyes normal ocular movement - ENT no hearing loss, no congestion - Neck no masses, trachea midline - Respiratory normal respiratory effort, clear to auscultation - Cardiovascular Rhythm: regular Heart Sounds: normal: S1, S2 - Abdomen Abdomen: soft - Integumentary normal turgor - Neurologic no disoriented, no combative - Musculoskeletal normal gait, normal posture - Psychiatric oriented to time, oriented to person, oriented to place, speech is normal, memory intact breast exam: right breast: Multi-positional exam right breast some fullness in the medial aspect with no specific discrete mass Right axilla: No adenopathy of concern Left breast: Patient has a large fungating mass in the central portion of the breast which measures 8-9 cm in size there is excoriation of the skin with breakthrough of the tumor and extension both superior and inferior to the mass Left axilla: Patient has adenopathy present Results Left breast cancer CT PET scan reviewed Assessment and Plan Assessment: impression: 1. Fungating left breast cancer 2.probable metastatic disease lung and bone Plan: 1. Toilet mastectomy 2. Possible skin grafting to the left chest wall 3. Clearance from primary care doctor 4. We'll discuss case with plastic surgery Cc: Dr. Obinna Parra, Dr. Miranda
== END | disposition home or self-care (01) ==
LOC: WWCWWP 15:30
PROVIDERS: ATTEND Surgery
DX: Z53.9 Procedure and treatment not carried out, unspecified reason (principal)

== ENCOUNTER 2018-05-12 09:37 | Observation (INO) | payer OTHER ==
[2018-05-08 12:58] VITALS: BMI 26.4
[~2018-05-12 09:37] MED LIST changes: +HEPARIN SODIUM,PORCINE 5,000 UNIT/ML 1 ML VIAL SQ ONE; +LIDOCAINE 1% 20 ML VIAL (10MG/ML) FOR IV START INTRADERMA PRN; -MIDAZOLAM 2 MG/2 ML VIAL IV PRN; -Pre Op ABX Message 1 EACH MISC MISCELLANE ONE; +SCOPOLAMINE 1.5MG/72HR PATCH TRANSDERM ONE; +ceFAZolin 1,000 MG in DEXTROSE/WATER 1 50ML.BAG IVPB ONE; -ceFAZolin IN SWFI 2 GM/20 ML SYRINGE IVP ONE; -fentaNYL (PF) 50 MCG/ML 2 ML AMP IV PRN
[2018-05-12] MEDS ORDERED: MIDAZOLAM 2 MG/2 ML VIAL IVP ONE (10:31)
[2018-05-12] MEDS ORDERED: fentaNYL (PF) 50 MCG/ML 2 ML AMP IVP ONE (10:33)
--- NOTE | 2018-05-12 11:07 | P.ONQ ---
Anesthesiology Proc Note - PNB - Peripheral Nerve Block Performed Left Other (see comment) Single Time Out Performed: Yes (1030) Procedure Start Time: 10:30 Procedure Stop Time: 10:40 Indication: Acute Post-Operative Pain, Dx/Pain Location (Left Breast Pain), Requested by physician Sedation Type: Sedate with meaningful contact maintained Preparation: Sterile Prep Catheter: None Needle Types: On-Q Needle Size: 50mm (2") Needle Gauge: 21 Technique: Ultrasound Injectate: Other (see comment) (20ml 0.5% Ropivacaine + 5ml 2% Lidocaine with 1: 200,000 epi) Narrative: Left PECS I and II block with USG Blood Aspirated: No Pain Paresthesia on Injection Noted: No Resistance on Injection: Normal Events: Uneventful and Well Tolerated
[2018-05-12] MEDS ORDERED: HEPARIN SODIUM,PORCINE 5,000 UNIT/ML 1 ML VIAL SQ ONE (11:35)
[2018-05-12] MEDS ORDERED: PHENYLEPHRINE-0.9% NACL SYG 1 MG/10 ML SYRINGE ONE (12:04)
[2018-05-12] MEDS ORDERED: fentaNYL (PF) 50 MCG/ML 2 ML AMP ONE (12:04)
[2018-05-12] MEDS ORDERED: MIDAZOLAM 2 MG/2 ML VIAL ONE (12:04)
[2018-05-12] MEDS ORDERED: ONDANSETRON 4 MG/2 ML VIAL ONE (12:04)
[2018-05-12] MEDS ORDERED: LIDOCAINE 1% INJ 10MG/ML (20 ML MDV) ONE (12:04)
[2018-05-12] MEDS ORDERED: SUCCINYLCHOLINE CHLORIDE 100 MG/5 ML SYR IV ONE (12:04)
[2018-05-12] MEDS ORDERED: PROPOFOL 10 MG/ML 20 ML VIAL IV ONE (12:04)
--- NOTE | 2018-05-12 12:37 | P.PN ---
Progress Note - Text Progress Note Date: 05/12/18 The patient's case has been discussed with plastic surgery, Dr. Wong as well as Dr. León from our wound care center. The consensus is that rather than try to do a skin graft or closure today if closure is not possible that we will leave the wound open and they will address it at a future date. The patient and her family are aware of this as well. The procedure today is for local control. Again the patient and her family are aware of this.
[2018-05-12] MEDS ORDERED: LIDOCAINE 1% INJ 10MG/ML (20 ML MDV) SQ ONE (12:49)
[2018-05-12] MEDS ORDERED: LACTATED RINGERS 1,000 ML IV ONE (13:23)
[2018-05-12] MEDS ORDERED: CALCIUM CARBONATE 500 MG CHEWABLE PO PRN (15:38)
[2018-05-12] MEDS ORDERED: ONDANSETRON 4 MG/2 ML VIAL IVP PRN (15:38)
[2018-05-12] MEDS ORDERED: NALOXONE 0.4 MG/ML 1 ML VIAL IV PRN (15:38)
--- NOTE | 2018-05-12 15:38 | P.OP ---
Date of Procedure: 05/12/18 Preoperative Diagnosis: Fungating left breast cancer Postoperative Diagnosis: Same Procedure(s) Performed: Simple mastectomy performed for local control Anesthesia: TRACI Surgeon: Nancy Wynn Estimated Blood Loss (ml): 30 IV fluids (ml): 800 Pathology: other Condition: stable Disposition: PACU Indications for Procedure: Fungating breast cancer, mastectomy for local control Operative Findings: Large left breast cancer Description of Procedure: Wendy is a 62-year-old white female who is status post neoadjuvant chemotherapy for a large left breast cancer. She did have some response with decrease in size of the tumor but the tumor remains a source of bleeding. I discussed with the family and the patient that this procedure would be for local control and not for cure. They understand and wish to proceed. I've also discussed with them that we may be unable to close the wound primarily and she may need a wound VAC and in the future skin grafting or a flap for closure. Again the understand and wish to proceed. The patient was taken to the operating room and following induction of general anesthesia the left breast was prepped and draped in a sterile fashion. An incision was made for superior and inferior flaps. The skin was very thickened and indurated. It was necessary to proceed cautiously secondary to increased vascularity feeding to the skin flaps. The flaps were actually developed using the Harmonic scalpel secondary to the vascularity. After development of the superior and inferior skin flaps the breast was able to be taken off the chest wall from medial to lateral using the Harmonic scalpel. Several perforating vessels were clamped using a right angle and suture-ligated. Following this after we were assured that hemostasis was attained the wound was well irrigated. The superior flap was noted to have a suspicious satellite tumor present and additional skin was taken from the superior flap. Two DAVID drains were placed. The lateral drain was superior, and the medial drain was inferior. The drains were secured using a nylon suture. Powderized Surgicel was used to help maintain hemostasis. The flaps were then closed using 3-0 Vicryl suture deep and a 4-0 Monocryl subcuticular suture. The drains held suction with no difficulty. A Tyler wrap was placed. The patient tolerated the procedure in stable condition. All instrument and sponge counts were correct at the end of the case.
[2018-05-12] MEDS: HYDROmorphone 0.5 MG/0.5 ML SYRINGE IVP PRN ×3 (15:46→16:14)
[2018-05-12] MEDS ORDERED: ONDANSETRON 4 MG/2 ML VIAL IVP ONE (16:14)
[2018-05-12] MEDS ORDERED: METOCLOPRAMIDE 5 MG/ML 2 ML VIAL IVP ONE (16:20)
[2018-05-12] MEDS: DEXTROSE 5%-0.45% NACL 1,000 ML IV SCH (16:55)
[2018-05-12 17:31] LABS: Anisocytosis Slight; Basophils % (A) 0 %; Eosinophils % (A) 0 %; Lymphocytes % (A) 10 %; MCH 27.8 pg (25.0-35.0); MCHC 30.7 g/dL (31.0-37.0); MCV 90.6 fL (80.0-100.0); Mean Platelet Volume 6.7; Monocytes # (A) 0.3 k/uL (0-1.0); Monocytes % (A) 3 %; Neutrophils # (A) 8.8 k/uL (1.3-7.7); Neutrophils % (A) 85 %; Platelet Count 338 k/uL (150-450); RBC 3.97 m/uL (3.80-5.40); WBC 10.3 k/uL (3.8-10.6)
[2018-05-12] MEDS: HEPARIN SODIUM,PORCINE 5,000 UNIT/ML 1 ML VIAL SQ SCH ×2 (18:44→23:47)
[2018-05-12] MEDS: HYDROmorphone 1 MG/ML 1 ML SYRINGE IV PRN (23:47)
[2018-05-13] MEDS: DEXTROSE 5%-0.45% NACL 1,000 ML IV SCH ×2 (02:14→08:32)
[2018-05-13] MEDS: HYDROcodone/APAP 5-325MG 1 EACH TAB PO PRN ×5 (04:12→22:04)
[2018-05-13] MEDS: PANTOPRAZOLE 40 MG TABLET PO SCH (06:29)
[2018-05-13] MEDS: HEPARIN SODIUM,PORCINE 5,000 UNIT/ML 1 ML VIAL SQ SCH ×2 (08:31→16:37)
[2018-05-13] MEDS: HYDROmorphone 1 MG/ML 1 ML SYRINGE IV PRN (11:20)
--- NOTE | 2018-05-13 11:54 | P.PN ---
Subjective Progress Note Date: 05/13/18 Principal diagnosis: Left breast cancer Wendy is a 62-year-old white female who is postop day #1 from left mastectomy. Postoperatively she is doing well at this time. She is still requiring IV pain medication for pain control. She is tolerating her diet without difficulty. Her DAVID drainage output is serous and minimal. Objective - Vital Signs Vital signs: Vital Signs Temp 97.7 F 05/13/18 08:30 Pulse 84 05/13/18 08:30 Resp 20 05/13/18 08:30 BP 109/62 05/13/18 08:30 Pulse Ox 95 05/13/18 08:30 Intake & Output 05/12/18 05/13/18 05/13/18 18:59 06:59 18:59 Intake Total 1300 240 Output Total 255 1330 20 Balance 1045 -1090 -20 Intake: IV 1300 Oral 240 Output: Drainage 30 20 drain 1 15 10 drain 2 15 10 Urine 225 1300 Estimated Blood Loss 30 Other: Voiding Method Toilet Toilet # Voids 1 - Constitutional General appearance: Present: average body habitus - EENT Eyes: Present: EOMI ENT: Present: hearing grossly normal - Respiratory Respiratory: bilateral: CTA - Cardiovascular Rhythm: regular Heart sounds: normal: S1, S2 - Gastrointestinal General gastrointestinal: Present: soft - Integumentary Integumentary Comment(s): Incision: Clean and dry DAVID drains 10 mL each serosanguineous No evidence of any infection or hematoma - Psychiatric Psychiatric: Present: A&O x's 3, appropriate affect, intact judgment & insight - Labs CBC & Chem 7: 05/12/18 16:51 Labs: Abnormal Lab Results - Last 24 Hours (Table) 05/12/18 Range/Units 16:51 Hgb 11.0 L (11.4-16.0) gm/dL MCHC 30.7 L (31.0-37.0) g/dL RDW 17.0 H (11.5-15.5) % Neutrophils # 8.8 H (1.3-7.7) k/uL Assessment and Plan Assessment: Impression: 1. Postop day #1 left breast mastectomy 2. Still requiring IV pain medication 3. Tolerating diet Plan: 1. Continue present therapy, transition to oral pain medication 2. Change IV to heparin lock 3. Probable discharge home tomorrow
--- NOTE | 2018-05-13 15:43 | P.CONS ---
History of Present Illness - Reason for Consult Perioperative consultation management - History of Present Illness She is admitted for elective left mastectomy is excellent went surgery patient pain is well-controlled patient did pass gas patient does have bowel sounds to move her bowel yet patient has a DAVID drain with serous drainage. Patient denied any fever chills nausea dysuria shortness of breath. Patient is doing incentive spirometry Review of Systems REVIEW OF SYSTEMS: CONSTITUTIONAL: No fever, no malaise, no fatigue. HEENT: No recent visual problems or hearing problems. Denied any sore throat. CARDIOVASCULAR: No chest pain, orthopnea, PND, no palpitations, no syncope. PULMONARY: No shortness of breath, no cough, no hemoptysis. GASTROINTESTINAL: No diarrhea, no nausea, no vomiting, no abdominal pain. NEUROLOGICAL: No headaches, no weakness, no numbness. HEMATOLOGICAL: Denies any bleeding or petechiae. GENITOURINARY: Denies any burning micturition, frequency, or urgency. MUSCULOSKELETAL/RHEUMATOLOGICAL: Denies any joint pain, swelling, or any muscle pain. ENDOCRINE: Denies any polyuria or polydipsia. The rest of the 14-point review of systems is negative. Past Medical History Past Medical History: Cancer, Heart Failure, GERD/Reflux Additional Past Medical History / Comment(s): HX OF STOMACH ULCERS., BREAST CYSTS, LEFT BREAST CANCER WITH CHEMOTHERAPY (LAST TX 04/2018)., STATES SHE HAD PORT-A-CATH AND IT BECAME INFECTED AND WAS REMOVED- HOSPITALIZATION DEC 2017 WITH CHF & CARDIOMYOPATHY (PER DR ROY HX) History of Any Multi-Drug Resistant Organisms: None Reported Past Surgical History: Orthopedic Surgery Additional Past Surgical History / Comment(s): biopsy on LT and rt breast; LT FEMUR FX SURGERY; RT KNEE SURGERY, PORT-A-CATH INSERTED & REMOVED. Past Anesthesia/Blood Transfusion Reactions: No Reported Reaction, Motion Sickness Past Psychological History: No Psychological Hx Reported Additional Psychological History / Comment(s): . Smoking Status: Former smoker Past Alcohol Use History: None Reported Additional Past Alcohol Use History / Comment(s): QUIT SMOKING NOVEMBER 2017. STARTED SMOKING AGE 18, SMOKED 1/2 PPD Past Drug Use History: None Reported - Past Family History Mother Family Medical History: Cancer Additional Family Medical History / Comment(s): uterine cancer, quad cabg Father Family Medical History: Cancer Additional Family Medical History / Comment(s): brain cancer with mets Brother(s) Family Medical History: Deep Vein Thrombosis (DVT) Additional Family Medical History / Comment(s): 2 BROTHERS HAD DVT Medications and Allergies Home Medications Medication Instructions Recorded Confirmed Type Omeprazole [PriLOSEC] 20 mg PO DAILY 12/04/17 05/12/18 History Multivitamins, Thera [Multivitamin 1 tab PO DAILY 05/07/18 05/12/18 History (formulary)] Cephalexin [Keflex] 500 mg PO Q6HR 05/12/18 05/12/18 History Allergies Allergy/AdvReac Type Severity Reaction Status Date / Time aspirin Allergy Severe Swelling Verified 05/12/18 18:31 Physical Exam Vitals: Vital Signs Temp Pulse Resp BP Pulse Ox 05/13/18 12:09 98.0 F 72 16 123/73 95 05/13/18 08:30 97.7 F 84 20 109/62 95 05/13/18 04:02 97.2 F L 79 18 127/70 94 L 05/12/18 23:45 97.8 F 73 18 113/62 95 05/12/18 20:45 82 16 115/64 94 L 05/12/18 19:45 80 16 128/69 94 L 05/12/18 18:45 79 16 117/66 95 05/12/18 18:15 81 16 129/70 95 05/12/18 17:45 79 16 115/66 94 L 05/12/18 17:30 83 16 119/68 94 L 05/12/18 17:15 87 16 124/69 92 L 05/12/18 17:00 96.9 F L 82 16 119/68 94 L 05/12/18 16:30 86 18 120/65 95 05/12/18 16:15 89 16 120/63 94 L 05/12/18 16:00 87 16 116/60 95 05/12/18 15:45 88 14 122/62 93 L Intake and Output 05/13/18 05/13/18 05/13/18 06:59 14:59 22:59 Output Total 1130 61 Balance -1130 -61 Output: Drainage 30 61 drain 1 15 37 drain 2 15 24 Urine 1100 Other: Voiding Method Toilet # Voids 1 PHYSICAL EXAMINATION: GENERAL: The patient is alert and oriented x3, not in any acute distress. Well developed, well nourished. HEENT: Pupils are round and equally reacting to light. EOMI. No scleral icterus. No conjunctival pallor. Normocephalic, atraumatic. No pharyngeal erythema. No thyromegaly. CARDIOVASCULAR: S1 and S2 present. No murmurs, rubs, or gallops. PULMONARY: Air entry into bilateral lung oliveira minimal bibasilar crackles were appreciated ABDOMEN: Soft, nontender, nondistended, normoactive bowel sounds. No palpable organomegaly. MUSCULOSKELETAL: No joint swelling or deformity. EXTREMITIES: No cyanosis, clubbing, or pedal edema. NEUROLOGICAL: Gross neurological examination did not reveal any focal deficits. SKIN: No rashes. Results CBC & Chem 7: 05/12/18 16:51 Labs: Abnormal Lab Results - Last 24 Hours (Table) 05/12/18 Range/Units 16:51 Hgb 11.0 L (11.4-16.0) gm/dL MCHC 30.7 L (31.0-37.0) g/dL RDW 17.0 H (11.5-15.5) % Neutrophils # 8.8 H (1.3-7.7) k/uL Assessment and Plan Plan: - possible atelectasis: No evidence of sepsis, patient has incentive spirometer at bedside asked her to do incentive spirometry about 10-20 times per hour -Gastroesophageal reflux disease Prilosec can be resumed -Nausea probably secondary to Dilaudid will try and use tramadol instead. -Left breast mastectomy pain management due to prophylaxis per primary service.
[2018-05-13] MEDS ORDERED: traMADol 50 MG TAB PO PRN (15:44)
[2018-05-14] MEDS: HEPARIN SODIUM,PORCINE 5,000 UNIT/ML 1 ML VIAL SQ SCH ×2 (00:39→08:05)
[2018-05-14] MEDS: HYDROcodone/APAP 5-325MG 1 EACH TAB PO PRN ×3 (02:10→09:52)
[2018-05-14 03:12] VITALS: RESP 18
[2018-05-14] MEDS: PANTOPRAZOLE 40 MG TABLET PO SCH (06:04)
[2018-05-14] MEDS: DEXTROSE 5%-0.45% NACL 1,000 ML IV SCH ×2 (06:34→07:47)
[2018-05-14 08:36] VITALS: BP 121/72; PULSE 84; TEMP 98.4
--- NOTE | 2018-05-14 09:25 | P.PN ---
Subjective Progress Note Date: 05/14/18 Principal diagnosis: Left breast cancer Wendy is a 62-year-old white female who is postop day #2 from left mastectomy. Postoperatively she is doing well at this time. Her pain is well controlled at this time. She is tolerating her diet without difficulty. Her DAVID drainage output is serous and minimal. Objective - Vital Signs Vital signs: Vital Signs Temp 98.4 F 05/14/18 08:10 Pulse 84 05/14/18 08:10 Resp 18 05/14/18 08:10 BP 121/72 05/14/18 08:10 Pulse Ox 96 05/14/18 08:10 Intake & Output 05/13/18 05/14/18 05/14/18 18:59 06:59 18:59 Output Total 91 50 Balance -91 -50 Output: Drainage 91 50 drain 1 64 35 drain 2 27 15 Other: Voiding Method Toilet # Voids 1 1 - Constitutional General appearance: Present: average body habitus - EENT Eyes: Present: EOMI ENT: Present: hearing grossly normal - Respiratory Respiratory: bilateral: CTA - Cardiovascular Rhythm: regular Heart sounds: normal: S1, S2 - Integumentary Integumentary Comment(s): Incision: Incision clean and dry No evidence of infection or erythema of concern DAVID drain serous - Labs CBC & Chem 7: 05/12/18 16:51 Assessment and Plan Assessment: Impression: 1. Postop day #2 left breast mastectomy 2. Pain well-controlled 3. Tolerating diet Plan: 1. Discharge home to be followed by Dr. Parra as an outpatient 2. Teach patient drain care
--- NOTE | 2018-05-14 09:29 | P.DS ---
Providers Date of admission: 05/14/18 02:13 Attending physician: Nancy Wynn Consults: 05/12/18 15:43 Consult Physician Routine Consulting Provider: Jake Gaston Consult Reason/Comments: medical managment Do you want consulting provider notified?: Yes Primary care physician: Michelle Mendenhall [facility] Pertinent Studies: The patient underwent a left breast simple mastectomy for a large fungating T4 breast cancer on . Postoperatively she has done well. She does have known metastatic disease and will follow with medical oncology for this. Plan - Discharge Summary Discharge Rx Participant: Yes New Discharge Prescriptions: No Action Omeprazole [PriLOSEC] 20 mg PO DAILY Multivitamins, Thera [Multivitamin (formulary)] 1 tab PO DAILY Cephalexin [Keflex] 500 mg PO Q6HR Discharge Medication List Omeprazole [PriLOSEC] 20 mg PO DAILY 12/04/17 [History] Multivitamins, Thera [Multivitamin (formulary)] 1 tab PO DAILY 05/07/18 [History ] Cephalexin [Keflex] 500 mg PO Q6HR 05/12/18 [History] Follow up Appointment(s)/Referral(s): Nancy Wynn MD [STAFF PHYSICIAN] - 1 Week Activity/Diet/Wound Care/Special Instructions: Teach drain care Do not drive until seen by Dr. Parra Where Tyler wrap at all times except when in shower Patient may shower Discharge Disposition: HOME SELF-CARE
== END 2018-05-14 11:56 | disposition home or self-care (01) ==
LOC: OR 09:37 → 6PED 15:34 → OR 05-14 02:17
PROVIDERS: ADMIT Surgery; ATTEND Surgery
DX: C50.112 Malignant neoplasm of central portion of left female breast (principal); C79.9 Secondary malignant neoplasm of unspecified site; R11.0 Nausea; R59.9 Enlarged lymph nodes, unspecified; Z78.0 Asymptomatic menopausal state; I42.9 Cardiomyopathy, unspecified; N60.19 Diffuse cystic mastopathy of unspecified breast; K21.9 Gastro-esophageal reflux disease without esophagitis; I50.9 Heart failure, unspecified; T45.1X5A Adverse effect of antineoplastic and immunosuppressive drugs, initial encounter; Z79.899 Other long term (current) drug therapy; Z88.6 Allergy status to analgesic agent; Z87.891 Personal history of nicotine dependence; Z92.21 Personal history of antineoplastic chemotherapy; Z87.11 Personal history of peptic ulcer disease; Z86.19 Personal history of other infectious and parasitic diseases; Z80.49 Family history of malignant neoplasm of other genital organs; Z80.8 Family history of malignant neoplasm of other organs or systems; Z82.49 Family history of ischemic heart disease and other diseases of the circulatory system; Z83.2 Family history of diseases of the blood and blood-forming organs and certain disorders involving the immune mechanism
CPT/HCPCS: 19303; 64450; 85025; 88307; G0378; J2250; J1644 ×3; J1100; J2765; J2405 ×2; J2001; J3010; J1170 ×3; J0690; J2370; J0330; J2704; 88305

== ENCOUNTER → 2018-05-22 | Outpatient (CLI) | payer OTHER ==
--- NOTE | 2018-05-22 10:32 | P.PN ---
Progress Note - Text Progress Note Date: 05/22/18 Wendy is a 62-year-old white female status post left breast mastectomy on 120 9 19. The patient had undergone neoadjuvant chemotherapy. This was done for local control. The tumor size is 120 by 110 mm. The superior/anterior margin is positive for cancer. There is lymphovascular invasion. The patient is doing well postoperatively. She has no complaints with wound healing. She has 2 DAVID drains. Both DAVID drainage output is serous and minimal for the past several days. The DAVID drains are being removed. Impression: 1. Patient status post simple mastectomy left breast for local control 2. Positive margin to be treated with radiation therapy 3. Continue treatment as per medical oncology Plan: 1. DC DAVID drains 2. Follow with radiation oncology 3. Follow with medical oncology 4. Follow-up here in 3 months Cc: Dr. Barlow, ([place]), Michelle Mendenhall N.P.
[2018-05-22 10:48] VITALS: BP 149/86; PULSE 85; RESP 18; TEMP 97.7
== END ==
LOC: WWCWWP 10:02
PROVIDERS: ATTEND Surgery
DX: Z53.9 Procedure and treatment not carried out, unspecified reason (principal)

== ENCOUNTER → 2018-09-19 | Outpatient (CLI) | payer OTHER ==
--- NOTE | 2018-09-21 19:45 | PE ---
EXAMINATION TYPE: PET CT fusion skull to thigh DATE OF EXAM: 09/19/2018 CLINICAL HISTORY: 62 year-old female history of left breast cancer, restaging. Status post chemoradia tion therapy completed 08/06/2018 and history of left mastectomy in May 2018. TECHNIQUE: Following the intravenous administration of 11.29 mCi of F-18 FDG, whole body images are performed from the skull base to the midthigh. Images are reviewed on the computer in the coronal, axial, and sagittal planes. Reconstructed rotating images are created on independent workstation and reviewed on the computer. A localization and attenuation correction CT is performed in conjunction with the PET scan. Glucose level: 90 mg/dL CTDI: 4.47 mGy DLP: 397.51 mGy/cm COMPARISON: 05/02/2018 and 12/06/2017 FINDINGS: PET: Symmetrical foci of intense uptake within the posterior aspect of the upper neck, max SUV 6.0 corresp onding to fat on CT images. Findings compatible with brown fat. Otherwise, physiologic FDG uptake wit hin the neck. Additional foci of variable moderate uptake within the right supraclavicular region, max SUV 3.4, als o corresponding to areas of fat density suggesting brown fat. Similar findings are present to a lesse r degree on the left. The chest show similar areas of increased paraspinal uptake corresponding to fat density on CT with v ariable mild to moderate uptake, max SUV 3.3. There is a punctate calcification in the medial right breast. There is borderline moderate focal incr eased uptake in the adjacent fibroglandular tissue, max SUV 3.0, new from prior exam. Interval left mastectomy with some associated minimal soft tissue uptake corresponding to posttreatme nt change. Previously seen axillary and mediastinal lymphadenopathy has resolved as has the previous pulmonary n odules. Average liver SUV 2.3. Some variable mild segmental FDG uptake within seen mid lower midabdominal small bowel loops and left side of the colon as well as the distal sigmoid, all likely physiologic change. Redemonstrated 2.9 x 2.3 cm nodularity left adnexa without discrete FDG uptake. Pelvic ultrasound can further characterize the left ovary and any potential associated lesion. Appearance is unchanged fro m 12/06/2017 suggesting a benign/nonaggressive etiology. Otherwise, physiologic FDG uptake within the abdomen or pelvis. ATTENUATION CORRECTION CT: Visualized paranasal sinuses are well pneumatized. Bilateral palatine tonsillar calcifications sugges ting sequela of prior infection. No cervical lymphadenopathy. Heart upper limits of normal in size without pericardial effusion. Coronary vessel calcifications are present. Aorta normal caliber. Prominent hazy dependent opacity in the bilateral lungs likely repre senting atelectasis. There is underlying emphysematous change particularly in the upper lungs. No dilated small bowel, free fluid, or free air. Mild fusiform dilatation of the infrarenal aorta jae suring up to 2.2 cm without kierra aneurysm. Gallbladder is hydropic measuring 4.3 cm wide without darien rounding inflammation, likely due to fasting state. No mesenteric or retroperitoneal lymphadenopathy. Uterus and right ovary are visualized. No abnormal fluid collection in the pelvis or pelvic lymphaden opathy. Bladder partially distended. Bones: Old fracture deformity left femoral shaft partially visualized. Degenerative changes lower lum bar spine. No osseous destructive process. IMPRESSION: 1. Status post left mastectomy. There has been complete CT and metabolic response with resolution of previous left axillary/mediastinal adenopathy and pulmonary nodules. 2. However, there is nonspecific borderline moderate focal uptake in the medial right breast near a p unctate calcification. This focal uptake is new. Close surveillance is recommended as a focus of jessi y contralateral breast cancer is not excluded at this time. Targeted right breast ultrasound can be c onsidered. 3. Scattered foci of uptake within the neck and chest corresponding to brown fat.
== END | disposition home or self-care (01) ==
LOC: RADPETMAIN 08:49
PROVIDERS: ATTEND Internal Medicine Hematology & Oncology
DX: R92.1 Mammographic calcification found on diagnostic imaging of breast (principal); R94.8 Abnormal results of function studies of other organs and systems; C50.112 Malignant neoplasm of central portion of left female breast; Z90.12 Acquired absence of left breast and nipple
CPT/HCPCS: 78815; A9552

== ENCOUNTER → 2018-09-24 | Outpatient (CLI) | payer OTHER ==
[2018-09-24 11:48] VITALS: BP 131/83; PULSE 85; RESP 16; TEMP 98.3; BMI 27.4
--- NOTE | 2018-09-24 12:46 | P.PN ---
Subjective Progress Note Date: 09/24/18 Principal diagnosis: Prior left breast stage IV breast cancer Wendy is a 62-year-old white female who is status post left breast mastectomy and chemo and radiation therapy for a stage IV left breast cancer. This was an invasive ductal carcinoma grade 2, ER [place] negative HER-2 negative. The patient preoperatively had chemotherapy and postoperative radiation. She had a recent PET scan which was segative for metastatic disease but showed a lesion in the right breast in inner aspect. The patient has no complaints at this time. Objective - Vital Signs Vital signs: Vital Signs Temp 98.3 F 09/24/18 11:39 Pulse 85 09/24/18 11:39 Resp 16 09/24/18 11:39 BP 131/83 09/24/18 11:39 Pulse Ox Intake & Output 09/23/18 09/24/18 09/24/18 18:59 06:59 18:59 Weight 72.575 kg - Constitutional General appearance: Present: average body habitus - EENT Eyes: Present: EOMI ENT: Present: hearing grossly normal - Neck Neck: Present: normal ROM - Respiratory Respiratory: bilateral: CTA - Cardiovascular Rhythm: regular Heart sounds: normal: S1, S2 - Gastrointestinal General gastrointestinal: Present: soft - Integumentary Integumentary Comment(s): radiation changes on the left chest wall, no evidence of recurrent cancer - Musculoskeletal Musculoskeletal: Present: gait normal - Psychiatric Psychiatric: Present: A&O x's 3, appropriate affect, intact judgment & insight - Additional findings Additional findings: right breast: multipositional exam increased fullness in inner aspect right axilla: no adenopathy of concern left chest wall: no recurrence left axilla: no adenopathy of concern Assessment and Plan Assessment: Impression: 1. status post left mastectomy for stage IV breast cancer 2. status post chemo and radiation therapy 3. right breast fullness 4. PET scan abnormal area right breast Plan: 1. right mammogram and ultrasound 2. right breast core biopsy 3. continue follow up with medical and ratiation threapy 4. follow up here after mammogram CC: Dr. Jf Mendenhall [place]
== END | disposition home or self-care (01) ==
LOC: WWCWWP 11:35
PROVIDERS: ATTEND Surgery
DX: Z53.9 Procedure and treatment not carried out, unspecified reason (principal)

== ENCOUNTER → 2018-10-21 | Outpatient (CLI) | payer OTHER ==
--- NOTE | 2018-10-21 09:25 | MM ---
Reason for exam: additional evaluation requested from prior study. Last mammogram was performed 10 years and 10 months ago. History: Patient has history of breast cancer at age 63. Family history of premenopausal breast cancer in sister at age 23. Benign right US cyst aspiration ea add of the right breast, December 28, 2007. Benign left US cyst aspiration of the left breast, December 28, 2007. Benign right US cyst aspiration of the right breast, December 28, 2007. Benign US left guided mammotome of the left breast, December 28, 2007. Benign excisional biopsy of the left breast, 2003. 3 cyst aspirations of the left breast. Physical Findings: Nurse Summary: 2+cm nodule in the right breast at 3 o'clock (nurse kp). MG Diagnostic Mammo RT w CAD CC and MLO view(s) were taken of the right breast. Prior study comparison: December 11, 2007, bilateral diagnostic digital mammog. The breast tissue is heterogeneously dense. This may lower the sensitivity of mammography. 3 o'clock focal asymmetry with biopsy marker corresponds to a highly suspicious mass on ultrasound. Right nipple retraction, retroareolar skin thickening and central middle depth asymmetry. Spot CC and lateral views demonstrate this asymmetry persists on CC only. No ultrasound correlate. 3D or MRI recommended. These results were verbally communicated with the patient and result sheet given to the patient on 10/21/18. ASSESSMENT: Highly suggestive of malignancy, BI-RAD 5 RECOMMENDATION: Ultrasound core biopsy of the right breast. (x2) The patient currently declines 3D. Asymmetry should be worked up before breast conservation therapy. Called with mammographic findings and has scheduled an appointment with Dr. Wynn. Biopsy scheduled for 10/28/18 at 12:20. PRELIMINARY REPORT CALLED AND FAXED TO DR. WYNN ON 10/21/18.
--- NOTE | 2018-10-21 09:27 | USB ---
Reason for exam: additional evaluation requested from prior study. History: Patient has history of breast cancer at age 63. Family history of premenopausal breast cancer in sister at age 23. Benign right US cyst aspiration ea add of the right breast, December 28, 2007. Benign left US cyst aspiration of the left breast, December 28, 2007. Benign right US cyst aspiration of the right breast, December 28, 2007. Benign US left guided mammotome of the left breast, December 28, 2007. Benign excisional biopsy of the left breast, 2003. 3 cyst aspirations of the left breast. US Breast RT Right complete breast ultrasound includes all four quadrants, the retroareolar region and axilla. Finding demonstrates a 2.9 x 1.6 x 3.0cm solid, hypoechoic lesion at 3 o'clock, highly suspicious, biopsy recommended, a 0.5 x 0.4 x 0.5cm hypoechoic lesion at 9 o'clock, suspicious, biopsy recommended and duct ectasia at the posterior nipple. These results were verbally communicated with the patient and result sheet given to the patient on 10/21/18. ASSESSMENT: Suspicious, BI-RAD 4 RECOMMENDATION: Ultrasound core biopsy of the right breast. (x2) The patient currently declines 3D. Asymmetry should be worked up before breast conservation therapy. Called with mammographic findings and has scheduled an appointment with Dr. Wynn. Biopsy scheduled for 10/28/18 at 12:20. PRELIMINARY REPORT CALLED AND FAXED TO DR. WYNN ON 10/21/18.
== END | disposition home or self-care (01) ==
LOC: RADUSWWP 07:01
PROVIDERS: ATTEND Surgery
DX: Z85.3 Personal history of malignant neoplasm of breast (principal)
CPT/HCPCS: 77065

== ENCOUNTER → 2018-10-28 | Day surgery (SDC) | payer OTHER ==
[2018-10-28 11:39] VITALS: PULSE 80; RESP 16; BMI 27.4
[2018-10-28 13:23] VITALS: BP 174/84; TEMP 98
--- NOTE | 2018-10-28 16:32 | USB ---
EXAMINATION TYPE: US biopsy breast VAD RT DATE OF EXAM: 10/28/2018 CLINICAL HISTORY: R92.8 ABN MAMMO. TECHNIQUE: Ultrasound guided core biopsy of right breast, 2 locations. COMPARISON: Ultrasound 10/21/2018 FINDINGS: The procedure of ultrasound guided core biopsy was explained to the patient. Benefits, alt ernatives, and risks were discussed. An informed consent was then obtained. Timeout was performed. The patient was placed in supine positioning for imaging and for the procedure. The overlying skin w as prepped with Betadine and draped in usual sterile fashion. Lidocaine 1% was used as anesthetic in to the skin and subcutaneous tissue up to area of concern in the right breast. A small skin coy was made with surgical scalpel. Under ultrasound guidance, a 12-gauge vacuum assisted biopsy gun device was used to obtain 6 core fer ples of the 9:00 position lesion. A [place] vipul was placed at this site. Under ultrasound guidance a 12-gauge vacuum assisted biopsy gun device was used to obtain 7 core samp les of the 3:00 position lesion. This appeared to be fixed to the posterior wall during ultrasound an d elevation with lidocaine was not able to be performed. Biopsy was performed from the superior surfa ce. A wing clip was placed at this site. The patient tolerated the procedure well without any immediate complication. Good hemostasis was obta ined with direct pressure. The patient was transferred to mammography for postprocedure mammogram cli p documentation. Samples labeled and transferred to pathology for additional evaluation. Postprocedure mammogram is obtained. Clips are in the expected region. IMPRESSION: 1. Successful ultrasound guided core biopsy, 2 locations. Recommendations: 1. Recommendations are pending pathology results.
== END ==
LOC: RADUSWWP 11:18
PROVIDERS: ATTEND Surgery
DX: C50.911 Malignant neoplasm of unspecified site of right female breast (principal); Z17.0 Estrogen receptor positive status [ER+]; N60.31 Fibrosclerosis of right breast; N60.21 Fibroadenosis of right breast; R92.1 Mammographic calcification found on diagnostic imaging of breast; Z88.6 Allergy status to analgesic agent
CPT/HCPCS: 77065; 19083; 19084; A4648; J2001; 88305; 88341; 88342

== ENCOUNTER → 2018-11-05 | Outpatient (CLI) | payer OTHER ==
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
== END | disposition home or self-care (01) ==
DX: Z53.9 Procedure and treatment not carried out, unspecified reason (principal)

== ENCOUNTER → 2018-11-11 | Outpatient (CLI) | payer OTHER ==
--- NOTE | 2018-11-11 07:55 | US ---
EXAMINATION TYPE: US pelvis complete transvag DATE OF EXAM: 11/11/2018 COMPARISON: PET scan dated 09/19/[address] chest abdomen pelvis dated 11/19/2017. CLINICAL HISTORY: R93.5 Abn Findings on PET scan,C50.911 Breast Ca. Abnormal findings on PET scan. P atient has breast cancer. Not on tamoxifen per patient. No pain. Hx of tubes tied. TECHNIQUE: Transvaginal (TV) and Transabdominal (TA) . Transabdominal sonographic images of the pel vis were acquired. Transvaginal sonographic images were medically necessary to better assess the fol lowing anatomy: Ovaries and endometrium Date of LMP: Unknown, EXAM MEASUREMENTS: Uterus: 4.8 x 3.7 x 2.8 cm Endometrial Stripe: 0.4 cm Right Ovary: 2.4 x 1.3 x 1.2 cm 1. Uterus: Anteverted Appears small in size and heterogenous. No prominent focal lesions seen. 2. Endometrium: wnl as visualized 3. Right Ovary: Appears heterogenous 4. Left Ovary: Obscured by overlying bowel gas, unable to visualize left ovary or abnormality seen o n PET scan 5. Bilateral Adnexa: wnl 6. Posterior cul-de-sac: no free fluid Cervix- wnl IMPRESSION: The left ovary, area of interest, is obscured by bowel gas. However in review of the prio r PET/CT of 09/19/[address] chest abdomen pelvis dated 11/19/2017 and the nonenlarged left ovary is thought to be cranial and medial to the area of interest when the gonadal vein is followed. The ques tioned abnormality likely relates to a stable venous varix and could be confirmed with delayed imagin g through the pelvis to enhance the venous system as stable adenopathy intimately associated with the venous system is a less likely consideration. Note that there was no FDG avidity on the prior PET/CT .
== END | disposition home or self-care (01) ==
LOC: RADUSWWP 06:50
PROVIDERS: ATTEND Surgery
DX: C50.911 Malignant neoplasm of unspecified site of right female breast (principal); Z88.6 Allergy status to analgesic agent
CPT/HCPCS: 76830; 76856

== ENCOUNTER → 2018-11-30 | Outpatient (CLI) | payer OTHER ==
[2018-11-30 16:52] VITALS: BP 138/77; PULSE 81; RESP 18; TEMP 98.5; BMI 27.4
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
== END ==
LOC: WWCWWP 16:06
PROVIDERS: ATTEND Surgery
DX: Z53.9 Procedure and treatment not carried out, unspecified reason (principal)

== ENCOUNTER 2018-12-15 11:47 | Observation (INO) | payer OTHER ==
[~2018-12-15 11:47] MED LIST changes: -LACTATED RINGERS 1,000 ML IV SCH; -LIDOCAINE 1% 20 ML VIAL (10MG/ML) FOR IV START INTRADERMA PRN; +Pre Op ABX Message 1 EACH MISC MISCELLANE ONE; -SCOPOLAMINE 1.5MG/72HR PATCH TRANSDERM ONE; -ceFAZolin 1,000 MG in DEXTROSE/WATER 1 50ML.BAG IVPB ONE
[2018-12-15] MEDS: LACTATED RINGERS 1,000 ML IV SCH ×3 (12:16→19:04)
[2018-12-15] MEDS ORDERED: LIDOCAINE 1% 20 ML VIAL (10MG/ML) FOR IV START INTRADERMA ONE (12:17)
[2018-12-15] MEDS ORDERED: ALPRAZolam 0.5 MG TAB PO ONE (12:17)
[2018-12-15] MEDS: ONDANSETRON 4 MG/2 ML VIAL IVP PRN ×2 (13:09→17:32)
[2018-12-15] MEDS ORDERED: DEXAMETHASONE SOD PHOSPHATE 4 MG/ML 1 ML VIAL IV ONE (13:09)
[2018-12-15] MEDS ORDERED: SUCCINYLCHOLINE CHLORIDE 100 MG/5 ML SYR IV ONE (14:05)
[2018-12-15] MEDS ORDERED: PHENYLEPHRINE-0.9% NACL SYG 1 MG/10 ML SYRINGE ONE (14:05)
[2018-12-15] MEDS ORDERED: MIDAZOLAM 2 MG/2 ML VIAL ONE (14:05)
[2018-12-15] MEDS ORDERED: ceFAZolin 1,000 MG VIAL ONE (14:05)
[2018-12-15] MEDS ORDERED: LIDOCAINE 1% INJ 10MG/ML (20 ML MDV) ONE (14:05)
[2018-12-15] MEDS ORDERED: PROPOFOL 10 MG/ML 20 ML VIAL IV ONE (14:05)
[2018-12-15] MEDS ORDERED: fentaNYL (PF) 50 MCG/ML 2 ML AMP ONE (14:05)
--- NOTE | 2018-12-15 14:07 | NM ---
EXAMINATION TYPE: NM sentinel node injection DATE OF EXAM: 12/15/2018 COMPARISON: NONE HISTORY: Right breast sentinel node injection TECHNIQUE AND FINDINGS: The procedure of sentinel lymph node injection was explained to the patient. The benefits, alternatives, and risks were discussed. An informed consent was then obtained. Prepr ocedural timeout was performed. Overlying skin is cleaned with sterile alcohol. Following this, 547 uCi Tc99m Tilmanocept was inject ed in the upper outer aspect of the right nipple intradermally. The patient tolerated the procedure well without any immediate complication. The patient was kept in the radiology department for short stay after the procedure and then taken to surgery for surgical p rocedure what is presumed intraoperative gamma probe will be used for sentinel lymph node detection. IMPRESSION: Right breast radiotracer injection for sentinel node localization as above.
[2018-12-15] MEDS ORDERED: SODIUM CHLORIDE 0.9% 50 ML with ceFAZolin 2,000 MG IV ONE ×2 (14:41)
[2018-12-15] MEDS ORDERED: HEPARIN SODIUM,PORCINE 5,000 UNIT/ML 1 ML VIAL SQ ONE (14:44)
[2018-12-15] MEDS ORDERED: LACTATED RINGERS 1,000 ML IV ONE (15:07)
[2018-12-15] MEDS ORDERED: NALOXONE 0.4 MG/ML 1 ML VIAL IV PRN (16:57)
[2018-12-15] MEDS ORDERED: ONDANSETRON 4 MG/2 ML VIAL IVP PRN (16:57)
--- NOTE | 2018-12-15 16:57 | P.OP ---
Date of Procedure: 12/15/18 Preoperative Diagnosis: Right breast cancer Postoperative Diagnosis: Same, positive sentinel node Procedure(s) Performed: Mastectomy, sentinel node biopsy, axillary node dissection on the right Anesthesia: TRACI Surgeon: Nancy Wynn Estimated Blood Loss (ml): 25 IV fluids (ml): 1,100 Pathology: other (Right breast, sentinel node, axillary contents) Condition: stable Disposition: floor Indications for Procedure: Right breast cancer Operative Findings: Fibrocystic breast changes, positive axillary adenopathy Description of Procedure: The patient was taken to the operating room and following induction of general anesthesia the right breast and axilla were prepped and draped in a sterile fashion. Prior to operative intervention periareolar injection with radioactive lymphokine had been administered. Superior and inferior skin flaps were developed. These were developed in the tissue plane between the breast and skin and the subcutaneous tissue. It was developed superiorly down to the pectoralis major muscle as well as medially and inferiorly. The breast was then taken off of the muscle of the chest wall using the electrocautery device as well as the Harmonic scalpel. Several larger vessels were suture ligated. The level of the axilla at the border the pectoralis major was identified and the breast was carefully transected. Using the neoprobe the axilla was interrogated. Radioactive lymph nodes were identified. There were removed using the electrocautery device as well as the Harmonic scalpel. 2 sentinel nodes were identified. The 10 second count of sentinel node #1 was 10,557, and a 10 second count sentinel node #2 was 27,682. After the nodes had been removed there were sent for frozen section evaluation. [place] node #1 was negative for cancer on frozen section however sentinel node #2 was positive for cancer. An axillary node dissection was performed. The pectoralis major muscle was followed superiorly to the area of the axillary vein. There were suspicious lymph nodes palpated in the specimen and these were swept inferiorly and the axillary tissue being careful to identify and preserve the thoracodorsal and long thoracic nerves. Several intercostal brachial nerves and vessels transected in the process. After we assured that hemostasis was attained the wound was well irrigated. Surgicel and pyriform was placed. 2 Brendan-Limon drains were placed. The drains were secured using a nylon suture. The subcutaneous tissue was closed using a 3-0 Vicryl suture. A 4-0 subcuticular closure was then performed. At the termination of the case the drains were holding suction with no difficulty. Steri-Strips were applied. Patient tolerated the procedure in stable condition. All instrument and sponge counts were correct at the end of the case.
[2018-12-15] MEDS: HYDROmorphone 0.5 MG/0.5 ML SYRINGE IVP PRN ×4 (17:32→17:58)
[2018-12-15 20:38] VITALS: RESP 18; BMI 27.5
[2018-12-15] MEDS: FAMOTIDINE 20 MG TAB PO SCH (21:36)
[2018-12-15] MEDS: HYDROcodone/APAP 5-325MG 1 EACH TAB PO PRN (22:52)
[2018-12-15] MEDS: HEPARIN SODIUM,PORCINE 5,000 UNIT/ML 1 ML VIAL SQ SCH (23:50)
[2018-12-16] MEDS: HYDROcodone/APAP 5-325MG 1 EACH TAB PO PRN ×3 (02:59→10:57)
[2018-12-16] MEDS: D5-0.45% NACL WITH KCL 20MEQ/L 1,000 ML IV SCH ×3 (03:40→07:58)
[2018-12-16] MEDS: LACTATED RINGERS 1,000 ML IV SCH (03:43)
[2018-12-16] MEDS: HEPARIN SODIUM,PORCINE 5,000 UNIT/ML 1 ML VIAL SQ SCH (07:58)
[2018-12-16] MEDS: FAMOTIDINE 20 MG TAB PO SCH (07:58)
[2018-12-16 08:18] VITALS: BP 149/72; PULSE 77; TEMP 98.7
[2018-12-16 08:31] LABS: Basophils % (A) 1 %; Eosinophils % (A) 1 %; HCT 34.8 % (34.0-46.0); HGB 11.3 gm/dL (11.4-16.0); Lymphocytes # (A) 1.3 k/uL (1.0-4.8); Lymphocytes % (A) 20 %; MCH 28.2 pg (25.0-35.0); MCHC 32.6 g/dL (31.0-37.0); MCV 86.4 fL (80.0-100.0); Mean Platelet Volume 7.1; Monocytes # (A) 0.4 k/uL (0-1.0); Monocytes % (A) 6 %; Neutrophils # (A) 4.6 k/uL (1.3-7.7); Neutrophils % (A) 71 %; Platelet Count 271 k/uL (150-450); RBC 4.02 m/uL (3.80-5.40); RDW 14.1 % (11.5-15.5); WBC 6.5 k/uL (3.8-10.6)
--- NOTE | 2018-12-16 13:07 | P.CONS ---
History of Present Illness - History of Present Illness This is a pleasant 63 years old female with past medical history of heart shahrzad lure, GERD, peptic ulcer, left breast cancer status post chemoradiotherapy last one was in 04/2018. She presents for right breast mastectomy and sentinel nodes biopsy and axillary node dissection . She is postop day #1. Patient is known well with no chest pain. No dyspnea. No change in urine or bowel habits. She is tolerating diet well. Pain is controlled on the surgical site. Patient is afebrile and vitals are stable. Labs show normal WBC at 6.5K, platelets 271. Hemoglobin 11.3. She is started on D5 half-normal saline at 100 mm per hour, she is also on Pepcid and heparin for DVT prophylaxis. She is on [place]. And Zofran. Review of Systems CONSTITUTIONAL: No fever, no malaise, no fatigue. HEENT: No recent visual problems or hearing problems. Denied any sore throat. CARDIOVASCULAR: No orthopnea, PND, no palpitations, no syncope. PULMONARY: No shortness of breath, no cough, no hemoptysis. GASTROINTESTINAL: No diarrhea, no nausea, no vomiting, no abdominal pain. Normoactive bowel sounds. NEUROLOGICAL: No headaches, no weakness, no numbness. HEMATOLOGICAL: Denies any bleeding or petechiae. GENITOURINARY: Denies any burning micturition, frequency, or urgency. MUSCULOSKELETAL/RHEUMATOLOGICAL: Denies any joint pain, swelling, or any muscle pain. ENDOCRINE: Denies any polyuria or polydipsia. Past Medical History Past Medical History: Cancer, Heart Failure, GERD/Reflux Additional Past Medical History / Comment(s): HX OF STOMACH ULCERS., BREAST CYSTS, LEFT BREAST CANCER WITH CHEMOTHERAPY & radiation,(LAST TX 04/2018)., HOSPITALIZATION DEC 2017 W/CHF & CARDIOMYOPATHY-felt to be related to chemo & had an infected port, no further problems with, recent sinus infection-now resolved. History of Any Multi-Drug Resistant Organisms: None Reported Past Surgical History: Orthopedic Surgery Additional Past Surgical History / Comment(s): biopsy on LT and rt breast; LT FEMUR FX SURGERY; RT KNEE SURGERY, PORT-A-CATH INSERTED & REMOVED. Left breast mastectomy May 2018, laparoscopy Past Anesthesia/Blood Transfusion Reactions: No Reported Reaction Past Psychological History: No Psychological Hx Reported Additional Psychological History / Comment(s): . Smoking Status: Former smoker Past Alcohol Use History: None Reported Additional Past Alcohol Use History / Comment(s): QUIT SMOKING NOVEMBER 2017. STARTED SMOKING AGE 18, SMOKED 1/2 PPD Past Drug Use History: None Reported - Past Family History Mother Family Medical History: Cancer Additional Family Medical History / Comment(s): uterine cancer, quad cabg Father Family Medical History: Cancer Additional Family Medical History / Comment(s): brain cancer with mets Brother(s) Family Medical History: Deep Vein Thrombosis (DVT) Additional Family Medical History / Comment(s): 2 BROTHERS HAD DVT Medications and Allergies Home Medications Medication Instructions Recorded Confirmed Type Omeprazole [PriLOSEC] 20 mg PO DAILY 12/04/17 12/16/18 History Allergies Allergy/AdvReac Type Severity Reaction Status Date / Time aspirin Allergy Severe Swelling Verified 12/16/18 07:18 Physical Exam Vitals: Vital Signs Temp Pulse Resp BP BP Pulse Ox 12/16/18 08:10 98.7 F 77 18 149/72 93 L 12/16/18 00:00 72 18 12/15/18 22:01 72 18 160/91 96 12/15/18 21:00 68 154/85 12/15/18 20:30 67 159/85 12/15/18 20:21 97.9 F 71 18 150/78 93 L 12/15/18 20:00 71 164/84 96 12/15/18 19:32 74 16 12/15/18 19:00 71 154/82 93 L 12/15/18 18:45 72 159/82 95 12/15/18 18:30 96.3 F L 74 18 150/78 93 L 12/15/18 18:04 74 16 167/80 99 12/15/18 17:47 77 16 165/82 99 12/15/18 17:32 77 16 161/78 100 12/15/18 17:15 85 16 136/65 94 L 12/15/18 17:09 96.9 F L 83 16 135/67 94 L 12/15/18 12:10 98.5 F 85 16 143/64 96 Intake and Output 12/15/18 12/16/18 12/16/18 22:59 06:59 14:59 Intake Total 1020 Output Total 390 530 712 Balance 387 -044 -593 Intake: IV 920 Oral 100 Output: Drainage 30 18 Right Breast Medial 20 15 Right Lateral Breast 10 3 Urine 365 500 250 Estimated Blood Loss 25 Other: Voiding Method Toilet Toilet # Emeses 1 GENERAL: The patient is alert and oriented x3, not in any acute distress. Well developed, well nourished. HEENT: Pupils are round and equally reacting to light. EOMI. No scleral icterus. No conjunctival pallor. Normocephalic, atraumatic. No pharyngeal erythema. No thyromegaly. CARDIOVASCULAR: S1 and S2 present. No murmurs, rubs, or gallops. PULMONARY: Chest is clear to auscultation, no wheezing or crackles. Status post right mastectomy. Once is clean and closed with dressing is in place ABDOMEN: Soft, nontender, nondistended, normoactive bowel sounds. No palpable organomegaly. MUSCULOSKELETAL: No joint swelling or deformity. EXTREMITIES: No cyanosis, clubbing, or pedal edema. NEUROLOGICAL: Gross neurological examination did not reveal any focal deficits. SKIN: No rashes. Results CBC & Chem 7: 12/16/18 08:09 Labs: Abnormal Lab Results - Last 24 Hours (Table) 12/16/18 Range/Units 08:09 Hgb 11.3 L (11.4-16.0) gm/dL Assessment and Plan Assessment: Patient is status post right breast mastectomy and lymph node dissection with biopsy of the sentinel nodes Left breast cancer status post radiochemotherapy last dose was on 04/2018 History of heart failure, chronic GERD History of peptic ulcer disease Plan: This is a pleasant 63 years old female who presents with right breast elective mastectomy with no final dissection and biopsy. Because of management, pain management as per surgery primary team. Patient was counseled to follow-up the biopsy results with her PCP and surgery primary service. Patient agrees. Labs and medication were reviewed.. Continue same treatment. Continue with symptomatic treatment. Resume home medication. Monitor lytes and vitals. DVT and GI prophylaxis. Further recommendations of the clinical course of the patient DVT prophylaxis: Subcutaneous heparin GI Prophylaxis: Pepcid Prognosis is guarded Patient was instructed to follow up with her PCP in one week. She agrees with that, also she states she is already have an appointment with her surgeon and oncologist and she is going to follow up with them.
--- NOTE | 2018-12-16 13:18 | P.PN ---
Subjective Progress Note Date: 12/16/18 Wendy is postop day #1 from right breast mastectomy and axillary node dissection. Postoperatively she is doing well. She is tolerating diet without difficulty and her pain is under control. The DAVID output is serous in nature DAVID #1 is 18 mL and DAVID #2 is 15 mL. White count 6.5 and hemoglobin 11.3. Objective - Vital Signs Vital signs: Vital Signs Temp 98.7 F 12/16/18 08:10 Pulse 77 12/16/18 08:10 Resp 18 12/16/18 08:10 BP 149/72 12/16/18 08:10 Pulse Ox 93 L 12/16/18 08:10 Intake & Output 12/15/18 12/16/18 12/16/18 18:59 06:59 18:59 Intake Total 1370 100 Output Total 90 830 268 Balance 1280 -730 -268 Intake: IV 1370 Oral 100 Output: Drainage 30 18 Right Breast Medial 20 15 Right Lateral Breast 10 3 Urine 65 800 250 Estimated Blood Loss 25 Other: Voiding Method Toilet # Emeses 1 - Constitutional General appearance: Present: average body habitus - EENT Eyes: Present: EOMI ENT: Present: hearing grossly normal - Respiratory Respiratory: bilateral: CTA - Cardiovascular Rhythm: regular Heart sounds: normal: S1, S2 - Integumentary Integumentary Comment(s): Incision clean and dry no hematoma, no infection - Psychiatric Psychiatric: Present: A&O x's 3, appropriate affect, intact judgment & insight - Labs CBC & Chem 7: 12/16/18 08:09 Labs: Abnormal Lab Results - Last 24 Hours (Table) 12/16/18 Range/Units 08:09 Hgb 11.3 L (11.4-16.0) gm/dL Assessment and Plan Assessment: Impression: 1. Patient status post right breast mastectomy with axillary node dissection postop day #1 2. Patient doing well postoperative Plan: 1. Discharge home 2. Follow-up with Dr. Parra 1 week 3. Teach drain care 4. Patient may shower after 48 hours from surgery 5. Follow-up with medical oncology 6. Follow-up radiation oncology
--- NOTE | 2018-12-16 13:20 | P.DS ---
Providers Date of admission: 12/15/18 18:54 Attending physician: Nancy Wynn Consults: 12/15/18 16:57 Consult Physician Routine Consulting Provider: Michel Mock Consult Reason/Comments: medical managment Do you want consulting provider notified?: Yes Primary care physician: Roger Barlow Plan - Discharge Summary Discharge Rx Participant: Yes New Discharge Prescriptions: No Action Omeprazole [PriLOSEC] 20 mg PO DAILY Discharge Medication List Omeprazole [PriLOSEC] 20 mg PO DAILY 12/04/17 [History] Follow up Appointment(s)/Referral(s): Nancy Wynn MD [STAFF PHYSICIAN] - 1 Week (called and left message with the office to call the patient and make an appointment. ) Activity/Diet/Wound Care/Special Instructions: May shower 48 hours after surgery Do not drive for taking pain medication Teach drain care; drain and record twice a day and as needed Discharge Disposition: HOME SELF-CARE
== END 2018-12-16 13:50 | disposition home or self-care (01) ==
LOC: OR 11:47 → 6PED 16:51 → OR 18:54 → 6PED 18:54
PROVIDERS: ADMIT Surgery; ATTEND Surgery
DX: C50.911 Malignant neoplasm of unspecified site of right female breast (principal); C77.9 Secondary and unspecified malignant neoplasm of lymph node, unspecified; I50.9 Heart failure, unspecified; I42.9 Cardiomyopathy, unspecified; K21.9 Gastro-esophageal reflux disease without esophagitis; N60.19 Diffuse cystic mastopathy of unspecified breast; Z90.12 Acquired absence of left breast and nipple; Z92.21 Personal history of antineoplastic chemotherapy; Z87.891 Personal history of nicotine dependence; Z92.3 Personal history of irradiation; Z87.11 Personal history of peptic ulcer disease; Z79.899 Other long term (current) drug therapy; Z88.6 Allergy status to analgesic agent; Z80.8 Family history of malignant neoplasm of other organs or systems; Z80.3 Family history of malignant neoplasm of breast; Z82.49 Family history of ischemic heart disease and other diseases of the circulatory system; Z83.2 Family history of diseases of the blood and blood-forming organs and certain disorders involving the immune mechanism; Z80.49 Family history of malignant neoplasm of other genital organs; Z85.3 Personal history of malignant neoplasm of breast
CPT/HCPCS: 19307; 88305; 85025; 88331; 88307; 88309; 38792; G0378 ×2; A9520; J2250; J1644 ×2; J1100; J2405; J0690; J2001; J3010; J2370; J0330; J2704; J1170; 88341; 88342

== ENCOUNTER → 2018-12-25 | Outpatient (CLI) | payer OTHER ==
[2018-12-25 16:31] VITALS: BP 132/82; PULSE 87; RESP 18; TEMP 98.5; BMI 27.4
--- NOTE | 2018-12-25 16:32 | P.PN ---
Progress Note - Text Progress Note Date: 12/25/18 Wendy is a 63-year-old white female status post right mastectomy and axillary node dissection on 9318. Postoperatively she is doing very well. Her DAVID drains are minimal output is serosanguineous in nature. Her pathology revealed 18 nodes totally removed 2 of which had macro metastases and one of which had mitral metastases. The patient had multifocal invasive moderately differentiated ductal carcinoma grade 2 multifocal ductal carcinoma in situ. All margins were negative. The patient has no complaints at this time. She is going to follow with medical and radiation oncology. Physical exam: Lungs: Clear Heart: Regular rate and rhythm Incision: Clean and dry Impression: Patient status post right breast mastectomy and Node dissection; status post left mastectomy radiation therapy to the left chest wall and neoadjuvant chemotherapy Plan: 1. DC DAVID drains 2. Follow-up with medical oncology 3. Follow-up radiation oncology 4. Follow-up. In 3 months time Cc: Dr. Jf Mendenhall
== END ==
LOC: WWCWWP 16:12
PROVIDERS: ATTEND Surgery
DX: Z53.9 Procedure and treatment not carried out, unspecified reason (principal)

== ENCOUNTER → 2019-01-07 | Outpatient (CLI) | payer OTHER ==
[2019-01-07 11:40] VITALS: BP 159/84; PULSE 85; RESP 18; TEMP 98.2; BMI 27.9
--- NOTE | 2019-01-07 12:01 | P.PN ---
Subjective Progress Note Date: 01/07/19 Principal diagnosis: fluid at mastectomy site Wendy is a 63-year-old white female status post right mastectomy No dissection and [id number]. Postoperatively she is doing very well her Brendan- Limon drains were removed on . Since that time she has developed some swelling in the right mastectomy site. 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 All margins were negative. She had 18 nodes removed 2 of which had metastatic deposits. She is following with medical and radiation oncology. She did have a left mastectomy in May 2018. She received chemotherapy prior to the mastectomy and then radiation to the chest wall after the mastectomy. On the left side she did not have her lymph nodes removed. This was for a T4 tumor. She was seen by radiation oncology and told she would not need any radiation therapy on the right side. She is following with medical oncology on January 13, 2019. Objective - Vital Signs Vital signs: Vital Signs Temp 98.2 F 01/07/19 11:36 Pulse 85 01/07/19 11:36 Resp 18 01/07/19 11:36 BP 159/84 01/07/19 11:36 Pulse Ox 97 01/07/19 11:36 Intake & Output 01/06/19 01/07/19 01/07/19 18:59 06:59 18:59 Weight 73.936 kg - Exam BMI 28 - Constitutional General appearance: Present: average body habitus - EENT Eyes: Present: EOMI ENT: Present: hearing grossly normal - Neck Neck: Present: normal ROM - Respiratory Respiratory: bilateral: CTA - Cardiovascular Rhythm: regular Heart sounds: normal: S1, S2 - Gastrointestinal General gastrointestinal: Present: soft - Integumentary Integumentary Comment(s): Incisions bilateral clean and dry Right mastectomy site seroma present Integumentary: Present: normal turgor - Musculoskeletal Musculoskeletal: Present: gait normal - Psychiatric Psychiatric: Present: A&O x's 3, appropriate affect, intact judgment & insight Assessment and Plan Assessment: Impression: 1. Stage IV left breast cancer treated with neoadjuvant chemotherapy last mastectomy/radiation therapy 2. Stage II right breast cancer treated with mastectomy and axillary node dissection she is following with medical oncology 3. Development of seroma right chest wall Plan: 1. Aspiration of seroma 2. Follow with medical oncology 3. Follow here in 2 weeks CC: DR. Mihai Romero
--- NOTE | 2019-01-07 12:04 | P.PCN ---
Date of Procedure: 01/07/19 Preoperative Diagnosis: Seroma right chest wall Postoperative Diagnosis: same Procedure(s) Performed: Aspiration seroma Surgeon: Nancy Wynn Estimated Blood Loss (ml): 0 Pathology: none sent Condition: stable Disposition: same day Indications for Procedure: Seroma right mastectomy site Operative Findings: Straw-colored fluid Description of Procedure: The area of concern in the right chest wall was prepped using alcohol. An 18- gauge needle on a 60 mL syringe was used to withdraw the fluid. The needle was inserted and approximately 60 mL of straw-colored fluid was withdrawn. The area appeared to be somewhat loculated and the needle was again inserted and another 50 mL of straw-colored fluid was removed. This was in a more medial location. The seroma. Be completely resolved. The patient tolerated the procedure in stable condition. She will follow in 2 weeks if this is recurred. Otherwise I will see her in 4 months, or as needed
== END ==
LOC: WWCWWP 10:03
PROVIDERS: ATTEND Surgery
DX: Z53.9 Procedure and treatment not carried out, unspecified reason (principal)

== ENCOUNTER → 2019-04-23 | Outpatient (CLI) | payer OTHER ==
[2019-04-23 13:52] VITALS: BP 151/80; PULSE 94; RESP 18; TEMP 98.2
--- NOTE | 2019-04-23 14:13 | P.PN ---
Subjective Progress Note Date: 04/23/19 Principal diagnosis: Stage IV left breast cancer, stage II right breast cancer Wendy is a 63-year-old white female status post diagnosis of left breast cancer [id number] -[id number]. She at that time underwent computed tomography scan which revealed multiple pulmonary nodules consistent with metastatic disease. An MRI of the brain and 802 [id number] was normal. Wendy was started on AC based chemotherapy in December 2017. She subsequently switched to single agent [place]ol and completed [place] [address]. Past/CT [id number] showed significant response to systemic therapy. Pulmonary metastasis resolved, however mediastinal nodes remained. No bone or liver metastases were identified. Clinical Wendy did have residual left breast mass and drainage from the skin. She underwent a left simple mastectomy and 12 919 for patent radiation. Pathology returned as a 12 cm invasive ductal carcinoma grade 2 with extension to the skin with ulceration. Multiple margins were positive. No nodes were sampled. The patient then had chest wall and regional adolfo ablation and radiation completed on July 2018. PET scan on 09/19/2018 this was a 3 cm lesion with 1 of 18 lymph nodes positive. This has no complaints at this time related to her surgery. She has no complaints of any masses or nodules in the chest wall. Patient does complain of some difficulty with extension of her right arm and a cordlike sensation from the area of the antecubital fossa inferiorly Family History: mother: uterine cancer sister: breast cancer brother: lung cancer Hormonal History: menarche: 13 , breast fed:no, first born at 19 menopasue: 40's BCP: 1 year hormones: none Surgical History: bilateral leg surgery bilateral mastectomy, right laproscopic examination tubaligation Medical History: none Social History: smoke: stopped 2017, used to smoke 1/2 PPD since 18 alcohol: none drugs: none ROS: constitutional: none HEENT: none lung: Cystic lesions cleared and chemotherapy Cardiac: Negative GI: Negative :menopausal Musculoskeletal: Some discomfort in her right forearm Neurologic: Negative ALLERGIES: Aspirin Hematologic: Negative Objective - Exam BMI 27.5 - Constitutional General appearance: Present: average body habitus - EENT Eyes: Present: EOMI ENT: Present: hearing grossly normal - Neck Details: no lymphadenopathy Neck: Present: normal ROM Thyroid: bilateral: normal size - Respiratory Respiratory: bilateral: CTA - Cardiovascular Rhythm: regular Heart sounds: normal: S1, S2 - Gastrointestinal Gastrointestinal Comment(s): no liver or spleen enlargement General gastrointestinal: Present: normal bowel sounds, soft - Integumentary Integumentary Comment(s): Alopecia Right subcutaneous nodule on the shoulder Integumentary: Present: normal turgor - Musculoskeletal Musculoskeletal: Present: gait normal - Psychiatric Psychiatric: Present: A&O x's 3, appropriate affect, intact judgment & insight - Additional findings Additional findings: Chest wall: Right chest wall: Incision is clean and dry and well-healed no evidence of subcutaneous nodularity or recurrence of cancer Right axilla: No adenopathy of concern Left chest wall: Telangiectasias in the lateral chest wall with no evidence of recurrent cancer Left axilla: No adenopathy of concern Assessment and Plan Assessment: Impression: 1. Patient diagnosed with stage IV left breast cancer 2018, stage II right breast cancer 2018 patient status post bilateral mastectomy good response to chemotherapy at this time no evidence of recurrent or metastatic disease 2. Alopecia 3. Small subcutaneous nodule right shoulder most likely not related to malignancy but will follow closely. 4. Cord in right forearm which developed recently may be related to scar tissue I discussed the patient's disease status with her at this time. She has recently completed chemotherapy after the diagnosis of right breast cancer. At this time she is doing well. Plan: 1. Continued follow-up here with repeat exam in 3 months time close surveillance of right shoulder subcutaneous nodule 2. Follow-up with medical oncology 3. Follow-up radiation oncology 4. Cord right forearm may be related to scar tissue CC:Dr. Luis Angel Clarke encounter 25 minutes > 50% of time planning and counselling Time with Patient: Less than 30
== END ==
LOC: WWCWWP 13:30
PROVIDERS: ATTEND Surgery
DX: Z53.9 Procedure and treatment not carried out, unspecified reason (principal)

== ENCOUNTER → 2019-09-20 | Outpatient (CLI) | payer OTHER ==
--- NOTE | 2019-09-20 11:43 | CT ---
EXAMINATION TYPE: CT ChestAbdPelvis w con DATE OF EXAM: 09/20/2019 COMPARISON: Prior nuclear medicine PET/CT 09/19/2018 HISTORY: Follow up left breast cancer. CT DLP: 854 mGycm Automated exposure control for dose reduction was used. CONTRAST: CT scan of the chest, abdomen and pelvis is performed with Oral Contrast and with IV Contrast, patien t injected with 100 mL of Isovue 300. FINDINGS: Interval right mastectomy, bilateral mastectomy changes are present, minimal seromas or pos tprocedural organized collections are present along the chest marr. Mild decreased density is presen t within the subcutaneous fat, possible inflammatory change with skin thickening. There are some smal l nodes in the left axilla which is developed in the interval. LUNGS: The lungs are remarkable for emphysematous changes, some interstitial changes may be due to po st radiation treatment along the anterior pleural margin on the left., there is no concerning parench ymal mass or nodule identified. There is no pleural effusion or pneumothorax seen. The tracheobron chial tree is patent. MEDIASTINUM: There has been interval development of retrocaval pretracheal adenopathy, abnormal soft tissue also present in the aorticopulmonary window. Subcarinal node is present. Right hilar adenopath y is present. AORTA: Atheromatous changes are present. OTHER: No additional significant abnormality is seen. LIVER/GB: Liver is at the upper limit of normal for size.. PANCREAS: No significant abnormality is seen. SPLEEN: No significant abnormality is seen. ADRENALS: No significant abnormality is seen. KIDNEYS: No significant abnormality is seen. REPRODUCTIVE ORGANS: No significant interval change is seen. BOWEL: No significant abnormality is seen. FREE AIR: No Free Air visible. ASCITES: None seen. RETROPERITONEAL ADENOPATHY: No retroperitoneal adenopathy is seen. LYMPH NODES: No greater than 1 cm abdominal or pelvic lymph nodes are appreciated. URINARY BLADDER: Question cystocele present. PELVIC ADENOPATHY: None visualized. OSSEOUS STRUCTURES: Some deformity of the pelvis is stable and could possibly due to remote trauma, there is a spinal curvature. IMPRESSION: Interval development of mediastinal and right hilar adenopathy. Suspect abnormal in the l eft axilla although not enlarged.
--- NOTE | 2019-09-20 14:01 | NM ---
EXAMINATION TYPE: NM bone scan whole body DATE OF EXAM: 09/20/2019 COMPARISON: 11/19/2017 HISTORY: Abnormal bone scan Delayed whole-body scanning was performed following the injection of 25 mCi Tc 99m MDP. Images acqui red 4 hours post injection. FINDINGS: Increased soft tissue uptake in the left breast compatible with patient's breast mass. Uptake within the feet, knees, wrists, hands, shoulders, sternoclavicular joints, lumbar spine is likely degenerati ve. There is some ill- defined mid diaphyseal left femoral uptake present. IMPRESSION: 1. Stable bone scan demonstrating intermediate intensity uptake overlying the shaft of the left femur essentially unchanged from the prior exam. Correlate with x-ray as clinically warranted.
== END | disposition home or self-care (01) ==
LOC: RADNMMAIN 08:43
PROVIDERS: ATTEND Internal Medicine Hematology & Oncology
DX: R59.0 Localized enlarged lymph nodes (principal); R93.7 Abnormal findings on diagnostic imaging of other parts of musculoskeletal system; C50.311 Malignant neoplasm of lower-inner quadrant of right female breast
CPT/HCPCS: 82565; 84520; 71260; 74177; 36415; 78306; A9503; Q9967

== ENCOUNTER 2019-10-07 11:16 | Day surgery (SDC) | payer OTHER ==
[2019-10-06 10:00] VITALS: BMI 28.1
[~2019-10-07 11:16] MED LIST changes: +ALBUTEROL NEB (CONC) 2.5 MG/0.5 ML INHALATION ONE; -DEXAMETHASONE SOD PHOSPHATE 10 MG/ML 1 ML VIAL IV ONE; -HEPARIN SODIUM,PORCINE 5,000 UNIT/ML 1 ML VIAL SQ ONE; +LIDOCAINE 2% (PF) 20 MG/ML 5 ML VIAL INHALATION ONE; +LIDOCAINE VISCOUS 300 MG/15 ML CUP MUCOUS MEM ONE; -ONDANSETRON 4 MG/2 ML VIAL IVP ONE; -Pre Op ABX Message 1 EACH MISC MISCELLANE ONE; +SODIUM CHLORIDE 0.9% 1,000 ML IV SCH
[2019-10-07 11:46] VITALS: RESP 16; TEMP 97
[2019-10-07] MEDS ORDERED: LACTATED RINGERS 1,000 ML IV ONE (11:46)
[2019-10-07] MEDS ORDERED: LIDOCAINE 2% INJ 20 MG/ML INTRATRACH ONE ×2 (12:14→12:42)
[2019-10-07] MEDS ORDERED: LIDOCAINE 1% INJ 10MG/ML (20 ML MDV) ONE (12:30)
[2019-10-07] MEDS ORDERED: KETAMINE 10 MG/ML 20 ML VIAL ONE (12:30)
[2019-10-07] MEDS ORDERED: PROPOFOL 10 MG/ML 20 ML VIAL IV ONE (12:30)
[2019-10-07] MEDS ORDERED: SUCCINYLCHOLINE CHLORIDE 100 MG/5 ML SYR IV ONE (12:30)
[2019-10-07] MEDS ORDERED: GLYCOPYRROLATE 0.2 MG/ML 2 ML VIAL ONE (12:30)
[2019-10-07] MEDS ORDERED: MIDAZOLAM 2 MG/2 ML VIAL ONE (12:30)
[2019-10-07] MEDS ORDERED: SODIUM CHLORIDE 0.9% 500 ML IV ONE (13:30)
--- NOTE | 2019-10-07 13:33 | P.PCN ---
Date of Procedure: 10/07/19 Preoperative Diagnosis: Mediastinal lymphadenopathy Postoperative Diagnosis: Mediastinal lymphadenopathy Procedure(s) Performed: Bronchoscopy with transbronchial needle aspirate of the right paratracheal lymph node Anesthesia: FARA AVILES Surgeon: Davida Ivey Estimated Blood Loss (ml): 0 Pathology: other Condition: stable Disposition: same day Operative Findings: This procedure was done in the endoscopy suite. Initially we started off with conscious sedation, however as the patient was seen some sedation, she started having oxygen desaturations and apneas. At that point the patient was induced and placed on a mechanical ventilator by anesthesia and the procedure was done under general anesthesia. The patient was admitted by #8 orotracheal tube. After securing adequate oxygenation and ventilation, and adductor was attempted orotracheal tube and the flexible bronchoscope was easily advanced into the lower trachea. The tip of the endotracheal tube was seen around 3 cm above the maurilio. A quick airway inspection 3 airways were inspected in the distal trachea and bilateral mainstem bronchi, right upper lobe bronchus, bronchus intermedius, right middle lobe bronchus and right lower lobe bronchitis in addition to the left upper lobe bronchus and left lower lobe bronchus. Various segments and subsegments were inspected. Airways were facing a normal limits. The bronchoscope was moved to the and using a 19-gauge and 21-gauge cytology and histology needles, transbronchial needle aspirate of that particular lymph node was done. Several passes were taken without any complications. No bleeding was encountered. Adequacy of the cytology samples were confirmed by pathology at the bedside. after obtaining adequate samples, procedure was terminated and the bronchoscope was removed and the patient was extubated. The patient was transferred recovery in a stable condition.
[2019-10-07 14:44] VITALS: BP 114/70; PULSE 83
== END 2019-10-07 14:54 | disposition home or self-care (01) ==
LOC: ORWHC2ENDO 11:16
PROVIDERS: ATTEND Internal Medicine Critical Care Medicine
DX: C77.1 Secondary and unspecified malignant neoplasm of intrathoracic lymph nodes (principal); C50.311 Malignant neoplasm of lower-inner quadrant of right female breast; J44.9 Chronic obstructive pulmonary disease, unspecified; K21.9 Gastro-esophageal reflux disease without esophagitis; Z87.891 Personal history of nicotine dependence; Z90.13 Acquired absence of bilateral breasts and nipples; Z98.890 Other specified postprocedural states; I50.9 Heart failure, unspecified; Z92.21 Personal history of antineoplastic chemotherapy; Z87.11 Personal history of peptic ulcer disease; Z92.3 Personal history of irradiation; Z80.49 Family history of malignant neoplasm of other genital organs; Z87.81 Personal history of (healed) traumatic fracture; Z80.1 Family history of malignant neoplasm of trachea, bronchus and lung; Z80.8 Family history of malignant neoplasm of other organs or systems; Z79.811 Long term (current) use of aromatase inhibitors; Z79.899 Other long term (current) drug therapy; Z88.6 Allergy status to analgesic agent; Z91.09 Other allergy status, other than to drugs and biological substances
CPT/HCPCS: 88305; 88173; 88342; 88341; 31629; J2001 ×2; J2250; J0330; J2704

== ENCOUNTER → 2020-03-10 | Outpatient (CLI) | payer OTHER ==
--- NOTE | 2020-03-10 09:11 | CT ---
EXAMINATION TYPE: CT chest w con DATE OF EXAM: 03/10/2020 COMPARISON: 09/20/2019 HISTORY: Breast CA CT DLP: 239.2 mGycm Automated exposure control for dose reduction was used. CONTRAST: CT scan of the chest is performed with IV Contrast, patient injected with 100 mL of Isovue 300. FINDINGS: LUNGS: New pleural thickening and/or atelectasis posterior left lung base. The lungs are otherwise cl ear. Mild emphysematous changes noted within the upper lobes. No concerning mass or nodule. MEDIASTINUM: There is persistent mediastinal adenopathy. Right high paratracheal adenopathy measures 2.9 cm versus 3 cm previously. AP window adenopathy now measures 2.5 cm versus less than 1 cm previou sly. Low right paratracheal adenopathy measures 1.4 cm versus 1.6 cm. Right hilar adenopathy measures 2.5 cm versus 2.2 cm. Thoracic aorta is of normal caliber. The heart is not enlarged. UPPER ABDOMEN: No significant abnormality appreciated. OTHER: Bilateral mastectomy changes noted. IMPRESSION: 1. Mediastinal adenopathy as noted above. Slight progression noted. 2. New pleural thickening and/or atelectasis posterior left lung base. No evidence for mass or pulmon arian nodule.
== END | disposition home or self-care (01) ==
LOC: RADCTMAIN 07:29
PROVIDERS: ATTEND Internal Medicine Hematology & Oncology
DX: C50.112 Malignant neoplasm of central portion of left female breast (principal); C50.311 Malignant neoplasm of lower-inner quadrant of right female breast; R59.0 Localized enlarged lymph nodes; Z88.8 Allergy status to other drugs, medicaments and biological substances
CPT/HCPCS: 82565; 84520; 71260; 36415; Q9967

== ENCOUNTER → 2020-06-07 | Outpatient (CLI) | payer OTHER ==
[2020-06-07 11:26] LABS: African American GFR (CKD) >90 (>60 ml/min/1.73 sqM); Blood Urea Nitrogen 13 mg/dL (7-17); Non-African American GFR(CKD) 82 (>60 ml/min/1.73 sqM)
--- NOTE | 2020-06-07 12:18 | CT ---
EXAMINATION TYPE: CT ChestAbdPelvis w con DATE OF EXAM: 06/07/2020 COMPARISON: 09/20/2019, 03/10/2020 HISTORY: breast CA CT DLP: 737.2 mGycm Automated exposure control for dose reduction was used. CONTRAST: CT scan of the chest, abdomen and pelvis is performed with Oral Contrast and with IV Contrast, patien t injected with 100 mL of Isovue 300. FINDINGS: LUNGS: New pleural thickening and/or atelectasis posterior left lung base. The lungs are otherwise cl ear. Mild emphysematous changes noted within the upper lobes. 2 mm nodule anterior segment right uppe r lobe. Emphysematous changes are seen. Subpleural nodularity left lower lobe measuring 6 mm is reduc ed in size from the prior exam and therefore likely inflammatory. Stable 4 mm nodule superior segment right lower lobe. MEDIASTINUM: There is persistent mediastinal adenopathy. Right high paratracheal adenopathy measures 2.6 cm versus 2.9 cm previously. AP window adenopathy now measures 2.1 cm versus less than 2.5 cm pre viously. Low right paratracheal adenopathy measures 1.4 cm versus 1.6 cm. Right hilar adenopathy mane ures 2.4 cm versus 2.5 cm. Thoracic aorta is of normal caliber. The heart is not enlarged. Coronary artery calcification noted. There is a 1.8 cm right internal mammary lymph node which previo usly measured 1.4 cm. OTHER: 1 cm left axilla lymph node previously measured 0.7 cm in short axis.. LIVER/GB: Gallbladder is prominent there is prominence of the extrahepatic bile duct. PANCREAS: No significant abnormality is seen. SPLEEN: No significant abnormality is seen. ADRENALS: No significant abnormality is seen. KIDNEYS: No significant abnormality is seen. BOWEL: No significant abnormality is seen. OSSEOUS STRUCTURES: Chronic deformity of the pelvis. Curvature of the spine. Hypertrophic and degener ative change of the spine. OTHER: Soft tissue nodules in the pelvis likely represent the ovaries Somewhat prominent in size for the patient's age group would recommend pelvic ultrasound for further evaluation alternatively could represent adnexal varices. IMPRESSION: 1. Minimal interval change in the mediastinal and hilar adenopathy as measured above. However, within the right upper lobe there is a soft tissue nodule measuring 2.0 x 1.5 cm and previously measured 1. 4 x 1 cm. 2. Soft tissue nodules in the pelvis stable. Recommend pelvic ultrasound for further evaluation as di scussed above. 3. Gallbladder distention with prominence of the extrahepatic bile duct for which gallbladder ultraso und recommended. No definite calcification seen. 4. Stable appearing 3 mm nodule superior segment right lower lobe and 2 mm nodule right upper lobe. 2 small to characterize. 5. There is mild interval increase in size of a left axilla and right internal mammary lymph node as measured above.
== END | disposition home or self-care (01) ==
LOC: RADCTMAIN 10:07
PROVIDERS: ATTEND Internal Medicine Hematology & Oncology
DX: R59.0 Localized enlarged lymph nodes (principal); R91.1 Solitary pulmonary nodule; K82.8 Other specified diseases of gallbladder; C50.311 Malignant neoplasm of lower-inner quadrant of right female breast; C50.112 Malignant neoplasm of central portion of left female breast
CPT/HCPCS: 82565; 84520; 71260; 74177; 36415; Q9967

== ENCOUNTER 2020-07-20 08:44 | Day surgery (SDC) | payer OTHER ==
[2020-07-20 08:55] VITALS: RESP 16; TEMP 97.9
[2020-07-20 10:36] VITALS: BP 140/80; PULSE 80
--- NOTE | 2020-07-20 13:44 | US ---
ULTRASOUND GUIDED CORE BIOPSY RIGHT NECK MASS: CLINICAL HISTORY: Right neck mass FINDINGS: The procedure was explained to the patient. The risks, complications, benefits and alternatives were discussed and any questions were answered. Informed consent was obtained. Patient was placed supin e on the ultrasound table and prepped and draped in the usual sterile fashion. Utilizing a 18 gauge needle, two passes were made into the requested right neck mass. Patient was stable throughout the procedure. Pathology is pending. All elements of maximal barrier technique were utilized. IMPRESSION: 1. Successful ultrasound guided core biopsy right neck mass.
== END 2020-07-20 10:28 | disposition home or self-care (01) ==
LOC: RADPROMAIN 08:44
PROVIDERS: ATTEND Internal Medicine Hematology & Oncology
DX: C77.9 Secondary and unspecified malignant neoplasm of lymph node, unspecified (principal); C50.811 Malignant neoplasm of overlapping sites of right female breast; Z88.6 Allergy status to analgesic agent
CPT/HCPCS: 38505; 76942; 88305; 88341; 88342

== ENCOUNTER → 2020-08-09 | Outpatient (CLI) | payer OTHER ==
--- NOTE | 2020-08-09 14:27 | US ---
EXAMINATION TYPE: US venous doppler duplex LE LT DATE OF EXAM: 08/09/2020 2:15 PM COMPARISON: NONE CLINICAL HISTORY: M79.662 pain lef R22.42 swelling. edema left leg SIDE PERFORMED: left TECHNIQUE: The lower extremity deep venous system is examined utilizing real time linear array sonog connor with graded compression, doppler sonography and color-flow sonography. VESSELS IMAGED: Common Femoral Vein Deep Femoral Vein Greater Saphenous Vein * Femoral Vein Popliteal Vein Small Saphenous Vein * Proximal Calf Veins (* superficial vessels) Left Leg: * positive for DVT left EIV, CFV, femoral vein lower and popliteal vein IMPRESSION: DVT as indicated above.
== END | disposition home or self-care (01) ==
LOC: RADUSWWP 13:51
PROVIDERS: ATTEND Internal Medicine Hematology & Oncology
DX: I82.432 Acute embolism and thrombosis of left popliteal vein (principal); I82.412 Acute embolism and thrombosis of left femoral vein; I82.422 Acute embolism and thrombosis of left iliac vein; Z88.6 Allergy status to analgesic agent; Z91.048 Other nonmedicinal substance allergy status

== ENCOUNTER → 2020-11-17 | Outpatient (CLI) | payer MEDICARE, OTHER ==
--- NOTE | 2020-11-18 06:06 | MR ---
EXAMINATION TYPE: MR brain wo/w con DATE OF EXAM: 11/17/2020 COMPARISON: 12/04/2017 HISTORY: Dizziness, BANKS, Breast Ca Hx CONTRAST: Standard multiplanar, multisequence MRI departmental protocol utilizing 6 mL intravenous Gadavist mercedez olinium contrast. There are multiple variable-sized ring-enhancing masses in the rain. The largest is in the left front al lobe and measures 5.8 cm in greatest dimension. There is 1.6 cm lesion in the medial right frontal lobe. There is 2 cm lesion in the right parietal convexity. There are 2 lesions that measure each 12 mm in the medial left parietal and medial right parietal lobes. There is a 1 cm lesion adjacent to t he cerebral falx in the right posterior parietal lobe. There are 2 1 cm foci of enhancement in the ri ght lateral frontal lobe convexity. There is 1.8 cm lesion in the medial right occipital lobe. There is 3.5 cm lesion in the left cerebellar hemisphere. There is normal enhancement of the venous sinuses . There is some effacement of the frontal horn left lateral ventricle related to the left frontal lob e mass. The brainstem is intact. There is no evidence of orbital mass. IMPRESSION: Numerous ring-enhancing masses in the brain consistent with metastatic disease that are a change comp ared to previous exam.
== END | disposition home or self-care (01) ==
LOC: RADMRIMAIN 11:20
PROVIDERS: ATTEND Internal Medicine Hematology & Oncology
DX: R42 Dizziness and giddiness (principal)
CPT/HCPCS: 70553; A9585

== ENCOUNTER 2020-12-17 10:49 | Inpatient (IN) | payer MEDICARE, OTHER ==
[2020-12-17] MEDS ORDERED: SODIUM CHLORIDE 0.9% 1,000 ML IV STA (11:16)
--- NOTE | 2020-12-17 11:21 | ED ---
General Adult HPI - General Chief complaint: Weakness Stated complaint: not eating or drinking Time Seen by Provider: 12/17/20 10:50 Source: family, RN notes reviewed, old records reviewed, Caregiver Mode of arrival: wheelchair Limitations: altered mental status - History of Present Illness Initial comments: This is a 65-year-old female who presents with her daughter for weakness slight altered mental status and not eating or drinking. Patient's past medical history significant for breast cancer in 2018 at which time she had a double mastectomy. Patient has since been diagnosed with metastatic breast cancer to the brain. Patient is undergone 10 radiation treatments. Patient since has become weaker and weaker she is not eating or drinking according to family and she is also slow to respond and sometimes doesn't respond at all which is diffe rent than her baseline. Daughter states she is seeing a significant decline in the last week. There is been no fevers chills or cough there's been no difficulty breathing shortness of breath is been no history of vomiting or diarrhea. Patient himself is unable to give any history. - Related Data Home Medications Medication Instructions Recorded Confirmed Omeprazole [PriLOSEC] 20 mg PO DAILY 12/04/17 12/17/20 Fluconazole 200 mg PO DAILY 12/17/20 12/17/20 Allergies Allergy/AdvReac Type Severity Reaction Status Date / Time aspirin Allergy Severe Anaphylaxis Verified 12/17/20 11:54 adhesive tape AdvReac TEARS Verified 12/17/20 11:54 SKIN, AND REDNESS Review of Systems ROS Statement: Those systems with pertinent positive or pertinent negative responses have been documented in the HPI. ROS Other: All systems not noted in ROS Statement are negative. Past Medical History Past Medical History: Cancer, Heart Failure, GERD/Reflux Additional Past Medical History / Comment(s): HX OF STOMACH ULCERS., BREAST CYSTS, LEFT BREAST CANCER WITH CHEMOTHERAPY & radiation,(LAST TX 04/2018)., HOSPITALIZATION DEC 2017 W/CHF & CARDIOMYOPATHY-felt to be related to chemo & had an infected port, no further problems with, mets to Right chest wall - inoperable, just doing chemo History of Any Multi-Drug Resistant Organisms: None Reported Past Surgical History: Breast Surgery, Orthopedic Surgery Additional Past Surgical History / Comment(s): biopsy on LT and rt breast; LT FEMUR FX SURGERY; RT KNEE SURGERY, PORT-A-CATH INSERTED & REMOVED. Left breast mastectomy May 2018, laparoscopy, RT MASTECTOMY Past Anesthesia/Blood Transfusion Reactions: No Reported Reaction Past Psychological History: No Psychological Hx Reported Smoking Status: Never smoker - Past Family History Mother Family Medical History: Cancer Additional Family Medical History / Comment(s): uterine cancer, quad cabg Father Family Medical History: Cancer Additional Family Medical History / Comment(s): brain cancer with mets Brother(s) Family Medical History: Deep Vein Thrombosis (DVT) Additional Family Medical History / Comment(s): 2 BROTHERS HAD DVT General Exam - General Exam Comments Initial Comments: GENERAL: Patient is well-developed and well-nourished. Patient is nontoxic and well- hydrated and is in no acute distress. ENT: Neck is soft and supple. No significant lymphadenopathy is noted. Oropharynx is clear. Mild mucous membranes. Neck has full range of motion without eliciting any pain. EYES: The sclera were anicteric and conjunctiva were pink and moist. Extraocular movements were intact and pupils were equal round and reactive to light. Eyelids were unremarkable. PULMONARY: Unlabored respirations. Good breath sounds bilaterally. No audible rales rhonchi or wheezing was noted. CARDIOVASCULAR: There is a regular rate and rhythm without any murmurs gallops or rubs. ABDOMEN: Soft and nontender with normal bowel sounds. SKIN: Skin is clear with no lesions or rashes and otherwise unremarkable. NEUROLOGIC: Patient is alert and oriented 1. Cranial nerves II through XII are grossly intact. MUSCULOSKELETAL: Normal extremities with adequate strength and full range of motion. No lower extremity swelling or edema. No calf tenderness. LYMPHATICS: No significant lymphadenopathy is noted PSYCHIATRIC: Normal psychiatric evaluation. Limitations: no limitations Course Vital Signs 12/17/20 10:50 Temperature 99.7 F H Pulse Rate 93 Respiratory 16 Rate Blood Pressure 123/62 O2 Sat by Pulse 96 Oximetry Medical Decision Making - Medical Decision Making EKG shows normal sinus rhythm at 86 bpm WV interval 134 QRS is 78 QT interval 354 QTC is 423. Patient's EKG shows no ST segment elevation or depression. I did a CT of the patient's brain shows multiple hemorrhagic brain lesions with midline shift when compared to an old MRI there are no new changes other then slightly more transtentorial herniation is slightly worse and the CT than the old MRI I spoke with Dr. norton and she wanted the patient admitted and consult her and radiation oncology. I spoke with Dr. Mcpherson he wanted the patient started on Decadron I Dorie given 10 of Decadron IV and he wanted the patient to be on 4 mg of Decadron 3 times a day. I spoke with the [facility] significant for the patient admitted the patient wrote admitting orders I consulted Dr. Mcpherosn and the oncologist. - Lab Data Result diagrams: 12/17/20 11:20 12/17/20 11:20 Lab Results 12/17/20 12/17/20 12/17/20 Range/Units 11:20 11:20 11:20 WBC 6.1 (3.8-10.6) k/uL RBC 3.76 L (3.80-5.40) m/uL Hgb 12.1 (11.4-16.0) gm/dL Hct 36.0 (34.0-46.0) % MCV 95.8 (80.0-100.0) fL MCH 32.2 (25.0-35.0) pg MCHC 33.6 (31.0-37.0) g/dL RDW 16.2 H (11.5-15.5) % Plt Count 240 (150-450) k/uL MPV 7.4 Neutrophils % (Manual) 77 % Band Neuts % (Manual) 1 % Lymphocytes % (Manual) 12 % Monocytes % (Manual) 8 % Basophils % (Manual) 2 % Neutrophils # (Manual) 4.70 (1.3-7.7) k/uL Lymphocytes # (Manual) 0.73 L (1.0-4.8) k/uL Monocytes # (Manual) 0.49 (0-1.0) k/uL Basophils # (Manual) 0.12 (0-0.2) k/uL Nucleated RBCs 0 (0-0) /100 WBC Manual Slide Review Performed Anisocytosis Slight PT 10.8 (9.0-12.0) sec INR 1.0 (<1.2) APTT 22.8 (22.0-30.0) sec Sodium 131 L (137-145) mmol/L Potassium 4.2 (3.5-5.1) mmol/L Chloride 101 (98-107) mmol/L Carbon Dioxide 20 L (22-30) mmol/L Anion Gap 10 mmol/L BUN 18 H (7-17) mg/dL Creatinine 0.67 (0.52-1.04) mg/dL Est GFR (CKD-EPI)AfAm >90 (>60 ml/min/1.73 sqM) Est GFR (CKD-EPI)NonAf >90 (>60 ml/min/1.73 sqM) Glucose 93 (74-99) mg/dL Plasma Lactic Acid Fernando (0.7-2.0) mmol/L Calcium 8.9 (8.4-10.2) mg/dL Magnesium 1.9 (1.6-2.3) mg/dL Total Bilirubin 0.9 (0.2-1.3) mg/dL AST 28 (14-36) U/L ALT 12 (4-34) U/L Alkaline Phosphatase 130 H (38-126) U/L Troponin I (0.000-0.034) ng/mL Total Protein 7.6 (6.3-8.2) g/dL Albumin 3.8 (3.5-5.0) g/dL 12/17/20 12/17/20 Range/Units 11:20 11:38 WBC (3.8-10.6) k/uL RBC (3.80-5.40) m/uL Hgb (11.4-16.0) gm/dL Hct (34.0-46.0) % MCV (80.0-100.0) fL MCH (25.0-35.0) pg MCHC (31.0-37.0) g/dL RDW (11.5-15.5) % Plt Count (150-450) k/uL MPV Neutrophils % (Manual) % Band Neuts % (Manual) % Lymphocytes % (Manual) % Monocytes % (Manual) % Basophils % (Manual) % Neutrophils # (Manual) (1.3-7.7) k/uL Lymphocytes # (Manual) (1.0-4.8) k/uL Monocytes # (Manual) (0-1.0) k/uL Basophils # (Manual) (0-0.2) k/uL Nucleated RBCs (0-0) /100 WBC Manual Slide Review Anisocytosis PT (9.0-12.0) sec INR (<1.2) APTT (22.0-30.0) sec Sodium (137-145) mmol/L Potassium (3.5-5.1) mmol/L Chloride (98-107) mmol/L Carbon Dioxide (22-30) mmol/L Anion Gap mmol/L BUN (7-17) mg/dL Creatinine (0.52-1.04) mg/dL Est GFR (CKD-EPI)AfAm (>60 ml/min/1.73 sqM) Est GFR (CKD-EPI)NonAf (>60 ml/min/1.73 sqM) Glucose (74-99) mg/dL Plasma Lactic Acid Fernando 1.1 (0.7-2.0) mmol/L Calcium (8.4-10.2) mg/dL Magnesium (1.6-2.3) mg/dL Total Bilirubin (0.2-1.3) mg/dL AST (14-36) U/L ALT (4-34) U/L Alkaline Phosphatase (38-126) U/L Troponin I <0.012 (0.000-0.034) ng/mL Total Protein (6.3-8.2) g/dL Albumin (3.5-5.0) g/dL Disposition Clinical Impression: Metastatic cancer to brain, Bleeding in brain, History of breast cancer Disposition: ADMITTED IP TO THIS HOSP Referrals: None,Stated [Primary Care Provider] - 1-2 days Time of Disposition: 12:55
[2020-12-17 11:27] LABS: Anisocytosis Slight; HGB 12.1 gm/dL (11.4-16.0); MCH 32.2 pg (25.0-35.0); MCHC 33.6 g/dL (31.0-37.0); MCV 95.8 fL (80.0-100.0); Mean Platelet Volume 7.4; Platelet Count 240 k/uL (150-450); RBC 3.76 m/uL (3.80-5.40); RDW 16.2 % (11.5-15.5); WBC 6.1 k/uL (3.8-10.6)
[2020-12-17 11:37] LABS: ALT 12 U/L (4-34); AST 28 U/L (14-36); African American GFR (CKD) >90 (>60 ml/min/1.73 sqM); Albumin 3.8 g/dL (3.5-5.0); Alkaline Phosphatase 130 U/L (38-126); Anion Gap 10 mmol/L; Blood Urea Nitrogen 18 mg/dL (7-17); Calcium 8.9 mg/dL (8.4-10.2); Carbon Dioxide 20 mmol/L (22-30); Chloride 101 mmol/L (98-107); Glucose 93 mg/dL (74-99); Magnesium 1.9 mg/dL (1.6-2.3); Non-African American GFR(CKD) >90 (>60 ml/min/1.73 sqM); Potassium 4.2 mmol/L (3.5-5.1); Sodium 131 mmol/L (137-145); Total Bilirubin 0.9 mg/dL (0.2-1.3); Total Protein 7.6 g/dL (6.3-8.2)
[2020-12-17 12:06] LABS: Band Neutrophils % 1 %; Basophils # (M) 0.12 k/uL (0-0.2); Lymphocytes # (M) 0.73 k/uL (1.0-4.8); Monocytes # (M) 0.49 k/uL (0-1.0); Neutrophils % (M) 77 %; Nucleated Red Blood Cells 0 /100 WBC (0-0); Total Cells Counted 100
--- NOTE | 2020-12-17 12:26 | CT ---
EXAMINATION TYPE: CT brain wo con DATE OF EXAM: 12/17/2020 COMPARISON: PET/CT limited comparison 05/02/2018. Limited comparison to MRI brain dated 11/17/2020 HISTORY: Mental status changes, History of metastatic breast cancer. TECHNIQUE: CT scan of the head without contrast CT DLP: 1129.4 mGycm Automated exposure control for dose reduction was used. FINDINGS: There is a large mass in the left frontal lobe with internal increased density and surrounding low at tenuation. There is a focus of increased density in the left frontal lobe superior aspect with surrou nding edema. Additional tiny density foci are seen in the right frontal and parietal lobes near the v ertex and those are also associated with surrounding low attenuation. There is increased density invo lving the right real-white matter junction in the right frontal lobe surrounding low-attenuation in t he right frontal lobe. There are also hyperattenuating foci in the right frontal lobe the level of th e basal cisterns with surrounding low attenuating signal. There is also a lesion in the left cerebell um with increased attenuation and surrounding low attenuation. There is a rightward midline shift of 4.5 mm. There is mild rightward subfalcine and and transtentor ial herniation. Mass effect on the left frontal lobe/left lateral ventricle causes near complete effa cement of the anterior horn of the left lateral ventricle. There is also mild effacement of the left sylvian fissure. No acute orbital, osseous or soft tissue abnormality. Paranasal sinuses and mastoid air cells are aerated. IMPRESSION: FINDINGS MOST CONCERNING FOR INTRACRANIAL METASTATIC HEMORRHAGIC MASSES WITH SURROUNDING EDEMA AND MA SS EFFECT UPON THE LEFT CEREBRAL HEMISPHERE CAUSING RIGHTWARD 4.5 MM MIDLINE SHIFT AND EFFACEMENT OF THE ANTERIOR HORN OF THE LEFT LATERAL VENTRICLE AND PARTIAL EFFACEMENT OF THE LEFT SYLVIAN FISSURE. A DDITIONALLY THERE IS SUBFALCINE AND TRANSTENTORIAL RIGHTWARD HERNIATION. FEW AREAS OF INCREASED DENSITY AT THE WHITE MATTER JUNCTION LIKELY RELATED TO SMALL METASTATIC HEMORR HAGIC LESIONS THOUGH SMALL SUBARACHNOID HEMORRHAGE CANNOT BE ENTIRELY EXCLUDED. LIMITED COMPARISON IS MADE TO MRI DATED 11/17/2020 AND APPEARS THAT THE MIDLINE SHIFT HAS BEEN PRESENT AND IS NOT SIGNIFICANTLY CHANGED AND SO HAS THE EFFACEMENT OF THE ANTERIOR HORN OF THE LEFT LATERAL V ENTRICLE LEFT SYLVIAN FISSURE. SUBTLE SIGN HERNIATION DOES NOT APPEAR SIGNIFICANTLY CHANGED THOUGH IT APPEARS THAT THE TRANSTENTORIAL HERNIATION HAS SLIGHTLY INCREASED. DR. HAMMER CALLED DR. BROWN at 12:16 PM 12/17/2020 WITH ABOVE CRITICAL FINDINGS. COMMUNICATION WAS ACKN OWLEDGED.
[2020-12-17 12:29] LABS: Partial Thromboplastin Time 22.8 sec (22.0-30.0); Prothrombin Time 10.8 sec (9.0-12.0)
--- NOTE | 2020-12-17 12:44 | XR ---
EXAMINATION TYPE: XR chest 2V DATE OF EXAM: 12/17/2020 COMPARISON: 01/02/2018 HISTORY: 65 years Female. STUDY INDICATION GIVEN: Weakness . TECHNIQUE: Frontal and lateral chest radiographs IMPRESSION: There are bilateral hilar and right suprahilar and infrahilar opacities which were not seen on prior study suggesting hilar adenopathy greater on the right. Patchy bibasilar right greater than left opacities are noted could be on the basis of atelectasis and /or pneumonia. The heart and mediastinum are normal in appearance. No pneumothorax or pleural effusion. No acute osseous abnormality.
[2020-12-17] MEDS ORDERED: DEXAMETHASONE SOD PHOSPHATE 10 MG/ML 1 ML VIAL IV STA (12:48)
[2020-12-17] MEDS ORDERED: SODIUM CHLORIDE 0.9% 1,000 ML IV ONE (12:55)
[2020-12-17 13:28] LABS: Appearance,Urine Cloudy (Clear); Bacteria,Urine Many /hpf; Bilirubin,Urine Negative (Negative); Blood,Urine Trace (Negative); Color,Urine Yellow; Glucose,Urine (UA) Negative (Negative); Ketones,Urine 1+ (Negative); Leukocyte Esterase,Urine Moderate (Negative); Mucus,Urine Occasional /hpf; Nitrite,Urine Positive (Negative); PH, Urine 5.5 (5.0-8.0); Protein,Urine Trace (Negative); RBC,Urine <1 /hpf (0-5); Specific Gravity,Urine 1.027 (1.001-1.035); Squamous Epithelial Cell,Urine 1 /hpf (0-4); WBC,Urine 3 /hpf (0-5)
[2020-12-17] MEDS ORDERED: ONDANSETRON 4 MG/2 ML VIAL IVP PRN (19:28)
[2020-12-17] MEDS: DEXAMETHASONE SOD PHOSPHATE 4 MG/ML 1 ML VIAL IV SCH (20:43)
[2020-12-17] MEDS: FAMOTIDINE 20 MG/2 ML VIAL IV SCH (20:43)
--- NOTE | 2020-12-18 00:13 | P.HPIM ---
History of Present Illness H&P Date: 12/17/20 Chief Complaint: Weakness Patient is a 65-year-old female with a known history of left breast cancer with metastasis to the right chest wall and brain metastases and recently received radiation therapy, GERD, history of stomach ulcers, cardio myopathy felt to be related to chemotherapy and other medical problems presents to ER with complaints of nausea and vomiting and unable to keep down food. Patient is also very weak and lethargic. Patient was diagnosed with breast cancer in 2018 status post double mastectomy and patient was recently diagnosed with metastatic brain lesions. Patient underwent 10 radiation treatments. Patient says has become weaker and weaker and is not eating or drinking echo to the family. Patient is otherwise awake alert and oriented but feels very weak. According to the family patient felt more weak than baseline and has been declining clinical status for the past 1 week. Agent has been afebrile. No cough or sputum production. No diarrhea. No chest pain or shortness breath. CT brain showed findings most concern for intracranial metastatic hemorrhagic masses with surrounding edema and mass effect upon the left cerebral hemisphe re., Causing rightward 4.5 midline shift and effacement of the anterior horn of the left lateral ventricle and partial effacement of the left sylvian fissure. Chest x-ray showed there are bilateral hilar and right suprahilar infrahilar opacities which were not seen on prior study. Suggesting hilar adenopathy greater on the right. Patchy bibasilar right greater than left opacities are noted could be basilar atelectasis. EKG showed normal sinus rhythm Laboratory data WBC 6.1 hemoglobin 12.1 and platelets 240 Sodium 131 potassium 4.2 chloride 101 bicarb is 20 BUN 18 and creatinine 0.67 Urinalysis showed cloudy with positive nitrite and WBCs 3. Moderate leukocyte esterase. Review of Systems Complete review of systems could not be apparent from the patient except as per HPI. Past Medical History Past Medical History: Cancer, Heart Failure, GERD/Reflux Additional Past Medical History / Comment(s): HX OF STOMACH ULCERS., BREAST CYSTS, LEFT BREAST CANCER WITH CHEMOTHERAPY & radiation,(LAST TX 04/2018)., HOSPITALIZATION DEC 2017 W/CHF & CARDIOMYOPATHY-felt to be related to chemo & had an infected port, no further problems with, mets to Right chest wall - inoperable, just doing chemo History of Any Multi-Drug Resistant Organisms: None Reported Past Surgical History: Breast Surgery, Orthopedic Surgery Additional Past Surgical History / Comment(s): biopsy on LT and rt breast; LT FEMUR FX SURGERY; RT KNEE SURGERY, PORT-A-CATH INSERTED & REMOVED. Left breast mastectomy May 2018, laparoscopy, RT MASTECTOMY Past Anesthesia/Blood Transfusion Reactions: No Reported Reaction Past Psychological History: No Psychological Hx Reported Additional Psychological History / Comment(s): . Smoking Status: Never smoker Past Alcohol Use History: None Reported Additional Past Alcohol Use History / Comment(s): QUIT SMOKING NOVEMBER 2017. STARTED SMOKING AGE 18, SMOKED 1/2 PPD Past Drug Use History: None Reported - Past Family History Mother Family Medical History: Cancer Additional Family Medical History / Comment(s): uterine cancer, quad cabg Father Family Medical History: Cancer Additional Family Medical History / Comment(s): brain cancer with mets Brother(s) Family Medical History: Deep Vein Thrombosis (DVT) Additional Family Medical History / Comment(s): 2 BROTHERS HAD DVT Medications and Allergies Home Medications Medication Instructions Recorded Confirmed Type Omeprazole [PriLOSEC] 20 mg PO DAILY 12/04/17 12/17/20 History Fluconazole 200 mg PO DAILY 12/17/20 12/17/20 History Allergies Allergy/AdvReac Type Severity Reaction Status Date / Time aspirin Allergy Severe Anaphylaxis Verified 12/17/20 11:54 adhesive tape AdvReac TEARS Verified 12/17/20 11:54 SKIN, AND REDNESS Physical Exam Vitals: Vital Signs Temp Pulse Resp BP BP Pulse Ox 12/17/20 16:00 98.4 F 16 118/58 12/17/20 14:00 16 12/17/20 13:43 98.3 F 81 16 113/54 98 12/17/20 13:23 98.3 F 18 119/54 12/17/20 10:50 99.7 F H 93 16 123/62 96 Intake and Output 12/17/20 12/17/20 12/17/20 06:59 14:59 22:59 Intake Total 10 Balance 10 Intake: Oral 10 Other: Weight 56.699 kg PHYSICAL EXAMINATION: Patient is lying in the bed comfortably, no acute distress, awake alert and oriented. Lethargic and weak.. HEENT: Normocephalic. Neck is supple. Pupils reactive. Nostrils clear. Oral cavity is moist. Neck reveals no JVD, carotid bruits, or thyromegaly. CHEST EXAMINATION: Trachea is central. Symmetrical expansion. Lung oliveira clear to auscultation and percussion. CARDIAC: Normal S1, S2 with no gallops. No murmurs ABDOMEN: Soft. Bowel sounds normal. No organomegaly. No abdominal bruits. Extremities: reveal no edema. No clubbing or cyanosis Neurologically awake, alert, oriented x3 with well-coordinated movements. No focal deficits noted Skin: No rash or skin lesions. Psychiatric: Coperative. Nonsuicidal Musculoskeletal: No joint swelling or deformity. Normal range of motion. Results CBC & Chem 7: 12/18/20 07:07 12/18/20 07:07 Labs: Abnormal Lab Results - Last 24 Hours (Table) 12/17/20 12/17/20 12/17/20 Range/Units 11:20 11:20 12:33 RBC 3.76 L (3.80-5.40) m/uL RDW 16.2 H (11.5-15.5) % Lymphocytes # (Manual) 0.73 L (1.0-4.8) k/uL Sodium 131 L (137-145) mmol/L Carbon Dioxide 20 L (22-30) mmol/L BUN 18 H (7-17) mg/dL Alkaline Phosphatase 130 H (38-126) U/L Urine Appearance Cloudy H (Clear) Urine Protein Trace H (Negative) Urine Ketones 1+ H (Negative) Urine Blood Trace H (Negative) Urine Nitrite Positive H (Negative) Ur Leukocyte Esterase Moderate H (Negative) Urine Bacteria Many H (None) /hpf Urine Mucus Occasional H (None) /hpf Thrombosis Risk Factor Assmnt - DVT/VTE Prophylaxis DVT/VTE Prophylaxis: Pharmacologic Prophylaxis ordered - Choose All That Apply Each Factor Represents 1 point: Heart failure (<1month) Each Risk Factor Represents 2 Points: Age 61-74 years Thrombosis Risk Factor Assessment Total Risk Factor Score: 3 Thrombosis Risk Factor Assessment Level: Moderate Risk Assessment and Plan Assessment: Generalized weakness and lethargic Hypovolemic hyponatremia with sodium level 131 on admission. Metastatic breast cancer with metastases to the brain and status post 10 radiation treatments. Metastatic brain lesions with vasogenic edema and midline shift. 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 Continue with IV Pepcid twice a day Patient was started on dexamethasone due to vasogenic edema. Oncology was consulted Continue with antibiotics of ceftriaxone for urinary tract infection and follow- up urine culture report. Encourage oral intake. Discussed with the family at bedside in detail. Prognosis guarded at this time. Time with Patient: Greater than 30
[2020-12-18] MEDS: DEXAMETHASONE SOD PHOSPHATE 4 MG/ML 1 ML VIAL IV SCH ×2 (06:24→14:13)
[2020-12-18 07:38] LABS: Basophils % (A) 0 %; Eosinophils % (A) 0 %; HCT 31.9 % (34.0-46.0); HGB 10.6 gm/dL (11.4-16.0); Lymphocytes # (A) 0.6 k/uL (1.0-4.8); Lymphocytes % (A) 17 %; MCHC 33.3 g/dL (31.0-37.0); MCV 96.2 fL (80.0-100.0); Mean Platelet Volume 7.5; Monocytes # (A) 0.2 k/uL (0-1.0); Monocytes % (A) 6 %; Neutrophils # (A) 2.4 k/uL (1.3-7.7); Neutrophils % (A) 74 %; Platelet Count 230 k/uL (150-450); RBC 3.32 m/uL (3.80-5.40); RDW 15.9 % (11.5-15.5); WBC 3.2 k/uL (3.8-10.6)
[2020-12-18 07:50] LABS: African American GFR (CKD) >90 (>60 ml/min/1.73 sqM); Anion Gap 9 mmol/L; Blood Urea Nitrogen 19 mg/dL (7-17); Calcium 8.9 mg/dL (8.4-10.2); Carbon Dioxide 21 mmol/L (22-30); Chloride 104 mmol/L (98-107); Glucose 118 mg/dL (74-99); Non-African American GFR(CKD) 89 (>60 ml/min/1.73 sqM); Potassium 4.1 mmol/L (3.5-5.1); Sodium 134 mmol/L (137-145)
[2020-12-18] MEDS: FAMOTIDINE 20 MG/2 ML VIAL IV SCH (09:49)
[2020-12-18 15:35] VITALS: RESP 20
--- NOTE | 2020-12-18 16:27 | P.PN ---
Subjective Progress Note Date: 12/18/20 Principal diagnosis: Nausea and vomiting Generalized weakness Breast cancer with metastatic brain lesions Acute urinary tract infection Patient is a 65-year-old female with a known history of left breast cancer with metastasis to the right chest wall and brain metastases and recently received radiation therapy, GERD, history of stomach ulcers, cardio myopathy felt to be related to chemotherapy and other medical problems presents to ER with complaints of nausea and vomiting and unable to keep down food. Patient is also very weak and lethargic. Patient was diagnosed with breast cancer in 2018 status post double mastectomy and patient was recently diagnosed with metastatic brain lesions. Patient underwent 10 radiation treatments. Patient says has become weaker and weaker and is not eating or drinking echo to the family. Patient is otherwise awake alert and oriented but feels very weak. According to the family patient felt more weak than baseline and has been declining clinical status for the past 1 week. Agent has been afebrile. No cough or sputum production. No diarrhea. No chest pain or shortness breath. CT brain showed findings most concern for intracranial metastatic hemorrhagic masses with surrounding edema and mass effect upon the left cerebral he misphere., Causing rightward 4.5 midline shift and effacement of the anterior horn of the left lateral ventricle and partial effacement of the left sylvian fissure. Chest x-ray showed there are bilateral hilar and right suprahilar infrahilar opacities which were not seen on prior study. Suggesting hilar adenopathy greater on the right. Patchy bibasilar right greater than left opacities are noted could be basilar atelectasis. EKG showed normal sinus rhythm Laboratory data WBC 6.1 hemoglobin 12.1 and platelets 240 Sodium 131 potassium 4.2 chloride 101 bicarb is 20 BUN 18 and creatinine 0.67 Urinalysis showed cloudy with positive nitrite and WBCs 3. Moderate leukocyte esterase. 12/18/2020 Patient is feeling better today. Nausea improved. No episodes of vomiting.. Started on oral diet and advance as tolerated. Patient otherwise is being continued on dexamethasone. On antibiotics in the form of ceftriaxone. Patient has been afebrile. No commerce of chest pain or short of breath. No headache or dizziness or lightheadedness. Current medications reviewed. Objective - Vital Signs Vital signs: Vital Signs Temp 97.9 F 12/18/20 08:00 Pulse 63 09/06/21 12:00 Resp 20 12/18/20 12:00 BP 145/67 12/18/20 12:00 Pulse Ox 97 12/18/20 12:00 Intake & Output 12/17/20 12/18/20 12/18/20 18:59 06:59 18:59 Intake Total 10 0 240 Output Total 400 Balance 10 0 -160 Weight 56.699 kg 56.6 kg Intake: Oral 10 0 240 Output: Urine 400 Other: Voiding Method Toilet Toilet Diaper Diaper # Voids 1 - Exam PHYSICAL EXAMINATION: Patient is lying in the bed comfortably, no acute distress, awake alert and oriented. Lethargic and weak.. HEENT: Normocephalic. Neck is supple. Pupils reactive. Nostrils clear. Oral cavity is moist. Neck reveals no JVD, carotid bruits, or thyromegaly. CHEST EXAMINATION: Trachea is central. Symmetrical expansion. Lung oliveira clear to auscultation and percussion. CARDIAC: Normal S1, S2 with no gallops. No murmurs ABDOMEN: Soft. Bowel sounds normal. No organomegaly. No abdominal bruits. Extremities: reveal no edema. No clubbing or cyanosis Neurologically awake, alert, oriented x3 with well-coordinated movements. No focal deficits noted Skin: No rash or skin lesions. Psychiatric: Coperative. Nonsuicidal Musculoskeletal: No joint swelling or deformity. Normal range of motion. - Labs CBC & Chem 7: 12/18/20 07:07 12/18/20 07:07 Labs: Abnormal Lab Results - Last 24 Hours (Table) 12/18/20 12/18/20 Range/Units 07:07 07:07 WBC 3.2 L (3.8-10.6) k/uL RBC 3.32 L (3.80-5.40) m/uL Hgb 10.6 L (11.4-16.0) gm/dL Hct 31.9 L (34.0-46.0) % RDW 15.9 H (11.5-15.5) % Lymphocytes # 0.6 L (1.0-4.8) k/uL Sodium 134 L (137-145) mmol/L Carbon Dioxide 21 L (22-30) mmol/L BUN 19 H (7-17) mg/dL Glucose 118 H (74-99) mg/dL Assessment and Plan Assessment: Generalized weakness and lethargic. Metastatic breast cancer with metastases to the brain and status post 10 radiation treatments. Metastatic brain lesions with vasogenic edema and midline shift. 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 Continue with IV Pepcid twice a day Patient was started on dexamethasone due to vasogenic edema. Oncology was consulted Continue with antibiotics of ceftriaxone for urinary tract infection and follow- up urine culture report. Encourage oral intake. Discussed with the family at bedside in detail. Prognosis guarded at this time. Time with Patient: Greater than 30
--- NOTE | 2020-12-18 17:32 | P.CONS ---
History of Present Illness - Reason for Consult Consult date: 12/18/20 Metastatic breast cancer, brain met's Requesting physician: Stewart Baer - Chief Complaint Confusion, lethargy - History of Present Illness Ms. Torres is a 65 yo female with metastatic breast cancer as outlined below, here for increased lethargy and confusion. 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 Had ongoing and increasing lethargy, hence brought to ED where CT head done showed significant herniation, hemorrhage, and brain met's however overall minimally changed as compared to MRI from 11/17/20. She was admitted with consult to oncology as well as Rad Onc. Since admission and increase in steroids, 10mg x 1 followed by 4mg q8h, pt feels much better. She is eager to go home now. Seen with family at bedside. Oncologic History: Wendy presented with a rapidly-growing mass in central portion of L breast for only 2 month!! stated no abnormality in breast 3 months ago. The lesion is growing very rapidly, very painful and tender and is beginig to ulcerate. She was seen by Dr Wynn, Biopsy on 11/19/17 revaeled invasive ductal carcinoma Grade II, ER/MO/Her2 all negative. No family history of Breast/Ovarian Ca, denied using Estrogen products, had menarche at 13 and menopause at 46. She is healthy otherwise. Smokes 1 PPD, d enies ETOH use. PET Scan : Lung mets> was started on A/C Chemotherapy 01/06/18: Was admitted to hospital with infected mediport site > developed CHF> ECHO revealed decrease EF to 40-45%> Mediport removed > PICC line placed. 01/20/18: Tolerated single agent Taxol well > no N/V. 02/11/18: Feels Ok, tolerating Taxol well > grade I P neuropathy. Fully active. 04/28/18: Reported increasing size of L breast mass, completed 6 cycles of Taxol, had mild numbness in hands/feet. 05/05/2018: Feels ok, c/o numbness in hands/feet. PET Scan : improvement at all sites of disease. She wants mastectomy. 07/28/18: Had L mastectomy 05/12/18: 12cm tumor identied > Post-op XRT completed by Dr Lucio. Sister just diagnosed with stage I breast cancer 09/22/18: Feels Ok, tired. PET Scan : CR at prior disease sites. 01/13/19: Had R Breast Bx (10/28/18) : Grade II invasive Ductal Carcinoma ER/MO 90%/80% Orw6Crd Neg > she had R mastectomy on 12/15/18 revealing multiple tumors, largest 3 cm Grade II invasive ductal carcinoma, Margins Negative > 1cm, Grade III DCIS with negative margins (>1 cm). SLNB + (1-2) > R Axillary dissection 1- 13, total 2-15 LN Bx +. 03/02/19: Feels Ok, tolerating T/C Chemotherapy very well. 03/25/19: C/O bady aches after chemotherapy Completed , she completed 3 of 4 cycles of T/C Chemotherapy 04/29/19: Feels well, completed 4 cycles of T/C Chemotherapy > relatively well tolerated, remains fully active. 07/29/19: C/O diffuse skeletal pain , mainly in lower spine, pelvis and both hips, ? worse since started Femara. She denies Hot flashes. 09/30/19: C/O diffuse skeletal pain, Bone Scan negative (L femur lesion 2nd to old Fx), CT Scan of CAP ; New mediastinal lymphadenopathy of ? significance 10/12/19: Feels tired. Mediastinal LN Bx by Dr Ivey, ER negative cancer. 01/04/20: Tolerated Scasituzumab/Gevitecan well > diarrhea & mild nausea. 02/15/20: C/O diarrhea & mild nausea, completed 3 cycles of Chemotherapy 03/08/20-patient is here today for follow-up. She is status post cycle 4, days 1 and 8 of trodelvy. She gets mild nausea, lots of acid, she has fluctuating bowels but she manages-no concerns for dehydration, no abd pain. No other questions or concerns. 10 point ROS is otherwise neg. 03/14/20: Feels Ok, has mild & controlled diarrhea. CT Scan: relatively stable disease 03/30/20: Feeling ok, diarrhea that is easily controlled. Tolerating treatment well. 04/19/20: Feels Ok, has mild diarrhea. Tolerated chemotherapy well. 05/16/20: C/O fatigue & diarrhea. 06/14/20: Feels oK, tired, has mild diarrhea. 07/13/20: Feels Ok, C/O fatigue & mild diarrhea, tolerating Chemotherapy well. 08/04/20: C/O fatigue, RSC biopsy + for ER+ metastatic breast Ca 08/09/20-Finishes iron infusions this Fri. Has to call today for delivery of Ibrance. 08/22/20: Feels Ok, C/O fatigue, mild intermittent nausea, no vomiting. Tolerating Faslodex well. 09/28/20-2-[address] increased in side, more tender, 2 anterior cervical nodes have appeared. No F, night sweats, oral irriation, N,V, appetite "good", she does need dental work, no SOB, palpitations, activity intolerance, she does tire more easily. No acute changes in bowel or bladder, swelling, no pain to report, no missed doses. No bleeding on eliquis. 10/24/20: RSC lymphadenopathy enlarging, C/O weakness 11/2020: Admitted with confusion. Work up with MRI concerning for brain met's, intracranial hemorrhage, vasogenic edema, and herniation. Seen by RT and underwent WBRT, completed 10 fx around 12/13-06/04. 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 Plan on increasing decadron to 2mg due to increased fatigue. Past Medical History Past Medical History: Cancer, Heart Failure, GERD/Reflux Additional Past Medical History / Comment(s): HX OF STOMACH ULCERS., BREAST CY STS, LEFT BREAST CANCER WITH CHEMOTHERAPY & radiation,(LAST TX 04/2018)., HOSPITALIZATION DEC 2017 W/CHF & CARDIOMYOPATHY-felt to be related to chemo & had an infected port, no further problems with, mets to Right chest wall - inoperable, just doing chemo History of Any Multi-Drug Resistant Organisms: None Reported Past Surgical History: Breast Surgery, Orthopedic Surgery Additional Past Surgical History / Comment(s): biopsy on LT and rt breast; LT FEMUR FX SURGERY; RT KNEE SURGERY, PORT-A-CATH INSERTED & REMOVED. Left breast mastectomy May 2018, laparoscopy, RT MASTECTOMY Past Anesthesia/Blood Transfusion Reactions: No Reported Reaction Past Psychological History: No Psychological Hx Reported Additional Psychological History / Comment(s): . Smoking Status: Never smoker Past Alcohol Use History: None Reported Additional Past Alcohol Use History / Comment(s): QUIT SMOKING NOVEMBER 2017. STARTED SMOKING AGE 18, SMOKED 1/2 PPD Past Drug Use History: None Reported - Past Family History Mother Family Medical History: Cancer Additional Family Medical History / Comment(s): uterine cancer, quad cabg Father Family Medical History: Cancer Additional Family Medical History / Comment(s): brain cancer with mets Brother(s) Family Medical History: Deep Vein Thrombosis (DVT) Additional Family Medical History / Comment(s): 2 BROTHERS HAD DVT Medications and Allergies Home Medications Medication Instructions Recorded Confirmed Type Omeprazole [PriLOSEC] 20 mg PO DAILY 12/04/17 12/17/20 History Fluconazole 200 mg PO DAILY 12/17/20 12/17/20 History Allergies Allergy/AdvReac Type Severity Reaction Status Date / Time aspirin Allergy Severe Anaphylaxis Verified 12/17/20 11:54 adhesive tape AdvReac TEARS Verified 12/17/20 11:54 SKIN, AND REDNESS Physical Exam Vitals: Vital Signs Temp Pulse Pulse Resp BP BP Pulse Ox 12/18/20 08:00 97.9 F 71 18 133/68 96 12/18/20 04:00 60 18 130/61 94 L 12/18/20 00:00 71 18 133/62 95 12/17/20 20:00 98 F 75 18 125/58 96 12/17/20 16:00 98.4 F 16 118/58 12/17/20 14:00 16 12/17/20 13:43 98.3 F 81 16 113/54 98 12/17/20 13:23 98.3 F 18 119/54 Intake and Output 12/17/20 12/18/20 12/18/20 22:59 06:59 14:59 Intake Total 0 Balance 0 Intake: Oral 0 Other: Voiding Method Diaper Toilet Toilet Diaper Diaper # Voids 1 1 Weight 56.6 kg Gen: No acute distress. HEENT: mucosa moist. Neck: Supple Lungs: no respiratory distress. Heart: Regular rate. Neuro: Alert and oriented x3 Psych: Appropriate affect. Results CBC & Chem 7: 12/18/20 07:07 12/18/20 07:07 Labs: Abnormal Lab Results - Last 24 Hours (Table) 12/17/20 12/18/20 12/18/20 Range/Units 12:33 07:07 07:07 WBC 3.2 L (3.8-10.6) k/uL RBC 3.32 L (3.80-5.40) m/uL Hgb 10.6 L (11.4-16.0) gm/dL Hct 31.9 L (34.0-46.0) % RDW 15.9 H (11.5-15.5) % Lymphocytes # 0.6 L (1.0-4.8) k/uL Sodium 134 L (137-145) mmol/L Carbon Dioxide 21 L (22-30) mmol/L BUN 19 H (7-17) mg/dL Glucose 118 H (74-99) mg/dL Urine Appearance Cloudy H (Clear) Urine Protein Trace H (Negative) Urine Ketones 1+ H (Negative) Urine Blood Trace H (Negative) Urine Nitrite Positive H (Negative) Ur Leukocyte Esterase Moderate H (Negative) Urine Bacteria Many H (None) /hpf Urine Mucus Occasional H (None) /hpf CT Scan - head: report reviewed Assessment and Plan Assessment: 1. Metastatic breast cancer on chemotherapy with Xeloda 2. Brain met's s/p WBRT 3. Increased confusion and lethargy due to brain met's and WBRT 4. Vasogenic edema and herniation 5. Intracranial hemorrhage Plan: Mr. Torres is a very pleasant 65 yo female with metastatic breast cancer, recently found to have brain met's s/p WBRT which she completed around 12/14/20, here for increased confusion and lethargy. CT head with relatively stable findings compared to MRI from early 11/2020 when brain met's were found with a ssociated intracranial hemorrhage and vasogenic edema as well as herniation. Agree with steroids. Rad Onc also consulted. Hold xeloda. Monitor mentation as well as CBC. Mentation is much improved after 24 hours of higher dose steroids, 10mg x1 followed by 4mg q8h. Pt eager to go home. No objections to discharge from oncology stand point if otherwise felt to be stable. She should go home on decadron 4mg q12h and monitor for increased weakness/confusion. Overall prognosis is poor, however she did receive WBRT for her brain met's and not enough time has passed to assess response to this. Discussed with pt and family at bedside, and they are agreeable to the plan. All questions answered.
[2020-12-18 18:18] VITALS: BP 139/68; PULSE 71; TEMP 98
[2020-12-19] MEDS ORDERED: ENOXAPARIN 40 MG/0.4 ML SYRINGE SQ SCH (09:00)
== END 2020-12-18 20:00 | disposition home or self-care (01) | DRG 54 ==
LOC: EC 10:49 → 3SCARD 12:55
PROVIDERS: ADMIT Internal Medicine; ATTEND Internal Medicine
DX: C79.31 Secondary malignant neoplasm of brain (principal); G93.6 Cerebral edema; G93.5 Compression of brain; E87.1 Hypo-osmolality and hyponatremia; I42.7 Cardiomyopathy due to drug and external agent; C79.89 Secondary malignant neoplasm of other specified sites; N39.0 Urinary tract infection, site not specified; E86.1 Hypovolemia; F17.210 Nicotine dependence, cigarettes, uncomplicated; K21.9 Gastro-esophageal reflux disease without esophagitis; T45.1X5A Adverse effect of antineoplastic and immunosuppressive drugs, initial encounter; Z66 Do not resuscitate; G62.9 Polyneuropathy, unspecified; I50.9 Heart failure, unspecified; Z17.0 Estrogen receptor positive status [ER+]; Z85.3 Personal history of malignant neoplasm of breast; Z87.11 Personal history of peptic ulcer disease; Z90.13 Acquired absence of bilateral breasts and nipples; Z92.21 Personal history of antineoplastic chemotherapy; Z80.49 Family history of malignant neoplasm of other genital organs; Z80.3 Family history of malignant neoplasm of breast; Z80.8 Family history of malignant neoplasm of other organs or systems
CPT/HCPCS: 36415; 70450; 71046; 80048; 80053; 81001; 83605; 83735; 84484; 85025; 85610; 85730; 87086; 93005

== ENCOUNTER → 2021-01-16 | Outpatient (CLI) | payer MEDICARE, OTHER ==
--- NOTE | 2021-01-16 18:44 | MR ---
EXAMINATION TYPE: MR brain wo/w con DATE OF EXAM: 01/16/2021 COMPARISON: 11/17/2020 HISTORY: 65-year-old female C79.31 Secondary malignant neoplasm brain. Personal history of breast can cer. TECHNIQUE: Multiplanar, multisequence images of the brain and brainstem were acquired before and aft er administration of 5 mL IV Gadavist. Diffusion weighted imaging is performed. FINDINGS: Demonstrated multiple ring-enhancing masses in the bilateral cerebral hemispheres and also within the left cerebellum. These show variable peripheral T2 shine through and suspected mild restricted diffusion in regions of hypercellularity. The dominant left frontal lobe mass measures 4.9 x 2.7 cm versus 6.3 x 4.3 cm, previously. There is d ecreasing intensity of enhancement in the degree of peripheral enhancement especially along the poste rior margin has decreased in thickness. There is less mass effect onto the adjacent frontal horn of the left lateral ventricle a descending d ecreasing degree of surrounding T2 bright signal change Suspect minimal residual 2 mm of rightward midline shift as compared to 1.1 cm, previously. Lesion within the right paramedian anterior frontal lobe measures 1.4 cm versus 1.8 cm, previously. T he adjacent small enhancing focus at the real-white matter interface is no longer seen and the anteri or frontal lobe. Small residual lesion measuring 7 mm at the posterior right frontal lobe, axial image 67 previously m easured 2.0 cm. Ring-enhancing lesion superior left frontoparietal junction measures 9 mm now versus 1.4 cm, previous ly. Dominant right occipital lobe lesion shows some bright T2/FLAIR signal and minimal thin ring enhancem ent measuring 1.4 cm versus 2.3 cm, previously. Left cerebellar hemisphere lesion is smaller at 2.3 cm versus 3.9 cm, previously. There is resolution of previous mass effect within the left cerebellar hemisphere and improvement in the caliber of the fourth ventricle. Dural venous sinuses are patent. [id number] generalized supratentorial volume loss. Major intracranial flow voids are intact. The craniocervical junction is normal. There is trapped fluid within the right greater than left mastoid air cells. Trace mucosal thickening ethmoid air cells. Globes appear intact. IMPRESSION: 1. Partial treatment response. The multiple ring-enhancing masses have decreased in size and degree o f enhancement. Mass effect is also improved. The previous rightward midline shift of 1.1 cm now measu res only 2 mm. Mass effect in the posterior cranial fossa has improved as well and the fourth ventric le is now normal caliber.. 2. The dominant left frontal lobe mass currently measures 4.9 cm versus 6.3 cm, previously. The secon d dominant left cerebellar hemisphere mass measures 2.3 cm versus 3.9 cm, previously. Some of the sma ller ring enhancing lesions seen previously are very difficult to appreciate now. Approximately 7 les ions remain. 3. Trapped fluid in the right greater than left mastoid air cells. Correlate for any mastoid pain to exclude mastoiditis.
== END | disposition home or self-care (01) ==
LOC: RADMRIMAIN 07:23
PROVIDERS: ATTEND Radiology Radiation Oncology
DX: C79.31 Secondary malignant neoplasm of brain (principal); Z79.899 Other long term (current) drug therapy; Z17.0 Estrogen receptor positive status [ER+]; Z90.13 Acquired absence of bilateral breasts and nipples; C50.911 Malignant neoplasm of unspecified site of right female breast; Z92.3 Personal history of irradiation; C78.00 Secondary malignant neoplasm of unspecified lung; C50.112 Malignant neoplasm of central portion of left female breast
CPT/HCPCS: 70553; A9585

== ENCOUNTER 2021-01-30 14:30 | Inpatient (IN) | payer MEDICARE, OTHER ==
[2021-01-30] MEDS ORDERED: LORazepam 2 MG/ML INJ IV STA ×2 (15:20→17:46)
--- NOTE | 2021-01-30 15:50 | XR ---
EXAMINATION TYPE: XR chest 1V DATE OF EXAM: 01/30/2021 COMPARISON: NONE HISTORY: Altered mental status TECHNIQUE: Single frontal view of the chest is obtained. FINDINGS: Perihilar interstitial changes with suprahilar soft tissue mass suspected. Heart is enlarg ed and there is changes of COPD with no pleural effusion or pneumothorax. Arthropathy of the shoulder . IMPRESSION: 1. COPD with right perihilar adenopathy or mass. Adenopathy is been reported by prior CT scan.
--- NOTE | 2021-01-30 15:57 | CT ---
EXAMINATION TYPE: CT brain wo con DATE OF EXAM: 01/30/2021 COMPARISON: 12/17/2020 HISTORY: Altered mental status. History of brain mets. CT DLP: 1084.4 mGycm Automated exposure control for dose reduction was used. FINDINGS: There is a large mass in the left frontal lobe with internal increased density and surrounding low at tenuation. There is a focus of increased density in the left frontal lobe superior aspect with surrou nding edema. Additional tiny density foci are seen in the right frontal and parietal lobes near the v ertex and those are also associated with surrounding low attenuation. There is increased density involving the right real-white matter junction in the right frontal lobe s urrounding low-attenuation in the right frontal lobe. There are also hyperattenuating foci in the rig ht frontal lobe the level of the basal cisterns with surrounding low attenuating signal. There is als o a lesion in the left cerebellum with increased attenuation and surrounding low attenuation. The amount of midline shift and mass effect upon the fourth ventricle and anterior horn of the left l ateral ventricle is reduced relative to the prior exam but persists. Degree of midline shift also panchito ears reduced. There is also mild effacement of the left sylvian fissure. No acute orbital, osseous or soft tissue a bnormality. Paranasal sinuses and mastoid air cells are aerated. Low-attenuation the white matter are nonspecific but suggestive of combination of vasogenic edema and remote white matter ischemia. IMPRESSION: MULTIPLE INTRACRANIAL METASTASES AGAIN NOTED. THE DEGREE OF MASS EFFECT UPON THE FRONTAL HORN AND FOU RTH VENTRICLE AND MIDLINE SHIFT IS REDUCED RELATIVE TO THE PRIOR EXAM.
[2021-01-30 16:02] LABS: Basophils # (A) 0.1 k/uL (0-0.2); Basophils % (A) 1 %; Eosinophils % (A) 1 %; HCT 36.1 % (34.0-46.0); HGB 11.8 gm/dL (11.4-16.0); Lymphocytes # (A) 0.6 k/uL (1.0-4.8); Lymphocytes % (A) 7 %; MCHC 32.6 g/dL (31.0-37.0); MCV 94.9 fL (80.0-100.0); Mean Platelet Volume 7.8; Monocytes # (A) 0.4 k/uL (0-1.0); Monocytes % (A) 4 %; Neutrophils % (A) 86 %; Platelet Count 260 k/uL (150-450); WBC 8.1 k/uL (3.8-10.6)
[2021-01-30 16:09] LABS: Partial Thromboplastin Time 24.1 sec (22.0-30.0); Prothrombin Time 10.9 sec (9.0-12.0)
[2021-01-30 16:10] LABS: ALT 13 U/L (4-34); AST 25 U/L (14-36); African American GFR (CKD) >90 (>60 ml/min/1.73 sqM); Albumin 3.3 g/dL (3.5-5.0); Alkaline Phosphatase 177 U/L (38-126); Anion Gap 7 mmol/L; Blood Urea Nitrogen 14 mg/dL (7-17); Calcium 8.4 mg/dL (8.4-10.2); Carbon Dioxide 28 mmol/L (22-30); Chloride 97 mmol/L (98-107); Glucose 98 mg/dL (74-99); Non-African American GFR(CKD) >90 (>60 ml/min/1.73 sqM); Potassium 3.7 mmol/L (3.5-5.1); Sodium 132 mmol/L (137-145); Total Bilirubin 0.7 mg/dL (0.2-1.3); Total Protein 6.6 g/dL (6.3-8.2)
--- NOTE | 2021-01-30 16:38 | ED ---
Altered Mental Status HPI - General Chief Complaint: Altered Mental Status Stated Complaint: pain/fall/cancer/ams Time Seen by Provider: 01/30/21 14:50 Source: patient, family Mode of arrival: wheelchair Limitations: no limitations - History of Present Illness Initial Comments: 65-year-old female past medical history of breast cancer status post bilateral mastectomy 2017 presents to the emergency department with reported altered mental status. She has been diagnosed with metastatic lesions to the brain for which she underwent radiation in October by Dr. Mcpherson. He was hospitalized in December for altered mental status. She is treated with Decadron and sent home on a taper. She is currently taking half tablet a day. Daughter states that she came down on from [place]. She normally tries and takes results all of her appointments. She was suppose to go to radiation today for a supraclavicular lymph node for which she started palliative radiation on . Daughter states that she was fine this morning when she left for work. The patient did not show up for radiation appointment. Police were called and they broke down the door. They found the patient asleep on the couch. She was agitated and not answering questions very appropriately. No recent infections. No fevers. The patient has no complaints. No other alleviating, precipitating or modifying factors - Related Data Home Medications Medication Instructions Recorded Confirmed Omeprazole [PriLOSEC] 20 mg PO DAILY 12/04/17 01/30/21 Dexamethasone [Decadron] See Taper PO DIRECTED 01/30/21 01/30/21 Allergies Allergy/AdvReac Type Severity Reaction Status Date / Time aspirin Allergy Severe Anaphylaxis Verified 01/30/21 14:58 adhesive tape AdvReac TEARS Verified 01/30/21 14:58 SKIN, AND REDNESS Review of Systems ROS Statement: Those systems with pertinent positive or pertinent negative responses have been documented in the HPI. ROS Other: All systems not noted in ROS Statement are negative. Past Medical History Past Medical History: Cancer, Heart Failure, GERD/Reflux Additional Past Medical History / Comment(s): HX OF STOMACH ULCERS., BREAST CYSTS, LEFT BREAST CANCER WITH CHEMOTHERAPY & radiation,(LAST TX 04/2018)., HOSPITALIZATION DEC 2017 W/CHF & CARDIOMYOPATHY-felt to be related to chemo & had an infected port, no further problems with, mets to Right chest wall - inoperable, just doing chemo History of Any Multi-Drug Resistant Organisms: None Reported Past Surgical History: Breast Surgery, Orthopedic Surgery Additional Past Surgical History / Comment(s): biopsy on LT and rt breast; LT FEMUR FX SURGERY; RT KNEE SURGERY, PORT-A-CATH INSERTED & REMOVED. Left breast mastectomy May 2018, laparoscopy, RT MASTECTOMY Past Anesthesia/Blood Transfusion Reactions: No Reported Reaction Past Psychological History: No Psychological Hx Reported Smoking Status: Never smoker Past Alcohol Use History: None Reported Past Drug Use History: None Reported - Past Family History Mother Family Medical History: Cancer Additional Family Medical History / Comment(s): uterine cancer, quad cabg Father Family Medical History: Cancer Additional Family Medical History / Comment(s): brain cancer with mets Brother(s) Family Medical History: Deep Vein Thrombosis (DVT) Additional Family Medical History / Comment(s): 2 BROTHERS HAD DVT General Exam Limitations: no limitations Course Vital Signs 01/30/21 01/30/21 14:49 20:48 Temperature 99.5 F Pulse Rate 112 H 98 Respiratory 20 16 Rate Blood Pressure 132/69 129/79 O2 Sat by Pulse 97 94 L Oximetry - Reevaluation(s) Reevaluation #1: Spoke with Dr. Kirk 01/30/211750 Reevaluation #2: Spoke with Dr. Contreras - recommending infectious workup including blood cultures, UA and antibiotics. Urine is still pending at this time. Nurse will straight cath. Patient will stay at our facility for treatment. 01/30/21 19:08 Reevaluation #3: Spoke with Dr. Contreras again after he reviewed patients chart. 01/30/211955 Medical Decision Making - Medical Decision Making Upon arrival patient was placed into room 2. A thorough history and physical exam is performed. IV is established the patient does go for a CT of her brain. Laboratory studies were conducted and reviewed. Lab studies reveal a sodium of 132. Troponin 0.145. Due to the patient's elevated trop, history of DVT and active cancer she is sent over for a CT of her chest. Brain CT demonstrates multiple intracranial metastasis again noted. Degree of mass effect upon the fr ontal horn fourth ventricle and midline shift is reduced. CT of the chest demonstrates filling defect in the left lower lobe which could reflect nonocclusive filling defect arterial embolism versus artifact. Severe narrowing of lobar and segmental pulmonary arterial branches secondary to extensive confluent hilar and mediastinal adenopathy. Complete occlusion nonsterile excluded. Worsening malignancy with high suspicion for invasion of the pulmonary arteries in the right hilum, esophagitis, questionable invasion of the right upper tracheal versus small amount of debris within the trachea and extension is the anterior chest wall for the anterior mediastinum. Trace pericardial effusion. Due to the significant findings I did call and speak with Dr. Contreras. Unsure if the patient qualifies for any systemic treatment options at this time. Feels that the patient may be admitted to the facility here. Recommends blood cultures and antibiotics. I spoke with Dr. kirk who admitted the patient and presented to the emergency department to evaluate her. Dr. Contreras does call again after reviewing though the patients chart and states that the patient could be heparinized if needed. This is all discussed with the patient's family as well as her poor prognosis. Daughter does state that the patient's is a DO NOT RESUSCITATE. We will admit the patient to the floor. She did remain in stable condition and was transferred upstairs - Lab Data Result diagrams: 01/30/21 15:52 01/30/21 15:52 Lab Results 01/30/21 01/30/21 01/30/21 Range/Units 15:52 15:52 15:52 WBC 8.1 (3.8-10.6) k/uL RBC 3.80 (3.80-5.40) m/uL Hgb 11.8 (11.4-16.0) gm/dL Hct 36.1 (34.0-46.0) % MCV 94.9 (80.0-100.0) fL MCH 31.0 (25.0-35.0) pg MCHC 32.6 (31.0-37.0) g/dL RDW 16.0 H (11.5-15.5) % Plt Count 260 (150-450) k/uL MPV 7.8 Neutrophils % 86 % Lymphocytes % 7 % Monocytes % 4 % Eosinophils % 1 % Basophils % 1 % Neutrophils # 7.0 (1.3-7.7) k/uL Lymphocytes # 0.6 L (1.0-4.8) k/uL Monocytes # 0.4 (0-1.0) k/uL Eosinophils # 0.0 (0-0.7) k/uL Basophils # 0.1 (0-0.2) k/uL PT 10.9 (9.0-12.0) sec INR 1.0 (<1.2) APTT 24.1 (22.0-30.0) sec Sodium (137-145) mmol/L Potassium (3.5-5.1) mmol/L Chloride (98-107) mmol/L Carbon Dioxide (22-30) mmol/L Anion Gap mmol/L BUN (7-17) mg/dL Creatinine (0.52-1.04) mg/dL Est GFR (CKD-EPI)AfAm (>60 ml/min/1.73 sqM) Est GFR (CKD-EPI)NonAf (>60 ml/min/1.73 sqM) Glucose (74-99) mg/dL Calcium (8.4-10.2) mg/dL Total Bilirubin (0.2-1.3) mg/dL AST (14-36) U/L ALT (4-34) U/L Alkaline Phosphatase (38-126) U/L Ammonia (<30) umol/L Troponin I (0.000-0.034) ng/mL Total Protein (6.3-8.2) g/dL Albumin (3.5-5.0) g/dL Urine Color Yellow Urine Appearance Clear (Clear) Urine pH 8.0 (5.0-8.0) Ur Specific [place] 1.050 H (1.001-1.035) Urine Protein Negative (Negative) Urine Glucose (UA) Negative (Negative) Urine Ketones Negative (Negative) Urine Blood Negative (Negative) Urine Nitrite Negative (Negative) Urine Bilirubin Negative (Negative) Urine Urobilinogen 2.0 (<2.0) mg/dL Ur Leukocyte Esterase Negative (Negative) 01/30/21 01/30/21 01/30/21 Range/Units 15:52 15:52 15:52 WBC (3.8-10.6) k/uL RBC (3.80-5.40) m/uL Hgb (11.4-16.0) gm/dL Hct (34.0-46.0) % MCV (80.0-100.0) fL MCH (25.0-35.0) pg MCHC (31.0-37.0) g/dL RDW (11.5-15.5) % Plt Count (150-450) k/uL MPV Neutrophils % % Lymphocytes % % Monocytes % % Eosinophils % % Basophils % % Neutrophils # (1.3-7.7) k/uL Lymphocytes # (1.0-4.8) k/uL Monocytes # (0-1.0) k/uL Eosinophils # (0-0.7) k/uL Basophils # (0-0.2) k/uL PT (9.0-12.0) sec INR (<1.2) APTT (22.0-30.0) sec Sodium 132 L (137-145) mmol/L Potassium 3.7 (3.5-5.1) mmol/L Chloride 97 L (98-107) mmol/L Carbon Dioxide 28 (22-30) mmol/L Anion Gap 7 mmol/L BUN 14 (7-17) mg/dL Creatinine 0.55 (0.52-1.04) mg/dL Est GFR (CKD-EPI)AfAm >90 (>60 ml/min/1.73 sqM) Est GFR (CKD-EPI)NonAf >90 (>60 ml/min/1.73 sqM) Glucose 98 (74-99) mg/dL Calcium 8.4 (8.4-10.2) mg/dL Total Bilirubin 0.7 (0.2-1.3) mg/dL AST 25 (14-36) U/L ALT 13 (4-34) U/L Alkaline Phosphatase 177 H (38-126) U/L Ammonia <9 (<30) umol/L Troponin I 0.145 H* (0.000-0.034) ng/mL Total Protein 6.6 (6.3-8.2) g/dL Albumin 3.3 L (3.5-5.0) g/dL Urine Color Urine Appearance (Clear) Urine pH (5.0-8.0) Ur Specific [place] (1.001-1.035) Urine Protein (Negative) Urine Glucose (UA) (Negative) Urine Ketones (Negative) Urine Blood (Negative) Urine Nitrite (Negative) Urine Bilirubin (Negative) Urine Urobilinogen (<2.0) mg/dL Ur Leukocyte Esterase (Negative) - EKG Data EKG Comments: EKG demonstrates sinus tachycardia with a ventricular rate of 103. KS interval 124. Distress 70. QTC of 445. No acute ST segment elevations or depressions concerning for ischemic changes Disposition Clinical Impression: Acute encephalopathy, NSTEMI (non-ST elevated myocardial infarction), Metastatic cancer to brain, History of breast cancer Disposition: ADMITTED IP TO THIS HOSP Condition: Poor Is patient prescribed a controlled substance at d/c from ED?: No Decision to Admit Reason: Admit from EC Decision Date: 01/30/21 Decision Time: 19:23
[2021-01-30] MEDS ORDERED: OLANZapine 10 MG VIAL IM STA (18:05)
--- NOTE | 2021-01-30 18:11 | CT ---
EXAMINATION TYPE: CT chest angio for PE DATE OF EXAM: 01/30/2021 COMPARISON: 06/07/2020 HISTORY: Patient poor historian TECHNIQUE: CT scan of the chest performed with angiogram protocol utilizing 100 mL of Isovue-370 CT DLP: 338.6 mGycm Automated exposure control for dose reduction was used. FINDINGS: Pulmonary trunk opacification is adequate for evaluation. There is mild respiratory motion which is a limiting factor in evaluation of subsegmental and subsegmental pulmonary arteries. There is an appar ent filling defect in a left lower lobe subsegmental artery (series 401 image 76) (series 402 image 1 4). No occlusive filling defects are seen in the pulmonary trunk or proximal right or left pulmonary arteries. There is extensive hilar and mediastinal adenopathy with extension into the right lung parenchyma. Th ere is a right upper lobe mass new compared to prior measurement 3.0 x 2.9 cm. The confluent adenopat hy in the mediastinum, right hilum which extends into the right renal parenchyma encases the right hi lar exiting pulmonary arteries and causes severe narrowing of the right lower lobe pulmonary artery ( series 401 image 64) and upper lobe pulmonary artery series 401 image 58) in addition to severe narro wing of proximal segmental pulmonary arteries. There is opacification of the pulmonary arteries dista lly in the right lung. Invasion of the pulmonary arteries is highly suspected. The extensive confluent adenopathy has a superior mediastinal extension, it encases the bilateral pratik nstem bronchi greater on the right and extends further superiorly to the level of the right thyroid g land lobe. In the upper trachea there are soft tissue opacities (series 401 image 23) on the dependen t right lower side of the lumen and due to encasement by this soft tissue mass is difficult to determ ine whether this is direct extension of the mass versus small amount of debris in the tracheal lumen. No distal bronchial tree filling defects are seen. There is a large soft tissue mass in the right parkinson praclavicular region measuring 4.5 x 4.4 cm. There are additional bilateral supraclavicular soft tiss ue masses which are new. Additionally there are new bilateral axillary soft tissue masses. Additionally there is anterior mediastinal extension of the tumor spread which was not seen on prior study. There is now a anterior mediastinal soft tissue mass extending to the anterior chest wall mehul g the right side of the sternum. The esophagus at the level of the pulmonary arteries is difficult se parate from the spinal adenopathy. There are scattered groundglass opacities throughout the lung and bibasilar subsegmental atelectasis. There are few air-filled cysts for example in the right upper lobe inferiorly and the left lower lob e posteriorly. No pneumothorax or pleural effusion seen. There is a new trace pericardial effusion. H eart is normal in size. No acute osseous abnormalities seen. No definite metastasis osseous lesion seen though correlation wi th bone scintigraphy may be more beneficial for this. Upper abdomen is grossly unremarkable. IMPRESSION: 1. Apparent filling defect in the left lower lobe subsegmental which could reflect nonocclusive filli ng defect arterial embolism though motion artifact could cause a similar appearance. 2. Severe narrowing of lobar and segmental pulmonary arterial branches secondary to extensive conflue nt hilar and mediastinal adenopathy, complete occlusion of segmental and subsegmental pulmonary arter ies secondary to malignancy is not entirely excluded. 3. Findings consistent with worsening malignancy with high suspicion for invasion of the pulmonary ar teries in the right hilum, invasion of the esophagus, questionable invasion of the right upper trache al versus small amount of debris within the trachea, and extension into the anterior chest wall throu gh the anterior mediastinum to the right of the sternum. 4. Trace new pericardial effusion.
[2021-01-30] MEDS ORDERED: HYDROmorphone 1 MG/ML 1 ML SYRINGE IVP STA (19:16)
[2021-01-30] MEDS ORDERED: CEFEPIME 1 GM in SODIUM CHLORIDE 0.9% 50 ML IVPB STA (19:19)
[2021-01-30] MEDS ORDERED: VANCOMYCIN IV PER PHARMACY 1 EACH MISC MISCELLANE PRN (19:19)
[2021-01-30] MEDS ORDERED: NALOXONE 0.4 MG/ML 1 ML VIAL IV PRN (19:20)
[2021-01-30] MEDS ORDERED: VANCOMYCIN 1,000 MG in SODIUM CHLORIDE 0.9% 250 ML IVPB STA (19:27)
[2021-01-30 20:05] LABS: Appearance,Urine Clear (Clear); Bilirubin,Urine Negative (Negative); Blood,Urine Negative (Negative); Color,Urine Yellow; Glucose,Urine (UA) Negative (Negative); Ketones,Urine Negative (Negative); Leukocyte Esterase,Urine Negative (Negative); Nitrite,Urine Negative (Negative); Protein,Urine Negative (Negative)
[2021-01-30] MEDS: SODIUM CHLORIDE 0.9% 1,000 ML IV SCH (20:08)
--- NOTE | 2021-01-30 22:29 | P.HPIM ---
History of Present Illness H&P Date: 01/30/21 Chief Complaint: Decreased responsiveness This is a 65-year-old patient who follows with oncologist Dr. Deluca. History is obtained by the doctor Macy the bedside. Patient normally lives with her in [place]. Because of getting radiation treatment she is c urrently living in [place] on with the daughter Macy. She has a diagnosis of metastatic breast cancer. She was recently found to have significant brain metastases and metastatic edema. An herniation and she did receive whole brain radiation treatment. That she completed the beginning of December. She also had some brain hemorrhage from the same. She was diagnosed with breast cancer initially in 2018. He had received chemotherapy. 2-D echocardiogram showed EF of 40-45%.. Had bilateral mastectomy. Patient's currently undergoing radiation treatment lymph nodes. Patient oral intake has been fair. Having bowel movements. Pain control. Patient's daughter had gone to work today when she came back she found the patient with altered mental status. Patient is supposed to have gone for radiation treatment. Is getting palliative treatment. [employer] was called and they broke down the door. Patient's son to be asleep on the couch. She was agitated not answering questions. Chest CT that in the ER showing extensive disease. Including infiltrating the pulmonary artery. Patient is having significant pain. Given IV Dilaudid in the ER. Sedated from the same. Also given IV antibiotics in the form of cefepime and vancomycin. Daughter does understand the prognosis guarded. ER physician Dr. Swan also spoke to the doctor. Admitting review of systems: See above. Patient unable to give any history. Past medical history to include: Metastatic breast cancer with metastases to the brain, bleed. Herniation. CHF EF 35-40%. Code. Stomach ulcers. Social history: Lives in [place] with her . Currently reported on for receiving palliative treatment. Patient smoked for 45 years stopping in 2018. One half a pack a day. No alcohol. . Family history: Uterine cancer, CAD Physical examination: VITAL SIGNS: 99.5, 93, 18, 106/70, 96% on 2 L GENERAL: BMI 20.6, laying in bed, sedated. EYES: Pupils equal. Conjunctiva normal. HEENT: External appearance of nose and ears normal, oral cavity grossly normal. NECK: JVD not raised; masses not palpable. HEART: First and second heart sounds are normal; no edema. LUNGS: Respiratory rate increased; increased breath sounds. ABDOMEN: Soft, nontender, liver spleen not palpable, no masses palpable. PSYCH: Patient sedated, unable to assessl. NEUROLOGICAL: Cranial nerves grossly intact; no facial asymmetry, power and sensation grossly intact. LYMPHATICS: Lymph node palpable in the neck. INVESTIGATIONS, reviewed in the clinical context: WBC 8.1 hemoglobin 11.8 platelets 260 sodium 132 potassium 3.7 creatinine 0.55 Troponin I 0.145 UA: Negative Coronavirus [PCR]: Not detected EKG tracing personally reviewed by mo-sinus tachycardia. 10 3/m Chest x-ray film personally reviewed by me-lung masses Computed tomography scan of the brain: Multiple intracranial metastatic is. Degree of mass effect reduced from prior study. CT chest angiogram for PE. Extensive hilar and mediastinal adenopathy. With extension into right lung parenchyma. Right upper lobe mass that is new. Masses encasing the right hilar exhibiting pulmonary arteries causing severe narrowing of the right lower pulmonary artery. An upper lobe pulmonary artery. Also severe narrowing of the proximal segmental pulmonary arteries. Or precipitation of the pulmonary arteries distally in the right lung. Also encasing the bilateral main stem. Bronchi. Large soft tissue mass in the right supraclavicular region. Also actually soft tissue masses. Assessment and plan: -Patient is found her decreased sensorium. Likely acute metabolic encephalopathy. From underlying metastatic disease. -Metastatic breast cancer with known metastatic disease to the brain. Recent hemorrhage. Patient received chemotherapy in the past. Currently receiving palliative radiation treatment. Now extensive disease in the chest encompassing the bronchus and the pulmonary arteries. Any treatment this point to be entirely futile. -Chronic congestive heart failure from systolic dysfunction EF 35-40%. Possibly secondary to chemotherapy. -GERD -Brain metastatic disease with history of edema for which patient has been on Decadron Patient the ER was started on IV vancomycin. IV fluids. IV pain medication. Advanced care planning: Carolyn Baezie the bedside. Results of the computed tomography scan of the chest was discussed. She'll Eamon tear that that any attempt any form of treatment would be futile except that keep the patient comfortable. It will be the 's wishes to have the patient, home with hospice. accounts payable manager will be involved to assist with the same. Pain control was discussed. Comfort feeding was discussed. Any other treatment at this point other than comfort measures will be futile. Total time spent for this about 20 minutes Past Medical History Past Medical History: Cancer, Heart Failure, GERD/Reflux Additional Past Medical History / Comment(s): HX OF STOMACH ULCERS., BREAST CYSTS, LEFT BREAST CANCER WITH CHEMOTHERAPY & radiation,(LAST TX 04/2018)., HOSPITALIZATION DEC 2017 W/CHF & CARDIOMYOPATHY-felt to be related to chemo & had an infected port, no further problems with, mets to Right chest wall - inoperable, currently receiving radiation History of Any Multi-Drug Resistant Organisms: None Reported Past Surgical History: Breast Surgery, Orthopedic Surgery Additional Past Surgical History / Comment(s): biopsy on LT and rt breast; LT FEMUR FX SURGERY; RT KNEE SURGERY, PORT-A-CATH INSERTED & REMOVED. Left breast mastectomy May 2018, laparoscopy, RT MASTECTOMY Past Anesthesia/Blood Transfusion Reactions: No Reported Reaction Past Psychological History: No Psychological Hx Reported Additional Psychological History / Comment(s): . Smoking Status: Never smoker Past Alcohol Use History: None Reported Additional Past Alcohol Use History / Comment(s): QUIT SMOKING NOVEMBER 2017. STARTED SMOKING AGE 18, SMOKED 1/2 PPD... Daughter states she does sneak cigs sometimes Past Drug Use History: None Reported - Past Family History Mother Family Medical History: Cancer Additional Family Medical History / Comment(s): uterine cancer, quad cabg Father Family Medical History: Cancer Additional Family Medical History / Comment(s): brain cancer with mets Brother(s) Family Medical History: Deep Vein Thrombosis (DVT) Additional Family Medical History / Comment(s): 2 BROTHERS HAD DVT Medications and Allergies Home Medications Medication Instructions Recorded Confirmed Type Omeprazole [PriLOSEC] 20 mg PO DAILY 12/04/17 01/30/21 History Dexamethasone [Decadron] See Taper PO DIRECTED 01/30/21 01/30/21 History Allergies Allergy/AdvReac Type Severity Reaction Status Date / Time aspirin Allergy Severe Anaphylaxis Verified 01/30/21 14:58 adhesive tape AdvReac TEARS Verified 01/30/21 14:58 SKIN, AND REDNESS Physical Exam Vitals: Vital Signs Temp Pulse Pulse Resp BP BP Pulse Ox 01/30/21 21:10 99.5 F 93 18 106/70 96 01/30/21 20:48 98 16 129/79 94 L 01/30/21 14:49 99.5 F 112 H 20 132/69 97 Intake and Output 01/30/21 01/30/21 01/30/21 06:59 14:59 22:59 Other: Voiding Method Diaper Weight 54.431 kg 54.431 kg Results CBC & Chem 7: 01/30/21 15:52 01/30/21 15:52 Labs: Abnormal Lab Results - Last 24 Hours (Table) 01/30/21 01/30/21 01/30/21 Range/Units 15:52 15:52 15:52 RDW 16.0 H (11.5-15.5) % Lymphocytes # 0.6 L (1.0-4.8) k/uL Sodium 132 L (137-145) mmol/L Chloride 97 L (98-107) mmol/L Alkaline Phosphatase 177 H (38-126) U/L Troponin I (0.000-0.034) ng/mL Albumin 3.3 L (3.5-5.0) g/dL Ur Specific [place] 1.050 H (1.001-1.035) 01/30/21 Range/Units 15:52 RDW (11.5-15.5) % Lymphocytes # (1.0-4.8) k/uL Sodium (137-145) mmol/L Chloride (98-107) mmol/L Alkaline Phosphatase (38-126) U/L Troponin I 0.145 H* (0.000-0.034) ng/mL Albumin (3.5-5.0) g/dL Ur Specific [place] (1.001-1.035) Thrombosis Risk Factor Assmnt - Choose All That Apply Each Risk Factor Represents 2 Points: Age 61-74 years Thrombosis Risk Factor Assessment Total Risk Factor Score: 2 Thrombosis Risk Factor Assessment Level: Low Risk
[2021-01-30] MEDS: HYDROmorphone 0.5 MG/0.5 ML SYRINGE IVP PRN (23:29)
[2021-01-31] MEDS: LORazepam 2 MG/ML INJ IV PRN ×3 (02:01→15:40)
[2021-01-31] MEDS: HYDROmorphone 0.5 MG/0.5 ML SYRINGE IVP PRN ×3 (03:17→18:04)
[2021-01-31] MEDS ORDERED: VANCOMYCIN 1,000 MG in SODIUM CHLORIDE 0.9% 250 ML IVPB SCH (09:00)
[2021-01-31] MEDS: SODIUM CHLORIDE 0.9% 1,000 ML IV SCH (09:32)
[2021-01-31 10:29] LABS: Basophils % (A) 0 %; Eosinophils # (A) 0.1 k/uL (0-0.7); Eosinophils % (A) 1 %; HCT 33.7 % (34.0-46.0); HGB 10.7 gm/dL (11.4-16.0); Lymphocytes # (A) 0.8 k/uL (1.0-4.8); Lymphocytes % (A) 15 %; MCH 30.6 pg (25.0-35.0); MCHC 31.9 g/dL (31.0-37.0); MCV 95.9 fL (80.0-100.0); Mean Platelet Volume 7.7; Monocytes # (A) 0.3 k/uL (0-1.0); Monocytes % (A) 6 %; Neutrophils # (A) 3.8 k/uL (1.3-7.7); Neutrophils % (A) 75 %; Platelet Count 251 k/uL (150-450); RBC 3.52 m/uL (3.80-5.40); RDW 15.9 % (11.5-15.5)
[2021-01-31 10:53] VITALS: TEMP 97.4
[2021-01-31 10:54] LABS: African American GFR (CKD) >90 (>60 ml/min/1.73 sqM); Anion Gap 6 mmol/L; Blood Urea Nitrogen 11 mg/dL (7-17); Calcium 8.6 mg/dL (8.4-10.2); Carbon Dioxide 29 mmol/L (22-30); Chloride 98 mmol/L (98-107); Glucose 82 mg/dL (74-99); Non-African American GFR(CKD) >90 (>60 ml/min/1.73 sqM); Potassium 3.4 mmol/L (3.5-5.1); Sodium 133 mmol/L (137-145)
--- NOTE | 2021-01-31 12:25 | CDI ---
Documentation Clarification Form Date: 01/31/2021 11:56:28 AM From: Erendira Echavarria RN Admit Date: 01/30/2021 07:20:00 PM Patient Name: Wendy Torres Visit Number: [id number] Discharge Date: ATTENTION: The Clinical Documentation Specialists (CDI) and [facility] Coding Staff appreciate your assistance in clarifying documentation. Please respond to the clarification below the line at the bottom and electronically sign. The CDI & [facility] Coding staff will review the response and follow-up if needed. Please note: Queries are made part of the Legal Health Record. If you have any questions, please contact the author of this message via ITS. Dr. Jake Gaston There is documenation of vasogenic edema 01/30, Brain CT. Additional clarification is requested. History/Risk Factors: 65-year-old female presents to the ED with altered mental status, cancer and pain. Medical History: Metastatic breast cancer with metastases to the brain, bleed. Herniation and CHF. H&P 01/30. Clinical Indicators: CT Brain: 01/30 There is a focus of increased density in the left frontal lobe superior aspect with surrounding edema. Paranasal sinuses and mastoid air cells are aerated. Low attenuation the white matter are nonspecific but suggestive of combination of vasogenic edema and remote white matter ischemia. H&P: 02/09 It will be the husbands wishes to have the patient, home with hospice. The patient is having significant pain. In the ER patient was started on IV vancomycin, IV fluids and IV pain medication. Treatment: 01/31 Hospice consult. 01/30 Dilaudid 1mg IV x 1, 01/30 to current Dilaudid 0.5 IVP Q3HR PRN pain, 01/30 to current Ativan 1mg IV Q6HR PRN Anxiety. Please clarify Vasogenic Edema. [ ] Vasogenic cerebral edema confirmed [ ] Unable to determine [ ] Other condition, please specify (Last Revision: January 2017) Vasogenic cerebral edema confirmed, POA LUD
--- NOTE | 2021-01-31 12:35 | CDI ---
Documentation Clarification Form Date: 01/31/2021 12:25:42 PM From: Erendira Echavarria RN CCDS Admit Date: 01/30/2021 07:20:00 PM Patient Name: Wendy Torres Visit Number: [id number] Discharge Date: ATTENTION: The Clinical Documentation Specialists (CDI) and [facility] Coding Staff appreciate your assistance in clarifying documentation. Please respond to the clarification below the line at the bottom and electronically sign. The CDI & [facility] Coding staff will review the response and follow-up if needed. Please note: Queries are made part of the Legal Health Record. If you have any questions, please contact the author of this message via ITS. Dr. Jake Gaston NSTEMI is documented ED note, 01/30, but is not noted in subsequent documentation. Clarification is requested. History/Risk Factors: 65-year-old female presents to the ED with altered mental status, cancer and pain. Medical History: Metastatic breast cancer with metastases to the brain, bleed. Herniation and CHF. H&P 01/30. Clinical Indicators: LABS: 01/30 Troponin 0.145, NA 132 EKG from ED note: 01/30 Sinus tachycardia with a ventricular rate of 103. NM interval 124. Distress 70. QTC of 445. No acute ST segment elevations or depressions concerning for ischemic changes. Treatment: 01/31 Hospice consult. 01/30 Dilaudid 1mg IV x 1, 01/30 to current Dilaudid 0.5 IVP Q3HR PRN pain, 01/30 to current Ativan 1mg IV Q6HR PRN Anxiety. Please clarify if the NSTEMI is: [ ] NSTEMI ____(please specify type) confirmed. [ ] NSTEMI ruled out [ ] Other condition, please specify [ ] Unable to determine (Template Last Revised: June 2020) Non-ST elevation MS; ruled out MTDD
--- NOTE | 2021-01-31 14:17 | P.CONS ---
History of Present Illness - Reason for Consult Consult date: 01/31/21 metastatic breast cancer Requesting physician: Telma Swan - Chief Complaint encephalopathy - History of Present Illness Wendy is a very pleasant pt of Dr. Miranda who has been treated with multiple modalities for triple negative breast cancer since diagnosis 11/29, with disease multiple instances of disease responses and progressions. She has had multiple sites of mets including lungs, bone, LN and most recently brain mets. Brain mets treated with XRT-recent CT head did show response to treatment but, unfortunately pt has had rather aggressive disease progression in LN, causing symptoms and currently pt is partially responsive. Discussed pt current condition and discussed Internal Medicine recommendations for hospice. Review of Systems ROS unobtainable: due to mental status Past Medical History Past Medical History: Cancer, Heart Failure, GERD/Reflux Additional Past Medical History / Comment(s): HX OF STOMACH ULCERS., BREAST CYSTS, LEFT BREAST CANCER WITH CHEMOTHERAPY & radiation,(LAST TX 04/2018)., HOSPITALIZATION DEC 2017 W/CHF & CARDIOMYOPATHY-felt to be related to chemo & had an infected port, no further problems with, mets to Right chest wall - inoperable, just doing chemo History of Any Multi-Drug Resistant Organisms: None Reported Past Surgical History: Breast Surgery, Orthopedic Surgery Additional Past Surgical History / Comment(s): biopsy on LT and rt breast; LT FEMUR FX SURGERY; RT KNEE SURGERY, PORT-A-CATH INSERTED & REMOVED. Left breast mastectomy May 2018, laparoscopy, RT MASTECTOMY Past Anesthesia/Blood Transfusion Reactions: No Reported Reaction Past Psychological History: No Psychological Hx Reported Smoking Status: Never smoker Past Alcohol Use History: None Reported Past Drug Use History: None Reported - Past Family History Mother Family Medical History: Cancer Additional Family Medical History / Comment(s): uterine cancer, quad cabg Father Family Medical History: Cancer Additional Family Medical History / Comment(s): brain cancer with mets Brother(s) Family Medical History: Deep Vein Thrombosis (DVT) Additional Family Medical History / Comment(s): 2 BROTHERS HAD DVT Medications and Allergies Allergies Allergy/AdvReac Type Severity Reaction Status Date / Time aspirin Allergy Severe Anaphylaxis Verified 01/30/21 14:58 adhesive tape AdvReac TEARS Verified 01/30/21 14:58 SKIN, AND REDNESS Physical Exam Vitals: Vital Signs Temp Pulse Pulse Resp BP BP Pulse Ox 01/31/21 08:00 97.4 F L 86 18 108/59 95 01/31/21 04:00 99 F 86 20 117/71 96 01/31/21 00:00 96.8 F L 89 20 121/76 98 01/30/21 21:10 99.5 F 93 18 106/70 96 01/30/21 20:48 98 16 129/79 94 L 01/30/21 14:49 99.5 F 112 H 20 132/69 97 Intake and Output 01/30/21 01/31/21 01/31/21 22:59 06:59 14:59 Intake Total 0 0 240 Output Total 0 2700 Balance 0 -2700 240 Intake: Oral 0 0 240 Output: Urine 0 1800 Straight 900 Post Void Residual 900 Other: Voiding Method Diaper Diaper Diaper # Voids 1 Weight 54.431 kg 85 kg Pt appears comfortable in bed, NAD, resp even and unlabored, visible rt s upraclavicular mass, skin changes 2/2 radiation. Results CBC & Chem 7: 01/31/21 10:00 01/31/21 10:06 Labs: Abnormal Lab Results - Last 24 Hours (Table) 01/30/21 01/30/21 01/30/21 Range/Units 15:52 15:52 15:52 RBC (3.80-5.40) m/uL Hgb (11.4-16.0) gm/dL Hct (34.0-46.0) % RDW 16.0 H (11.5-15.5) % Lymphocytes # 0.6 L (1.0-4.8) k/uL Sodium 132 L (137-145) mmol/L Potassium (3.5-5.1) mmol/L Chloride 97 L (98-107) mmol/L Alkaline Phosphatase 177 H (38-126) U/L Troponin I (0.000-0.034) ng/mL Albumin 3.3 L (3.5-5.0) g/dL Ur Specific [place] 1.050 H (1.001-1.035) 01/30/21 01/31/21 01/31/21 Range/Units 15:52 10:00 10:06 RBC 3.52 L (3.80-5.40) m/uL Hgb 10.7 L (11.4-16.0) gm/dL Hct 33.7 L (34.0-46.0) % RDW 15.9 H (11.5-15.5) % Lymphocytes # 0.8 L (1.0-4.8) k/uL Sodium 133 L (137-145) mmol/L Potassium 3.4 L (3.5-5.1) mmol/L Chloride (98-107) mmol/L Alkaline Phosphatase (38-126) U/L Troponin I 0.145 H* (0.000-0.034) ng/mL Albumin (3.5-5.0) g/dL Ur Specific [place] (1.001-1.035) Chest x-ray: report reviewed CT scan - chest: report reviewed CT Scan - head: report reviewed Assessment and Plan (1) Debility Current Visit: Yes Status: Acute Priority: High Code(s): R53.81 - OTHER MALAISE SNOMED Code(s): 40838328 (2) Acute encephalopathy Current Visit: Yes Status: Acute Priority: High Code(s): G93.40 - ENCEPHALOPATHY, UNSPECIFIED SNOMED Code(s): 70163638 (3) Metastatic cancer to brain Current Visit: Yes Status: Acute Priority: High Code(s): C79.31 - SECONDARY MALIGNANT NEOPLASM OF BRAIN SNOMED Code(s): 49978942 Plan: Dr. Contreras reviewed case in detail with daughter at bedside. Pt brain mets did respond to XRT. Unfortunately, pt performance status is declining rapidly and she is having disease progression in other sites. Not felt that pt would tolerate treatment. Any cancer treatment would not likely have any meaningful impact on disease that would provide pt with quality or quantity of life. Agree with IM recs. All daughters questions answered to her satisfaction. Home with hospice, pending set up Dr. Miranda will follow pt in hospice if needed. Please let us know if there is any way we can help facilitate plans. attests: I have seen and examined pt, performed H&P, developed impression and plan of care. Discussed with dictator. Agree with documentation, documented as a scribe. Time with Patient: Greater than 30
[2021-01-31 14:56] VITALS: BP 109/56; PULSE 96; RESP 20
--- NOTE | 2021-01-31 22:22 | P.DS ---
Providers Date of admission: 01/30/21 19:20 Expected date of discharge: 01/31/21 Attending physician: Jake Gaston Consults: 01/30/21 19:21 Consult Physician Urgent Consulting Provider: Eliud Miranda Consult Reason/Comments: breast cancer with mets Do you want consulting provider notified?: Already Contacted Primary care physician: [facility] Course: Chief Complaint: Decreased responsiveness This is a 65-year-old patient who follows with oncologist Dr. Deluca. History is obtained by the doctor Macy the bedside. Patient normally lives with her in [place]. Because of getting radiation treatment she is currently living in [place] on with the daughter Macy. She has a diagnosis of metastatic breast cancer. She was recently found to have significant brain metastases and metastatic edema. An herniation and she did receive whole brain radiation treatment. That she completed the beginning of December. She also had some brain hemorrhage from the same. She was diagnosed with breast cancer initially in 2017. He had received chemotherapy. 2-D echocardiogram showed EF of 40-45%.. Had bilateral mastectomy. Patient's currently undergoing radiation treatment lymph nodes. Patient oral intake has been fair. Having bowel movements. Pain control. Patient's daughter had gone to work today when she came back she found the patient with altered mental status. Patient is supposed to have gone for radiation treatment. Is getting palliative treatment. [facility] was called and they broke down the door. Patient's son to be asleep on the couch. She was agitated not answering questions. Chest CT that in the ER showing extensive disease. Including infiltrating the pulmonary artery. Patient is having significant pain. Given IV Dilaudid in the ER. Sedated from the same. Also given IV antibiotics in the form of cefepime and vancomycin. Daughter does understand the prognosis guarded. ER physician Dr. Swan also spoke to the doctor. Discussion was held with the patient's daughter the bedside. Patient is bit comfort care. January 31: Patient receiving pain medicine. Comfortable. 2 daughters at the bedside. Patient be transported to home. Prescriptions written for Roxanol and Ativan. [facility]. Patient be going to her 's place. In [place]. Discussed with returned case inspector. Discussion and discharge planning more than 35 minutes Past medical history to include: Metastatic breast cancer with metastases to the brain, bleed. Herniation. CHF EF 35-40%. Code. Stomach ulcers. Social history: Lives in [place] with her . Currently reported on for receiving palliative treatment. Patient smoked for 45 years stopping in 2018. One half a pack a day. No alcohol. . Family history: Uterine cancer, CAD Physical examination: VITAL SIGNS: 97.4, 96, 20, 10 9 x 56, 95% room air GENERAL: , laying in bed, sedated. HEART: First and second heart sounds are normal; no edema. LUNGS: Respiratory rate increased; increased breath sounds. PSYCH: Patient sedated, unable to assessl. . INVESTIGATIONS, reviewed in the clinical context: WBC 8.1 hemoglobin 11.8 platelets 260 sodium 132 potassium 3.7 creatinine 0.55 Troponin I 0.145 UA: Negative Coronavirus [PCR]: Not detected EKG tracing personally reviewed by me-sinus tachycardia. 10 3/m Chest x-ray film personally reviewed by me-lung masses Computed tomography scan of the brain: Multiple intracranial metastatic is. Degree of mass effect reduced from prior study. CT chest angiogram for PE. Extensive hilar and mediastinal adenopathy. With extension into right lung parenchyma. Right upper lobe mass that is new. Masses encasing the right hilar exhibiting pulmonary arteries causing severe narrowing of the right lower pulmonary artery. An upper lobe pulmonary artery. Also severe narrowing of the proximal segmental pulmonary arteries. Or precipitation of the pulmonary arteries distally in the right lung. Also encasing the bilateral main stem. Bronchi. Large soft tissue mass in the right supraclavicular region. Also actually soft tissue masses. Assessment and plan: -Patient is found her decreased sensorium. Likely acute metabolic encephalopathy. From underlying metastatic disease. -Metastatic breast cancer with known metastatic disease to the brain. Recent h emorrhage. Patient received chemotherapy in the past. Currently receiving palliative radiation treatment. Now extensive disease in the chest encompassing the bronchus and the pulmonary arteries. Any treatment this point to be entirely futile. -Chronic congestive heart failure from systolic dysfunction EF 35-40%. Possibly secondary to chemotherapy. -GERD -Brain metastatic disease with history of edema for which patient has been on Decadron Disposition: Home with hospice Patient Condition at Discharge: Poor Plan - Discharge Summary Discharge Rx Participant: Yes New Discharge Prescriptions: Discontinued Omeprazole [PriLOSEC] 20 mg PO DAILY Dexamethasone [Decadron] See Taper PO DIRECTED Follow up Appointment(s)/Referral(s): Mahdi Dena [Primary Care Provider] - 1-2 days Activity/Diet/Wound Care/Special Instructions: Home with [facility] ([facility]) [facility] - [phone] Discharge Disposition: HOME WITH HOSPICE
--- NOTE | 2021-02-05 08:19 | CDI ---
Documentation Clarification Form Date: 02/05/2021 08:08:28 AM From: Clarence Falcon Admit Date: 01/30/2021 07:20:00 PM Patient Name: Wendy Torres Visit Number: [id number] Discharge Date: 01/31/2021 06:11:00 PM ATTENTION: The Clinical Documentation Specialists (CDI) and [facility] Coding Staff appreciate your assistance in clarifying documentation. Please respond to the clarification below the line at the bottom and electronically sign. The CDI & [facility] Coding staff will review the response and follow-up if needed. Please note: Queries are made part of the Legal Health Record. If you have any questions, please contact the author of this message via ITS. Dr. Jake De Leon, Metabolic encephalopathy is documented in your discharge summary. Discharge summary states this is from the neoplastic disease process. Need to clarify if this is true metabolic encephalopathy or BODS DEVELOPER systemic atrophy which codes to G13.1 as a manifestation of the neoplastic disease process. History/Risk Factors: metastatic cancer to brain, hx of cerebral edema and bleed. Clinical Indicators: Labs: EEG: CT/MRI Brain: Treatment: Consults: Please clarify the type of encephalopathy, if known: [ ] metastatic cancer to brain causing BODS DEVELOPER systemic atrophy [ ] Metabolic Encephalopathy only [ ] both true metabolic encephalopathy and BODS DEVELOPER systemic atrophy [ ] Toxic Encephalopath [ ] Other, please specify [ ] Unable to determine see DC summary. No change in documentation Required. MTDD
== END 2021-01-31 18:11 | disposition hospice, home (50) | DRG 54 ==
LOC: EC 14:30 → 3SCARD 19:20
PROVIDERS: ADMIT Hospitalist; ATTEND Hospitalist
DX: C79.31 Secondary malignant neoplasm of brain (principal); G93.41 Metabolic encephalopathy; G93.6 Cerebral edema; I42.8 Other cardiomyopathies; I50.22 Chronic systolic (congestive) heart failure; G13.1 Other systemic atrophy primarily affecting central nervous system in neoplastic disease; I25.10 Atherosclerotic heart disease of native coronary artery without angina pectoris; T45.1X5A Adverse effect of antineoplastic and immunosuppressive drugs, initial encounter; K21.9 Gastro-esophageal reflux disease without esophagitis; Z17.1 Estrogen receptor negative status [ER-]; Z51.5 Encounter for palliative care; C50.919 Malignant neoplasm of unspecified site of unspecified female breast; Z66 Do not resuscitate; Z20.822 Contact with and (suspected) exposure to COVID-19; Z80.49 Family history of malignant neoplasm of other genital organs; Z80.8 Family history of malignant neoplasm of other organs or systems; Z82.49 Family history of ischemic heart disease and other diseases of the circulatory system; Z86.718 Personal history of other venous thrombosis and embolism; Z87.11 Personal history of peptic ulcer disease; Z90.13 Acquired absence of bilateral breasts and nipples; Z92.21 Personal history of antineoplastic chemotherapy; Z92.3 Personal history of irradiation; Z87.891 Personal history of nicotine dependence
CPT/HCPCS: 36415; 70450; 71045; 71275; 80048; 80053; 81003; 82140; 83880; 84484; 85025; 85610; 85730; 87040; 87635; 93005; 96365; 96367; 96372; 96375; 96376; 99285